=== PATIENT | male | born 1965 | race Caucasian/White ===

== ENCOUNTER 2019-07-08 13:16 | Inpatient (IN) | payer OTHER ==
[2019-07-08 18:11] VITALS: BMI 18.4
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
[2019-07-08] MEDS ORDERED: ACETAMINOPHEN 325 MG TABLET (FP) PO PRN ×2 (19:00)
[2019-07-08] MEDS ORDERED: MAGNESIUM HYDROX 2400MG/30ML ORAL SUSPENSION 30 ML CUP PO PRN (19:00)
[2019-07-08] MEDS ORDERED: NICOTINE POLACRILEX 2 MG GUM BUC PRN (19:00)
[2019-07-08] MEDS ORDERED: MAGNESIUM CITRATE 300 ML BOTTLE PO PRN (19:00)
[2019-07-08] MEDS ORDERED: hydrOXYzine PAMOATE 25 MG CAPSULE (FP) PO PRN (19:00)
[2019-07-08] MEDS ORDERED: MENTHOL/PHENOL 1 EACH UD MM PRN (19:00)
[2019-07-08] MEDS ORDERED: MAG HYDROX/AL HYDROX/SIMETH 30 ML UNIT-DOSE CUP PO PRN (19:00)
[2019-07-08] MEDS ORDERED: chlordiazePOXIDE HCL 25 MG CAPSULE PO PRN (19:02)
[2019-07-08] MEDS ORDERED: METHADONE HCL 10 MG TABLET (FOR DETOX USE ONLY) PO ONE (19:03)
[2019-07-08] MEDS ORDERED: WARFARIN NA 7.5 MG TABLET (FP) PO SCH (22:00)
[2019-07-08] MEDS: MELATONIN 5 MG TABLETS PO PRN (22:01)
[2019-07-08] MEDS: THIAMINE HCL 100 MG TABLET (FP) PO SCH (22:01)
[2019-07-08] MEDS: chlordiazePOXIDE HCL 25 MG CAPSULE PO SCH (22:01)
[2019-07-09] MEDS: chlordiazePOXIDE HCL 25 MG CAPSULE PO SCH ×4 (06:07→22:35)
[2019-07-09] MEDS ORDERED: METHADONE HCL 10 MG TABLET (FOR DETOX USE ONLY) ONE (09:46)
[2019-07-09] MEDS ORDERED: METHADONE HCL 5 MG TABLET (FOR DETOX USE ONLY) ONE (09:47)
[2019-07-09] MEDS ORDERED: METHADONE (DETOX) 20 MG, METHADONE (DETOX) 5 MG PO ONE (10:00)
[2019-07-09 10:25] LABS: ALBUMIN 3.5 g/dl (3.4-5.0); BILIRUBIN,TOTAL 0.6 mg/dL (0.2-1); CALCIUM 8.9 mg/dL (8.5-10.1); CREATININE 0.7 mg/dL (0.55-1.3); HEMATOCRIT 39.3 % (35.4-49); HEMOGLOBIN 13.5 GM/dL (11.7-16.9); MCH 32.6 pg (25.7-33.7); MCHC 34.4 g/dl (32.0-35.9); MEAN CELL VOLUME 94.7 fl (80-96); MEAN PLT VOLUME 9.2 fl (7.5-11.1); PLATELET COUNT 238 K/MM3 (134-434); POTASSIUM 4.3 mmol/L (3.5-5.1); RBC 4.15 M/mm3 (4.00-5.60); RDW 14.5 % (11.9-15.9); TOT PROT 6.5 g/dl (6.4-8.2); WHITE BLOOD COUNT 5.7 K/mm3 (4.0-10.0)
[2019-07-09] MEDS: PRENATAL VITAMINS W/ FOLIC ACID TABLET (FP) PO SCH (10:44)
[2019-07-09 10:49] LABS: INR 1.89 (0.83-1.09); PROTHROMBIN TIME (PATIENT) 22.4 SEC (9.7-13.0)
[2019-07-09 12:28] LABS: RPR REACTIVE 1:1 (NONREACTIVE)
--- NOTE | 2019-07-09 12:40 | CONSULT ---
[facility] Psychiatric Consult - Data Date of interview: 07/09/19 Admission source: [facility] Identifying data: Patient is approached at bedside for psychiatric evaluation. Declines. Nursing staff is made aware.
--- NOTE | 2019-07-09 13:54 | PN ---
[facility] CIWA - CIWA Score Nausea/Vomitin-No Nausea/No Vomiting Muscle Tremors: 3 Anxiety: 3 Agitation: 2 Paroxysmal Sweats: 3 Orientation: 0-Oriented Tacttile Disturbances: 2-Mild Itch/Numbness/Burn Auditory Disturbances: 0-None Visual Disturbances: 0-None Headache: 0-None Present CIWA-Ar Total Score: 13 [facility] COWS - Scale Resting Pulse: 1= [place] 81-100 Sweatin= Chills/Flushing Restless Observation: 1= Difficult to Sit Still Pupil Size: 0= Normal to Room Light Bone or Joint Aches: 1= Mild Discomfort Runny Nose/ Eye Tearin= None GI Upset > 30mins: 0= None Tremor Observation of Outstretched Hands: 2= Slight Tremor Visible Yawning Observation: 1= 1-2x During Session Anxiety or Irritability: 2=Irritable/Anxious Goose Flesh Skin: 3=Piloerection (and Chills.) COWS Score: 12 S Progress Note (SOAP) Subjective: Chills, Sweating, Anxious, Body Aches, Poor Appetite. Objective: PATIENT A & O X 3, OBSERVED AMBULATING ON UNIT UNASSISTED. IN NO ACUTE DISTRESS. 07/09/19 13:51 Vital Signs Temperature 98.2 F 07/09/19 13:34 Pulse Rate 87 07/09/19 13:34 Respiratory Rate 18 07/09/19 13:34 Blood Pressure 107/70 07/09/19 13:34 O2 Sat by Pulse Oximetry (%) Laboratory Tests 07/09/19 07/09/19 07/09/19 08:00 08:00 08:00 WBC 5.7 RBC 4.15 Hgb 13.5 Hct 39.3 MCV 94.7 MCH 32.6 MCHC 34.4 RDW 14.5 Plt Count 238 MPV 9.2 PT with INR INR Sodium 141 Potassium 4.3 Chloride 105 Carbon Dioxide 27 Anion Gap 9 BUN 22.0 H Creatinine 0.7 Est GFR (CKD-EPI)AfAm 124.87 Est GFR (CKD-EPI)NonAf 107.74 Random Glucose 91 Calcium 8.9 Total Bilirubin 0.6 AST 29 ALT 40 Alkaline Phosphatase 56 Total Protein 6.5 Albumin 3.5 RPR Titer Reactive 1:1 H 07/09/19 08:00 WBC RBC Hgb Hct MCV MCH MCHC RDW Plt Count MPV PT with INR 22.40 H INR 1.89 H Sodium Potassium Chloride Carbon Dioxide Anion Gap BUN Creatinine Est GFR (CKD-EPI)AfAm Est GFR (CKD-EPI)NonAf Random Glucose Calcium Total Bilirubin AST ALT Alkaline Phosphatase Total Protein Albumin RPR Titer LABS NOTED. RESULTS OF DETOX ADMISSION PT/INR NOTED. PATIENT TAKES COUMADIN, 8 MG PO DAILY FOR TREATMENT OF PREVIOUS DVT / PE. PATIENT REPORTS THAT HE HAS TAKEN 8 MG PO DAILY FOR LAST SEVERAL MONTHS NOW AND THAT HE CONSULTS AN OUTSIDE MEDICAL PROVIDER FOR EVALUATION OF THIS CONDITION/ MEDICATION ON A REGULAR MONTHLY BASIS. PATIENT ALSO REPORTS COMPLETE DAILY COMPLIANCE WITH THE MEDICATION. ADMISSION RPR RESULT NOTED: REACTIVE 1:1 (MHATP: PENDING). PATIENT REPORTS THAT HE COMPLETED A FULL COURSE OF TREATMENT FOR SYPHILIS IN THE PAST. 07/09/19 13:52 Assessment: 07/09/19 13:51 WITHDRAWAL SYMPTOMS. REACTIVE RPR. 07/09/19 13:56 Plan: CONTINUE DETOX. INCREASE DAILY PO WATER INTAKE. ENSURE PO FOR CALORIC SUPPLEMENTATION.
[2019-07-09 14:48] LABS: TREPONEMA ANTIBODY REACTIVE (NONREACTIVE)
[2019-07-09] MEDS ORDERED: WARFARIN NA 5 MG, WARFARIN NA 3 MG PO SCH (18:00)
[2019-07-09] MEDS: WARFARIN NA 5 MG, WARFARIN NA 3 MG PO SCH (18:00)
[2019-07-09] MEDS: THIAMINE HCL 100 MG TABLET (FP) PO SCH (22:35)
[2019-07-09] MEDS: MELATONIN 5 MG TABLETS PO PRN (22:35)
[2019-07-10] MEDS: chlordiazePOXIDE HCL 25 MG CAPSULE PO SCH ×4 (06:05→22:37)
[2019-07-10] MEDS ORDERED: METHADONE HCL 10 MG TABLET (FOR DETOX USE ONLY) PO ONE (10:00)
[2019-07-10] MEDS: PRENATAL VITAMINS W/ FOLIC ACID TABLET (FP) PO SCH (10:28)
[2019-07-10] MEDS: NICOTINE 14 MG/24 HOURS TOPICAL PATCH TD SCH (14:31)
--- NOTE | 2019-07-10 14:51 | PN ---
[facility] CIWA - CIWA Score Nausea/Vomitin-Mild Nausea/No Vomiting Muscle Tremors: 1-None Visible, but [place] Anxiety: 3 Agitation: 2 Paroxysmal Sweats: 2 Orientation: 0-Oriented Tacttile Disturbances: 1-Very Mild Itch/Numbness Auditory Disturbances: 0-None Visual Disturbances: 0-None Headache: 1-Very Mild CIWA-Ar Total Score: 11 S COWS - Scale Resting Pulse: 1= [place] 81-100 Sweatin= Chills/Flushing Restless Observation: 0= Sits Still Pupil Size: 0= Normal to Room Light Bone or Joint Aches: 1= Mild Discomfort Runny Nose/ Eye Tearin= Nasal Congestion GI Upset > 30mins: 2= Nausea/Diarrhea Tremor Observation of Outstretched Hands: 2= Slight Tremor Visible Yawning Observation: 1= 1-2x During Session Anxiety or Irritability: 2=Irritable/Anxious Goose Flesh Skin: 0=Smooth Skin COWS Score: 11 [facility] Progress Note (SOAP) Subjective: 54 years male 1st patient [facility] admission was admitted on 07/08/19 for alcohol and opiate withdrawal sx management doing well with librium and methadone detox regimen requests for nicotine replacement therapy low bmi continue ensure supplement Objective: 07/10/19 14:55 Vital Signs Temperature 99.3 F 07/10/19 09:58 Pulse Rate 82 07/10/19 09:58 Respiratory Rate 18 07/10/19 09:58 Blood Pressure 128/76 07/10/19 09:58 O2 Sat by Pulse Oximetry (%) Laboratory Last Values WBC 5.7 K/mm3 (4.0-10.0) 07/09/19 08:00 RBC 4.15 M/mm3 (4.00-5.60) 07/09/19 08:00 Hgb 13.5 GM/dL (11.7-16.9) 07/09/19 08:00 Hct 39.3 % (35.4-49) 07/09/19 08:00 MCV 94.7 fl (80-96) 07/09/19 08:00 MCH 32.6 pg (25.7-33.7) 07/09/19 08:00 MCHC 34.4 g/dl (32.0-35.9) 07/09/19 08:00 RDW 14.5 % (11.9-15.9) 07/09/19 08:00 Plt Count 238 K/MM3 (134-434) 07/09/19 08:00 MPV 9.2 fl (7.5-11.1) 07/09/19 08:00 PT with INR 22.40 SEC (9.7-13.0) H 07/09/19 08:00 INR 1.89 (0.83-1.09) H 07/09/19 08:00 Sodium 141 mmol/L (136-145) 07/09/19 08:00 Potassium 4.3 mmol/L (3.5-5.1) 07/09/19 08:00 Chloride 105 mmol/L (98-107) 07/09/19 08:00 Carbon Dioxide 27 mmol/L (21-32) 07/09/19 08:00 Anion Gap 9 MMOL/L (8-16) 07/09/19 08:00 BUN 22.0 mg/dL (7-18) H 07/09/19 08:00 Creatinine 0.7 mg/dL (0.55-1.3) 07/09/19 08:00 Est GFR (CKD-EPI)AfAm 124.87 07/09/19 08:00 Est GFR (CKD-EPI)NonAf 107.74 07/09/19 08:00 Random Glucose 91 mg/dL (74-106) 07/09/19 08:00 Calcium 8.9 mg/dL (8.5-10.1) 07/09/19 08:00 Total Bilirubin 0.6 mg/dL (0.2-1) 07/09/19 08:00 AST 29 U/L (15-37) 07/09/19 08:00 ALT 40 U/L (13-61) 07/09/19 08:00 Alkaline Phosphatase 56 U/L (45-117) 07/09/19 08:00 Total Protein 6.5 g/dl (6.4-8.2) 07/09/19 08:00 Albumin 3.5 g/dl (3.4-5.0) 07/09/19 08:00 RPR Titer Reactive 1:1 (NONREACTIVE) H 07/09/19 08:00 T.pallidum Ab (MHA) Reactive (NONREACTIVE) 07/09/19 08:00 lab noted 07/10/19 14:56 Assessment: 07/10/19 14:57 alcohol and opiate withdrawal sx Plan: continue librium and methadone detox regimen
[2019-07-10] MEDS: WARFARIN NA 5 MG, WARFARIN NA 3 MG PO SCH (18:22)
[2019-07-10] MEDS: THIAMINE HCL 100 MG TABLET (FP) PO SCH (22:38)
[2019-07-10] MEDS: MELATONIN 5 MG TABLETS PO PRN (22:39)
[2019-07-11] MEDS ORDERED: chlordiazePOXIDE HCL 10 MG CAPSULE PO PRN
[2019-07-11] MEDS: chlordiazePOXIDE HCL 10 MG CAPSULE PO SCH ×4 (07:39→22:06)
[2019-07-11] MEDS ORDERED: METHADONE (DETOX) 10 MG, METHADONE (DETOX) 5 MG PO ONE (10:00)
[2019-07-11] MEDS ORDERED: METHADONE HCL 10 MG TABLET (FOR DETOX USE ONLY) ONE (10:23)
[2019-07-11] MEDS ORDERED: METHADONE HCL 5 MG TABLET (FOR DETOX USE ONLY) ONE (10:24)
[2019-07-11] MEDS: NICOTINE 14 MG/24 HOURS TOPICAL PATCH TD SCH (10:43)
[2019-07-11] MEDS: PRENATAL VITAMINS W/ FOLIC ACID TABLET (FP) PO SCH (10:44)
--- NOTE | 2019-07-11 11:05 | PN ---
[facility] CIWA - CIWA Score Nausea/Vomitin-No Nausea/No Vomiting Muscle Tremors: 2 Anxiety: 3 Agitation: 2 Paroxysmal Sweats: 1-Minimal Palms Moist Orientation: 0-Oriented Tacttile Disturbances: 0-None Auditory Disturbances: 0-None Visual Disturbances: 0-None Headache: 0-None Present CIWA-Ar Total Score: 8 S COWS - Scale Resting Pulse: 0= [place] 80 or Below Sweatin= Chills/Flushing Restless Observation: 0= Sits Still Pupil Size: 0= Normal to Room Light Bone or Joint Aches: 1= Mild Discomfort Runny Nose/ Eye Tearin= Nasal Congestion GI Upset > 30mins: 1= Stomach Cramp Tremor Observation of Outstretched Hands: 2= Slight Tremor Visible Yawning Observation: 0= None Anxiety or Irritability: 2=Irritable/Anxious Goose Flesh Skin: 0=Smooth Skin COWS Score: 8 [facility] Progress Note (SOAP) Subjective: doing well with libirum and methadone detox regimen social with peers in day room ambulating on hallway hesitate to discuss aftercare with staff recommend medication assisted treatment program reluctant to discuss MAT further Objective: 07/11/19 11:04 Vital Signs Temperature 97.1 F L 07/11/19 09:36 Pulse Rate 78 07/11/19 09:36 Respiratory Rate 17 07/11/19 09:36 Blood Pressure 112/80 07/11/19 09:36 O2 Sat by Pulse Oximetry (%) Laboratory Last Values WBC 5.7 K/mm3 (4.0-10.0) 07/09/19 08:00 RBC 4.15 M/mm3 (4.00-5.60) 07/09/19 08:00 Hgb 13.5 GM/dL (11.7-16.9) 07/09/19 08:00 Hct 39.3 % (35.4-49) 07/09/19 08:00 MCV 94.7 fl (80-96) 07/09/19 08:00 MCH 32.6 pg (25.7-33.7) 07/09/19 08:00 MCHC 34.4 g/dl (32.0-35.9) 07/09/19 08:00 RDW 14.5 % (11.9-15.9) 07/09/19 08:00 Plt Count 238 K/MM3 (134-434) 07/09/19 08:00 MPV 9.2 fl (7.5-11.1) 07/09/19 08:00 PT with INR 22.40 SEC (9.7-13.0) H 07/09/19 08:00 INR 1.89 (0.83-1.09) H 07/09/19 08:00 Sodium 141 mmol/L (136-145) 07/09/19 08:00 Potassium 4.3 mmol/L (3.5-5.1) 07/09/19 08:00 Chloride 105 mmol/L (98-107) 07/09/19 08:00 Carbon Dioxide 27 mmol/L (21-32) 07/09/19 08:00 Anion Gap 9 MMOL/L (8-16) 07/09/19 08:00 BUN 22.0 mg/dL (7-18) H 07/09/19 08:00 Creatinine 0.7 mg/dL (0.55-1.3) 07/09/19 08:00 Est GFR (CKD-EPI)AfAm 124.87 07/09/19 08:00 Est GFR (CKD-EPI)NonAf 107.74 07/09/19 08:00 Random Glucose 91 mg/dL (74-106) 07/09/19 08:00 Calcium 8.9 mg/dL (8.5-10.1) 07/09/19 08:00 Total Bilirubin 0.6 mg/dL (0.2-1) 07/09/19 08:00 AST 29 U/L (15-37) 07/09/19 08:00 ALT 40 U/L (13-61) 07/09/19 08:00 Alkaline Phosphatase 56 U/L (45-117) 07/09/19 08:00 Total Protein 6.5 g/dl (6.4-8.2) 07/09/19 08:00 Albumin 3.5 g/dl (3.4-5.0) 07/09/19 08:00 RPR Titer Reactive 1:1 (NONREACTIVE) H 07/09/19 08:00 T.pallidum Ab (MHA) Reactive (NONREACTIVE) 07/09/19 08:00 lab noted long history of positive RPR had "whole treatment" asymptomatic Assessment: 07/11/19 11:05 alcohol and opiate withdrawal sx Plan: continue librium detox regimen
--- NOTE | 2019-07-11 15:01 | CONSULT ---
[facility] Psychiatric Consult - Data Date of interview: 07/11/19 Admission source: [facility] Identifying data: First admission to [facility] for this 54 y/o male self-referred for detoxification (heroin, cannabis, alcohol). Examined at [address] [place] [address]. Patient is a common-law , father of three, domiciled, unemployed and supported on welfare. Substance Abuse History: Discussed with the patient. Details are concordant with current [facility] report as follows : Smoking history: Current every day smoker. Have you smoked in the past 12 months: Yes. Hx Chewing Tobacco Use: No. Initiated information on smoking cessation: No. - Substances abused. Heroin. Substance route: Inhalation. Frequency: Daily. Amount used: 1 bundle and a half. Age of first use: 49. Date of last use: 07/08/19. Alcohol. Substance route: Oral. Frequency: Daily. Amount used: half a gallon of vodka/ whiskey/2 of 6 packs of beer. Age of first use: 22. Date of last use: 07/08/19 Medical History: Remarkable for DVT's of both lower extremities (on warfarin), gastric ulcer and history of pulmonary embolism. Psychiatric History: Patient denies history of psychiatric hospitalizations. Mr Foley reports current outpatient psychiatric follow-up by Dr Almanza at a clinic in the [place] ([facility]). Diagnosed with Anxiety Disorder + MDD. Managed with seroquel 200 mg/am + 400 mg/hs (self-report). No reported history of suicide attempts. Physical/Sexual Abuse/Trauma History: Patient denies. Additional Comment: Urine drug screen results: THC-Marijuana, FEN-Fentanyl, MOP- Opiates. Noted. Mental Status Exam - Mental Status Exam Alert and Oriented to: Time, Place, Person Cognitive Function: Good Patient Appearance: Well Groomed Mood: Withdrawn, Apprehensive, Hopeful Affect: Appropriate, Mood Congruent, Normal Range Patient Behavior: Fatigued, Cooperative Speech Pattern: Clear, Appropriate Voice Loudness: Normal Thought Process: Intact, Goal Oriented Thought Disorder: Not Present Hallucinations: Denies Suicidal Ideation: Denies Homicidal Ideation: Denies Insight/Judgement: Poor Sleep: Poorly, Difficulty falling asleep Appetite: Good Muscle strength/Tone: Normal Gait/Station: Normal Psychiatric Findings - Problem List ([place] 1, 2,3) (1) Alcohol dependence Current Visit: Yes Status: Chronic Qualifiers: Substance use status: in withdrawal (2) Opioid dependence Current Visit: Yes Status: Chronic Qualifiers: Substance use status: in withdrawal Qualified Code(s): F11.23 - Opioid dependence with withdrawal (3) Nicotine dependence Current Visit: Yes Status: Chronic Qualifiers: Nicotine product type: cigarettes (4) Substance induced mood disorder Current Visit: Yes Status: Chronic (5) History of mood disorder Current Visit: Yes Status: Chronic (6) Insomnia Current Visit: Yes Status: Chronic - Initial Treatment Plan Initial Treatment Plan: Psychoeducation. Sleep hygiene. Support. Detoxification. Resumed seroquel 200 mg po hs (reduced). Side effects/benefiits discussed with patient. Mr Foley expresses agreement with this plan of care. Gave verbal consent to MD. Mayorga.
[2019-07-11] MEDS: WARFARIN NA 5 MG, WARFARIN NA 3 MG PO SCH (17:31)
[2019-07-11] MEDS ORDERED: QUEtiapine FUMARATE 200 MG TABLET PO SCH (22:00)
[2019-07-11] MEDS: THIAMINE HCL 100 MG TABLET (FP) PO SCH (22:05)
[2019-07-11] MEDS: MELATONIN 5 MG TABLETS PO PRN (22:06)
[2019-07-12] MEDS ORDERED: chlordiazePOXIDE HCL 10 MG CAPSULE PO SCH (05:00)
[2019-07-12] MEDS: NICOTINE 14 MG/24 HOURS TOPICAL PATCH TD SCH (09:41)
[2019-07-12] MEDS: PRENATAL VITAMINS W/ FOLIC ACID TABLET (FP) PO SCH (09:41)
[2019-07-12 09:58] VITALS: BP 103/61; PULSE 77; TEMP 96.2
[2019-07-12] MEDS ORDERED: METHADONE HCL 10 MG TABLET (FOR DETOX USE ONLY) PO ONE (10:00)
--- NOTE | 2019-07-12 10:06 | DS ---
[facility] Detox Discharge Summary Admission Date: 07/08/19 Discharge Date: 07/12/19 - History Present History: Alcohol Dependence, Opioid Dependence Additional Comments: 54 years old male admitted on 07/08/19 for alcohol and opiate withdrawal sx management did well with librium and methadone detox regimen no complication through out the detox stay seen by psychiatrist treated with seroquel tolerate well patient is alert oriented x 3 no wheezing no coughing no nausea no vomiting denies dizziness abdomen soft no rebound tenderness patient is worry about his prefers leave detox one day early extremities full range of motion skin warm and dry - Physical Exam Results Vital Signs: Vital Signs Temperature 96.2 F L 07/12/19 09:57 Pulse Rate 77 07/12/19 09:57 Respiratory Rate 18 07/12/19 09:57 Blood Pressure 103/61 07/12/19 09:57 O2 Sat by Pulse Oximetry (%) Pertinent Admission Physical Exam Findings: alcohol and opiate withdrawal sx Laboratory Last Values WBC 5.7 K/mm3 (4.0-10.0) 07/09/19 08:00 RBC 4.15 M/mm3 (4.00-5.60) 07/09/19 08:00 Hgb 13.5 GM/dL (11.7-16.9) 07/09/19 08:00 Hct 39.3 % (35.4-49) 07/09/19 08:00 MCV 94.7 fl (80-96) 07/09/19 08:00 MCH 32.6 pg (25.7-33.7) 07/09/19 08:00 MCHC 34.4 g/dl (32.0-35.9) 07/09/19 08:00 RDW 14.5 % (11.9-15.9) 07/09/19 08:00 Plt Count 238 K/MM3 (134-434) 07/09/19 08:00 MPV 9.2 fl (7.5-11.1) 07/09/19 08:00 PT with INR 19.60 SEC (9.7-13.0) H 07/12/19 08:00 INR 1.65 (0.83-1.09) H 07/12/19 08:00 Sodium 141 mmol/L (136-145) 07/09/19 08:00 Potassium 4.3 mmol/L (3.5-5.1) 07/09/19 08:00 Chloride 105 mmol/L (98-107) 07/09/19 08:00 Carbon Dioxide 27 mmol/L (21-32) 07/09/19 08:00 Anion Gap 9 MMOL/L (8-16) 07/09/19 08:00 BUN 22.0 mg/dL (7-18) H 07/09/19 08:00 Creatinine 0.7 mg/dL (0.55-1.3) 07/09/19 08:00 Est GFR (CKD-EPI)AfAm 124.87 07/09/19 08:00 Est GFR (CKD-EPI)NonAf 107.74 07/09/19 08:00 Random Glucose 91 mg/dL (74-106) 07/09/19 08:00 Calcium 8.9 mg/dL (8.5-10.1) 07/09/19 08:00 Total Bilirubin 0.6 mg/dL (0.2-1) 07/09/19 08:00 AST 29 U/L (15-37) 07/09/19 08:00 ALT 40 U/L (13-61) 07/09/19 08:00 Alkaline Phosphatase 56 U/L (45-117) 07/09/19 08:00 Total Protein 6.5 g/dl (6.4-8.2) 07/09/19 08:00 Albumin 3.5 g/dl (3.4-5.0) 07/09/19 08:00 RPR Titer Reactive 1:1 (NONREACTIVE) H 07/09/19 08:00 T.pallidum Ab (MHA) Reactive (NONREACTIVE) 07/09/19 08:00 lab noted history of syphilis treated - Treatment Hospital Course: Detox Protocol Followed, Detoxed Safely, Responded well, Discharged Condition Good, Rehab Referral Accepted Patient has Accepted a Rehab Referral to: new direction - Medication Discharge Medications: Ambulatory Orders Quetiapine Fumarate [Seroquel] 200 tab PO DAILY 07/08/19 Quetiapine Fumarate [Seroquel] 400 mg PO HS 07/08/19 Warfarin Sodium 8 mg PO HS 07/08/19 - AMA Did Patient Leave Against Medical Advice: No CIWA Score - CIWA Score Nausea/Vomitin-No Nausea/No Vomiting Muscle Tremors: 1-None Visible, but [place] Anxiety: 2 Agitation: 2 Paroxysmal Sweats: No Perspiration Orientation: 0-Oriented Tacttile Disturbances: 0-None Auditory Disturbances: 0-None Visual Disturbances: 0-None Headache: 0-None Present CIWA-Ar Total Score: 5 COWS (PN) - Opiate Withdrawal Resting Pulse: 0= [place] 80 or Below Sweatin= Chills/Flushing Restless Observation: 0= Sits Still Pupil Size: 0= Normal to Room Light Bone or Joint Aches: 4=Acute Joint/Muscle Pain Runny Nose/ Eye Tearin= None GI Upset > 30mins: 0= None Tremor Observation of Outstretched Hands: 0= None Yawning Observation: 0= None Anxiety or Irritability: 0= None Goose Flesh Skin: 0=Smooth Skin COWS Score: 5
[2019-07-12 10:15] LABS: INR 1.65 (0.83-1.09); PROTHROMBIN TIME (PATIENT) 19.6 SEC (9.7-13.0)
[2019-07-13] MEDS ORDERED: chlordiazePOXIDE HCL 10 MG CAPSULE PO ONE (05:00)
[2019-07-13] MEDS ORDERED: METHADONE HCL 5 MG TABLET (FOR DETOX USE ONLY) PO ONE (06:00)
== END 2019-07-12 11:20 | disposition home or self-care (01) | DRG 773 ==
LOC: YASAS 13:16 → Y3N 19:23
PROVIDERS: ADMIT Surgery; ATTEND Surgery
PROC: HZ2ZZZZ Detoxification Services for Substance Abuse Treatment (ICD-10-PCS; principal; 2019-07-08)
DX: F11.23 Opioid dependence with withdrawal (principal); F10.230 Alcohol dependence with withdrawal, uncomplicated; F17.210 Nicotine dependence, cigarettes, uncomplicated; F19.24 Other psychoactive substance dependence with psychoactive substance-induced mood disorder; F39 Unspecified mood [affective] disorder; R76.11 Nonspecific reaction to tuberculin skin test without active tuberculosis; G47.00 Insomnia, unspecified; Z86.711 Personal history of pulmonary embolism; Z86.718 Personal history of other venous thrombosis and embolism; Z79.01 Long term (current) use of anticoagulants; Z86.19 Personal history of other infectious and parasitic diseases
CPT/HCPCS: 36415; 80053; 85027; 85610; 86593; 86780

== ENCOUNTER 2019-07-20 11:48 | Inpatient (IN) | payer OTHER ==
[2019-07-20 12:12] VITALS: BMI 19.0
--- NOTE | 2019-07-20 13:27 | HP ---
COWS - Scale Resting Pulse: 1= [place] 81-100 Sweatin= Chills/Flushing Restless Observation: 3= Extraneous Movement Pupil Size: 1= Pupils >than Normal Bone or Joint Aches: 1= Mild Discomfort Runny Nose/ Eye Tearin= Runny Nose/Eyes GI Upset > 30mins: 2= Nausea/Diarrhea Tremor Observation: 1= Tremor Twining, Not Seen Yawning Observation: 1= 1-2x During Session Anxiety or Irritability: 1=Feels Anxious/Irritable Goose Flesh Skin: 3=Piloerection COWS Score: 17 CIWA Score Nausea/Vomitin-Mild Nausea/No Vomiting Muscle Tremors: 3 Anxiety: 2 Agitation: 2 Paroxysmal Sweats: 2 Orientation: 0-Oriented Tacttile Disturbances: 0-None Auditory Disturbances: 0-None Visual Disturbances: 0-None Headache: 2-Mild CIWA-Ar Total Score: 12 - Admission Criteria [facility]ASAS Guidelines: Admission for Medically Managed Detox: Requires at least one of the followin. CIWA greater than 12 2. Seizures within the past 24 hours 3. Delirium tremens within the past 24 hours 4. Hallucinations within the past 24 hours 5. Acute intervention needed for co occurring medical disorder 6. Acute intervention needed for co occurring psychiatric disorder 7. Severe withdrawal that cannot be handled at a lower level of care (continued vomiting, continued diarrhea, abnormal vital signs) requiring intravenous medication and/or fluids 8. Admission [facility] Chief Complaint: heroin and alcohol detox Allergies/Adverse Reactions: Allergies Allergy/AdvReac Type Severity Reaction Status Date / Time No Known Allergies Allergy Verified 07/20/19 12:04 History of Present Illness: 54 yo with heroin use and alcohol use, last here about 10 days ago, left after completing detox. Relapsed within 24 hours. h/o DVT's - no etiology, uses coumadin 7.5mg. PCP- Roger Vanessa at [facility] heroin- 1 1/2 bundles/day IH, no OD, has narcan kit alcohol- 1/2 gallon every day of vodka, h/o seizures in the past, no DT's Says he does not want to go to methadone or suboxone MAT. Says he will attend NA /AA meetings. Explained at length about the risk of overdose DUR shows suboxone 04/2019- states he does not like Utox- THC, opioids, BZO, MTD - Ebola screening Have you traveled outside of the country in the last 21 days: No Have you had contact with anyone from an Ebola affected area: No Do you have a fever: No - Review of Systems Constitutional: Unintentional Wgt. Loss EENT: reports: No Symptoms Reported Respiratory: reports: No Symptoms reported Cardiac: reports: No Symptoms Reported GI: reports: Poor Appetite : reports: No Symptoms Reported Musculoskeletal: reports: No Symptoms Reported Integumentary: reports: No Symptoms Reported Neuro: reports: No Symptoms reported Endocrine: reports: No Symptoms Reported Hematology: reports: No Symptoms Reported Psychiatric: reports: No Sypmtoms Reported Other Systems: Reviewed and Negative Patient History - Patient Medical History Hx Asthma: No Hx Chronic Obstructive Pulmonary Disease (COPD): No Hx Cardiac Disorders: No Hx Hypertension: No Hx Seizures: No Hx Diabetes: No Hx Gastrointestinal Disorders: No Hx Genitourinary Disorders: No Hx Sexually Transmitted Disorders: No Hx Renal Disease (ESRD): No Hx Depression: No Hx Suicide Attempt: No Hx Schizophrenia: No Other Medical History: DVT of unclear etiology - Patient Surgical History Past Surgical History: No Hx Neurologic Surgery: No Hx Cataract Extraction: No Hx Cardiac Surgery: No Hx Lung Surgery: No Hx Breast Surgery: No Hx Breast Biopsy: No Hx Abdominal Surgery: No Hx Appendectomy: No Hx Cholecystectomy: No Hx Genitourinary Surgery: No Hx Section: No Hx Orthopedic Surgery: No Anesthesia Reaction: No - PPD History PPD to be Administered?: Yes - Smoking Cessation Smoking history: Current every day smoker Have you smoked in the past 12 months: Yes Aproximately how many cigarettes per day: 10 Hx Chewing Tobacco Use: No Initiated information on smoking cessation: Yes 'Breaking Loose' booklet given: 07/20/19 - Substances abused Heroin Substance route: Inhalation Frequency: Daily Amount used: 15 bags Age of first use: 49 Date of last use: 07/20/19 Alcohol Substance route: Oral Frequency: Daily Amount used: half a gallon of vodka & (3) 6 packs of beer Age of first use: 22 Date of last use: 07/20/19 Family Disease History - Family Disease History Family Disease History: Diabetes: Mother, Brother (1 brother w / asthma , 1 brother w/ DVT LE ), Heart Disease: Father (d. [place] 69 ) Admission Physical Exam [facility] - Vital Signs Vital Signs: Vital Signs - 24 hr 07/20/19 12:03 Temperature 98.2 F Pulse Rate 73 Respiratory 20 Rate Blood Pressure 120/76 - Physical General Appearance: Yes: Cachetic, Thin HEENTM: Yes: Within Normal Limits Respiratory: Yes: Within Normal Limits, Lungs Clear Neck: Yes: Within Normal Limits Cardiology: Yes: Within Normal Limits Abdominal: Yes: Within Normal Limits Genitourinary: Yes: Within Normal Limits Back: Yes: Within Normal Limits Musculoskeletal: Yes: Within Normal Limits Extremities: Yes: Other (thin) Neurological: Yes: Other Integumentary: Yes: Within Normal Limits Lymphatic: Yes: Within Normal Limits - Diagnostic (1) Positive RPR test Current Visit: No Status: Acute (2) Alcohol dependence Current Visit: No Status: Chronic Qualifiers: Substance use status: in withdrawal (3) History of mood disorder Current Visit: No Status: Chronic (4) Insomnia Current Visit: No Status: Chronic (5) Nicotine dependence Current Visit: No Status: Chronic Qualifiers: Nicotine product type: cigarettes (6) Opioid dependence Current Visit: No Status: Chronic Qualifiers: Substance use status: in withdrawal Qualified Code(s): F11.23 - Opioid dependence with withdrawal (7) Substance induced mood disorder Current Visit: No Status: Chronic Cleared for Admission [facility] - Detox or Rehab [facility] Level of Care: Medically Managed Breathalyzer - Breathalyzer Breathalyzer: 0 Urine Drug Screen - Test Device Lot number: [id number] Expiration date: 04/01/21 - Control Is test valid?: Yes - Results Drug screen NEGATIVE: Yes Urine drug screen results: THC-Marijuana, FEN-Fentanyl, MOP-Opiates, OXY- Oxycodone, MTD-Methadone, BZO-Benzodiazepines Inpatient Rehab Admission - Rehab Decision to Admit Inpatient rehab admission?: No
[2019-07-20] MEDS ORDERED: MAG HYDROX/AL HYDROX/SIMETH 30 ML UNIT-DOSE CUP PO PRN (13:31)
[2019-07-20] MEDS ORDERED: hydrOXYzine PAMOATE 25 MG CAPSULE (FP) PO PRN (13:31)
[2019-07-20] MEDS ORDERED: MENTHOL/PHENOL 1 EACH UD MM PRN (13:31)
[2019-07-20] MEDS ORDERED: QUEtiapine FUMARATE 100 MG TABLET (FP) PO PRN (13:31)
[2019-07-20] MEDS ORDERED: BISMUTH SUBSALICYLATE 524 MG/30 ML UD PO PRN (13:31)
[2019-07-20] MEDS ORDERED: NICOTINE POLACRILEX 2 MG GUM BUC PRN (13:31)
[2019-07-20] MEDS ORDERED: IBUPROFEN 400 MG TABLET (FP) PO PRN (13:31)
[2019-07-20] MEDS ORDERED: cloNIDine HCL 0.1 MG TABLET PO PRN (13:31)
[2019-07-20] MEDS ORDERED: MAGNESIUM HYDROX 2400MG/30ML ORAL SUSPENSION 30 ML CUP PO PRN (13:31)
[2019-07-20] MEDS ORDERED: ACETAMINOPHEN 325 MG TABLET (FP) PO PRN (13:31)
[2019-07-20] MEDS ORDERED: ONDANSETRON *ODT* 4 MG TABLET SL PRN (13:31)
[2019-07-20] MEDS ORDERED: MAGNESIUM CITRATE 300 ML BOTTLE PO PRN (13:31)
[2019-07-20] MEDS ORDERED: METHOCARBAMOL 500 MG TABLET PO PRN (13:31)
[2019-07-20] MEDS ORDERED: METHADONE HCL 10 MG TABLET (FOR DETOX USE ONLY) PO ONE (14:15)
[2019-07-20] MEDS: chlordiazePOXIDE HCL 10 MG CAPSULE PO PRN (14:45)
[2019-07-20 17:15] LABS: ALBUMIN 3.6 g/dl (3.4-5.0); BILIRUBIN,TOTAL 0.4 mg/dL (0.2-1); BLOOD UREA NITROGEN 14.5 mg/dL (7-18); CALCIUM 9.4 mg/dL (8.5-10.1); CREATININE 0.9 mg/dL (0.55-1.3); POTASSIUM 4.5 mmol/L (3.5-5.1); TOT PROT 6.8 g/dl (6.4-8.2)
[2019-07-20 17:22] LABS: HEMOGLOBIN 13.7 GM/dL (11.7-16.9); MCHC 33.4 g/dl (32.0-35.9); MEAN CELL VOLUME 95.9 fl (80-96); MEAN PLT VOLUME 9.6 fl (7.5-11.1); PLATELET COUNT 235 K/MM3 (134-434); RBC 4.28 M/mm3 (4.00-5.60); RDW 14.3 % (11.9-15.9); WHITE BLOOD COUNT 5.9 K/mm3 (4.0-10.0)
[2019-07-20] MEDS ORDERED: WARFARIN NA 7.5 MG TABLET (FP) PO SCH (18:00)
--- NOTE | 2019-07-20 18:52 | PN ---
S Progress Note Note: Patient state takes coumadin 8 mg PO every evening. States takes a 7.5 mg tab and half a 1 mg tab. States last INR was a "3" last week. Plan: Order INR for am Start 8 mg coumadin on 07/21. (4mg x 2)
[2019-07-20] MEDS ORDERED: QUEtiapine FUMARATE 400 MG TABLET PO SCH (22:00)
[2019-07-20] MEDS: chlordiazePOXIDE HCL 25 MG CAPSULE PO SCH (22:54)
[2019-07-20] MEDS: THIAMINE HCL 100 MG TABLET (FP) PO SCH (22:54)
[2019-07-20] MEDS: MELATONIN 5 MG TABLETS PO PRN (22:55)
[2019-07-21] MEDS: chlordiazePOXIDE HCL 25 MG CAPSULE PO SCH ×3 (06:33→22:35)
[2019-07-21] MEDS ORDERED: METHADONE HCL 10 MG TABLET (FOR DETOX USE ONLY) ONE (09:52)
[2019-07-21] MEDS ORDERED: METHADONE HCL 5 MG TABLET (FOR DETOX USE ONLY) ONE (09:52)
[2019-07-21] MEDS ORDERED: QUEtiapine FUMARATE 100 MG TABLET (FP) PO SCH (10:00)
[2019-07-21] MEDS ORDERED: QUEtiapine FUMARATE 200 MG TABLET PO SCH ×2 (10:00→22:00)
[2019-07-21] MEDS ORDERED: METHADONE (DETOX) 20 MG, METHADONE (DETOX) 5 MG PO ONE (10:00)
[2019-07-21] MEDS: NICOTINE 14 MG/24 HOURS TOPICAL PATCH TD SCH (10:20)
[2019-07-21] MEDS: PRENATAL VITAMINS W/ FOLIC ACID TABLET (FP) PO SCH (10:20)
[2019-07-21 12:35] LABS: INR 3.33 (0.83-1.09); PROTHROMBIN TIME (PATIENT) 39.8 SEC (9.7-13.0)
--- NOTE | 2019-07-21 14:07 | CONSULT ---
[facility] Psychiatric Consult - Data Date of interview: 07/21/19 Admission source: [facility] Identifying data: Patient is a 54 year old single male, father of three , unemployed, domiciled, and is financially supported by girlfriend. This is patient's first admission to rehab at [facility]. Patient admitted to for alcohol and opiate dependence. Substance Abuse History: Smoking Cessation. Smoking history: Current every day smoker. Have you smoked in the past 12 months: Yes. Aproximately how many cigarettes per day: 10. Hx Chewing Tobacco Use: No. Initiated information on smoking cessation: Yes. 'Breaking Loose' booklet given: 07/20/19. - Substances abused. Heroin. Substance route: Inhalation. Frequency: Daily. Amount used: 15 bags. Age of first use: 49. Date of last use: 07/20/19. Alcohol. Substance route: Oral. Frequency: Daily. Amount used: half a gallon of vodka & (3) 6 packs of beer. Age of first use: 22. Date of last use: Medical History: Remarkable for DVT's of both lower extremities (on warfarin), gastric ulcer and history of pulmonary embolism. Psychiatric History: Patient denies history of psychiatric hospitalizations and suicide attempts. Mr. Foley states that he is receiving outpatient psychiatric care at a clinic in the [place] (affiliated with [facility]) by Dr. Almanza and claims to be prescribed seroquel 200mg daily + 400mg HS. Diagosis of MDD and anxiety disorder. Reports taking his medications two days ago. Patient seen by Dr. Bowman on 07/11/19 and was ordered seroquel 200mg HS. Patient denies auditory/visual hallucinations, suicidal/homicidal ideation. Physical/Sexual Abuse/Trauma History: denies. Mental Status Exam - Mental Status Exam Alert and Oriented to: Time, Place, Person Cognitive Function: Good Patient Appearance: Well Groomed Mood: Withdrawn Affect: Mood Congruent Patient Behavior: Cooperative Speech Pattern: Appropriate Voice Loudness: Normal Thought Process: Goal Oriented Thought Disorder: Not Present Hallucinations: Denies Suicidal Ideation: Denies Homicidal Ideation: Denies Insight/Judgement: Poor Sleep: Poorly Appetite: Fair Muscle strength/Tone: Normal Gait/Station: Normal Psychiatric Findings - Problem List ([place] 1, 2,3) (1) Alcohol dependence Current Visit: Yes Status: Chronic Qualifiers: Substance use status: in withdrawal (2) History of mood disorder Current Visit: Yes Status: Chronic (3) Nicotine dependence Current Visit: Yes Status: Chronic Qualifiers: Nicotine product type: cigarettes (4) Opioid dependence Current Visit: Yes Status: Chronic Qualifiers: Substance use status: in withdrawal Qualified Code(s): F11.23 - Opioid dependence with withdrawal (5) Substance induced mood disorder Current Visit: Yes Status: Acute - Initial Treatment Plan Initial Treatment Plan: Psychoeducation provided. Detoxification in progress. Will order Seroquel 300mg HS. Patient was ordered seroquel 200mg daily + Seroquel 400mg HS by admitting physician on 07/20/19. Patient appeared lethargic upon approach and during assessment. Seroquel morning dose will not be ordered and evening dose will be reduced. Benefits and side effects discussed. Verbal consent given.
--- NOTE | 2019-07-21 14:42 | PN ---
[facility] CIWA - CIWA Score Nausea/Vomitin-No Nausea/No Vomiting Muscle Tremors: 3 Anxiety: 3 Agitation: 4-Moderately Restless Paroxysmal Sweats: 3 Orientation: 0-Oriented Tacttile Disturbances: 0-None Auditory Disturbances: 0-None Visual Disturbances: 0-None Headache: 0-None Present CIWA-Ar Total Score: 13 S COWS - Scale Resting Pulse: 0= [place] 80 or Below Sweatin= Chills/Flushing Restless Observation: 1= Difficult to Sit Still Pupil Size: 0= Normal to Room Light Bone or Joint Aches: 2= Severe Diffuse Aches Runny Nose/ Eye Tearin= Nasal Congestion GI Upset > 30mins: 0= None Tremor Observation of Outstretched Hands: 1= Tremor [place], Not Seen Yawning Observation: 1= 1-2x During Session Anxiety or Irritability: 1=Feels Anxious/Irritable Goose Flesh Skin: 3=Piloerection COWS Score: 11 [facility] Progress Note (SOAP) Subjective: irritable agitation sweats shakes interrupted sleep body aches Objective: 07/21/19 14:41 Vital Signs Temperature 98.1 F 07/21/19 13:57 Pulse Rate 71 07/21/19 13:57 Respiratory Rate 18 07/21/19 13:57 Blood Pressure 90/59 L 07/21/19 13:57 O2 Sat by Pulse Oximetry (%) Laboratory Tests 07/20/19 07/20/19 07/21/19 14:10 14:10 07:50 WBC 5.9 RBC 4.28 Hgb 13.7 Hct 41.0 MCV 95.9 MCH 32.0 MCHC 33.4 RDW 14.3 Plt Count 235 MPV 9.6 PT with INR 39.80 H INR 3.33 H Sodium 138 Potassium 4.5 Chloride 102 Carbon Dioxide 33 H Anion Gap 3 L BUN 14.5 Creatinine 0.9 Est GFR (CKD-EPI)AfAm 112.62 Est GFR (CKD-EPI)NonAf 97.17 Random Glucose 83 Calcium 9.4 Total Bilirubin 0.4 AST 28 ALT 41 Alkaline Phosphatase 62 Total Protein 6.8 Albumin 3.6 labs noted elevated PT and INR hold coumadin for tonight repeat labs resume coumadin for tomorrow night aaox3 lying in bed no acute distress Assessment: 07/21/19 14:41 withdrawals Plan: continue detox increase fluids hold coumadin for tonight repeat labs
[2019-07-21] MEDS: chlordiazePOXIDE HCL 10 MG CAPSULE PO PRN (19:47)
[2019-07-21] MEDS: THIAMINE HCL 100 MG TABLET (FP) PO SCH (22:34)
[2019-07-21] MEDS: QUEtiapine FUMARATE 300 MG TABLET PO SCH (22:35)
[2019-07-21] MEDS: MELATONIN 5 MG TABLETS PO PRN (22:36)
[2019-07-22] MEDS: chlordiazePOXIDE 5 MG CAPSULE PO SCH ×3 (07:04→22:25)
[2019-07-22] MEDS: NICOTINE 14 MG/24 HOURS TOPICAL PATCH TD SCH (09:27)
[2019-07-22] MEDS: PRENATAL VITAMINS W/ FOLIC ACID TABLET (FP) PO SCH (09:27)
[2019-07-22] MEDS: chlordiazePOXIDE HCL 10 MG CAPSULE PO PRN ×2 (09:32→18:00)
--- NOTE | 2019-07-22 09:52 | PN ---
[facility] CIWA - CIWA Score Nausea/Vomitin-No Nausea/No Vomiting Muscle Tremors: 3 Anxiety: 3 Agitation: 2 Paroxysmal Sweats: 2 Orientation: 0-Oriented Tacttile Disturbances: 0-None Auditory Disturbances: 0-None Visual Disturbances: 0-None Headache: 0-None Present CIWA-Ar Total Score: 10 S COWS - Scale Resting Pulse: 0= [place] 80 or Below Sweatin= Chills/Flushing Restless Observation: 1= Difficult to Sit Still Pupil Size: 0= Normal to Room Light Bone or Joint Aches: 1= Mild Discomfort Runny Nose/ Eye Tearin= None GI Upset > 30mins: 0= None Tremor Observation of Outstretched Hands: 1= Tremor [place], Not Seen Yawning Observation: 0= None Anxiety or Irritability: 2=Irritable/Anxious Goose Flesh Skin: 0=Smooth Skin COWS Score: 6 S Progress Note (SOAP) Subjective: anxiety sweats interrupted sleep feeling much better Objective: 07/22/19 09:48 Vital Signs Temperature 97.7 F 07/22/19 07:52 Pulse Rate 67 07/22/19 07:52 Respiratory Rate 18 07/22/19 07:52 Blood Pressure 90/60 07/22/19 07:52 O2 Sat by Pulse Oximetry (%) Laboratory Tests 07/20/19 07/20/19 07/21/19 14:10 14:10 07:50 WBC 5.9 RBC 4.28 Hgb 13.7 Hct 41.0 MCV 95.9 MCH 32.0 MCHC 33.4 RDW 14.3 Plt Count 235 MPV 9.6 PT with INR 39.80 H INR 3.33 H Sodium 138 Potassium 4.5 Chloride 102 Carbon Dioxide 33 H Anion Gap 3 L BUN 14.5 Creatinine 0.9 Est GFR (CKD-EPI)AfAm 112.62 Est GFR (CKD-EPI)NonAf 97.17 Random Glucose 83 Calcium 9.4 Total Bilirubin 0.4 AST 28 ALT 41 Alkaline Phosphatase 62 Total Protein 6.8 Albumin 3.6 labs noted pending repeated PT/INR will resume coumadin if repeated labs are WNL. aaox3 ambulating no acute distress Assessment: 07/22/19 09:51 withdrawals Plan: continue detox increase fluids f/u pending PT/INR result
[2019-07-22] MEDS ORDERED: METHADONE HCL 10 MG TABLET (FOR DETOX USE ONLY) PO ONE (10:00)
[2019-07-22 10:42] LABS: INR 2.37 (0.83-1.09); PROTHROMBIN TIME (PATIENT) 28.2 SEC (9.7-13.0)
[2019-07-22] MEDS: WARFARIN NA 2 MG TABLET (UD) PO SCH (18:34)
[2019-07-22] MEDS: ACETAMINOPHEN 325 MG TABLET (FP) PO PRN (20:19)
[2019-07-22] MEDS ORDERED: PANTOPRAZOLE 20 MG TABLET (FP) PO ONE (21:08)
--- NOTE | 2019-07-22 21:08 | PN ---
[facility] Progress Note Note: c/o mid-chest, non-radiating pain earlier. Pain alternates between burning sensation and sharp. States started while laying down. States hx esophageal ulcer disease an DVT. Denies: SOB/cough Denies N/V/Abd pain/bloody or tarry stools. Denies calf pain/tenderness. No pedal edema, calf erythema or tenderness. Pedal pulses +. Negative Sowmya's STAT EKG - shows NSR/Normal EKG Vital Signs - 24 hr 07/22/19 07/22/19 07/22/19 07:52 09:49 13:59 Temperature 97.7 F 97.7 F 98.0 F Pulse Rate 67 78 71 Respiratory 18 17 18 Rate Blood Pressure 90/60 111/73 106/70 07/22/19 07/22/19 18:03 21:08 Temperature 97.6 F 99.5 F Pulse Rate 89 81 Respiratory 18 18 Rate Blood Pressure 124/75 100/69 INR, PTT INR 2.37 (0.83-1.09) H 07/22/19 07:00 Plan: Start Protonix 20 mg now and then 40 mg Po Daily. Continue Coumadin at current dose. .
[2019-07-22] MEDS: MELATONIN 5 MG TABLETS PO PRN (22:24)
[2019-07-22] MEDS: QUEtiapine FUMARATE 300 MG TABLET PO SCH (22:24)
[2019-07-22] MEDS: THIAMINE HCL 100 MG TABLET (FP) PO SCH (22:24)
[2019-07-23] MEDS ORDERED: chlordiazePOXIDE HCL 10 MG CAPSULE PO PRN
[2019-07-23] MEDS: chlordiazePOXIDE HCL 10 MG CAPSULE PO SCH ×3 (07:24→22:26)
[2019-07-23] MEDS ORDERED: METHADONE HCL 5 MG TABLET (FOR DETOX USE ONLY) ONE (09:09)
[2019-07-23] MEDS ORDERED: METHADONE HCL 10 MG TABLET (FOR DETOX USE ONLY) ONE (09:09)
[2019-07-23] MEDS ORDERED: METHADONE (DETOX) 10 MG, METHADONE (DETOX) 5 MG PO ONE (10:00)
[2019-07-23] MEDS: PRENATAL VITAMINS W/ FOLIC ACID TABLET (FP) PO SCH (10:47)
[2019-07-23] MEDS: PANTOPRAZOLE 40 MG TABLET (FP) PO SCH (10:47)
[2019-07-23] MEDS: NICOTINE 14 MG/24 HOURS TOPICAL PATCH TD SCH (10:49)
--- NOTE | 2019-07-23 11:27 | PN ---
[facility] CIWA - CIWA Score Nausea/Vomitin-No Nausea/No Vomiting Muscle Tremors: None Anxiety: 2 Agitation: 1-Slight > Activity Paroxysmal Sweats: 3 Orientation: 0-Oriented Tacttile Disturbances: 1-Very Mild Itch/Numbness Auditory Disturbances: 0-None Visual Disturbances: 0-None Headache: 2-Mild CIWA-Ar Total Score: 9 [facility] COWS - Scale Resting Pulse: 0= [place] 80 or Below Sweatin= Chills/Flushing Restless Observation: 1= Difficult to Sit Still Pupil Size: 0= Normal to Room Light Bone or Joint Aches: 1= Mild Discomfort Runny Nose/ Eye Tearin= None GI Upset > 30mins: 0= None Tremor Observation of Outstretched Hands: 2= Slight Tremor Visible Yawning Observation: 1= 1-2x During Session Anxiety or Irritability: 1=Feels Anxious/Irritable Goose Flesh Skin: 0=Smooth Skin COWS Score: 7 S Progress Note (SOAP) Subjective: c/o headache, anxiety/irritability, and sweats. Objective: 07/23/19 11:26 Vital Signs 07/23/19 07/23/19 07/23/19 03:30 06:00 09:44 Temperature 97.7 F 97.9 F Pulse Rate 79 73 Respiratory 18 16 18 Rate Blood Pressure 97/61 125/83 Lab Results WBC 5.9 K/mm3 (4.0-10.0) 07/20/19 14:10 RBC 4.28 M/mm3 (4.00-5.60) 07/20/19 14:10 Hgb 13.7 GM/dL (11.7-16.9) 07/20/19 14:10 Hct 41.0 % (35.4-49) 07/20/19 14:10 MCV 95.9 fl (80-96) 07/20/19 14:10 MCHC 33.4 g/dl (32.0-35.9) 07/20/19 14:10 RDW 14.3 % (11.9-15.9) 07/20/19 14:10 Plt Count 235 K/MM3 (134-434) 07/20/19 14:10 Sodium 138 mmol/L (136-145) 07/20/19 14:10 Potassium 4.5 mmol/L (3.5-5.1) 07/20/19 14:10 Chloride 102 mmol/L (98-107) 07/20/19 14:10 Carbon Dioxide 33 mmol/L (21-32) H 07/20/19 14:10 Anion Gap 3 MMOL/L (8-16) L 07/20/19 14:10 BUN 14.5 mg/dL (7-18) 07/20/19 14:10 Creatinine 0.9 mg/dL (0.55-1.3) 07/20/19 14:10 Random Glucose 83 mg/dL (74-106) 07/20/19 14:10 Calcium 9.4 mg/dL (8.5-10.1) 07/20/19 14:10 INR 2.37 (0.83-1.09) H 07/22/19 07:00 Labs noted. Assessment: 07/23/19 11:26 AOX3, in no acute distress. Full ROM, ambulating in the unit. Withdrawal symptoms. Plan: continue detox.
[2019-07-23] MEDS: ACETAMINOPHEN 325 MG TABLET (FP) PO PRN (15:52)
[2019-07-23] MEDS: WARFARIN NA 2 MG TABLET (UD) PO SCH (17:28)
[2019-07-23] MEDS: QUEtiapine FUMARATE 300 MG TABLET PO SCH (22:25)
[2019-07-23] MEDS: THIAMINE HCL 100 MG TABLET (FP) PO SCH (22:25)
[2019-07-23] MEDS: MELATONIN 5 MG TABLETS PO PRN (22:26)
--- NOTE | 2019-07-23 23:50 | EKG ---
Test Reason : Blood Pressure : / mmHG Vent. Rate : 077 BPM Atrial Rate : 077 BPM P-R Int : 164 ms QRS Dur : 074 ms QT Int : 374 ms P-R-T Axes : -20 074 064 degrees QTc Int : 423 ms NORMAL SINUS RHYTHM NORMAL ECG NO PREVIOUS ECGS AVAILABLE Confirmed by VICKEY CHOU MD ([id number]) on 07/23/2019 11:50:29 PM Referred By: Confirmed By:VICKEY CHOU MD
[2019-07-24] MEDS ORDERED: chlordiazePOXIDE HCL 10 MG CAPSULE PO ONE (05:00)
[2019-07-24] MEDS ORDERED: METHADONE HCL 10 MG TABLET (FOR DETOX USE ONLY) PO ONE (10:00)
[2019-07-24] MEDS: PRENATAL VITAMINS W/ FOLIC ACID TABLET (FP) PO SCH (10:10)
[2019-07-24] MEDS: NICOTINE 14 MG/24 HOURS TOPICAL PATCH TD SCH (10:10)
[2019-07-24] MEDS: PANTOPRAZOLE 40 MG TABLET (FP) PO SCH (10:10)
--- NOTE | 2019-07-24 16:50 | PN ---
S CIWA - CIWA Score Nausea/Vomitin-No Nausea/No Vomiting Muscle Tremors: None Anxiety: 2 Agitation: 2 Paroxysmal Sweats: 2 Orientation: 0-Oriented Tacttile Disturbances: 0-None Auditory Disturbances: 0-None Visual Disturbances: 0-None Headache: 0-None Present CIWA-Ar Total Score: 6 [facility] COWS - Scale Resting Pulse: 0= [place] 80 or Below Sweatin= Chills/Flushing Restless Observation: 0= Sits Still Pupil Size: 0= Normal to Room Light Bone or Joint Aches: 1= Mild Discomfort Runny Nose/ Eye Tearin= Runny Nose/Eyes GI Upset > 30mins: 1= Stomach Cramp Tremor Observation of Outstretched Hands: 0= None Yawning Observation: 0= None Anxiety or Irritability: 1=Feels Anxious/Irritable Goose Flesh Skin: 0=Smooth Skin COWS Score: 6 [facility] Progress Note (SOAP) Subjective: Feels ok. Patient requested to be discharged by 8am tomorrow as he has appt with his PCP at 09:30 in the [place]. Objective: 07/24/19 16:48 Last Vital Signs Temp Pulse Resp BP Pulse Ox 97.9 F 80 18 105/74 07/24/19 13:58 07/24/19 13:58 07/24/19 13:58 07/24/19 13:58 Laboratory Tests 07/20/19 07/20/19 07/21/19 14:10 14:10 07:50 WBC 5.9 RBC 4.28 Hgb 13.7 Hct 41.0 MCV 95.9 MCH 32.0 MCHC 33.4 RDW 14.3 Plt Count 235 MPV 9.6 PT with INR 39.80 H INR 3.33 H Sodium 138 Potassium 4.5 Chloride 102 Carbon Dioxide 33 H Anion Gap 3 L BUN 14.5 Creatinine 0.9 Est GFR (CKD-EPI)AfAm 112.62 Est GFR (CKD-EPI)NonAf 97.17 Random Glucose 83 Calcium 9.4 Total Bilirubin 0.4 AST 28 ALT 41 Alkaline Phosphatase 62 Total Protein 6.8 Albumin 3.6 07/22/19 07:00 WBC RBC Hgb Hct MCV MCH MCHC RDW Plt Count MPV PT with INR 28.20 H INR 2.37 H Sodium Potassium Chloride Carbon Dioxide Anion Gap BUN Creatinine Est GFR (CKD-EPI)AfAm Est GFR (CKD-EPI)NonAf Random Glucose Calcium Total Bilirubin AST ALT Alkaline Phosphatase Total Protein Albumin Labs reviewed Assessment: 07/24/19 16:49 Withdrawal sxs Plan: Continue detox Encouraged PO water intake Scheduled for discharge tomorrow
[2019-07-24] MEDS: WARFARIN NA 2 MG TABLET (UD) PO SCH (20:22)
[2019-07-24] MEDS: ACETAMINOPHEN 325 MG TABLET (FP) PO PRN (20:23)
[2019-07-24] MEDS: THIAMINE HCL 100 MG TABLET (FP) PO SCH (22:06)
[2019-07-24] MEDS: QUEtiapine FUMARATE 300 MG TABLET PO SCH (22:06)
[2019-07-24] MEDS: MELATONIN 5 MG TABLETS PO PRN (22:06)
[2019-07-25] MEDS ORDERED: METHADONE HCL 5 MG TABLET (FOR DETOX USE ONLY) PO ONE (06:00)
[2019-07-25 07:03] VITALS: TEMP 97.7
[2019-07-25 11:04] VITALS: BP 123/68; PULSE 92
--- NOTE | 2019-07-25 12:13 | DS ---
[facility] Detox Discharge Summary Admission Date: 07/20/19 Discharge Date: 07/25/19 - History Present History: Opioid Dependence - Physical Exam Results Vital Signs: Vital Signs Temperature 97.7 F 07/25/19 11:03 Pulse Rate 92 H 07/25/19 11:03 Respiratory Rate 18 07/25/19 11:03 Blood Pressure 123/68 07/25/19 11:03 O2 Sat by Pulse Oximetry (%) Pertinent Admission Physical Exam Findings: pt arrived in withdrawals Vital Signs Temperature 97.7 F 07/25/19 11:03 Pulse Rate 92 H 07/25/19 11:03 Respiratory Rate 18 07/25/19 11:03 Blood Pressure 123/68 07/25/19 11:03 O2 Sat by Pulse Oximetry (%) Laboratory Tests 07/20/19 07/20/19 07/21/19 14:10 14:10 07:50 WBC 5.9 RBC 4.28 Hgb 13.7 Hct 41.0 MCV 95.9 MCH 32.0 MCHC 33.4 RDW 14.3 Plt Count 235 MPV 9.6 PT with INR 39.80 H INR 3.33 H Sodium 138 Potassium 4.5 Chloride 102 Carbon Dioxide 33 H Anion Gap 3 L BUN 14.5 Creatinine 0.9 Est GFR (CKD-EPI)AfAm 112.62 Est GFR (CKD-EPI)NonAf 97.17 Random Glucose 83 Calcium 9.4 Total Bilirubin 0.4 AST 28 ALT 41 Alkaline Phosphatase 62 Total Protein 6.8 Albumin 3.6 07/22/19 07:00 WBC RBC Hgb Hct MCV MCH MCHC RDW Plt Count MPV PT with INR 28.20 H INR 2.37 H Sodium Potassium Chloride Carbon Dioxide Anion Gap BUN Creatinine Est GFR (CKD-EPI)AfAm Est GFR (CKD-EPI)NonAf Random Glucose Calcium Total Bilirubin AST ALT Alkaline Phosphatase Total Protein Albumin today pt is aaox3 ambulating no acute distress - Treatment Hospital Course: Detox Protocol Followed, Detoxed Safely, Responded well, Discharged Condition Good, Rehab Referral Accepted Patient has Accepted a Rehab Referral to: pt declined rehab; referral provided - Medication Discharge Medications: Ambulatory Orders Quetiapine Fumarate [Seroquel -] 200 tab PO DAILY 07/08/19 Quetiapine Fumarate [Seroquel] 400 mg PO HS 07/08/19 Warfarin Sodium 7.5 mg PO HS 07/08/19 - Diagnosis (1) Positive RPR test Status: Acute (2) Substance induced mood disorder Status: Acute (3) Alcohol dependence Status: Chronic Qualifiers: Substance use status: uncomplicated Qualified Code(s): F10.20 - Alcohol dependence, uncomplicated (4) History of mood disorder Status: Chronic (5) Insomnia Status: Chronic (6) Nicotine dependence Status: Chronic Qualifiers: Nicotine product type: cigarettes Substance use status: uncomplicated Qualified Code(s): F17.210 - Nicotine dependence, cigarettes, uncomplicated (7) Opioid dependence Status: Chronic Qualifiers: Substance use status: in withdrawal Qualified Code(s): F11.23 - Opioid dependence with withdrawal - AMA Did Patient Leave Against Medical Advice: No
== END 2019-07-25 08:51 | disposition home or self-care (01) | DRG 773 ==
LOC: YASAS 11:48 → Y6N 13:54
PROVIDERS: ADMIT Surgery; ATTEND Surgery
PROC: HZ2ZZZZ Detoxification Services for Substance Abuse Treatment (ICD-10-PCS; principal; 2019-07-20)
DX: F11.23 Opioid dependence with withdrawal (principal); F10.230 Alcohol dependence with withdrawal, uncomplicated; F17.210 Nicotine dependence, cigarettes, uncomplicated; F19.24 Other psychoactive substance dependence with psychoactive substance-induced mood disorder; F39 Unspecified mood [affective] disorder; A53.0 Latent syphilis, unspecified as early or late; G47.00 Insomnia, unspecified; Z86.718 Personal history of other venous thrombosis and embolism; Z79.01 Long term (current) use of anticoagulants; Z87.19 Personal history of other diseases of the digestive system; Z86.69 Personal history of other diseases of the nervous system and sense organs
CPT/HCPCS: 36415; 80053; 85027; 85610; 93005; 93010; J0735

== ENCOUNTER 2019-08-17 13:37 | Inpatient (IN) | payer OTHER ==
[2019-08-17 13:59] VITALS: BMI 19.1
--- NOTE | 2019-08-17 14:52 | HP ---
COWS - Scale Resting Pulse: 0= NE 80 or Below (appropriate for admission) Sweatin=Flushed/Facial Moisture Restless Observation: 3= Extraneous Movement Pupil Size: 1= Pupils >than Normal Bone or Joint Aches: 2= Severe Diffuse Aches Runny Nose/ Eye Tearin= Nasal Congestion GI Upset > 30mins: 2= Nausea/Diarrhea Tremor Observation: 1= Tremor [place], Not Seen Yawning Observation: 2= >3x During Session Anxiety or Irritability: 1=Feels Anxious/Irritable Goose Flesh Skin: 3=Piloerection COWS Score: 18 CIWA Score Nausea/Vomitin Muscle Tremors: 3 Anxiety: 3 Agitation: 4-Moderately Restless Paroxysmal Sweats: 1-Minimal Palms Moist Orientation: 0-Oriented Tacttile Disturbances: 0-None Auditory Disturbances: 0-None Visual Disturbances: 0-None Headache: 0-None Present CIWA-Ar Total Score: 13 - Admission Criteria OASAS Guidelines: Admission for Medically Managed Detox: Requires at least one of the followin. CIWA greater than 12 2. Seizures within the past 24 hours 3. Delirium tremens within the past 24 hours 4. Hallucinations within the past 24 hours 5. Acute intervention needed for co occurring medical disorder 6. Acute intervention needed for co occurring psychiatric disorder 7. Severe withdrawal that cannot be handled at a lower level of care (continued vomiting, continued diarrhea, abnormal vital signs) requiring intravenous medication and/or fluids 8. Admitting History and Physical - Admission Chief Complaint: "I want to get away from the drugs." History of Present Illness: 54 year old male with opioid dependence and alcohol dependence with withdrawals. He was here in detox in july 2019 and right thereafter relapsing again and using in high quantities. He is using up to 2 bundles of heroin intranasally, last used yesterday. He is using up to 2 pints vodka per day since age 22 and 3-6 pack of coronas per day, last drank this AM. He smokes 1/2 ppd since age 22. He smokes marijuana $5 ever 2 days. PMH: H/o P.E on coumadin, 7.5 mg of coumadin ever night, has implanted IVC filter. GERD on pantroprazole Psych: Anxiety and Depression on Seroquel 200mg am and 400mg pm. Celexa daily. Patient is domiciled and family is very supportive of him seeking treatment. History Source: Patient Limitations to Obtaining History: No Limitations - Past Medical History Pulmonary: Yes: Pulmonary Embolus Psych: Yes: Anxiety, Depression - Past Surgical History Additional Past Surgical History: IVC filter implanted 10/2017 - Advance Directives Advance Directives: No: Living Will, Health Care Proxy, DNR - Smoking History Smoking history: Current every day smoker Have you smoked in the past 12 months: Yes Aproximately how many cigarettes per day: 10 - Alcohol/Substance Use Hx Alcohol Use: Yes Number of Drinks Daily: 10 History of Substance Use: reports: Heroin Date of Last Use: 08/17/19 - Social History Usual Living Arrangement: Yes: With Spouse Do you think of yourself as: Straight/Heterosexual ADL: Independent Occupation: retired, was a [employer] History of Recent Travel: No Admission [facility] Chief Complaint: "I want to get away from the drugs." Allergies/Adverse Reactions: Allergies Allergy/AdvReac Type Severity Reaction Status Date / Time No Known Allergies Allergy Verified 08/17/19 13:50 History of Present Illness: 54 year old male with opioid dependence and alcohol dependence with withdrawals. He was here in detox in july 2019 and right thereafter relapsing again and using in high quantities. He is using up to 2 bundles of heroin intranasally, last used yesterday. He is using up to 2 pints vodka per day since age 22 and 3-6 pack of coronas per day, last drank this AM. He smokes 1/2 ppd since age 22. He smokes marijuana $5 ever 2 days. PMH: H/o P.E on coumadin, 7.5 mg of coumadin ever night, has implanted IVC filter; GERD on pantroprazole Psych: Anxiety and Depression on Seroquel 200mg am and 400mg pm. Celexa daily. Patient is domiciled and family is very supportive of him seeking treatment. - Ebola screening Have you traveled outside of the country in the last 21 days: No Have you had contact with anyone from an Ebola affected area: No Have you been sick,other than usual withdrawal symptoms: No Do you have a fever: No - Review of Systems Constitutional: Chills, Diaphoresis EENT: reports: No Symptoms Reported Respiratory: reports: No Symptoms reported Cardiac: reports: No Symptoms Reported GI: reports: No Symptoms Reported, Diarrhea, Nausea, Vomiting : reports: No Symptoms Reported Musculoskeletal: reports: Back Pain, Muscle Pain Integumentary: reports: No Symptoms Reported Neuro: reports: Headache Endocrine: reports: No Symptoms Reported Hematology: reports: No Symptoms Reported Psychiatric: reports: Judgement Intact, Mood/Affect Appropiate, Orientated x3, Agitated, Anxious Other Systems: Reviewed and Negative Patient History - Patient Medical History Hx Asthma: No Hx Chronic Obstructive Pulmonary Disease (COPD): No Hx Cardiac Disorders: No Hx Hypertension: No Hx Seizures: No Hx Diabetes: No Hx Gastrointestinal Disorders: No Hx Genitourinary Disorders: No Hx Sexually Transmitted Disorders: No Hx Renal Disease (ESRD): No Hx Depression: No Hx Suicide Attempt: No Hx Schizophrenia: No - Patient Surgical History Past Surgical History: Yes Hx Neurologic Surgery: No Hx Cataract Extraction: No Hx Cardiac Surgery: No Hx Lung Surgery: No Hx Breast Surgery: No Hx Breast Biopsy: No Hx Abdominal Surgery: No Hx Appendectomy: No Hx Cholecystectomy: No Hx Genitourinary Surgery: No Hx Section: No Hx Orthopedic Surgery: No Other Surgical History: IVC implanted 10/2017 for PE Anesthesia Reaction: No - PPD History Previous Implant?: Yes Documented Results: Negative w/proof Implanted On Prior [facility] Admission?: Yes Date: 07/18/19 Results: 00 PPD to be Administered?: No - Smoking Cessation Smoking history: Current every day smoker Have you smoked in the past 12 months: Yes Aproximately how many cigarettes per day: 10 Hx Chewing Tobacco Use: No Initiated information on smoking cessation: Yes 'Breaking Loose' booklet given: 08/17/19 - Substances abused Heroin Substance route: Inhalation Frequency: Daily Amount used: 15 bags Age of first use: 49 Date of last use: 08/16/19 Alcohol Substance route: Oral Frequency: Daily Amount used: half a gallon of vodka & (3) 6 packs of beer Age of first use: 22 Date of last use: 08/17/19 Admission Physical Exam BHS - Vital Signs Vital Signs: Vital Signs - 24 hr 08/17/19 13:52 Temperature 98.3 F Pulse Rate 79 Respiratory 18 Rate Blood Pressure 116/79 - Physical General Appearance: Yes: Mild Distress HEENTM: Yes: EOMI, Hearing grossly Normal, Normal ENT Inspection, Normal Voice, GHADA, Pharynx Normal, Tm's normal Respiratory: Yes: Chest Non-Tender, Lungs Clear, Normal Breath Sounds, No Respiratory Distress, No Accessory Muscle Use Neck: Yes: No masses,lesions,Nodules, Supple, Trachea in good position Breast: Yes: Within Normal Limits Cardiology: Yes: Regular Rhythm, Regular Rate, S1, S2 Abdominal: Yes: Normal Bowel Sounds, Non Tender, Flat, Soft Genitourinary: Yes: Within Normal Limits Back: Yes: Normal Inspection Musculoskeletal: Yes: full range of Motion, Gait Steady Extremities: Yes: Normal Capillary Refill, Normal Inspection, Normal Range of Motion, Non-Tender Neurological: Yes: backbreaker II-XII NML intact, Fully Oriented, Alert, Motor Strength 5/5, Normal Mood/Affect, Normal Response Integumentary: Yes: Normal Color, Warm Lymphatic: Yes: Within Normal Limits - Diagnostic (1) Alcohol dependence Current Visit: Yes Status: Chronic Qualifiers: Substance use status: uncomplicated Qualified Code(s): F10.20 - Alcohol dependence, uncomplicated (2) Insomnia Current Visit: Yes Status: Chronic (3) Nicotine dependence Current Visit: Yes Status: Chronic Qualifiers: Nicotine product type: cigarettes Substance use status: uncomplicated Qualified Code(s): F17.210 - Nicotine dependence, cigarettes, uncomplicated (4) Opioid dependence Current Visit: Yes Status: Chronic Qualifiers: Substance use status: in withdrawal Qualified Code(s): F11.23 - Opioid dependence with withdrawal Cleared for Admission [facility] - Detox or Rehab [facility] Level of Care: Medically Managed Detox Regimen/Protocol: Methadone/Librium Screened but not Admitted - Documentation of Visit Screened but not Admitted: No Breathalyzer - Breathalyzer Breathalyzer: 0 Urine Drug Screen - Test Device Lot number: [id number] Expiration date: 04/01/21 - Control Is test valid?: Yes - Results Drug screen NEGATIVE: Yes Urine drug screen results: THC-Marijuana, FEN-Fentanyl, MOP-Opiates, OXY- Oxycodone, MTD-Methadone, BZO-Benzodiazepines Inpatient Rehab Admission - Rehab Decision to Admit Inpatient rehab admission?: No
[2019-08-17] MEDS ORDERED: MAGNESIUM HYDROX 2400MG/30ML ORAL SUSPENSION 30 ML CUP PO PRN (15:06)
[2019-08-17] MEDS ORDERED: ACETAMINOPHEN 325 MG TABLET (FP) PO PRN ×2 (15:06)
[2019-08-17] MEDS ORDERED: MENTHOL/PHENOL 1 EACH UD MM PRN (15:06)
[2019-08-17] MEDS ORDERED: cloNIDine HCL 0.1 MG TABLET PO PRN (15:06)
[2019-08-17] MEDS ORDERED: BISMUTH SUBSALICYLATE 524 MG/30 ML UD PO PRN (15:06)
[2019-08-17] MEDS ORDERED: hydrOXYzine PAMOATE 25 MG CAPSULE (FP) PO PRN (15:06)
[2019-08-17] MEDS ORDERED: MAGNESIUM CITRATE 300 ML BOTTLE PO PRN (15:06)
[2019-08-17] MEDS ORDERED: chlordiazePOXIDE HCL 25 MG CAPSULE PO PRN (15:06)
[2019-08-17] MEDS: chlordiazePOXIDE HCL 25 MG CAPSULE PO SCH ×2 (17:00→22:13)
[2019-08-17] MEDS ORDERED: METHADONE HCL 10 MG TABLET (FOR DETOX USE ONLY) PO ONE (17:00)
[2019-08-17 17:01] LABS: HEMATOCRIT 40.7 % (35.4-49); HEMOGLOBIN 13.5 GM/dL (11.7-16.9); MCH 31.8 pg (25.7-33.7); MCHC 33.2 g/dl (32.0-35.9); PLATELET COUNT 274 K/MM3 (134-434); RBC 4.24 M/mm3 (4.00-5.60); RDW 13.6 % (11.9-15.9); WHITE BLOOD COUNT 8.3 K/mm3 (4.0-10.0)
[2019-08-17 17:10] LABS: ALBUMIN 3.6 g/dl (3.4-5.0); BILIRUBIN,TOTAL 0.3 mg/dL (0.2-1); BLOOD UREA NITROGEN 11.9 mg/dL (7-18); CALCIUM 8.9 mg/dL (8.5-10.1); POTASSIUM 4.6 mmol/L (3.5-5.1); TOT PROT 6.7 g/dl (6.4-8.2)
[2019-08-17] MEDS: MELATONIN 5 MG TABLETS PO PRN (21:39)
[2019-08-17] MEDS: QUEtiapine FUMARATE 400 MG TABLET PO SCH (21:39)
[2019-08-17] MEDS: WARFARIN NA 7.5 MG TABLET (FP) PO SCH (21:39)
[2019-08-17] MEDS: THIAMINE HCL 100 MG TABLET (FP) PO SCH (21:39)
[2019-08-18] MEDS: chlordiazePOXIDE HCL 25 MG CAPSULE PO SCH ×4 (06:22→22:43)
[2019-08-18] MEDS: IBUPROFEN 400 MG TABLET (FP) PO PRN (06:25)
[2019-08-18] MEDS ORDERED: METHADONE HCL 5 MG TABLET (FOR DETOX USE ONLY) ONE (09:57)
[2019-08-18] MEDS ORDERED: METHADONE HCL 10 MG TABLET (FOR DETOX USE ONLY) ONE (09:58)
[2019-08-18] MEDS ORDERED: METHADONE (DETOX) 20 MG, METHADONE (DETOX) 5 MG PO ONE (10:00)
--- NOTE | 2019-08-18 10:54 | PN ---
[facility] CIWA - CIWA Score Nausea/Vomitin-No Nausea/No Vomiting Muscle Tremors: 2 Anxiety: 2 Agitation: 3 Paroxysmal Sweats: 2 Orientation: 0-Oriented Tacttile Disturbances: 0-None Auditory Disturbances: 0-None Visual Disturbances: 0-None Headache: 0-None Present CIWA-Ar Total Score: 9 [facility] COWS - Scale Resting Pulse: 0= [place] 80 or Below Sweatin= Chills/Flushing Restless Observation: 1= Difficult to Sit Still Pupil Size: 0= Normal to Room Light Bone or Joint Aches: 2= Severe Diffuse Aches Runny Nose/ Eye Tearin= None GI Upset > 30mins: 0= None Tremor Observation of Outstretched Hands: 1= Tremor [place], Not Seen Yawning Observation: 1= 1-2x During Session Anxiety or Irritability: 1=Feels Anxious/Irritable Goose Flesh Skin: 0=Smooth Skin COWS Score: 7 S Progress Note (SOAP) Subjective: sweats mild shakes interrupted sleep body aches anxiety Objective: 08/18/19 10:55 Vital Signs Temperature 98.6 F 08/18/19 09:56 Pulse Rate 63 08/18/19 09:56 Respiratory Rate 16 08/18/19 09:56 Blood Pressure 99/59 L 08/18/19 09:56 O2 Sat by Pulse Oximetry (%) Laboratory Tests 08/17/19 08/17/19 15:30 15:30 WBC 8.3 RBC 4.24 Hgb 13.5 Hct 40.7 MCV 96.0 MCH 31.8 MCHC 33.2 RDW 13.6 Plt Count 274 MPV 9.0 Sodium 140 Potassium 4.6 Chloride 104 Carbon Dioxide 30 Anion Gap 5 L BUN 11.9 Creatinine 1.0 Est GFR (CKD-EPI)AfAm 99.15 Est GFR (CKD-EPI)NonAf 85.55 Random Glucose 89 Calcium 8.9 Total Bilirubin 0.3 AST 18 ALT 23 Alkaline Phosphatase 61 Total Protein 6.7 Albumin 3.6 labs noted aaox3 ambulating no acute distress Assessment: 08/18/19 10:55 withdrawal sx Plan: continue detox increase fluids
[2019-08-18] MEDS: QUEtiapine FUMARATE 200 MG TABLET PO SCH (11:08)
[2019-08-18] MEDS: PANTOPRAZOLE 40 MG TABLET (FP) PO SCH (11:09)
[2019-08-18] MEDS: PRENATAL VITAMINS W/ FOLIC ACID TABLET (FP) PO SCH (11:09)
[2019-08-18] MEDS: NICOTINE 14 MG/24 HOURS TOPICAL PATCH TD SCH (11:10)
[2019-08-18 12:21] LABS: RPR REACTIVE 1:1 (NONREACTIVE)
[2019-08-18 12:22] LABS: TREPONEMA ANTIBODY PREVIOUSLY REACTIVE (NONREACTIVE)
[2019-08-18] MEDS: THIAMINE HCL 100 MG TABLET (FP) PO SCH (22:43)
[2019-08-18] MEDS: QUEtiapine FUMARATE 400 MG TABLET PO SCH (22:43)
[2019-08-18] MEDS: MELATONIN 5 MG TABLETS PO PRN (22:43)
[2019-08-19] MEDS: chlordiazePOXIDE HCL 25 MG CAPSULE PO SCH ×4 (07:06→22:14)
[2019-08-19] MEDS ORDERED: METHADONE HCL 10 MG TABLET (FOR DETOX USE ONLY) PO ONE (10:00)
[2019-08-19] MEDS: PRENATAL VITAMINS W/ FOLIC ACID TABLET (FP) PO SCH (10:11)
[2019-08-19] MEDS: PANTOPRAZOLE 40 MG TABLET (FP) PO SCH (10:11)
[2019-08-19] MEDS: NICOTINE 14 MG/24 HOURS TOPICAL PATCH TD SCH (10:11)
[2019-08-19] MEDS: QUEtiapine FUMARATE 200 MG TABLET PO SCH (10:11)
[2019-08-19] MEDS: METHOCARBAMOL 500 MG TABLET PO PRN (10:18)
--- NOTE | 2019-08-19 13:34 | PN ---
S CIWA - CIWA Score Nausea/Vomitin Muscle Tremors: 1-None Visible, but [place] Anxiety: 1-Mildly Anxious Agitation: 1-Slight > Activity Paroxysmal Sweats: 2 Orientation: 0-Oriented Tacttile Disturbances: 2-Mild Itch/Numbness/Burn Auditory Disturbances: 0-None Visual Disturbances: 0-None Headache: 0-None Present CIWA-Ar Total Score: 9 [facility] COWS - Scale Resting Pulse: 0= [place] 80 or Below Sweatin= Chills/Flushing Restless Observation: 1= Difficult to Sit Still Pupil Size: 1= Pupils >than Normal Bone or Joint Aches: 1= Mild Discomfort Runny Nose/ Eye Tearin= Nasal Congestion GI Upset > 30mins: 2= Nausea/Diarrhea Tremor Observation of Outstretched Hands: 1= Tremor [place], Not Seen Yawning Observation: 0= None Anxiety or Irritability: 1=Feels Anxious/Irritable Goose Flesh Skin: 0=Smooth Skin COWS Score: 9 [facility] Progress Note (SOAP) Subjective: inteerrupted sleep, sweats, shakes nausea Objective: 08/19/19 13:32 Vital Signs Temperature 98.1 F 08/19/19 09:30 Pulse Rate 71 08/19/19 09:30 Respiratory Rate 20 08/19/19 09:30 Blood Pressure 104/62 08/19/19 09:30 O2 Sat by Pulse Oximetry (%) Laboratory Tests 08/17/19 08/17/19 08/17/19 15:30 15:30 15:30 WBC 8.3 RBC 4.24 Hgb 13.5 Hct 40.7 MCV 96.0 MCH 31.8 MCHC 33.2 RDW 13.6 Plt Count 274 MPV 9.0 Sodium 140 Potassium 4.6 Chloride 104 Carbon Dioxide 30 Anion Gap 5 L BUN 11.9 Creatinine 1.0 Est GFR (CKD-EPI)AfAm 99.15 Est GFR (CKD-EPI)NonAf 85.55 Random Glucose 89 Calcium 8.9 Total Bilirubin 0.3 AST 18 ALT 23 Alkaline Phosphatase 61 Total Protein 6.7 Albumin 3.6 RPR Titer Reactive 1:1 H T.pallidum Ab (MHA) Previously reactive pt aox3 in nad ambulating well . Assessment: 08/19/19 13:33 withdrawal sx;s Plan: cont. detox increase fluids [place] prn.
[2019-08-19] MEDS: THIAMINE HCL 100 MG TABLET (FP) PO SCH (21:29)
[2019-08-19] MEDS: WARFARIN NA 7.5 MG TABLET (FP) PO SCH (21:29)
[2019-08-19] MEDS: QUEtiapine FUMARATE 400 MG TABLET PO SCH (21:29)
[2019-08-19] MEDS: MELATONIN 5 MG TABLETS PO PRN (22:16)
[2019-08-20] MEDS ORDERED: chlordiazePOXIDE HCL 10 MG CAPSULE PO PRN
[2019-08-20] MEDS: chlordiazePOXIDE HCL 10 MG CAPSULE PO SCH ×4 (05:31→22:28)
[2019-08-20] MEDS: IBUPROFEN 400 MG TABLET (FP) PO PRN ×3 (07:52→21:39)
[2019-08-20] MEDS ORDERED: METHADONE HCL 10 MG TABLET (FOR DETOX USE ONLY) ONE (09:38)
[2019-08-20] MEDS ORDERED: METHADONE HCL 5 MG TABLET (FOR DETOX USE ONLY) ONE (09:38)
[2019-08-20] MEDS ORDERED: METHADONE (DETOX) 10 MG, METHADONE (DETOX) 5 MG PO ONE (10:00)
[2019-08-20] MEDS: PRENATAL VITAMINS W/ FOLIC ACID TABLET (FP) PO SCH (10:13)
[2019-08-20] MEDS: PANTOPRAZOLE 40 MG TABLET (FP) PO SCH (10:13)
[2019-08-20] MEDS: QUEtiapine FUMARATE 200 MG TABLET PO SCH (10:14)
[2019-08-20] MEDS: NICOTINE 14 MG/24 HOURS TOPICAL PATCH TD SCH (10:15)
--- NOTE | 2019-08-20 12:12 | PN ---
[facility] CIWA - CIWA Score Nausea/Vomitin-No Nausea/No Vomiting Muscle Tremors: None Anxiety: 2 Agitation: 0-Normal Activity Paroxysmal Sweats: 3 Orientation: 0-Oriented Tacttile Disturbances: 0-None Auditory Disturbances: 0-None Visual Disturbances: 0-None Headache: 2-Mild CIWA-Ar Total Score: 7 S COWS - Scale Resting Pulse: 0= [place] 80 or Below Sweatin= Chills/Flushing Restless Observation: 0= Sits Still Pupil Size: 0= Normal to Room Light Bone or Joint Aches: 0= None Runny Nose/ Eye Tearin= None GI Upset > 30mins: 0= None Tremor Observation of Outstretched Hands: 0= None Yawning Observation: 2= >3x During Session Anxiety or Irritability: 2=Irritable/Anxious Goose Flesh Skin: 0=Smooth Skin COWS Score: 5 [facility] Progress Note (SOAP) Subjective: c/o sweats, anxiety, and headache. Objective: 08/20/19 12:11 Vital Signs 08/20/19 08/20/19 06:00 09:37 Temperature 97.3 F L 97.8 F Pulse Rate 77 87 Respiratory 16 18 Rate Blood Pressure 111/61 102/67 Lab Results WBC 8.3 K/mm3 (4.0-10.0) 08/17/19 15:30 RBC 4.24 M/mm3 (4.00-5.60) 08/17/19 15:30 Hgb 13.5 GM/dL (11.7-16.9) 08/17/19 15:30 Hct 40.7 % (35.4-49) 08/17/19 15:30 MCV 96.0 fl (80-96) 08/17/19 15:30 MCHC 33.2 g/dl (32.0-35.9) 08/17/19 15:30 RDW 13.6 % (11.9-15.9) 08/17/19 15:30 Plt Count 274 K/MM3 (134-434) 08/17/19 15:30 Sodium 140 mmol/L (136-145) 08/17/19 15:30 Potassium 4.6 mmol/L (3.5-5.1) 08/17/19 15:30 Chloride 104 mmol/L (98-107) 08/17/19 15:30 Carbon Dioxide 30 mmol/L (21-32) 08/17/19 15:30 Anion Gap 5 MMOL/L (8-16) L 08/17/19 15:30 BUN 11.9 mg/dL (7-18) 08/17/19 15:30 Creatinine 1.0 mg/dL (0.55-1.3) 08/17/19 15:30 Random Glucose 89 mg/dL (74-106) 08/17/19 15:30 Calcium 8.9 mg/dL (8.5-10.1) 08/17/19 15:30 Labs noted. Assessment: 08/20/19 12:12 AOX3, in no acute respiratory distress. Full ROM, ambulating in the unit. Withdrawal symptoms. Plan: continue detox.
[2019-08-20] MEDS: MAG HYDROX/AL HYDROX/SIMETH 30 ML UNIT-DOSE CUP PO PRN (16:27)
[2019-08-20] MEDS: WARFARIN NA 7.5 MG TABLET (FP) PO SCH (21:38)
[2019-08-20] MEDS: QUEtiapine FUMARATE 400 MG TABLET PO SCH (21:38)
[2019-08-20] MEDS: THIAMINE HCL 100 MG TABLET (FP) PO SCH (21:39)
[2019-08-20] MEDS: MELATONIN 5 MG TABLETS PO PRN (21:41)
[2019-08-21] MEDS: chlordiazePOXIDE HCL 10 MG CAPSULE PO SCH ×2 (06:02→17:45)
[2019-08-21] MEDS: PRENATAL VITAMINS W/ FOLIC ACID TABLET (FP) PO SCH (09:21)
[2019-08-21] MEDS: NICOTINE 14 MG/24 HOURS TOPICAL PATCH TD SCH (09:21)
[2019-08-21] MEDS: QUEtiapine FUMARATE 200 MG TABLET PO SCH (09:22)
[2019-08-21] MEDS: PANTOPRAZOLE 40 MG TABLET (FP) PO SCH (09:22)
[2019-08-21] MEDS ORDERED: METHADONE HCL 10 MG TABLET (FOR DETOX USE ONLY) PO ONE (10:00)
[2019-08-21] MEDS: MAG HYDROX/AL HYDROX/SIMETH 30 ML UNIT-DOSE CUP PO PRN (10:03)
--- NOTE | 2019-08-21 14:59 | PN ---
[facility] CIWA - CIWA Score Nausea/Vomitin-No Nausea/No Vomiting Muscle Tremors: None Anxiety: 2 Agitation: 1-Slight > Activity Paroxysmal Sweats: 2 Orientation: 0-Oriented Tacttile Disturbances: 0-None Auditory Disturbances: 0-None Visual Disturbances: 0-None Headache: 0-None Present CIWA-Ar Total Score: 5 S COWS - Scale Resting Pulse: 1= [place] 81-100 Sweatin= No chills or [place] Restless Observation: 0= Sits Still Pupil Size: 0= Normal to Room Light Bone or Joint Aches: 1= Mild Discomfort Runny Nose/ Eye Tearin= None GI Upset > 30mins: 1= Stomach Cramp Tremor Observation of Outstretched Hands: 0= None Yawning Observation: 0= None Anxiety or Irritability: 1=Feels Anxious/Irritable Goose Flesh Skin: 0=Smooth Skin COWS Score: 4 S Progress Note (SOAP) Subjective: Sweating, chills, tremor Objective: 08/21/19 14:58 Last Vital Signs Temp Pulse Resp BP Pulse Ox 98.4 F 81 18 117/69 08/21/19 14:25 08/21/19 14:25 08/21/19 14:25 08/21/19 14:25 Laboratory Tests 08/17/19 08/17/19 08/17/19 15:30 15:30 15:30 WBC 8.3 RBC 4.24 Hgb 13.5 Hct 40.7 MCV 96.0 MCH 31.8 MCHC 33.2 RDW 13.6 Plt Count 274 MPV 9.0 Sodium 140 Potassium 4.6 Chloride 104 Carbon Dioxide 30 Anion Gap 5 L BUN 11.9 Creatinine 1.0 Est GFR (CKD-EPI)AfAm 99.15 Est GFR (CKD-EPI)NonAf 85.55 Random Glucose 89 Calcium 8.9 Total Bilirubin 0.3 AST 18 ALT 23 Alkaline Phosphatase 61 Total Protein 6.7 Albumin 3.6 RPR Titer Reactive 1:1 H T.pallidum Ab (MHA) Previously reactive Labs reviewed Assessment: 08/21/19 14:58 Withdrawal sxs Plan: Continue detox Encouraged PO water intake Scheduled for discharge tomorrow
[2019-08-21] MEDS: IBUPROFEN 400 MG TABLET (FP) PO PRN (15:11)
[2019-08-21] MEDS: QUEtiapine FUMARATE 400 MG TABLET PO SCH (21:07)
[2019-08-21] MEDS: WARFARIN NA 7.5 MG TABLET (FP) PO SCH (21:07)
[2019-08-21] MEDS: THIAMINE HCL 100 MG TABLET (FP) PO SCH (21:07)
[2019-08-21] MEDS: MELATONIN 5 MG TABLETS PO PRN (21:09)
[2019-08-22] MEDS ORDERED: chlordiazePOXIDE HCL 10 MG CAPSULE PO ONE (05:00)
[2019-08-22] MEDS ORDERED: METHADONE HCL 5 MG TABLET (FOR DETOX USE ONLY) PO ONE (06:00)
[2019-08-22] MEDS: METHOCARBAMOL 500 MG TABLET PO PRN (06:21)
[2019-08-22 07:05] VITALS: BP 101/59; PULSE 77; TEMP 96.2
--- NOTE | 2019-08-22 09:46 | DS ---
[facility] Detox Discharge Summary Admission Date: 08/17/19 Discharge Date: 08/22/19 - History Present History: Alcohol Dependence, Opioid Dependence - Physical Exam Results Vital Signs: Vital Signs Temperature 96.2 F L 08/22/19 07:04 Pulse Rate 77 08/22/19 07:04 Respiratory Rate 18 08/22/19 07:04 Blood Pressure 101/59 L 08/22/19 07:04 O2 Sat by Pulse Oximetry (%) Pertinent Admission Physical Exam Findings: pt arrived in withdrawals Vital Signs Temperature 96.2 F L 08/22/19 07:04 Pulse Rate 77 08/22/19 07:04 Respiratory Rate 18 08/22/19 07:04 Blood Pressure 101/59 L 08/22/19 07:04 O2 Sat by Pulse Oximetry (%) Laboratory Tests 08/17/19 08/17/19 08/17/19 15:30 15:30 15:30 WBC 8.3 RBC 4.24 Hgb 13.5 Hct 40.7 MCV 96.0 MCH 31.8 MCHC 33.2 RDW 13.6 Plt Count 274 MPV 9.0 Sodium 140 Potassium 4.6 Chloride 104 Carbon Dioxide 30 Anion Gap 5 L BUN 11.9 Creatinine 1.0 Est GFR (CKD-EPI)AfAm 99.15 Est GFR (CKD-EPI)NonAf 85.55 Random Glucose 89 Calcium 8.9 Total Bilirubin 0.3 AST 18 ALT 23 Alkaline Phosphatase 61 Total Protein 6.7 Albumin 3.6 RPR Titer Reactive 1:1 H T.pallidum Ab (MHA) Previously reactive today pt is aaox3 ambulating no acute distress no s/s of withdrawals - Treatment Hospital Course: Detox Protocol Followed, Detoxed Safely, Responded well, Discharged Condition Good, Rehab Referral Accepted Patient has Accepted a Rehab Referral to: pt declined rehab; referral provided - Medication Discharge Medications: Ambulatory Orders Quetiapine Fumarate [Seroquel -] 200 mg PO DAILY 07/08/19 Quetiapine Fumarate [Seroquel] 400 mg PO HS 07/08/19 Warfarin Sodium 7.5 mg PO HS 07/08/19 Pantoprazole Sodium [Protonix] 40 mg PO DAILY 08/17/19 - Diagnosis (1) Alcohol dependence Current Visit: Yes Status: Chronic Qualifiers: Substance use status: uncomplicated Qualified Code(s): F10.20 - Alcohol dependence, uncomplicated (2) Insomnia Current Visit: Yes Status: Chronic (3) Nicotine dependence Current Visit: Yes Status: Chronic Qualifiers: Nicotine product type: cigarettes Substance use status: uncomplicated Qualified Code(s): F17.210 - Nicotine dependence, cigarettes, uncomplicated (4) Opioid dependence Current Visit: Yes Status: Chronic Qualifiers: Substance use status: uncomplicated Qualified Code(s): F11.20 - Opioid dependence, uncomplicated (5) Positive RPR test Current Visit: No Status: Acute (6) Substance induced mood disorder Current Visit: No Status: Acute (7) History of mood disorder Current Visit: No Status: Chronic - AMA Did Patient Leave Against Medical Advice: No
== END 2019-08-22 08:17 | disposition home or self-care (01) | DRG 773 ==
LOC: YASAS 13:37 → Y6N 16:01
PROVIDERS: ADMIT Allergy & Immunology; ATTEND Allergy & Immunology
PROC: HZ2ZZZZ Detoxification Services for Substance Abuse Treatment (ICD-10-PCS; principal; 2019-08-17)
DX: F11.23 Opioid dependence with withdrawal (principal); F10.230 Alcohol dependence with withdrawal, uncomplicated; F17.210 Nicotine dependence, cigarettes, uncomplicated; F19.24 Other psychoactive substance dependence with psychoactive substance-induced mood disorder; K21.9 Gastro-esophageal reflux disease without esophagitis; F41.8 Other specified anxiety disorders; F32.9 Major depressive disorder, single episode, unspecified; G47.00 Insomnia, unspecified; A53.0 Latent syphilis, unspecified as early or late; Z86.711 Personal history of pulmonary embolism; Z79.01 Long term (current) use of anticoagulants; Z95.828 Presence of other vascular implants and grafts
CPT/HCPCS: 36415; 80053; 85027; 86593; 86780

== ENCOUNTER 2019-08-30 10:19 | Inpatient (IN) | payer OTHER ==
[2019-08-30 11:14] VITALS: BMI 19.3
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
[2019-08-30] MEDS ORDERED: METHOCARBAMOL 500 MG TABLET PO PRN (13:32)
[2019-08-30] MEDS ORDERED: MAGNESIUM CITRATE 300 ML BOTTLE PO PRN (13:32)
[2019-08-30] MEDS ORDERED: ACETAMINOPHEN 325 MG TABLET (FP) PO PRN (13:32)
[2019-08-30] MEDS ORDERED: MAGNESIUM HYDROX 2400MG/30ML ORAL SUSPENSION 30 ML CUP PO PRN (13:32)
[2019-08-30] MEDS ORDERED: MENTHOL/PHENOL 1 EACH UD MM PRN (13:32)
[2019-08-30] MEDS ORDERED: hydrOXYzine PAMOATE 25 MG CAPSULE (FP) PO PRN (13:32)
[2019-08-30] MEDS ORDERED: MAG HYDROX/AL HYDROX/SIMETH 30 ML UNIT-DOSE CUP PO PRN (13:32)
[2019-08-30] MEDS ORDERED: chlordiazePOXIDE HCL 10 MG CAPSULE PO PRN (13:34)
[2019-08-30] MEDS ORDERED: METHADONE HCL 10 MG TABLET (FOR DETOX USE ONLY) PO ONE (14:30)
[2019-08-30] MEDS: PANTOPRAZOLE 40 MG TABLET (FP) PO SCH (14:59)
[2019-08-30] MEDS: chlordiazePOXIDE HCL 25 MG CAPSULE PO SCH ×2 (14:59→22:39)
[2019-08-30] MEDS ORDERED: WARFARIN NA 7.5 MG TABLET (FP) PO SCH (22:00)
[2019-08-30] MEDS: THIAMINE HCL 100 MG TABLET (FP) PO SCH (22:40)
[2019-08-30] MEDS: MELATONIN 5 MG TABLETS PO PRN (22:40)
[2019-08-30] MEDS: WARFARIN NA 5 MG, WARFARIN NA 3 MG PO SCH (22:40)
[2019-08-31] MEDS: chlordiazePOXIDE HCL 25 MG CAPSULE PO SCH ×3 (06:15→21:51)
--- NOTE | 2019-08-31 09:53 | PN ---
[facility] CIWA - CIWA Score Nausea/Vomitin-No Nausea/No Vomiting Muscle Tremors: 3 Anxiety: 2 Agitation: 3 Paroxysmal Sweats: 2 Orientation: 0-Oriented Tacttile Disturbances: 0-None Auditory Disturbances: 0-None Visual Disturbances: 0-None Headache: 0-None Present CIWA-Ar Total Score: 10 S COWS - Scale Resting Pulse: 0= AR 80 or Below Sweatin= Chills/Flushing Restless Observation: 1= Difficult to Sit Still Pupil Size: 0= Normal to Room Light Bone or Joint Aches: 2= Severe Diffuse Aches Runny Nose/ Eye Tearin= Nasal Congestion GI Upset > 30mins: 1= Stomach Cramp Tremor Observation of Outstretched Hands: 1= Tremor [place], Not Seen Yawning Observation: 2= >3x During Session Anxiety or Irritability: 2=Irritable/Anxious Goose Flesh Skin: 0=Smooth Skin COWS Score: 11 [facility] Progress Note (SOAP) Subjective: sweats shakes interrupted sleep body aches stomach cramping Objective: 08/31/19 09:52 Vital Signs Temperature 97.7 F 08/31/19 09:25 Pulse Rate 71 08/31/19 09:25 Respiratory Rate 18 08/31/19 09:25 Blood Pressure 121/69 08/31/19 09:25 O2 Sat by Pulse Oximetry (%) labs pending aaox3 ambulating no acute distress Assessment: 08/31/19 09:52 withdrawals Plan: continue detox increase fluids MOM/mylanta prn
[2019-08-31] MEDS ORDERED: METHADONE HCL 5 MG TABLET (FOR DETOX USE ONLY) PO ONE (10:00)
[2019-08-31] MEDS: PRENATAL VITAMINS W/ FOLIC ACID TABLET (FP) PO SCH (10:33)
[2019-08-31] MEDS: PANTOPRAZOLE 40 MG TABLET (FP) PO SCH (10:33)
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
[2019-08-31] MEDS: QUEtiapine FUMARATE 200 MG TABLET PO SCH (11:05)
[2019-08-31] MEDS: CITALOPRAM HYDROBROMIDE 20 MG TABLET (FP) PO SCH (11:05)
[2019-08-31] MEDS ORDERED: PNEUMOCOCCAL 23 VACCINE 0.5 ML VIAL IM ONE (12:00)
[2019-08-31] MEDS ORDERED: PNEUMOC 13-VAL CONJ-DIP CRM/PF 0.5 ML DISP.SYRIN IM ONE (12:00)
[2019-08-31] MEDS ORDERED: FLU VACCINE QUAD 60 MCG/0.5 ML (MDV 19-20) IM ONE (12:00)
[2019-08-31] MEDS: WARFARIN NA 5 MG, WARFARIN NA 3 MG PO SCH (22:11)
[2019-08-31] MEDS: MELATONIN 5 MG TABLETS PO PRN (22:12)
[2019-08-31] MEDS: QUEtiapine FUMARATE 400 MG TABLET PO SCH (22:12)
[2019-08-31] MEDS: THIAMINE HCL 100 MG TABLET (FP) PO SCH (22:12)
[2019-09-01] MEDS: chlordiazePOXIDE HCL 10 MG CAPSULE PO SCH ×3 (06:15→22:05)
[2019-09-01] MEDS: ACETAMINOPHEN 325 MG TABLET (FP) PO PRN ×2 (06:16→20:11)
[2019-09-01] MEDS ORDERED: METHADONE HCL 10 MG TABLET (FOR DETOX USE ONLY) PO ONE (10:00)
[2019-09-01] MEDS ORDERED: ONDANSETRON *ODT* 4 MG TABLET SL PRN (10:06)
--- NOTE | 2019-09-01 10:06 | PN ---
[facility] [place] CIWA - CIWA Score Nausea/Vomitin-No Nausea/No Vomiting Muscle Tremors: None Anxiety: 1-Mildly Anxious Agitation: 1-Slight > Activity Paroxysmal Sweats: No Perspiration Orientation: 0-Oriented Tacttile Disturbances: 0-None Auditory Disturbances: 0-None Visual Disturbances: 0-None Headache: 0-None Present CIWA-Ar Total Score: 2 S COWS - Scale Resting Pulse: 1= [place] 81-100 Sweatin= Chills/Flushing Restless Observation: 0= Sits Still Pupil Size: 0= Normal to Room Light Bone or Joint Aches: 1= Mild Discomfort Runny Nose/ Eye Tearin= None GI Upset > 30mins: 0= None Tremor Observation of Outstretched Hands: 0= None Yawning Observation: 1= 1-2x During Session Anxiety or Irritability: 1=Feels Anxious/Irritable Goose Flesh Skin: 0=Smooth Skin COWS Score: 5 [facility] [place] Progress Note (SOAP) Subjective: irritable nausea interrupted sleep Objective: 09/01/19 10:05 Vital Signs Temperature 99.3 F 09/01/19 09:30 Pulse Rate 84 09/01/19 09:30 Respiratory Rate 17 09/01/19 09:30 Blood Pressure 104/63 09/01/19 09:30 O2 Sat by Pulse Oximetry (%) Laboratory Tests 09/01/19 06:00 PT with INR Cancelled INR Cancelled aaox3 ambulating no acute distress Assessment: 09/01/19 10:05 mild withdrawals Plan: continue detox increase fluids d/c in am
[2019-09-01] MEDS: QUEtiapine FUMARATE 200 MG TABLET PO SCH (10:32)
[2019-09-01] MEDS: PANTOPRAZOLE 40 MG TABLET (FP) PO SCH (10:32)
[2019-09-01] MEDS: PRENATAL VITAMINS W/ FOLIC ACID TABLET (FP) PO SCH (10:32)
[2019-09-01] MEDS: CITALOPRAM HYDROBROMIDE 20 MG TABLET (FP) PO SCH (10:32)
--- NOTE | 2019-09-01 20:08 | PN ---
Progress Note (short form) - Note Progress Note: Patient c/o chest pain to nursing staff. EKG ordered. EKG shows tachy to 93. No ST/ t segment changes On my exam patient does not complain of chest pain. He does endorse mild L upper arm soreness s/p receiving flu shot and pneumovax shot earlier today. Chest pain was non-reproducible. No palpitations. No shortness of breath. Patient feels well.
[2019-09-01] MEDS: WARFARIN NA 5 MG, WARFARIN NA 3 MG PO SCH (22:05)
[2019-09-01] MEDS: THIAMINE HCL 100 MG TABLET (FP) PO SCH (22:05)
[2019-09-01] MEDS: QUEtiapine FUMARATE 400 MG TABLET PO SCH (22:05)
[2019-09-01] MEDS: MELATONIN 5 MG TABLETS PO PRN (22:06)
[2019-09-02] MEDS ORDERED: chlordiazePOXIDE HCL 10 MG CAPSULE PO PRN
[2019-09-02] MEDS ORDERED: chlordiazePOXIDE HCL 10 MG CAPSULE PO ONE (05:00)
[2019-09-02] MEDS ORDERED: METHADONE HCL 5 MG TABLET (FOR DETOX USE ONLY) PO ONE (06:00)
[2019-09-02 06:29] VITALS: BP 132/68; PULSE 97
[2019-09-02 07:19] VITALS: TEMP 100.2
--- NOTE | 2019-09-02 08:22 | DS ---
[facility] Detox Discharge Summary Admission Date: 08/30/19 Discharge Date: 09/02/19 - History Present History: Alcohol Dependence, Opioid Dependence - Physical Exam Results Vital Signs: Vital Signs Temperature 100.2 F H 09/02/19 07:15 Pulse Rate 97 H 09/02/19 06:00 Respiratory Rate 18 09/02/19 06:00 Blood Pressure 132/68 09/02/19 06:00 O2 Sat by Pulse Oximetry (%) Pertinent Admission Physical Exam Findings: pt arrived in withdrawals Vital Signs Temperature 100.2 F H 09/02/19 07:15 Pulse Rate 97 H 09/02/19 06:00 Respiratory Rate 18 09/02/19 06:00 Blood Pressure 132/68 09/02/19 06:00 O2 Sat by Pulse Oximetry (%) Laboratory Tests 09/01/19 06:00 PT with INR Cancelled INR Cancelled today pt is aaox3 ambulating no acute distress no s/s of withdrawals - Treatment Hospital Course: Detox Protocol Followed, Detoxed Safely, Responded well, Discharged Condition Good, Rehab Referral Accepted - Medication Discharge Medications: Ambulatory Orders Quetiapine Fumarate [Seroquel] 400 mg PO HS 07/08/19 Warfarin Sodium 8 mg PO HS 07/08/19 Pantoprazole Sodium [Protonix] 40 mg PO DAILY 08/17/19 - Diagnosis (1) Opioid dependence Status: Acute (2) Substance-induced sleep disorder Status: Acute (3) Uncomplicated alcohol dependence Status: Acute (4) Alcohol dependence Status: Chronic Qualifiers: Substance use status: uncomplicated Qualified Code(s): F10.20 - Alcohol dependence, uncomplicated (5) MDD (major depressive disorder), recurrent, severe, with psychosis Status: Chronic (6) Nicotine dependence Status: Chronic Qualifiers: Nicotine product type: cigarettes Substance use status: uncomplicated Qualified Code(s): F17.210 - Nicotine dependence, cigarettes, uncomplicated (7) Opioid dependence Status: Chronic Qualifiers: Substance use status: uncomplicated Qualified Code(s): F11.20 - Opioid dependence, uncomplicated (8) DVT (deep venous thrombosis) Status: Resolved (9) Esophageal ulcer Status: Resolved (10) Pulmonary embolism Status: Resolved (11) Substance induced mood disorder Status: Acute (12) History of mood disorder Status: Chronic (13) Insomnia Status: Chronic (14) Positive RPR test Status: Resolved - AMA Did Patient Leave Against Medical Advice: No
[2019-09-02] MEDS: PRENATAL VITAMINS W/ FOLIC ACID TABLET (FP) PO SCH (09:01)
[2019-09-02] MEDS: CITALOPRAM HYDROBROMIDE 20 MG TABLET (FP) PO SCH (09:01)
[2019-09-02] MEDS: QUEtiapine FUMARATE 200 MG TABLET PO SCH (09:01)
[2019-09-02] MEDS: PANTOPRAZOLE 40 MG TABLET (FP) PO SCH (09:01)
[2019-09-02 09:46] LABS: HEMATOCRIT 37.4 % (35.4-49); HEMOGLOBIN 13.5 GM/dL (11.7-16.9); MEAN CELL VOLUME 94.4 fl (80-96); MEAN PLT VOLUME 9.8 fl (7.5-11.1); PLATELET COUNT 218 K/MM3 (134-434); RBC 3.96 M/mm3 (4.00-5.60); RDW 13.7 % (11.9-15.9); WHITE BLOOD COUNT 11.3 K/mm3 (4.0-10.0)
--- NOTE | 2019-09-05 11:05 | EKG ---
Test Reason : Blood Pressure : / mmHG Vent. Rate : 093 BPM Atrial Rate : 093 BPM P-R Int : 140 ms QRS Dur : 080 ms QT Int : 340 ms P-R-T Axes : 005 072 056 degrees QTc Int : 422 ms NORMAL SINUS RHYTHM NORMAL ECG WHEN COMPARED WITH ECG OF 22-JUL-2019 18:44, NO SIGNIFICANT CHANGE WAS FOUND Confirmed by CLEVELAND STEWART MD ([id number]) on 09/05/2019 11:04:50 AM Referred By: Confirmed By:CLEVELAND STEWART MD
== END 2019-09-02 09:08 | disposition home or self-care (01) | DRG 773 ==
LOC: YASAS 10:19 → Y6N 14:19
PROVIDERS: ADMIT Allergy & Immunology; ATTEND Allergy & Immunology
PROC: HZ2ZZZZ Detoxification Services for Substance Abuse Treatment (ICD-10-PCS; principal; 2019-08-30)
DX: F11.23 Opioid dependence with withdrawal (principal); F10.230 Alcohol dependence with withdrawal, uncomplicated; F17.210 Nicotine dependence, cigarettes, uncomplicated; F19.282 Other psychoactive substance dependence with psychoactive substance-induced sleep disorder; F19.24 Other psychoactive substance dependence with psychoactive substance-induced mood disorder; F33.3 Major depressive disorder, recurrent, severe with psychotic symptoms; R07.9 Chest pain, unspecified; R76.11 Nonspecific reaction to tuberculin skin test without active tuberculosis; Z87.19 Personal history of other diseases of the digestive system; Z86.59 Personal history of other mental and behavioral disorders; Z86.711 Personal history of pulmonary embolism; Z86.718 Personal history of other venous thrombosis and embolism; Z79.01 Long term (current) use of anticoagulants
CPT/HCPCS: 36415; 85027; 90732; 93005; 93010; G0009; Q2036

== ENCOUNTER 2019-09-21 11:26 | Inpatient (IN) | payer OTHER ==
[2019-09-21 11:58] VITALS: BMI 18.9
--- NOTE | 2019-09-21 12:28 | HP ---
COWS - Scale Resting Pulse: 1= [place] 81-100 Sweatin= Chills/Flushing Restless Observation: 1= Difficult to Sit Still Pupil Size: 1= Pupils >than Normal Bone or Joint Aches: 4=Acute Joint/Muscle Pain Runny Nose/ Eye Tearin= Nasal Congestion GI Upset > 30mins: 2= Nausea/Diarrhea Tremor Observation: 2= Slight Tremor Visible Yawning Observation: 1= 1-2x During Session Anxiety or Irritability: 2=Irritable/Anxious Goose Flesh Skin: 3=Piloerection COWS Score: 19 CIWA Score Nausea/Vomitin Muscle Tremors: 4-Moderate,w/Arms Extend Anxiety: 4-Mod. Anxious/Guarded Agitation: 3 Paroxysmal Sweats: 4-Forehead w/Sweat Beads Orientation: 0-Oriented Tacttile Disturbances: 0-None Auditory Disturbances: 0-None Visual Disturbances: 0-None Headache: 4-Moderately Severe CIWA-Ar Total Score: 22 - Admission Criteria [facility]ASAS Guidelines: Admission for Medically Managed Detox: Requires at least one of the followin. CIWA greater than 12 2. Seizures within the past 24 hours 3. Delirium tremens within the past 24 hours 4. Hallucinations within the past 24 hours 5. Acute intervention needed for co occurring medical disorder 6. Acute intervention needed for co occurring psychiatric disorder 7. Severe withdrawal that cannot be handled at a lower level of care (continued vomiting, continued diarrhea, abnormal vital signs) requiring intravenous medication and/or fluids 8. Admitting History and Physical - Admission Chief Complaint: "I want to get my life together, start now detox go to rehab and be clean for the holidays and be with my family." History of Present Illness: 54 year old male with history of heroin dependence with withdrawals, alcohol dependence with withdrawals. He does not want to attend a maintenance program. He believes that he can be abstinent after he completes detox and rehab this time. Patient is using 15-20 bags daily, last used last night. 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 Patient is drinking 4 pints of vodka daily and 2-3 6 packs of beer per day. He had two blackouts in 2017, 2018 and seizure upon withdrawals in 09/27/18. He smokes 10 ciggarettes per day for many years. He has poor coping skills and poor support systems. PMH: DVT and Pulmonary emboli on coumadin Psych: Anxiety and Depression Psurg: None except IVC implanted in 2017 - Past Medical History Pulmonary: Yes: Pulmonary Embolus Psych: Yes: Anxiety, Depression - Smoking History Smoking history: Current every day smoker Have you smoked in the past 12 months: Yes Aproximately how many cigarettes per day: 10 - Alcohol/Substance Use Hx Alcohol Use: Yes Number of Drinks Daily: 10 History of Substance Use: reports: Heroin Date of Last Use: 08/17/19 - Social History ADL: Independent Occupation: retired, was a [employer] History of Recent Travel: No Admission ROS [facility] Allergies/Adverse Reactions: Allergies Allergy/AdvReac Type Severity Reaction Status Date / Time No Known Allergies Allergy Verified 09/21/19 11:48 Exam Limitations: No Limitations - Ebola screening Have you traveled outside of the country in the last 21 days: No Have you had contact with anyone from an Ebola affected area: No Have you been sick,other than usual withdrawal symptoms: No Do you have a fever: No - Review of Systems Constitutional: Chills, Diaphoresis, Unintentional Wgt. Loss EENT: reports: No Symptoms Reported Respiratory: reports: No Symptoms reported Cardiac: reports: No Symptoms Reported GI: reports: Nausea, Vomiting, Abdominal cramping : reports: No Symptoms Reported Musculoskeletal: reports: Back Pain, Joint Pain, Muscle Pain Integumentary: reports: No Symptoms Reported Neuro: reports: Headache Endocrine: reports: No Symptoms Reported Hematology: reports: No Symptoms Reported Psychiatric: reports: Anxious, Depressed Other Systems: Reviewed and Negative Patient History - Patient Medical History Hx Asthma: No Hx Chronic Obstructive Pulmonary Disease (COPD): No Hx Cardiac Disorders: No Hx Hypertension: No Hx Seizures: Yes (drug related in 2016) Hx Diabetes: No Hx Gastrointestinal Disorders: No Hx Genitourinary Disorders: No Hx Sexually Transmitted Disorders: No Hx Renal Disease (ESRD): No Hx Depression: Yes Hx Suicide Attempt: Yes ([place] to jump [place] train tracks 1 yr ago.) Hx Schizophrenia: No - Patient Surgical History Past Surgical History: Yes Hx Neurologic Surgery: No Hx Cataract Extraction: No Hx Cardiac Surgery: No Hx Lung Surgery: No Hx Breast Surgery: No Hx Breast Biopsy: No Hx Abdominal Surgery: No Hx Appendectomy: No Hx Cholecystectomy: No Hx Genitourinary Surgery: No Hx Section: No Hx Orthopedic Surgery: No Other Surgical History: IVC implanted 10/2017 for PE Anesthesia Reaction: No - PPD History Previous Implant?: Yes Documented Results: Negative w/proof Implanted On Prior [facility] Admission?: Yes Date: 07/18/19 Results: 00 PPD to be Administered?: No - Smoking Cessation Smoking history: Current every day smoker Have you smoked in the past 12 months: Yes Aproximately how many cigarettes per day: 10 Hx Chewing Tobacco Use: No Initiated information on smoking cessation: Yes 'Breaking Loose' booklet given: 09/21/19 - Substances abused Heroin Substance route: Inhalation Frequency: Daily Amount used: 20 bags Age of first use: 49 Date of last use: 08/29/19 Alcohol Substance route: Oral Frequency: Daily Amount used: half a gallon of vodka & (3) 6 packs of beer Age of first use: 22 Date of last use: 09/21/19 Admission Physical Exam BHS - Vital Signs Vital Signs: Vital Signs - 24 hr 09/21/19 11:45 Temperature 98.5 F Pulse Rate 92 H Respiratory 17 Rate Blood Pressure 123/90 - Physical General Appearance: Yes: Mild Distress, Tremorous, Irritable, Sweating HEENTM: Yes: EOMI, Hearing grossly Normal, Normal ENT Inspection, Normocephalic , Normal Voice, GHADA, Pharynx Normal, Tm's normal Respiratory: Yes: Chest Non-Tender, Lungs Clear, Normal Breath Sounds, No Respiratory Distress, No Accessory Muscle Use Neck: Yes: No masses,lesions,Nodules, Supple, Trachea in good position Breast: Yes: Within Normal Limits Cardiology: Yes: Regular Rhythm, Regular Rate, S1, S2 Abdominal: Yes: Flat, Soft, Increased Bowel Sounds Genitourinary: Yes: Within Normal Limits Back: Yes: Within Normal Limits Musculoskeletal: Yes: full range of Motion, Gait Steady, Pelvis Stable Extremities: Yes: Within Normal Limits, Other (scar from IVC implantation) Neurological: Yes: first aid nurse II-XII NML intact, Fully Oriented, Motor Strength 5/5, Normal Mood/Affect, Normal Response Integumentary: Yes: Normal Color, Warm, Other (nodular hyperpigmented comedal lesion on upper chest wall.) Lymphatic: Yes: Within Normal Limits - Diagnostic (1) Opioid dependence with withdrawal Current Visit: Yes Status: Acute (2) Alcohol dependence with withdrawal Current Visit: Yes Status: Acute (3) Insomnia Current Visit: Yes Status: Chronic (4) MDD (major depressive disorder), recurrent, severe, with psychosis Current Visit: Yes Status: Chronic (5) Nicotine dependence Current Visit: Yes Status: Chronic Qualifiers: Nicotine product type: cigarettes Substance use status: uncomplicated Qualified Code(s): F17.210 - Nicotine dependence, cigarettes, uncomplicated (6) DVT (deep venous thrombosis) Current Visit: Yes Status: Resolved (7) Pulmonary embolism Current Visit: Yes Status: Resolved Cleared for Admission [facility] - Detox or Rehab [facility] Level of Care: Medically Managed Detox Regimen/Protocol: Methadone Claeared for Rehab Admission: No Screened but not Admitted - Documentation of Visit Screened but not Admitted: No Breathalyzer - Breathalyzer Breathalyzer: 0 Urine Drug Screen - Test Device Lot number: [id number] Expiration date: 04/01/21 - Control Is test valid?: Yes - Results Drug screen NEGATIVE: No Urine drug screen results: THC-Marijuana, FEN-Fentanyl, MOP-Opiates, OXY- Oxycodone, MTD-Methadone, BZO-Benzodiazepines Inpatient Rehab Admission - Rehab Decision to Admit Inpatient rehab admission?: No
[2019-09-21] MEDS ORDERED: hydrOXYzine PAMOATE 25 MG CAPSULE (FP) PO PRN (12:34)
[2019-09-21] MEDS ORDERED: MAG HYDROX/AL HYDROX/SIMETH 30 ML UNIT-DOSE CUP PO PRN (12:34)
[2019-09-21] MEDS ORDERED: MAGNESIUM HYDROX 2400MG/30ML ORAL SUSPENSION 30 ML CUP PO PRN (12:34)
[2019-09-21] MEDS ORDERED: METHOCARBAMOL 500 MG TABLET PO PRN (12:34)
[2019-09-21] MEDS ORDERED: IBUPROFEN 400 MG TABLET (FP) PO PRN (12:34)
[2019-09-21] MEDS ORDERED: cloNIDine HCL 0.1 MG TABLET PO PRN (12:34)
[2019-09-21] MEDS ORDERED: MENTHOL/PHENOL 1 EACH UD MM PRN (12:34)
[2019-09-21] MEDS ORDERED: BISMUTH SUBSALICYLATE 262 MG/15 ML BTL PO PRN (12:34)
[2019-09-21] MEDS ORDERED: ACETAMINOPHEN 325 MG TABLET (FP) PO PRN ×2 (12:34)
[2019-09-21] MEDS ORDERED: MAGNESIUM CITRATE 300 ML BOTTLE PO PRN (12:34)
[2019-09-21] MEDS ORDERED: SUVOREXANT 10 MG TABLET PO PRN (12:39)
[2019-09-21] MEDS ORDERED: METHADONE HCL 10 MG TABLET (FOR DETOX USE ONLY) PO ONE (13:35)
[2019-09-21] MEDS: LORazepam 1 MG TABLET PO PRN (14:08)
[2019-09-21 15:24] LABS: INR 2.02 (0.83-1.09)
[2019-09-21] MEDS: LORazepam 2 MG TABLET PO SCH ×2 (17:11→22:19)
[2019-09-21] MEDS: WARFARIN NA PO SCH (17:12)
[2019-09-21 21:02] LABS: HEMATOCRIT 40.9 % (35.4-49); HEMOGLOBIN 13.6 GM/dL (11.7-16.9); MCH 31.5 pg (25.7-33.7); MCHC 33.2 g/dl (32.0-35.9); MEAN PLT VOLUME 9.3 fl (7.5-11.1); PLATELET COUNT 348 K/MM3 (134-434); RBC 4.31 M/mm3 (4.00-5.60); WHITE BLOOD COUNT 6.3 K/mm3 (4.0-10.0)
[2019-09-21 21:45] LABS: ALBUMIN 3.7 g/dl (3.4-5.0); CALCIUM 9.1 mg/dL (8.5-10.1); POTASSIUM 4.7 mmol/L (3.5-5.1); TOT PROT 6.9 g/dl (6.4-8.2)
[2019-09-21] MEDS ORDERED: WARFARIN SODIUM 8 MG PO SCH (22:00)
[2019-09-21 22:02] LABS: BILIRUBIN,TOTAL 0.4 mg/dL (0.2-1); BLOOD UREA NITROGEN 15.7 mg/dL (7-18)
[2019-09-21] MEDS: QUETIAPINE FUMARATE 400 MG PO SCH (22:19)
[2019-09-21] MEDS: THIAMINE HCL 100 MG TABLET (FP) PO SCH (22:19)
[2019-09-21] MEDS: MELATONIN 5 MG TABLETS PO PRN (22:20)
[2019-09-22] MEDS: LORazepam 2 MG TABLET PO SCH ×4 (05:15→22:27)
--- NOTE | 2019-09-22 08:45 | CONSULT ---
[facility] Psychiatric Consult - Data Date of interview: 09/22/19 Admission source: [facility] Identifying data: Patient approached twice for psychiatric consultation. Patient stated to sba underwriter , " I'm here to thursday we can speak another time." Psychiatric consultation refused.
[2019-09-22] MEDS ORDERED: METHADONE HCL 5 MG TABLET (FOR DETOX USE ONLY) ONE (08:53)
[2019-09-22] MEDS ORDERED: METHADONE HCL 10 MG TABLET (FOR DETOX USE ONLY) ONE (08:53)
[2019-09-22] MEDS ORDERED: METHADONE (DETOX) 20 MG, METHADONE (DETOX) 5 MG PO ONE (10:00)
[2019-09-22] MEDS: PANTOPRAZOLE SODIUM 40 MG PO SCH (10:24)
[2019-09-22] MEDS: CITALOPRAM HYDROBROMIDE 20 MG PO SCH (10:24)
[2019-09-22] MEDS: PRENATAL VITAMINS W/ FOLIC ACID TABLET (FP) PO SCH (10:26)
[2019-09-22] MEDS: QUEtiapine FUMARATE 200 MG TABLET PO SCH (10:27)
[2019-09-22] MEDS ORDERED: NICOTINE POLACRILEX 2 MG GUM BUC PRN (10:30)
--- NOTE | 2019-09-22 10:31 | PN ---
S CIWA - CIWA Score Nausea/Vomitin-Mild Nausea/No Vomiting Muscle Tremors: 3 Anxiety: 4-Mod. Anxious/Guarded Agitation: 2 Paroxysmal Sweats: 2 Orientation: 0-Oriented Tacttile Disturbances: 1-Very Mild Itch/Numbness Auditory Disturbances: 0-None Visual Disturbances: 0-None Headache: 2-Mild CIWA-Ar Total Score: 15 BHS COWS - Scale Resting Pulse: 0= [place] 80 or Below Sweatin= Chills/Flushing Restless Observation: 1= Difficult to Sit Still Pupil Size: 0= Normal to Room Light Bone or Joint Aches: 1= Mild Discomfort Runny Nose/ Eye Tearin= Nasal Congestion GI Upset > 30mins: 2= Nausea/Diarrhea (no diarrhea) Tremor Observation of Outstretched Hands: 2= Slight Tremor Visible Yawning Observation: 1= 1-2x During Session Anxiety or Irritability: 2=Irritable/Anxious Goose Flesh Skin: 3=Piloerection COWS Score: 14 S Progress Note (SOAP) Subjective: patient smoke 10 cigarette daily nicotine placement therapy 54 years old male admitted on 09/21/19 for alcohol and opiate withdrawal sx management treated with ativan and methadone detox regimen received nicotine patch feeling better less anxious feeling tired limited conversation with staff Objective: 09/22/19 10:36 Vital Signs Temperature 97.9 F 09/22/19 09:09 Pulse Rate 76 09/22/19 09:09 Respiratory Rate 16 09/22/19 09:09 Blood Pressure 92/58 L 09/22/19 09:09 O2 Sat by Pulse Oximetry (%) Laboratory Last Values WBC 6.3 K/mm3 (4.0-10.0) 09/21/19 12:50 RBC 4.31 M/mm3 (4.00-5.60) 09/21/19 12:50 Hgb 13.6 GM/dL (11.7-16.9) 09/21/19 12:50 Hct 40.9 % (35.4-49) 09/21/19 12:50 MCV 95.0 fl (80-96) 09/21/19 12:50 MCH 31.5 pg (25.7-33.7) 09/21/19 12:50 MCHC 33.2 g/dl (32.0-35.9) 09/21/19 12:50 RDW 14.0 % (11.9-15.9) 09/21/19 12:50 Plt Count 348 K/MM3 (134-434) D 09/21/19 12:50 MPV 9.3 fl (7.5-11.1) 09/21/19 12:50 PT with INR 24.00 SEC (9.7-13.0) H 09/21/19 12:50 INR 2.02 (0.83-1.09) H 09/21/19 12:50 Sodium 136 mmol/L (136-145) 09/21/19 12:50 Potassium 4.7 mmol/L (3.5-5.1) 09/21/19 12:50 Chloride 105 mmol/L (98-107) 09/21/19 12:50 Carbon Dioxide 25 mmol/L (21-32) 09/21/19 12:50 Anion Gap 6 MMOL/L (8-16) L 09/21/19 12:50 BUN 15.7 mg/dL (7-18) 09/21/19 12:50 Creatinine 1.0 mg/dL (0.55-1.3) 09/21/19 12:50 Est GFR (CKD-EPI)AfAm 99.15 09/21/19 12:50 Est GFR (CKD-EPI)NonAf 85.55 09/21/19 12:50 Random Glucose 130 mg/dL (74-106) H 09/21/19 12:50 Calcium 9.1 mg/dL (8.5-10.1) 09/21/19 12:50 Total Bilirubin 0.4 mg/dL (0.2-1) 09/21/19 12:50 AST 14 U/L (15-37) L 09/21/19 12:50 ALT 19 U/L (13-61) 09/21/19 12:50 Alkaline Phosphatase 64 U/L (45-117) 09/21/19 12:50 Total Protein 6.9 g/dl (6.4-8.2) 09/21/19 12:50 Albumin 3.7 g/dl (3.4-5.0) 09/21/19 12:50 lab noted 09/22/19 10:41 patient will received coumadin 8 mg today around 6 pm repeat inr pt and fasting glucose 09/22/19 10:43 change ensure to glucerna Assessment: 09/22/19 10:42 alcohol and opiate withdrawal sx discuss alcohol related glucose elevation Plan: ativan and methadone detox regimen
[2019-09-22] MEDS ORDERED: COLLOIDAL OATMEAL 1 BAR EACH TP PRN (13:22)
[2019-09-22] MEDS: NICOTINE 14 MG/24 HOURS TOPICAL PATCH TD SCH (13:39)
[2019-09-22 14:21] LABS: RPR REACTIVE 1:1 (NONREACTIVE)
[2019-09-22 14:22] LABS: TREPONEMA ANTIBODY PREVIOUSLY REACTIVE (NONREACTIVE)
[2019-09-22] MEDS: WARFARIN NA PO SCH (17:49)
[2019-09-22] MEDS: MELATONIN 5 MG TABLETS PO PRN (22:27)
[2019-09-22] MEDS: QUETIAPINE FUMARATE 400 MG PO SCH (22:27)
[2019-09-22] MEDS: THIAMINE HCL 100 MG TABLET (FP) PO SCH (22:27)
[2019-09-23] MEDS: LORazepam 1 MG TABLET PO SCH ×4 (05:25→22:17)
[2019-09-23] MEDS ORDERED: METHADONE HCL 10 MG TABLET (FOR DETOX USE ONLY) PO ONE (10:00)
[2019-09-23] MEDS: PANTOPRAZOLE SODIUM 40 MG PO SCH (10:10)
[2019-09-23] MEDS: CITALOPRAM HYDROBROMIDE 20 MG PO SCH (10:10)
[2019-09-23] MEDS: QUEtiapine FUMARATE 200 MG TABLET PO SCH (10:11)
[2019-09-23] MEDS: PRENATAL VITAMINS W/ FOLIC ACID TABLET (FP) PO SCH (10:11)
[2019-09-23] MEDS: NICOTINE 14 MG/24 HOURS TOPICAL PATCH TD SCH (10:12)
--- NOTE | 2019-09-23 13:07 | PN ---
[facility] CIWA - CIWA Score Nausea/Vomitin-Mild Nausea/No Vomiting Muscle Tremors: 2 Anxiety: 3 Agitation: 3 Paroxysmal Sweats: 1-Minimal Palms Moist Orientation: 0-Oriented Tacttile Disturbances: 1-Very Mild Itch/Numbness Auditory Disturbances: 0-None Visual Disturbances: 0-None Headache: 2-Mild CIWA-Ar Total Score: 13 BHS COWS - Scale Resting Pulse: 1= [place] 81-100 Sweatin= Chills/Flushing Restless Observation: 1= Difficult to Sit Still Pupil Size: 1= Pupils >than Normal Bone or Joint Aches: 1= Mild Discomfort Runny Nose/ Eye Tearin= Runny Nose/Eyes GI Upset > 30mins: 1= Stomach Cramp Tremor Observation of Outstretched Hands: 1= Tremor [place], Not Seen Yawning Observation: 1= 1-2x During Session Anxiety or Irritability: 2=Irritable/Anxious Goose Flesh Skin: 0=Smooth Skin COWS Score: 12 [facility] Progress Note (SOAP) Subjective: alert,irritable,anxious,interrupted sleep pain in the body and back Objective: 09/23/19 13:06 Vital Signs Temperature 97.0 F L 09/23/19 09:22 Pulse Rate 88 09/23/19 09:22 Respiratory Rate 19 09/23/19 09:22 Blood Pressure 117/89 09/23/19 09:22 O2 Sat by Pulse Oximetry (%) 09/23/19 13:06 Laboratory Last Values WBC 6.3 K/mm3 (4.0-10.0) 09/21/19 12:50 RBC 4.31 M/mm3 (4.00-5.60) 09/21/19 12:50 Hgb 13.6 GM/dL (11.7-16.9) 09/21/19 12:50 Hct 40.9 % (35.4-49) 09/21/19 12:50 MCV 95.0 fl (80-96) 09/21/19 12:50 MCH 31.5 pg (25.7-33.7) 09/21/19 12:50 MCHC 33.2 g/dl (32.0-35.9) 09/21/19 12:50 RDW 14.0 % (11.9-15.9) 09/21/19 12:50 Plt Count 348 K/MM3 (134-434) D 09/21/19 12:50 MPV 9.3 fl (7.5-11.1) 09/21/19 12:50 PT with INR 24.00 SEC (9.7-13.0) H 09/21/19 12:50 INR 2.02 (0.83-1.09) H 09/21/19 12:50 Sodium 136 mmol/L (136-145) 09/21/19 12:50 Potassium 4.7 mmol/L (3.5-5.1) 09/21/19 12:50 Chloride 105 mmol/L (98-107) 09/21/19 12:50 Carbon Dioxide 25 mmol/L (21-32) 09/21/19 12:50 Anion Gap 6 MMOL/L (8-16) L 09/21/19 12:50 BUN 15.7 mg/dL (7-18) 09/21/19 12:50 Creatinine 1.0 mg/dL (0.55-1.3) 09/21/19 12:50 Est GFR (CKD-EPI)AfAm 99.15 09/21/19 12:50 Est GFR (CKD-EPI)NonAf 85.55 09/21/19 12:50 Random Glucose 130 mg/dL (74-106) H 09/21/19 12:50 Fasting Glucose 88 mg/dL (74-106) 09/23/19 08:00 Calcium 9.1 mg/dL (8.5-10.1) 09/21/19 12:50 Total Bilirubin 0.4 mg/dL (0.2-1) 09/21/19 12:50 AST 14 U/L (15-37) L 09/21/19 12:50 ALT 19 U/L (13-61) 09/21/19 12:50 Alkaline Phosphatase 64 U/L (45-117) 09/21/19 12:50 Total Protein 6.9 g/dl (6.4-8.2) 09/21/19 12:50 Albumin 3.7 g/dl (3.4-5.0) 09/21/19 12:50 RPR Titer Reactive 1:1 (NONREACTIVE) H 09/21/19 12:50 T.pallidum Ab (MHA) Previously reactive (NONREACTIVE) 09/21/19 12:50 HIV 1&2 Antibody Screen Negative 09/21/19 13:30 HIV P24 Antigen Negative 09/21/19 13:30 09/23/19 13:11 patient has history of syphilis treated 3 years ago with 3 dose of penicillin injection Assessment: 09/23/19 13:12 withdrawal symptom Plan: continue detox,methadone and ativan regimen
[2019-09-23] MEDS: LORazepam 1 MG TABLET PO PRN (13:14)
[2019-09-23] MEDS: WARFARIN NA PO SCH (17:14)
[2019-09-23] MEDS: THIAMINE HCL 100 MG TABLET (FP) PO SCH (22:17)
[2019-09-23] MEDS: QUETIAPINE FUMARATE 400 MG PO SCH (22:18)
[2019-09-24] MEDS ORDERED: LORazepam 0.5 MG TABLET PO PRN
[2019-09-24] MEDS: LORazepam 0.5 MG TABLET PO SCH ×4 (06:30→22:09)
[2019-09-24] MEDS ORDERED: METHADONE HCL 10 MG TABLET (FOR DETOX USE ONLY) ONE (09:36)
[2019-09-24] MEDS ORDERED: METHADONE HCL 5 MG TABLET (FOR DETOX USE ONLY) ONE (09:37)
[2019-09-24] MEDS ORDERED: METHADONE (DETOX) 10 MG, METHADONE (DETOX) 5 MG PO ONE (10:00)
[2019-09-24] MEDS: CITALOPRAM HYDROBROMIDE 20 MG PO SCH (10:26)
[2019-09-24] MEDS: QUEtiapine FUMARATE 200 MG TABLET PO SCH (10:26)
[2019-09-24] MEDS: PANTOPRAZOLE SODIUM 40 MG PO SCH (10:26)
[2019-09-24] MEDS: NICOTINE 14 MG/24 HOURS TOPICAL PATCH TD SCH (10:27)
[2019-09-24] MEDS: PRENATAL VITAMINS W/ FOLIC ACID TABLET (FP) PO SCH (10:27)
--- NOTE | 2019-09-24 10:56 | PN ---
S CIWA - CIWA Score Nausea/Vomitin-No Nausea/No Vomiting Muscle Tremors: None Anxiety: 3 Agitation: 0-Normal Activity Paroxysmal Sweats: 3 Orientation: 0-Oriented Tacttile Disturbances: 0-None Auditory Disturbances: 0-None Visual Disturbances: 0-None Headache: 2-Mild CIWA-Ar Total Score: 8 BHS COWS - Scale Resting Pulse: 0= [place] 80 or Below Sweatin= Chills/Flushing Restless Observation: 1= Difficult to Sit Still Pupil Size: 0= Normal to Room Light Bone or Joint Aches: 2= Severe Diffuse Aches Runny Nose/ Eye Tearin= None GI Upset > 30mins: 0= None Tremor Observation of Outstretched Hands: 0= None Yawning Observation: 1= 1-2x During Session Anxiety or Irritability: 2=Irritable/Anxious Goose Flesh Skin: 0=Smooth Skin COWS Score: 7 S Progress Note (SOAP) Subjective: c/o sweats, headache, anxiety, and muscle aches. Objective: 09/24/19 10:55 Vital Signs 09/24/19 09/24/19 09/24/19 03:30 06:31 09:27 Temperature 97.7 F 97.5 F L Pulse Rate 82 88 Respiratory 18 16 18 Rate Blood Pressure 104/62 90/56 L Laboratory Last Values WBC 6.3 K/mm3 (4.0-10.0) 09/21/19 12:50 RBC 4.31 M/mm3 (4.00-5.60) 09/21/19 12:50 Hgb 13.6 GM/dL (11.7-16.9) 09/21/19 12:50 Hct 40.9 % (35.4-49) 09/21/19 12:50 MCV 95.0 fl (80-96) 09/21/19 12:50 MCH 31.5 pg (25.7-33.7) 09/21/19 12:50 MCHC 33.2 g/dl (32.0-35.9) 09/21/19 12:50 RDW 14.0 % (11.9-15.9) 09/21/19 12:50 Plt Count 348 K/MM3 (134-434) D 09/21/19 12:50 MPV 9.3 fl (7.5-11.1) 09/21/19 12:50 PT with INR 24.00 SEC (9.7-13.0) H 09/21/19 12:50 INR 2.02 (0.83-1.09) H 09/21/19 12:50 Sodium 136 mmol/L (136-145) 09/21/19 12:50 Potassium 4.7 mmol/L (3.5-5.1) 09/21/19 12:50 Chloride 105 mmol/L (98-107) 09/21/19 12:50 Carbon Dioxide 25 mmol/L (21-32) 09/21/19 12:50 Anion Gap 6 MMOL/L (8-16) L 09/21/19 12:50 BUN 15.7 mg/dL (7-18) 09/21/19 12:50 Creatinine 1.0 mg/dL (0.55-1.3) 09/21/19 12:50 Est GFR (CKD-EPI)AfAm 99.15 09/21/19 12:50 Est GFR (CKD-EPI)NonAf 85.55 09/21/19 12:50 Random Glucose 130 mg/dL (74-106) H 09/21/19 12:50 Fasting Glucose 88 mg/dL (74-106) 09/23/19 08:00 Calcium 9.1 mg/dL (8.5-10.1) 09/21/19 12:50 Total Bilirubin 0.4 mg/dL (0.2-1) 09/21/19 12:50 AST 14 U/L (15-37) L 09/21/19 12:50 ALT 19 U/L (13-61) 09/21/19 12:50 Alkaline Phosphatase 64 U/L (45-117) 09/21/19 12:50 Total Protein 6.9 g/dl (6.4-8.2) 09/21/19 12:50 Albumin 3.7 g/dl (3.4-5.0) 09/21/19 12:50 RPR Titer Reactive 1:1 (NONREACTIVE) H 09/21/19 12:50 T.pallidum Ab (MHA) Previously reactive (NONREACTIVE) 09/21/19 12:50 HIV 1&2 Antibody Screen Negative 09/21/19 13:30 HIV P24 Antigen Negative 09/21/19 13:30 Labs noted. Assessment: 09/24/19 10:56 AOX3, in no acute respiratory distress. Full ROM, ambulating in the unit. Withdrawal symptoms. Plan: continue detox.
[2019-09-24] MEDS: WARFARIN NA PO SCH (18:26)
[2019-09-24] MEDS: QUETIAPINE FUMARATE 400 MG PO SCH (21:26)
[2019-09-24] MEDS: THIAMINE HCL 100 MG TABLET (FP) PO SCH (21:26)
[2019-09-24] MEDS: MELATONIN 5 MG TABLETS PO PRN (21:28)
[2019-09-25] MEDS ORDERED: LORazepam 0.5 MG TABLET PO ONE (05:00)
--- NOTE | 2019-09-25 09:53 | PN ---
S CIWA - CIWA Score Nausea/Vomitin-No Nausea/No Vomiting Muscle Tremors: 2 Anxiety: 2 Agitation: 2 Paroxysmal Sweats: No Perspiration Orientation: 0-Oriented Tacttile Disturbances: 0-None Auditory Disturbances: 0-None Visual Disturbances: 0-None Headache: 0-None Present CIWA-Ar Total Score: 6 BHS COWS - Scale Resting Pulse: 1= [place] 81-100 Sweatin= Chills/Flushing Restless Observation: 0= Sits Still Pupil Size: 0= Normal to Room Light Bone or Joint Aches: 1= Mild Discomfort Runny Nose/ Eye Tearin= Nasal Congestion GI Upset > 30mins: 0= None Tremor Observation of Outstretched Hands: 1= Tremor [place], Not Seen Yawning Observation: 0= None Anxiety or Irritability: 1=Feels Anxious/Irritable Goose Flesh Skin: 0=Smooth Skin COWS Score: 6 BHS Progress Note (SOAP) Subjective: 54 YEARS OLD MALE ADMITTED ON 09/21/19 FOR ALCOHOL AND OPIATE WITHDRAWAL SX MANAGEMETN TREATED WITH ATIVAN AND METHADONE DETOX REGIMEN FEELING BETTER DISCUSS AFTERCARE WITH STAFF [place] MEDICATION ASSISTED TREATMENT PROGRAM CASING FINISHER AND STUFFER NARCAN FROM PHARMACY Objective: 09/25/19 09:50 Vital Signs Temperature 97.4 F L 09/25/19 09:25 Pulse Rate 82 09/25/19 09:25 Respiratory Rate 18 09/25/19 09:25 Blood Pressure 126/78 09/25/19 09:25 O2 Sat by Pulse Oximetry (%) Laboratory Last Values WBC 6.3 K/mm3 (4.0-10.0) 09/21/19 12:50 RBC 4.31 M/mm3 (4.00-5.60) 09/21/19 12:50 Hgb 13.6 GM/dL (11.7-16.9) 09/21/19 12:50 Hct 40.9 % (35.4-49) 09/21/19 12:50 MCV 95.0 fl (80-96) 09/21/19 12:50 MCH 31.5 pg (25.7-33.7) 09/21/19 12:50 MCHC 33.2 g/dl (32.0-35.9) 09/21/19 12:50 RDW 14.0 % (11.9-15.9) 09/21/19 12:50 Plt Count 348 K/MM3 (134-434) D 09/21/19 12:50 MPV 9.3 fl (7.5-11.1) 09/21/19 12:50 PT with INR 24.00 SEC (9.7-13.0) H 09/21/19 12:50 INR 2.02 (0.83-1.09) H 09/21/19 12:50 Sodium 136 mmol/L (136-145) 09/21/19 12:50 Potassium 4.7 mmol/L (3.5-5.1) 09/21/19 12:50 Chloride 105 mmol/L (98-107) 09/21/19 12:50 Carbon Dioxide 25 mmol/L (21-32) 09/21/19 12:50 Anion Gap 6 MMOL/L (8-16) L 09/21/19 12:50 BUN 15.7 mg/dL (7-18) 09/21/19 12:50 Creatinine 1.0 mg/dL (0.55-1.3) 09/21/19 12:50 Est GFR (CKD-EPI)AfAm 99.15 09/21/19 12:50 Est GFR (CKD-EPI)NonAf 85.55 09/21/19 12:50 Random Glucose 130 mg/dL (74-106) H 09/21/19 12:50 Fasting Glucose 88 mg/dL (74-106) 09/23/19 08:00 Calcium 9.1 mg/dL (8.5-10.1) 09/21/19 12:50 Total Bilirubin 0.4 mg/dL (0.2-1) 09/21/19 12:50 AST 14 U/L (15-37) L 09/21/19 12:50 ALT 19 U/L (13-61) 09/21/19 12:50 Alkaline Phosphatase 64 U/L (45-117) 09/21/19 12:50 Total Protein 6.9 g/dl (6.4-8.2) 09/21/19 12:50 Albumin 3.7 g/dl (3.4-5.0) 09/21/19 12:50 RPR Titer Reactive 1:1 (NONREACTIVE) H 09/21/19 12:50 T.pallidum Ab (MHA) Previously reactive (NONREACTIVE) 09/21/19 12:50 HIV 1&2 Antibody Screen Negative 09/21/19 13:30 HIV P24 Antigen Negative 09/21/19 13:30 LAB NOTED PATIENT AGREES TO BRINGING IN LAB REPORT FOLLOW UP WITH COUMADIN PROVIDER STRONG RECOMMEND CIGARETTE SMOKING CESSATION 09/25/19 09:52 09/25/19 09:52 Assessment: 09/25/19 09:53 ALCOHOL AND OPIATE WITHDRAWAL SX Plan: CONTINUE ATIVAN AND METHADONE DETOX REGIMEN
[2019-09-25] MEDS ORDERED: METHADONE HCL 10 MG TABLET (FOR DETOX USE ONLY) PO ONE (10:00)
[2019-09-25] MEDS: QUEtiapine FUMARATE 200 MG TABLET PO SCH (10:05)
[2019-09-25] MEDS: PANTOPRAZOLE SODIUM 40 MG PO SCH (10:05)
[2019-09-25] MEDS: PRENATAL VITAMINS W/ FOLIC ACID TABLET (FP) PO SCH (10:05)
[2019-09-25] MEDS: CITALOPRAM HYDROBROMIDE 20 MG PO SCH (10:06)
[2019-09-25] MEDS: NICOTINE 14 MG/24 HOURS TOPICAL PATCH TD SCH (10:07)
[2019-09-25] MEDS: WARFARIN NA PO SCH (17:28)
[2019-09-25] MEDS: QUETIAPINE FUMARATE 400 MG PO SCH (21:01)
[2019-09-25] MEDS: MELATONIN 5 MG TABLETS PO PRN (21:01)
[2019-09-25] MEDS: THIAMINE HCL 100 MG TABLET (FP) PO SCH (21:01)
[2019-09-26] MEDS ORDERED: METHADONE HCL 5 MG TABLET (FOR DETOX USE ONLY) PO ONE (06:00)
[2019-09-26 08:30] VITALS: BP 109/64; PULSE 73; TEMP 97
== END 2019-09-26 06:40 | disposition home or self-care (01) | DRG 773 ==
LOC: YASAS 11:26 → Y3N 13:19
PROVIDERS: ADMIT Allergy & Immunology; ATTEND Allergy & Immunology
PROC: HZ2ZZZZ Detoxification Services for Substance Abuse Treatment (ICD-10-PCS; principal; 2019-09-21)
DX: F10.230 Alcohol dependence with withdrawal, uncomplicated (principal); F11.23 Opioid dependence with withdrawal; F17.210 Nicotine dependence, cigarettes, uncomplicated; F33.3 Major depressive disorder, recurrent, severe with psychotic symptoms; F41.8 Other specified anxiety disorders; Z86.711 Personal history of pulmonary embolism; Z86.718 Personal history of other venous thrombosis and embolism; Z79.01 Long term (current) use of anticoagulants; Z86.19 Personal history of other infectious and parasitic diseases; Z86.69 Personal history of other diseases of the nervous system and sense organs; Z91.5 Personal history of self-harm
CPT/HCPCS: 36415; 80053; 82947; 85027; 85610; 86593; 86780; 87389

== ENCOUNTER 2019-10-20 13:35 | Inpatient (IN) | payer OTHER ==
[2019-10-20 14:35] VITALS: BMI 19.2
--- NOTE | 2019-10-20 16:36 | HP ---
COWS - Scale Resting Pulse: 0= [place] 80 or Below Sweatin= Chills/Flushing Restless Observation: 3= Extraneous Movement Pupil Size: 0= Normal to Room Light Bone or Joint Aches: 2= Severe Diffuse Aches Runny Nose/ Eye Tearin= Runny Nose/Eyes GI Upset > 30mins: 3= Vomiting/Diarrhea Tremor Observation: 4= Gross Tremor/Twitching Yawning Observation: 1= 1-2x During Session Anxiety or Irritability: 2=Irritable/Anxious Goose Flesh Skin: 0=Smooth Skin COWS Score: 18 CIWA Score Nausea/Vomitin-Int. Nausea w/Dry Heave Muscle Tremors: 5 Anxiety: 4-Mod. Anxious/Guarded Agitation: 4-Moderately Restless Paroxysmal Sweats: 2 Orientation: 0-Oriented Tacttile Disturbances: 2-Mild Itch/Numbness/Burn Auditory Disturbances: 0-None Visual Disturbances: 0-None Headache: 3-Moderate CIWA-Ar Total Score: 24 - Admission Criteria OASAS Guidelines: Admission for Medically Managed Detox: Requires at least one of the followin. CIWA greater than 12 2. Seizures within the past 24 hours 3. Delirium tremens within the past 24 hours 4. Hallucinations within the past 24 hours 5. Acute intervention needed for co occurring medical disorder 6. Acute intervention needed for co occurring psychiatric disorder 7. Severe withdrawal that cannot be handled at a lower level of care (continued vomiting, continued diarrhea, abnormal vital signs) requiring intravenous medication and/or fluids 8. Admitting History and Physical - Admission History of Present Illness: Mr. Foley is a 54yo man with pmhx of blood clots (has IVC filter, placed oct 2017 at [facility]), anxiety, depression, and esophageal ulcer who presents for detox from Alcohol and heroin. Pt previously presented 2 days ago but was unable to enroll at that time as he was recently prescribed suboxone. The patient returned to his previous provider to obtain a note stating he will no longer be prescribed suboxone so that he can enter detox and then participate in a rehabilitation program. Per the last note: " Was last in detox at end of Sep and was discharged on 09/26/2019. The patient returned to his apartment with his and immediately began drinking the next day and also snorting heroine. Patient reports he drinks 1/2 gallon of vodka per day and 2 six packs of beer/ day. He states he uses 2 bundles of heroine per day. States he is selling it and its available so he uses it. Reports he had a seizure while withdrawing about 1yr ago and was hospitalized at [facility]. The patient reports 2 episodes of blacking out most recently in December of this year. Pt gets chills, sweats diarrhea uncomfortable when withdrawing. Pt is not currently in a methadone program. The patient denies ever injecting drugs. " - Past Medical History Cardiovascular: Yes: Deep Vein Thrombosis, Other (pulmonary embolism (on warfarin 8mg)) Pulmonary: Yes: Pulmonary Embolus Gastrointestinal: Yes: Gastritis, GERD, Other (esophageal ulcer) Psych: Yes: Anxiety, Depression - Smoking History Smoking history: Current every day smoker Have you smoked in the past 12 months: Yes Aproximately how many cigarettes per day: 10 - Alcohol/Substance Use Hx Alcohol Use: Yes Number of Drinks Daily: 10 History of Substance Use: reports: Heroin Date of Last Use: 08/17/19 - Social History ADL: Independent Occupation: retired, was a [employer] History of Recent Travel: No Admission ROS [facility] Allergies/Adverse Reactions: Allergies Allergy/AdvReac Type Severity Reaction Status Date / Time No Known Allergies Allergy Verified 10/20/19 14:29 - Ebola screening Have you traveled outside of the country in the last 21 days: No (N) Have you had contact with anyone from an Ebola affected area: No Do you have a fever: No - Review of Systems Constitutional: Chills, Diaphoresis, Fever EENT: denies: Recent change in vision, Ear Pain, Hearing Loss, Throat Pain Respiratory: denies: Cough, Shortness of Breath Cardiac: denies: Chest Pain GI: reports: Diarrhea, Nausea, Vomiting. denies: Constipated : denies: Burning, Discharge Musculoskeletal: reports: Back Pain, Muscle Pain. denies: Joint Pain Integumentary: denies: Bruising, Pruritus, Rash Endocrine: reports: Unexplained Weight Loss (pt states he lost 20lbs in 3-4mo, states his baseline is 155 and currently weighs 130, he is attributing this to lack of appetitie and sleep.). denies: Excessive Sweating Psychiatric: reports: Agitated, Anxious, Depressed Other Systems: Reviewed and Negative Patient History - Patient Medical History Hx Asthma: No Hx Chronic Obstructive Pulmonary Disease (COPD): No Hx Cardiac Disorders: No Hx Hypertension: No Hx Seizures: Yes Hx Diabetes: No Hx Gastrointestinal Disorders: No Hx Genitourinary Disorders: No Hx Sexually Transmitted Disorders: No Hx Renal Disease (ESRD): No Hx Depression: Yes Hx Suicide Attempt: No Hx Schizophrenia: No - Patient Surgical History Past Surgical History: Yes Hx Neurologic Surgery: No Hx Cataract Extraction: No Hx Cardiac Surgery: No Hx Lung Surgery: No Hx Breast Surgery: No Hx Breast Biopsy: No Hx Abdominal Surgery: No Hx Appendectomy: No Hx Cholecystectomy: No Hx Genitourinary Surgery: No Hx Section: No Hx Orthopedic Surgery: No Other Surgical History: IVC implanted 10/2017 for PE Anesthesia Reaction: No - PPD History Date: 07/18/19 Results: 00 - Smoking Cessation Smoking history: Current every day smoker Have you smoked in the past 12 months: Yes Aproximately how many cigarettes per day: 10 Hx Chewing Tobacco Use: No Initiated information on smoking cessation: Yes 'Breaking Loose' booklet given: 11/09/19 - Substances abused Heroin Substance route: Inhalation Frequency: Daily Amount used: 20 bags Age of first use: 49 Date of last use: 10/19/19 Alcohol Substance route: Oral Frequency: Daily Amount used: 4 pints liquor, 2 six pack beer Age of first use: 22 Date of last use: 10/20/19 Admission Physical Exam [facility] - Vital Signs Vital Signs: Vital Signs - 24 hr 10/20/19 14:30 Temperature 98.8 F Pulse Rate 75 Respiratory 18 Rate Blood Pressure 116/78 Breathalyzer - Breathalyzer Breathalyzer: 0 Urine Drug Screen - Test Device Lot number: [id number] Expiration date: 06/01/21 - Control Is test valid?: Yes - Results Drug screen NEGATIVE: No Urine drug screen results: THC-Marijuana, MOP-Opiates, BZO-Benzodiazepines Inpatient Rehab Admission - Rehab Decision to Admit Inpatient rehab admission?: No
[2019-10-20] MEDS ORDERED: BISMUTH SUBSALICYLATE 524 MG/30 ML UD PO PRN (16:57)
[2019-10-20] MEDS ORDERED: METHADONE HCL 10 MG TABLET (FOR DETOX USE ONLY) PO ONE (16:57)
[2019-10-20] MEDS ORDERED: MENTHOL/PHENOL 1 EACH UD MM PRN (16:57)
[2019-10-20] MEDS ORDERED: chlordiazePOXIDE HCL 25 MG CAPSULE PO PRN (16:57)
[2019-10-20] MEDS ORDERED: ACETAMINOPHEN 325 MG TABLET (FP) PO PRN ×2 (16:57)
[2019-10-20] MEDS ORDERED: MAG HYDROX/AL HYDROX/SIMETH 30 ML UNIT-DOSE CUP PO PRN (16:57)
[2019-10-20] MEDS ORDERED: IBUPROFEN 400 MG TABLET (FP) PO PRN (16:57)
[2019-10-20] MEDS ORDERED: MAGNESIUM HYDROX 2400MG/30ML ORAL SUSPENSION 30 ML CUP PO PRN (16:57)
[2019-10-20] MEDS ORDERED: hydrOXYzine PAMOATE 25 MG CAPSULE (FP) PO PRN (16:57)
[2019-10-20] MEDS ORDERED: cloNIDine HCL 0.1 MG TABLET PO PRN (16:57)
[2019-10-20] MEDS ORDERED: MAGNESIUM CITRATE 300 ML BOTTLE PO PRN (16:57)
--- NOTE | 2019-10-20 17:11 | PN ---
Teaching Attending Note Name of Resident: Tiffanie Dietz ATTENDING PHYSICIAN STATEMENT I saw and evaluated the patient. I reviewed the resident's note and discussed the case with the resident. I agree with the resident's findings and plan as documented. SUBJECTIVE: pt here for etoh use , reports 1/2 gallon of vodka/ day and 2 six packs of beer , reports seizure > 1 yr ago . heroin : 2 bundles / day via inhalation , denies IV use . pmhx: DVT (has IVC filter, placed oct 2017 at [facility] ) on Coumadin , depression, anxiety OBJECTIVE: wnwd , tremulous , anxious Vital Signs - 24 hr 10/20/19 14:30 Temperature 98.8 F Pulse Rate 75 Respiratory 18 Rate Blood Pressure 116/78 ASSESSMENT AND PLAN: OUD - Methadone detox AUD - Librium detox .
[2019-10-20] MEDS: chlordiazePOXIDE HCL 25 MG CAPSULE PO SCH ×2 (18:12→22:17)
[2019-10-20] MEDS: NICOTINE 7 MG/24 HOURS TOPICAL PATCH TD SCH (18:13)
[2019-10-20] MEDS ORDERED: WARFARIN NA 7.5 MG TABLET (FP) PO SCH (22:00)
[2019-10-20] MEDS ORDERED: QUEtiapine FUMARATE 300 MG TABLET PO SCH (22:00)
[2019-10-20] MEDS: THIAMINE HCL 100 MG TABLET (FP) PO SCH (22:16)
[2019-10-20] MEDS: WARFARIN NA 3 MG, WARFARIN NA 5 MG PO SCH (22:16)
[2019-10-20] MEDS: MELATONIN 5 MG TABLETS PO PRN (22:17)
[2019-10-21] MEDS: chlordiazePOXIDE HCL 25 MG CAPSULE PO SCH ×4 (05:25→21:59)
[2019-10-21] MEDS ORDERED: METHADONE HCL 5 MG TABLET (FOR DETOX USE ONLY) ONE (09:08)
[2019-10-21] MEDS ORDERED: METHADONE HCL 10 MG TABLET (FOR DETOX USE ONLY) ONE (09:08)
[2019-10-21] MEDS ORDERED: METHADONE (DETOX) 20 MG, METHADONE (DETOX) 5 MG PO ONE (10:00)
[2019-10-21] MEDS ORDERED: QUEtiapine FUMARATE 200 MG TABLET PO SCH (10:00)
[2019-10-21] MEDS ORDERED: CITALOPRAM HYDROBROMIDE 20 MG TABLET (FP) PO SCH (10:00)
[2019-10-21] MEDS: NICOTINE 7 MG/24 HOURS TOPICAL PATCH TD SCH (10:30)
[2019-10-21] MEDS: PANTOPRAZOLE 40 MG TABLET (FP) PO SCH (10:31)
[2019-10-21] MEDS: PRENATAL VITAMINS W/ FOLIC ACID TABLET (FP) PO SCH (10:31)
[2019-10-21 11:20] LABS: INR 3.17 (0.83-1.09); PROTHROMBIN TIME (PATIENT) 37.9 SEC (9.7-13.0)
[2019-10-21 11:23] LABS: ACTIVATED PTT 61.5 SECONDS (25.2-36.5)
--- NOTE | 2019-10-21 11:34 | PN ---
[facility] CIWA - CIWA Score Nausea/Vomitin-Mild Nausea/No Vomiting Muscle Tremors: 3 Anxiety: 2 Agitation: 3 Paroxysmal Sweats: 3 Orientation: 0-Oriented Tacttile Disturbances: 0-None Auditory Disturbances: 0-None Visual Disturbances: 0-None Headache: 0-None Present CIWA-Ar Total Score: 12 [facility] COWS - Scale Resting Pulse: 0= [place] 80 or Below Sweatin= Chills/Flushing Restless Observation: 1= Difficult to Sit Still Pupil Size: 0= Normal to Room Light Bone or Joint Aches: 2= Severe Diffuse Aches Runny Nose/ Eye Tearin= Nasal Congestion GI Upset > 30mins: 0= None Tremor Observation of Outstretched Hands: 1= Tremor [place], Not Seen Yawning Observation: 2= >3x During Session Anxiety or Irritability: 1=Feels Anxious/Irritable Goose Flesh Skin: 0=Smooth Skin COWS Score: 9 S Progress Note (SOAP) Subjective: sweats mild shakes interrupted sleep body aches nausea Objective: 10/21/19 11:33 Vital Signs Temperature 98.3 F 10/21/19 09:39 Pulse Rate 72 10/21/19 09:39 Respiratory Rate 18 10/21/19 09:39 Blood Pressure 95/55 L 10/21/19 09:39 O2 Sat by Pulse Oximetry (%) Laboratory Tests 10/21/19 08:00 PT with INR 37.90 H INR 3.17 H PTT (Actin FS) 61.5 H inr noted 3.17. pt is currently on Coumadin aaox3 ambulating no acute distress Assessment: 10/21/19 11:35 withdrawals Plan: continue detox increase fluids motrin d/c
[2019-10-21] MEDS ORDERED: ONDANSETRON *ODT* 4 MG TABLET SL PRN (11:37)
--- NOTE | 2019-10-21 15:55 | CONSULT ---
[facility] Psychiatric Consult - Data Date of interview: 10/21/19 Admission source: [facility] Identifying data: Revisit to [facility] and admission to [address] [place] [address] for this 54 y/o male self-referred for detoxification. RORY issues : heroin, cannabis, alcohol, nicotine. Patient is a common-law , father of three, domiciled, unemployed and supported on welfare. Substance Abuse History: Discussed in this session. Details in current [facility] report as follows : Smoking history: Current every day smoker. Have you smoked in the past 12 months: Yes. Aproximately how many cigarettes per day: 10. Hx Chewing Tobacco Use: No. - Substances abused. Heroin. Substance route: Inhalation. Frequency: Daily. Amount used: 20 bags. Age of first use: 49. Date of last use: 10/19/19. Alcohol. Substance route: Oral. Frequency: Daily. Amount used: 4 pints liquor, 2 six pack beer. Age of first use: 22. Date of last use: 10/20/19 Medical History: Medical history is remarkable for DVT's of both lower extremities (on warfarin), gastric ulcer and history of pulmonary embolism. Psychiatric History: Patient denies history of psychiatric hospitalizations. Mr Foley continues to report current outpatient psychiatric follow-up (Dr Almanza ) at [facility], a mental health clinic in the [place] ([facility]). Diagnosed with Bipolar Disorder. Reportedly prescribed : seroquel 200 mg/am + 400 mg/hs + celexa 40 mg/day. Patient denies history of suicide attempts. Physical/Sexual Abuse/Trauma History: Patient denies. Additional Comment: Urine drug screen results: THC-Marijuana, MOP-Opiates, BZO- Benzodiazepines. Noted. Mental Status Exam - Mental Status Exam Alert and Oriented to: Time, Place, Person Cognitive Function: Good Patient Appearance: Well Groomed Mood: Hopeful, Euthymic Affect: Appropriate, Normal Range Patient Behavior: Fatigued, Cooperative Voice Loudness: Normal Thought Process: Goal Oriented Thought Disorder: Not Present Hallucinations: Denies Suicidal Ideation: Denies Homicidal Ideation: Denies Insight/Judgement: Poor Sleep: Poorly, Difficulty falling asleep Muscle strength/Tone: Normal Gait/Station: Normal Psychiatric Findings - Problem List ([place] 1, 2,3) (1) Alcohol dependence with withdrawal Current Visit: Yes Status: Acute (2) Opioid dependence with withdrawal Current Visit: Yes Status: Acute (3) Cannabis dependence Current Visit: Yes Status: Chronic (4) Nicotine dependence Current Visit: Yes Status: Chronic Qualifiers: Nicotine product type: cigarettes Substance use status: uncomplicated Qualified Code(s): F17.210 - Nicotine dependence, cigarettes, uncomplicated (5) Substance induced mood disorder Current Visit: Yes Status: Chronic (6) Insomnia Current Visit: Yes Status: Chronic (7) History of bipolar disorder Current Visit: Yes Status: Chronic Comment: On medications. Followed at [facility]. - Initial Treatment Plan Initial Treatment Plan: Psychoeducation. Sleep hygiene. Detoxification. Medications verified with pharmacist at [facility] ([phone]) : on file is a refill dated 10/11/19 (10 day supply) for celexa 40 mg/day + seroquel 200 mg/400 mg for am and hs respectively. Patient declines to take celexa. Agrees with seroquel. Resumed : seroquel 300 mg po hs (dose reduced for prevention of oversedation/falls. Daytime dose withdrawn for now. Side effects/ benefits discussed with patient. Mr Foley is in agreement with this plan of care. Verbal consent given to MD. Mayorga.
[2019-10-21] MEDS: THIAMINE HCL 100 MG TABLET (FP) PO SCH (21:59)
[2019-10-21] MEDS: MELATONIN 5 MG TABLETS PO PRN (21:59)
[2019-10-21] MEDS: QUEtiapine FUMARATE 300 MG TABLET PO SCH (21:59)
[2019-10-22] MEDS: chlordiazePOXIDE HCL 25 MG CAPSULE PO SCH ×4 (06:05→22:17)
[2019-10-22 09:42] LABS: INR 2.42 (0.83-1.09); PROTHROMBIN TIME (PATIENT) 28.8 SEC (9.7-13.0)
[2019-10-22] MEDS ORDERED: METHADONE HCL 10 MG TABLET (FOR DETOX USE ONLY) PO ONE (10:00)
[2019-10-22] MEDS: NICOTINE 7 MG/24 HOURS TOPICAL PATCH TD SCH (10:18)
[2019-10-22] MEDS: PANTOPRAZOLE 40 MG TABLET (FP) PO SCH (10:18)
[2019-10-22] MEDS: PRENATAL VITAMINS W/ FOLIC ACID TABLET (FP) PO SCH (10:18)
--- NOTE | 2019-10-22 14:10 | PN ---
[facility] CIWA - CIWA Score Nausea/Vomitin-Mild Nausea/No Vomiting Muscle Tremors: 4-Moderate,w/Arms Extend Anxiety: 3 Agitation: 3 Paroxysmal Sweats: 1-Minimal Palms Moist Orientation: 0-Oriented Tacttile Disturbances: 0-None Auditory Disturbances: 0-None Visual Disturbances: 0-None Headache: 0-None Present CIWA-Ar Total Score: 12 S COWS - Scale Resting Pulse: 0= [place] 80 or Below Sweatin= Chills/Flushing Restless Observation: 0= Sits Still Pupil Size: 0= Normal to Room Light Bone or Joint Aches: 2= Severe Diffuse Aches Runny Nose/ Eye Tearin= Runny Nose/Eyes GI Upset > 30mins: 2= Nausea/Diarrhea Tremor Observation of Outstretched Hands: 1= Tremor [place], Not Seen Yawning Observation: 0= None Anxiety or Irritability: 2=Irritable/Anxious Goose Flesh Skin: 0=Smooth Skin COWS Score: 10 [facility] Progress Note (SOAP) Subjective: pt states doing well with detox protocols O: Vital Signs - 24 hr 10/21/19 10/21/19 10/22/19 18:18 20:58 00:30 Temperature 99 F 97.7 F Pulse Rate 77 69 Respiratory 17 18 18 Rate Blood Pressure 113/64 113/71 10/22/19 10/22/19 10/22/19 03:30 07:31 07:52 Temperature 98.2 F 98.1 F Pulse Rate 77 83 Respiratory 18 18 18 Rate Blood Pressure 90/57 L 108/69 10/22/19 09:50 Temperature 99.0 F Pulse Rate 82 Respiratory 16 Rate Blood Pressure 111/65 Laboratory Tests 10/21/19 10/22/19 08:00 07:40 PT with INR 37.90 H 28.80 H INR 3.17 H 2.42 H PTT (Actin FS) 61.5 H a/p: AUD/OUD- continue detox protocols h/o DVT: continue anticoagulation- INR 2.4 today was 3.17 yesterday, on coumadin 8mg Qhs
[2019-10-22] MEDS: WARFARIN NA 3 MG, WARFARIN NA 5 MG PO SCH (22:17)
[2019-10-22] MEDS: THIAMINE HCL 100 MG TABLET (FP) PO SCH (22:17)
[2019-10-22] MEDS: QUEtiapine FUMARATE 300 MG TABLET PO SCH (22:18)
[2019-10-22] MEDS: MELATONIN 5 MG TABLETS PO PRN (22:19)
[2019-10-22] MEDS: METHOCARBAMOL 500 MG TABLET PO PRN (22:20)
[2019-10-23] MEDS ORDERED: chlordiazePOXIDE HCL 10 MG CAPSULE PO PRN
[2019-10-23] MEDS: chlordiazePOXIDE HCL 10 MG CAPSULE PO SCH ×4 (06:21→22:19)
[2019-10-23] MEDS ORDERED: METHADONE HCL 5 MG TABLET (FOR DETOX USE ONLY) ONE (09:35)
[2019-10-23] MEDS ORDERED: METHADONE HCL 10 MG TABLET (FOR DETOX USE ONLY) ONE (09:35)
[2019-10-23] MEDS ORDERED: METHADONE (DETOX) 10 MG, METHADONE (DETOX) 5 MG PO ONE (10:00)
[2019-10-23] MEDS: PRENATAL VITAMINS W/ FOLIC ACID TABLET (FP) PO SCH (10:11)
[2019-10-23] MEDS: NICOTINE 7 MG/24 HOURS TOPICAL PATCH TD SCH (10:11)
[2019-10-23] MEDS: PANTOPRAZOLE 40 MG TABLET (FP) PO SCH (10:11)
[2019-10-23] MEDS: METHOCARBAMOL 500 MG TABLET PO PRN ×2 (10:15→17:16)
--- NOTE | 2019-10-23 12:29 | PN ---
S CIWA - CIWA Score Nausea/Vomitin-No Nausea/No Vomiting Muscle Tremors: None Anxiety: 3 Agitation: 0-Normal Activity Paroxysmal Sweats: 3 Orientation: 0-Oriented Tacttile Disturbances: 0-None Auditory Disturbances: 0-None Visual Disturbances: 0-None Headache: 2-Mild CIWA-Ar Total Score: 8 S COWS - Scale Resting Pulse: 0= [place] 80 or Below Sweatin= Beads of Sweat on Face Restless Observation: 1= Difficult to Sit Still Pupil Size: 0= Normal to Room Light Bone or Joint Aches: 0= None Runny Nose/ Eye Tearin= None GI Upset > 30mins: 0= None Tremor Observation of Outstretched Hands: 0= None Yawning Observation: 1= 1-2x During Session Anxiety or Irritability: 2=Irritable/Anxious Goose Flesh Skin: 0=Smooth Skin COWS Score: 7 [facility] Progress Note (SOAP) Subjective: c/o sweats, anxiety, headache, and irritability. Objective: 10/23/19 12:26 Vital Signs 10/23/19 10/23/19 06:17 10:08 Temperature 98.1 F 98.1 F Pulse Rate 78 72 Respiratory 18 16 Rate Blood Pressure 100/57 L 106/73 Assessment: 10/23/19 12:28 AOX3, in no acute respiratory distress. Full ROM, ambulating in the unit. Withdrawal symptoms Plan: continue detox.
[2019-10-23] MEDS: QUEtiapine FUMARATE 300 MG TABLET PO SCH (22:19)
[2019-10-23] MEDS: THIAMINE HCL 100 MG TABLET (FP) PO SCH (22:19)
[2019-10-23] MEDS: WARFARIN NA 3 MG, WARFARIN NA 5 MG PO SCH (22:19)
[2019-10-23] MEDS: MELATONIN 5 MG TABLETS PO PRN (22:20)
[2019-10-24] MEDS: chlordiazePOXIDE HCL 10 MG CAPSULE PO SCH ×2 (05:51→17:16)
[2019-10-24] MEDS: PANTOPRAZOLE 40 MG TABLET (FP) PO SCH (09:24)
[2019-10-24] MEDS: NICOTINE 7 MG/24 HOURS TOPICAL PATCH TD SCH (09:24)
[2019-10-24] MEDS: PRENATAL VITAMINS W/ FOLIC ACID TABLET (FP) PO SCH (09:24)
[2019-10-24] MEDS ORDERED: METHADONE HCL 10 MG TABLET (FOR DETOX USE ONLY) PO ONE (10:00)
--- NOTE | 2019-10-24 10:26 | PN ---
[facility] CIWA - CIWA Score Nausea/Vomitin-No Nausea/No Vomiting Muscle Tremors: 2 Anxiety: 1-Mildly Anxious Agitation: 1-Slight > Activity Paroxysmal Sweats: No Perspiration Orientation: 0-Oriented Tacttile Disturbances: 0-None Auditory Disturbances: 0-None Visual Disturbances: 0-None Headache: 0-None Present CIWA-Ar Total Score: 4 S COWS - Scale Resting Pulse: 0= [place] 80 or Below Sweatin= No chills or Flushing Restless Observation: 0= Sits Still Pupil Size: 0= Normal to Room Light Bone or Joint Aches: 1= Mild Discomfort Runny Nose/ Eye Tearin= None GI Upset > 30mins: 0= None Tremor Observation of Outstretched Hands: 1= Tremor [place], Not Seen Yawning Observation: 0= None Anxiety or Irritability: 1=Feels Anxious/Irritable Goose Flesh Skin: 0=Smooth Skin COWS Score: 3 S Progress Note (SOAP) Subjective: anxiety Objective: 10/24/19 10:26 Vital Signs Temperature 97.2 F L 10/24/19 09:21 Pulse Rate 76 10/24/19 09:21 Respiratory Rate 18 10/24/19 09:21 Blood Pressure 130/73 10/24/19 09:21 O2 Sat by Pulse Oximetry (%) aaox3 ambulating no acute distress Assessment: 10/24/19 10:26 mild withdrawals Plan: continue detox d/c in am
[2019-10-24] MEDS: METHOCARBAMOL 500 MG TABLET PO PRN (17:16)
[2019-10-24] MEDS: MELATONIN 5 MG TABLETS PO PRN (21:07)
[2019-10-24] MEDS: WARFARIN NA 3 MG, WARFARIN NA 5 MG PO SCH (21:07)
[2019-10-24] MEDS: THIAMINE HCL 100 MG TABLET (FP) PO SCH (21:07)
[2019-10-24] MEDS: QUEtiapine FUMARATE 300 MG TABLET PO SCH (21:11)
[2019-10-25] MEDS ORDERED: chlordiazePOXIDE HCL 10 MG CAPSULE PO ONE (05:00)
[2019-10-25] MEDS ORDERED: METHADONE HCL 5 MG TABLET (FOR DETOX USE ONLY) PO ONE (06:00)
--- NOTE | 2019-10-25 08:14 | DS ---
[facility] Detox Discharge Summary Admission Date: 10/20/19 Discharge Date: 10/25/19 - History Present History: Alcohol Dependence, Cannabis Dependence, Cocaine Dependence, Opioid Dependence - Physical Exam Results Vital Signs: Vital Signs Temperature 98.1 F 10/25/19 06:09 Pulse Rate 80 10/25/19 06:09 Respiratory Rate 16 10/25/19 06:09 Blood Pressure 93/68 10/25/19 06:09 O2 Sat by Pulse Oximetry (%) Pertinent Admission Physical Exam Findings: Vital Signs Temperature 98.1 F 10/25/19 06:09 Pulse Rate 80 10/25/19 06:09 Respiratory Rate 16 10/25/19 06:09 Blood Pressure 93/68 10/25/19 06:09 O2 Sat by Pulse Oximetry (%) Laboratory Tests 10/21/19 10/22/19 08:00 07:40 PT with INR 37.90 H 28.80 H INR 3.17 H 2.42 H PTT (Actin FS) 61.5 H aaox3 ambulating no acute distress - Treatment Hospital Course: Detox Protocol Followed, Detoxed Safely, Responded well, Discharged Condition Good, Rehab Referral Accepted Patient has Accepted a Rehab Referral to: [facility] - Medication Discharge Medications: Ambulatory Orders Quetiapine Fumarate [Seroquel] 400 mg PO HS 07/08/19 Warfarin Sodium 8 mg PO HS 07/08/19 Pantoprazole Sodium [Protonix] 40 mg PO DAILY 08/17/19 Citalopram Hydrobromide [Citalopram HBr] 20 mg PO DAILY 09/21/19 Quetiapine Fumarate [Seroquel -] 200 mg PO DAILY 09/21/19 Zolpidem Tartrate [Ambien] 10 mg PO HS 09/21/19 - Diagnosis (1) Alcohol dependence with withdrawal Current Visit: Yes Status: Chronic Qualifiers: Complication of substance-induced condition: uncomplicated Qualified Code(s ): F10.230 - Alcohol dependence with withdrawal, uncomplicated (2) Opioid dependence with withdrawal Current Visit: Yes Status: Chronic (3) Cannabis dependence Current Visit: Yes Status: Chronic (4) History of bipolar disorder Current Visit: Yes Status: Chronic (5) Insomnia Current Visit: Yes Status: Chronic (6) Nicotine dependence Current Visit: Yes Status: Chronic Qualifiers: Nicotine product type: cigarettes Substance use status: uncomplicated Qualified Code(s): F17.210 - Nicotine dependence, cigarettes, uncomplicated (7) Substance induced mood disorder Current Visit: Yes Status: Chronic (8) Opioid dependence Current Visit: Yes Status: Chronic Qualifiers: Substance use status: uncomplicated Qualified Code(s): F11.20 - Opioid dependence, uncomplicated (9) Substance-induced sleep disorder Current Visit: No Status: Acute (10) Uncomplicated alcohol dependence Current Visit: No Status: Acute (11) History of mood disorder Current Visit: No Status: Chronic (12) MDD (major depressive disorder), recurrent, severe, with psychosis Current Visit: No Status: Chronic (13) Opioid dependence Current Visit: No Status: Chronic Qualifiers: Substance use status: uncomplicated Qualified Code(s): F11.20 - Opioid dependence, uncomplicated (14) DVT (deep venous thrombosis) Current Visit: No Status: Resolved (15) Esophageal ulcer Current Visit: No Status: Resolved (16) Positive RPR test Current Visit: No Status: Resolved (17) Pulmonary embolism Current Visit: No Status: Resolved - AMA Did Patient Leave Against Medical Advice: No
[2019-10-25 09:27] VITALS: BP 120/72; PULSE 82; TEMP 97.9
[2019-10-25] MEDS: NICOTINE 7 MG/24 HOURS TOPICAL PATCH TD SCH (09:32)
[2019-10-25] MEDS: PANTOPRAZOLE 40 MG TABLET (FP) PO SCH (09:32)
[2019-10-25] MEDS: PRENATAL VITAMINS W/ FOLIC ACID TABLET (FP) PO SCH (09:32)
[2019-10-25] MEDS: METHOCARBAMOL 500 MG TABLET PO PRN (09:34)
== END 2019-10-25 11:50 | disposition home or self-care (01) | DRG 773 ==
LOC: YASAS 13:35 → Y6N 17:20
PROVIDERS: ADMIT Allergy & Immunology; ATTEND Allergy & Immunology
PROC: HZ2ZZZZ Detoxification Services for Substance Abuse Treatment (ICD-10-PCS; principal; 2019-10-20)
DX: F11.23 Opioid dependence with withdrawal (principal); F10.230 Alcohol dependence with withdrawal, uncomplicated; F12.20 Cannabis dependence, uncomplicated; F17.210 Nicotine dependence, cigarettes, uncomplicated; F19.24 Other psychoactive substance dependence with psychoactive substance-induced mood disorder; F19.282 Other psychoactive substance dependence with psychoactive substance-induced sleep disorder; F33.3 Major depressive disorder, recurrent, severe with psychotic symptoms; G47.00 Insomnia, unspecified; K21.9 Gastro-esophageal reflux disease without esophagitis; Z86.718 Personal history of other venous thrombosis and embolism; Z86.711 Personal history of pulmonary embolism; Z79.01 Long term (current) use of anticoagulants; Z95.828 Presence of other vascular implants and grafts; Z86.69 Personal history of other diseases of the nervous system and sense organs
CPT/HCPCS: 36415; 85610; 85730

== ENCOUNTER 2019-11-23 11:41 | Inpatient (IN) | payer OTHER ==
[2019-11-23 12:05] VITALS: BMI 18.6
--- NOTE | 2019-11-23 13:06 | HP ---
COWS - Scale Resting Pulse: 0= DC 80 or Below Sweatin= Chills/Flushing Restless Observation: 1= Difficult to Sit Still Pupil Size: 1= Pupils >than Normal Bone or Joint Aches: 1= Mild Discomfort Runny Nose/ Eye Tearin= Nasal Congestion GI Upset > 30mins: 1= Stomach Cramp Tremor Observation: 1= Tremor [place], Not Seen Yawning Observation: 1= 1-2x During Session Anxiety or Irritability: 1=Feels Anxious/Irritable Goose Flesh Skin: 3=Piloerection COWS Score: 12 CIWA Score Nausea/Vomitin Muscle Tremors: 2 Anxiety: 1-Mildly Anxious Agitation: 3 Paroxysmal Sweats: 1-Minimal Palms Moist Orientation: 0-Oriented Tacttile Disturbances: 1-Very Mild Itch/Numbness Auditory Disturbances: 0-None Visual Disturbances: 1-Very Mild Sensitivity Headache: 0-None Present CIWA-Ar Total Score: 12 - Admission Criteria OASAS Guidelines: Admission for Medically Managed Detox: Requires at least one of the followin. CIWA greater than 12 2. Seizures within the past 24 hours 3. Delirium tremens within the past 24 hours 4. Hallucinations within the past 24 hours 5. Acute intervention needed for co occurring medical disorder 6. Acute intervention needed for co occurring psychiatric disorder 7. Severe withdrawal that cannot be handled at a lower level of care (continued vomiting, continued diarrhea, abnormal vital signs) requiring intravenous medication and/or fluids 8. Admitting History and Physical - Admission History of Present Illness: Mr. Foley is a 54yo man with pmhx of blood clots (has IVC filter, placed oct [address] [facility], [place]), anxiety, depression, and esophageal ulcer who presents for detox from Alcohol and heroin. Pt previously admitted in october for detox and completed but then relapsed immediately thereafter. He is seeking detox and rehab this time to prevent relapse. PMH: Seizure Psych: Depression Reports he had a seizure while withdrawing about 1yr ago and was hospitalized at [facility]. The patient reports 2 episodes of blacking out most recently in December 2018. He is using 2 bundles of heroin daily, last used 2 AM today. He is drinking 3 pints of vodka daily, last drank this morning History Source: Patient Limitations to Obtaining History: No Limitations - Past Medical History Cardiovascular: Yes: Deep Vein Thrombosis, Other (pulmonary embolism (on warfarin 8mg)) Pulmonary: Yes: Pulmonary Embolus Gastrointestinal: Yes: Gastritis, GERD, Other (esophageal ulcer) Psych: Yes: Anxiety, Depression - Advance Directives Advance Directives: No: Living Will, Health Care Proxy, DNR - Smoking History Smoking history: Current every day smoker Have you smoked in the past 12 months: Yes Aproximately how many cigarettes per day: 10 - Alcohol/Substance Use Hx Alcohol Use: Yes Number of Drinks Daily: 10 History of Substance Use: reports: Heroin Date of Last Use: 08/17/19 - Social History Usual Living Arrangement: Yes: Alone Do you think of yourself as: Straight/Heterosexual ADL: Independent Occupation: retired, was a [employer] History of Recent Travel: No Admission ROS [facility] Allergies/Adverse Reactions: Allergies Allergy/AdvReac Type Severity Reaction Status Date / Time No Known Allergies Allergy Verified 11/23/19 11:59 Exam Limitations: No Limitations - Ebola screening Have you traveled outside of the country in the last 21 days: No Have you had contact with anyone from an Ebola affected area: No Do you have a fever: No Patient History - Patient Medical History Hx Asthma: No Hx Chronic Obstructive Pulmonary Disease (COPD): No Hx Cardiac Disorders: No Hx Hypertension: No Hx Seizures: Yes Hx Diabetes: No Hx Gastrointestinal Disorders: No Hx Genitourinary Disorders: No Hx Sexually Transmitted Disorders: No Hx Renal Disease (ESRD): No Hx Depression: Yes Hx Suicide Attempt: No Hx Schizophrenia: No - Patient Surgical History Past Surgical History: Yes Hx Neurologic Surgery: No Hx Cataract Extraction: No Hx Cardiac Surgery: No Hx Lung Surgery: No Hx Breast Surgery: No Hx Breast Biopsy: No Hx Abdominal Surgery: No Hx Appendectomy: No Hx Cholecystectomy: No Hx Genitourinary Surgery: No Hx Section: No Hx Orthopedic Surgery: No Other Surgical History: IVC implanted 10/2017 for PE Anesthesia Reaction: No - PPD History Previous Implant?: Yes Documented Results: Negative w/proof Implanted On Prior R Admission?: Yes Date: 07/18/19 Results: 00 PPD to be Administered?: No - Smoking Cessation Smoking history: Current every day smoker Have you smoked in the past 12 months: Yes Aproximately how many cigarettes per day: 10 Hx Chewing Tobacco Use: No Initiated information on smoking cessation: Yes 'Breaking Loose' booklet given: 11/23/19 - Substances abused Alcohol Substance route: Oral Frequency: Daily Amount used: 4 pints of liquor & 2 6pk beers Age of first use: 22 Date of last use: 11/23/19 Heroin Substance route: Inhalation Frequency: Daily Amount used: 2 bundles Age of first use: 49 Date of last use: 11/22/19 Admission Physical Exam S - Vital Signs Vital Signs: Vital Signs - 24 hr 11/23/19 12:01 Temperature 97.5 F L Pulse Rate 69 Respiratory 20 Rate Blood Pressure 140/76 - Physical General Appearance: Yes: Mild Distress, Alcohol on Breath, Tremorous, Irritable , Sweating, Anxious HEENTM: Yes: EOMI, Hearing grossly Normal, Normal ENT Inspection, Normocephalic , Normal Voice, GHADA, Pharynx Normal, Tm's normal Respiratory: Yes: Chest Non-Tender, Lungs Clear, Normal Breath Sounds, No Respiratory Distress, No Accessory Muscle Use Neck: Yes: No masses,lesions,Nodules, Supple, Trachea in good position Breast: Yes: Within Normal Limits Cardiology: Yes: Regular Rhythm, Regular Rate, S1, S2 Abdominal: Yes: Normal Bowel Sounds, Non Tender, Flat, Soft Genitourinary: Yes: Within Normal Limits Back: Yes: Normal Inspection Musculoskeletal: Yes: full range of Motion, Gait Steady, Pelvis Stable Extremities: Yes: Normal Capillary Refill, Normal Inspection, Normal Range of Motion, Non-Tender 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 Followed at [facility]. (4) History of mood disorder Current Visit: Yes Status: Chronic (5) Insomnia Current Visit: Yes Status: Chronic (6) MDD (major depressive disorder), recurrent, severe, with psychosis Current Visit: Yes Status: Chronic (7) Opioid dependence with withdrawal Current Visit: Yes Status: Chronic (8) DVT (deep venous thrombosis) Current Visit: Yes Status: Resolved (9) Pulmonary embolism Current Visit: Yes Status: Resolved Cleared for Admission S - Detox or Rehab [facility] Level of Care: Medically Managed Detox Regimen/Protocol: Methadone/Librium Claeared for Rehab Admission: No Screened but not Admitted - Documentation of Visit Screened but not Admitted: No Breathalyzer - Breathalyzer Breathalyzer: 0.033 Urine Drug Screen - Test Device Lot number: [id number] Expiration date: 06/01/21 - Control Is test valid?: Yes - Results Drug screen NEGATIVE: No Urine drug screen results: THC-Marijuana, FEN-Fentanyl, MOP-Opiates, BZO- Benzodiazepines Inpatient Rehab Admission - Rehab Decision to Admit Inpatient rehab admission?: No
[2019-11-23] MEDS ORDERED: MAGNESIUM CITRATE 300 ML BOTTLE PO PRN (13:09)
[2019-11-23] MEDS ORDERED: BISMUTH SUBSALICYLATE 262 MG/15 ML BTL PO PRN (13:09)
[2019-11-23] MEDS ORDERED: MAG HYDROX/AL HYDROX/SIMETH 30 ML UNIT-DOSE CUP PO PRN (13:09)
[2019-11-23] MEDS ORDERED: IBUPROFEN 400 MG TABLET (FP) PO PRN (13:09)
[2019-11-23] MEDS ORDERED: cloNIDine HCL 0.1 MG TABLET PO PRN (13:09)
[2019-11-23] MEDS ORDERED: MENTHOL/PHENOL 1 EACH UD MM PRN (13:09)
[2019-11-23] MEDS ORDERED: MAGNESIUM HYDROX 2400MG/30ML ORAL SUSPENSION 30 ML CUP PO PRN (13:09)
[2019-11-23] MEDS ORDERED: hydrOXYzine PAMOATE 25 MG CAPSULE (FP) PO PRN (13:09)
[2019-11-23] MEDS ORDERED: ACETAMINOPHEN 325 MG TABLET (FP) PO PRN ×2 (13:09)
[2019-11-23] MEDS ORDERED: METHADONE HCL 10 MG TABLET (FOR DETOX USE ONLY) PO ONE (14:00)
[2019-11-23] MEDS: PANTOPRAZOLE 40 MG TABLET PO SCH (15:16)
[2019-11-23] MEDS: chlordiazePOXIDE HCL 25 MG CAPSULE PO PRN (15:16)
[2019-11-23] MEDS: CITALOPRAM HYDROBROMIDE 20 MG TABLET PO SCH (17:24)
[2019-11-23] MEDS: chlordiazePOXIDE HCL 25 MG CAPSULE PO SCH ×2 (17:24→22:22)
[2019-11-23] MEDS: WARFARIN NA 5 MG, WARFARIN NA 3 MG PO SCH (17:24)
[2019-11-23 17:42] LABS: HEMOGLOBIN 13.7 GM/dL (11.7-16.9); MCH 31.8 pg (25.7-33.7); MCHC 33.5 g/dl (32.0-35.9); MEAN CELL VOLUME 94.8 fl (80-96); MEAN PLT VOLUME 9.9 fl (7.5-11.1); PLATELET COUNT 254 K/MM3 (134-434); RBC 4.32 M/mm3 (4.00-5.60); RDW 14.6 % (11.9-15.9); WHITE BLOOD COUNT 6.1 K/mm3 (4.0-10.0)
[2019-11-23 18:06] LABS: ALBUMIN 3.9 g/dl (3.4-5.0); BILIRUBIN,TOTAL 0.9 mg/dL (0.2-1); BLOOD UREA NITROGEN 16.3 mg/dL (7-18); CREATININE 0.8 mg/dL (0.55-1.3); POTASSIUM 4.4 mmol/L (3.5-5.1); TOT PROT 7.1 g/dl (6.4-8.2)
[2019-11-23] MEDS ORDERED: WARFARIN NA 7.5 MG TABLET (FP) PO SCH (22:00)
[2019-11-23] MEDS: THIAMINE HCL 100 MG TABLET (FP) PO SCH (22:23)
[2019-11-23] MEDS: MELATONIN 5 MG TABLETS PO PRN (22:23)
[2019-11-23] MEDS: QUEtiapine FUMARATE 400 MG TABLET PO SCH (22:26)
[2019-11-24] MEDS: chlordiazePOXIDE HCL 25 MG CAPSULE PO SCH ×4 (06:42→22:14)
[2019-11-24] MEDS ORDERED: METHADONE HCL 5 MG TABLET (FOR DETOX USE ONLY) ONE (09:21)
[2019-11-24] MEDS ORDERED: METHADONE HCL 10 MG TABLET (FOR DETOX USE ONLY) ONE (09:21)
[2019-11-24] MEDS ORDERED: METHADONE (DETOX) 20 MG, METHADONE (DETOX) 5 MG PO ONE (10:00)
[2019-11-24] MEDS: CITALOPRAM HYDROBROMIDE 20 MG TABLET PO SCH (10:14)
[2019-11-24] MEDS: QUEtiapine FUMARATE 200 MG TABLET PO SCH (10:14)
[2019-11-24] MEDS: PRENATAL VITAMINS W/ FOLIC ACID TABLET (FP) PO SCH (10:14)
[2019-11-24] MEDS: PANTOPRAZOLE 40 MG TABLET PO SCH (10:15)
[2019-11-24] MEDS: NICOTINE 14 MG/24 HOURS TOPICAL PATCH TD SCH (10:17)
[2019-11-24 10:34] LABS: INR 3.09 (0.83-1.09); PROTHROMBIN TIME (PATIENT) 36.9 SEC (9.7-13.0)
--- NOTE | 2019-11-24 10:57 | PN ---
S CIWA - CIWA Score Nausea/Vomitin-No Nausea/No Vomiting Muscle Tremors: 3 Anxiety: 2 Agitation: 0-Normal Activity Paroxysmal Sweats: 1-Minimal Palms Moist Orientation: 0-Oriented Tacttile Disturbances: 0-None Auditory Disturbances: 0-None Visual Disturbances: 0-None Headache: 2-Mild CIWA-Ar Total Score: 8 S COWS - Scale Resting Pulse: 0= PA 80 or Below Sweatin= Chills/Flushing Restless Observation: 0= Sits Still Pupil Size: 1= Pupils >than Normal Bone or Joint Aches: 0= None Runny Nose/ Eye Tearin= Runny Nose/Eyes GI Upset > 30mins: 0= None Tremor Observation of Outstretched Hands: 2= Slight Tremor Visible Yawning Observation: 0= None Anxiety or Irritability: 2=Irritable/Anxious Goose Flesh Skin: 0=Smooth Skin COWS Score: 8 S Progress Note (SOAP) Subjective: 54 yers old male admitted on 11/23/19 for alcohol and opiate withdrawal sx management treating with librium and methadone detox regiments feeling ok today ate breakfast resting in bed feeling tired discussed medication assisted treatment program and pick up 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 from pharmacy Objective: 11/24/19 11:13 Vital Signs Temperature 97.1 F L 11/24/19 09:15 Pulse Rate 62 11/24/19 09:15 Respiratory Rate 16 11/24/19 09:15 Blood Pressure 93/62 11/24/19 09:15 O2 Sat by Pulse Oximetry (%) Laboratory Last Values WBC 6.1 K/mm3 (4.0-10.0) 11/23/19 13:00 RBC 4.32 M/mm3 (4.00-5.60) 11/23/19 13:00 Hgb 13.7 GM/dL (11.7-16.9) 11/23/19 13:00 Hct 41.0 % (35.4-49) 11/23/19 13:00 MCV 94.8 fl (80-96) 11/23/19 13:00 MCH 31.8 pg (25.7-33.7) 11/23/19 13:00 MCHC 33.5 g/dl (32.0-35.9) 11/23/19 13:00 RDW 14.6 % (11.9-15.9) 11/23/19 13:00 Plt Count 254 K/MM3 (134-434) D 11/23/19 13:00 MPV 9.9 fl (7.5-11.1) 11/23/19 13:00 PT with INR 36.90 SEC (9.7-13.0) H 11/24/19 08:00 INR 3.09 (0.83-1.09) H 11/24/19 08:00 Sodium 136 mmol/L (136-145) 11/23/19 13:00 Potassium 4.4 mmol/L (3.5-5.1) 11/23/19 13:00 Chloride 103 mmol/L (98-107) 11/23/19 13:00 Carbon Dioxide 27 mmol/L (21-32) 11/23/19 13:00 Anion Gap 6 MMOL/L (8-16) L 11/23/19 13:00 BUN 16.3 mg/dL (7-18) 11/23/19 13:00 Creatinine 0.8 mg/dL (0.55-1.3) 11/23/19 13:00 Est GFR (CKD-EPI)AfAm 118.20 11/23/19 13:00 Est GFR (CKD-EPI)NonAf 101.99 11/23/19 13:00 Random Glucose 70 mg/dL (74-106) L 11/23/19 13:00 Calcium 9.0 mg/dL (8.5-10.1) 11/23/19 13:00 Total Bilirubin 0.9 mg/dL (0.2-1) 11/23/19 13:00 AST 18 U/L (15-37) 11/23/19 13:00 ALT 23 U/L (13-61) 11/23/19 13:00 Alkaline Phosphatase 61 U/L (45-117) 11/23/19 13:00 Total Protein 7.1 g/dl (6.4-8.2) 11/23/19 13:00 Albumin 3.9 g/dl (3.4-5.0) 11/23/19 13:00 lab noted inr and pt with inr within therapeutic range continue coumadin 11/24/19 11:15 Assessment: 11/24/19 11:15 alcohol and opiate withdrawal Plan: librium and methadone regiments
[2019-11-24 12:22] LABS: RPR REACTIVE 1:1 (NONREACTIVE)
[2019-11-24 12:24] LABS: TREPONEMA ANTIBODY PREVIOUSLY REACTIVE (NONREACTIVE)
[2019-11-24] MEDS: WARFARIN NA 5 MG, WARFARIN NA 3 MG PO SCH (17:28)
[2019-11-24] MEDS: QUEtiapine FUMARATE 400 MG TABLET PO SCH (22:14)
[2019-11-24] MEDS: THIAMINE HCL 100 MG TABLET (FP) PO SCH (22:14)
[2019-11-24] MEDS: MELATONIN 5 MG TABLETS PO PRN (22:15)
[2019-11-25] MEDS: chlordiazePOXIDE HCL 25 MG CAPSULE PO SCH ×4 (06:35→22:05)
[2019-11-25] MEDS ORDERED: METHADONE HCL 10 MG TABLET (FOR DETOX USE ONLY) PO ONE (10:00)
[2019-11-25] MEDS: QUEtiapine FUMARATE 200 MG TABLET PO SCH (10:43)
[2019-11-25] MEDS: PRENATAL VITAMINS W/ FOLIC ACID TABLET (FP) PO SCH (10:43)
[2019-11-25] MEDS: PANTOPRAZOLE 40 MG TABLET PO SCH (10:43)
[2019-11-25] MEDS: NICOTINE 14 MG/24 HOURS TOPICAL PATCH TD SCH (10:43)
[2019-11-25] MEDS: CITALOPRAM HYDROBROMIDE 20 MG TABLET PO SCH (10:43)
--- NOTE | 2019-11-25 12:40 | PN ---
[facility] CIWA - CIWA Score Nausea/Vomitin-No Nausea/No Vomiting Muscle Tremors: 1-None Visible, but [place] Anxiety: 2 Agitation: 2 Paroxysmal Sweats: 2 Orientation: 0-Oriented Tacttile Disturbances: 1-Very Mild Itch/Numbness Auditory Disturbances: 0-None Visual Disturbances: 1-Very Mild Sensitivity Headache: 1-Very Mild CIWA-Ar Total Score: 10 BHS COWS - Scale Resting Pulse: 0= AR 80 or Below Sweatin= Chills/Flushing Restless Observation: 1= Difficult to Sit Still Pupil Size: 0= Normal to Room Light Bone or Joint Aches: 1= Mild Discomfort Runny Nose/ Eye Tearin= Nasal Congestion GI Upset > 30mins: 2= Nausea/Diarrhea Tremor Observation of Outstretched Hands: 1= Tremor [place], Not Seen Yawning Observation: 1= 1-2x During Session Anxiety or Irritability: 2=Irritable/Anxious Goose Flesh Skin: 0=Smooth Skin COWS Score: 10 BHS Progress Note (SOAP) Subjective: Patient is 54 year with hx of alcohol and opiate dependence on librium and methadone detox protocol c/o of decrease appetite, chills, sweats, nausea. Objective: 11/25/19 12:39 Vital Signs Temperature 96.4 F L 11/25/19 09:17 Pulse Rate 55 L 11/25/19 09:17 Respiratory Rate 18 11/25/19 09:17 Blood Pressure 102/70 11/25/19 09:17 O2 Sat by Pulse Oximetry (%) Laboratory Last Values WBC 6.1 K/mm3 (4.0-10.0) 11/23/19 13:00 RBC 4.32 M/mm3 (4.00-5.60) 11/23/19 13:00 Hgb 13.7 GM/dL (11.7-16.9) 11/23/19 13:00 Hct 41.0 % (35.4-49) 11/23/19 13:00 MCV 94.8 fl (80-96) 11/23/19 13:00 MCH 31.8 pg (25.7-33.7) 11/23/19 13:00 MCHC 33.5 g/dl (32.0-35.9) 11/23/19 13:00 RDW 14.6 % (11.9-15.9) 11/23/19 13:00 Plt Count 254 K/MM3 (134-434) D 11/23/19 13:00 MPV 9.9 fl (7.5-11.1) 11/23/19 13:00 PT with INR 36.90 SEC (9.7-13.0) H 11/24/19 08:00 INR 3.09 (0.83-1.09) H 11/24/19 08:00 Sodium 136 mmol/L (136-145) 11/23/19 13:00 Potassium 4.4 mmol/L (3.5-5.1) 11/23/19 13:00 Chloride 103 mmol/L (98-107) 11/23/19 13:00 Carbon Dioxide 27 mmol/L (21-32) 11/23/19 13:00 Anion Gap 6 MMOL/L (8-16) L 11/23/19 13:00 BUN 16.3 mg/dL (7-18) 11/23/19 13:00 Creatinine 0.8 mg/dL (0.55-1.3) 11/23/19 13:00 Est GFR (CKD-EPI)AfAm 118.20 11/23/19 13:00 Est GFR (CKD-EPI)NonAf 101.99 11/23/19 13:00 Random Glucose 70 mg/dL (74-106) L 11/23/19 13:00 Calcium 9.0 mg/dL (8.5-10.1) 11/23/19 13:00 Total Bilirubin 0.9 mg/dL (0.2-1) 11/23/19 13:00 AST 18 U/L (15-37) 11/23/19 13:00 ALT 23 U/L (13-61) 11/23/19 13:00 Alkaline Phosphatase 61 U/L (45-117) 11/23/19 13:00 Total Protein 7.1 g/dl (6.4-8.2) 11/23/19 13:00 Albumin 3.9 g/dl (3.4-5.0) 11/23/19 13:00 RPR Titer Reactive 1:1 (NONREACTIVE) H 11/23/19 13:00 T.pallidum Ab (MHA) Previously reactive (NONREACTIVE) 11/23/19 13:00 Assessment: 11/25/19 14:42 Patient is Aox3 no acute distress EENT WNL thin, malnourished appearance full ROM ambulating in the unit skin intact, no edema or purpura withdrawal sx Plan: increase fluids abnormal PT/INR , hold next Coumadin dose, repeat INR and reassess next Coumadin dose continue detox continue to monitor
[2019-11-25] MEDS: chlordiazePOXIDE HCL 25 MG CAPSULE PO PRN (13:32)
[2019-11-25] MEDS: QUEtiapine FUMARATE 400 MG TABLET PO SCH (22:05)
[2019-11-25] MEDS: THIAMINE HCL 100 MG TABLET (FP) PO SCH (22:05)
[2019-11-25] MEDS: MELATONIN 5 MG TABLETS PO PRN (22:07)
[2019-11-26] MEDS ORDERED: chlordiazePOXIDE HCL 10 MG CAPSULE PO PRN
[2019-11-26] MEDS: chlordiazePOXIDE HCL 10 MG CAPSULE PO SCH ×4 (05:32→22:06)
[2019-11-26] MEDS ORDERED: METHADONE HCL 10 MG TABLET (FOR DETOX USE ONLY) ONE (09:01)
[2019-11-26] MEDS ORDERED: METHADONE HCL 5 MG TABLET (FOR DETOX USE ONLY) ONE (09:01)
[2019-11-26] MEDS ORDERED: METHADONE (DETOX) 10 MG, METHADONE (DETOX) 5 MG PO ONE (10:00)
[2019-11-26] MEDS: CITALOPRAM HYDROBROMIDE 20 MG TABLET PO SCH (10:43)
[2019-11-26] MEDS: PANTOPRAZOLE 40 MG TABLET PO SCH (10:43)
[2019-11-26] MEDS: PRENATAL VITAMINS W/ FOLIC ACID TABLET (FP) PO SCH (10:43)
[2019-11-26] MEDS: QUEtiapine FUMARATE 200 MG TABLET PO SCH (10:43)
[2019-11-26] MEDS: NICOTINE 14 MG/24 HOURS TOPICAL PATCH TD SCH (10:45)
--- NOTE | 2019-11-26 11:01 | PN ---
[facility] CIWA - CIWA Score Nausea/Vomitin-No Nausea/No Vomiting Muscle Tremors: 2 Anxiety: 3 Agitation: 0-Normal Activity Paroxysmal Sweats: 3 Orientation: 0-Oriented Tacttile Disturbances: 0-None Auditory Disturbances: 0-None Visual Disturbances: 0-None Headache: 1-Very Mild CIWA-Ar Total Score: 9 S COWS - Scale Resting Pulse: 0= PA 80 or Below Sweatin= Beads of Sweat on Face Restless Observation: 1= Difficult to Sit Still Pupil Size: 0= Normal to Room Light Bone or Joint Aches: 1= Mild Discomfort Runny Nose/ Eye Tearin= None GI Upset > 30mins: 0= None Tremor Observation of Outstretched Hands: 2= Slight Tremor Visible Yawning Observation: 1= 1-2x During Session Anxiety or Irritability: 2=Irritable/Anxious Goose Flesh Skin: 0=Smooth Skin COWS Score: 10 S Progress Note (SOAP) Subjective: c/o anxiety, irritability, headache, sweats, and muscle aches. Objective: 11/26/19 11:01 Vital Signs 11/26/19 11/26/19 11/26/19 03:30 06:21 09:09 Temperature 97.0 F L 97.6 F Pulse Rate 59 L 68 Respiratory 18 18 16 Rate Blood Pressure 101/51 L 91/59 L Laboratory Last Values WBC 6.1 K/mm3 (4.0-10.0) 11/23/19 13:00 RBC 4.32 M/mm3 (4.00-5.60) 11/23/19 13:00 Hgb 13.7 GM/dL (11.7-16.9) 11/23/19 13:00 Hct 41.0 % (35.4-49) 11/23/19 13:00 MCV 94.8 fl (80-96) 11/23/19 13:00 MCH 31.8 pg (25.7-33.7) 11/23/19 13:00 MCHC 33.5 g/dl (32.0-35.9) 11/23/19 13:00 RDW 14.6 % (11.9-15.9) 11/23/19 13:00 Plt Count 254 K/MM3 (134-434) D 11/23/19 13:00 MPV 9.9 fl (7.5-11.1) 11/23/19 13:00 PT with INR 36.90 SEC (9.7-13.0) H 11/24/19 08:00 INR 3.09 (0.83-1.09) H 11/24/19 08:00 Sodium 136 mmol/L (136-145) 11/23/19 13:00 Potassium 4.4 mmol/L (3.5-5.1) 11/23/19 13:00 Chloride 103 mmol/L (98-107) 11/23/19 13:00 Carbon Dioxide 27 mmol/L (21-32) 11/23/19 13:00 Anion Gap 6 MMOL/L (8-16) L 11/23/19 13:00 BUN 16.3 mg/dL (7-18) 11/23/19 13:00 Creatinine 0.8 mg/dL (0.55-1.3) 11/23/19 13:00 Est GFR (CKD-EPI)AfAm 118.20 11/23/19 13:00 Est GFR (CKD-EPI)NonAf 101.99 11/23/19 13:00 Random Glucose 70 mg/dL (74-106) L 11/23/19 13:00 Calcium 9.0 mg/dL (8.5-10.1) 11/23/19 13:00 Total Bilirubin 0.9 mg/dL (0.2-1) 11/23/19 13:00 AST 18 U/L (15-37) 11/23/19 13:00 ALT 23 U/L (13-61) 11/23/19 13:00 Alkaline Phosphatase 61 U/L (45-117) 11/23/19 13:00 Total Protein 7.1 g/dl (6.4-8.2) 11/23/19 13:00 Albumin 3.9 g/dl (3.4-5.0) 11/23/19 13:00 RPR Titer Reactive 1:1 (NONREACTIVE) H 11/23/19 13:00 T.pallidum Ab (MHA) Previously reactive (NONREACTIVE) 11/23/19 13:00 Labs noted. Assessment: 11/26/19 11:01 AOX3, in no acute respiratory distress. Full ROM, ambulating in the unit. Withdrawal symptoms. Plan: continue detox.
[2019-11-26 11:25] LABS: INR 2.65 (0.83-1.09); PROTHROMBIN TIME (PATIENT) 31.6 SEC (9.7-13.0)
[2019-11-26] MEDS: WARFARIN NA 5 MG, WARFARIN NA 3 MG PO SCH (17:22)
[2019-11-26] MEDS: METHOCARBAMOL 500 MG TABLET PO PRN (17:24)
[2019-11-26] MEDS: QUEtiapine FUMARATE 400 MG TABLET PO SCH (22:06)
[2019-11-26] MEDS: MELATONIN 5 MG TABLETS PO PRN (22:06)
[2019-11-26] MEDS: THIAMINE HCL 100 MG TABLET (FP) PO SCH (22:06)
[2019-11-27] MEDS: chlordiazePOXIDE HCL 10 MG CAPSULE PO SCH ×2 (05:28→17:59)
[2019-11-27] MEDS ORDERED: METHADONE HCL 10 MG TABLET (FOR DETOX USE ONLY) PO ONE (10:00)
[2019-11-27] MEDS: QUEtiapine FUMARATE 200 MG TABLET PO SCH (10:37)
[2019-11-27] MEDS: PANTOPRAZOLE 40 MG TABLET PO SCH (10:37)
[2019-11-27] MEDS: CITALOPRAM HYDROBROMIDE 20 MG TABLET PO SCH (10:37)
[2019-11-27] MEDS: PRENATAL VITAMINS W/ FOLIC ACID TABLET (FP) PO SCH (10:37)
[2019-11-27] MEDS: NICOTINE 14 MG/24 HOURS TOPICAL PATCH TD SCH (10:37)
--- NOTE | 2019-11-27 10:37 | PN ---
[facility] CIWA - CIWA Score Nausea/Vomitin-No Nausea/No Vomiting Muscle Tremors: 2 Anxiety: 2 Agitation: 2 Paroxysmal Sweats: 1-Minimal Palms Moist Orientation: 0-Oriented Tacttile Disturbances: 0-None Auditory Disturbances: 0-None Visual Disturbances: 1-Very Mild Sensitivity Headache: 0-None Present CIWA-Ar Total Score: 8 S COWS - Scale Resting Pulse: 0= [place] 80 or Below Sweatin= Chills/Flushing Restless Observation: 0= Sits Still Pupil Size: 0= Normal to Room Light Bone or Joint Aches: 1= Mild Discomfort Runny Nose/ Eye Tearin= Nasal Congestion GI Upset > 30mins: 1= Stomach Cramp Tremor Observation of Outstretched Hands: 2= Slight Tremor Visible Yawning Observation: 0= None Anxiety or Irritability: 2=Irritable/Anxious Goose Flesh Skin: 0=Smooth Skin COWS Score: 8 S Progress Note (SOAP) Subjective: 54 years old male admitted on 11/23/19 for alcohol and opiate withdrawal sx managmeent treating with librium and methadone detox regimen feeling better today less tremor mild general body ache slept through the night discussed aftercare with staff that in patient chemical dependent rehab is better before Objective: 11/27/19 10:39 Vital Signs Temperature 98.1 F 11/27/19 09:40 Pulse Rate 73 11/27/19 09:40 Respiratory Rate 18 11/27/19 09:40 Blood Pressure 107/68 11/27/19 09:40 O2 Sat by Pulse Oximetry (%) Laboratory Last Values WBC 6.1 K/mm3 (4.0-10.0) 11/23/19 13:00 RBC 4.32 M/mm3 (4.00-5.60) 11/23/19 13:00 Hgb 13.7 GM/dL (11.7-16.9) 11/23/19 13:00 Hct 41.0 % (35.4-49) 11/23/19 13:00 MCV 94.8 fl (80-96) 11/23/19 13:00 MCH 31.8 pg (25.7-33.7) 11/23/19 13:00 MCHC 33.5 g/dl (32.0-35.9) 11/23/19 13:00 RDW 14.6 % (11.9-15.9) 11/23/19 13:00 Plt Count 254 K/MM3 (134-434) D 11/23/19 13:00 MPV 9.9 fl (7.5-11.1) 11/23/19 13:00 PT with INR 31.60 SEC (9.7-13.0) H 11/26/19 08:00 INR 2.65 (0.83-1.09) H 11/26/19 08:00 Sodium 136 mmol/L (136-145) 11/23/19 13:00 Potassium 4.4 mmol/L (3.5-5.1) 11/23/19 13:00 Chloride 103 mmol/L (98-107) 11/23/19 13:00 Carbon Dioxide 27 mmol/L (21-32) 11/23/19 13:00 Anion Gap 6 MMOL/L (8-16) L 11/23/19 13:00 BUN 16.3 mg/dL (7-18) 11/23/19 13:00 Creatinine 0.8 mg/dL (0.55-1.3) 11/23/19 13:00 Est GFR (CKD-EPI)AfAm 118.20 11/23/19 13:00 Est GFR (CKD-EPI)NonAf 101.99 11/23/19 13:00 Random Glucose 70 mg/dL (74-106) L 11/23/19 13:00 Calcium 9.0 mg/dL (8.5-10.1) 11/23/19 13:00 Total Bilirubin 0.9 mg/dL (0.2-1) 11/23/19 13:00 AST 18 U/L (15-37) 11/23/19 13:00 ALT 23 U/L (13-61) 11/23/19 13:00 Alkaline Phosphatase 61 U/L (45-117) 11/23/19 13:00 Total Protein 7.1 g/dl (6.4-8.2) 11/23/19 13:00 Albumin 3.9 g/dl (3.4-5.0) 11/23/19 13:00 RPR Titer Reactive 1:1 (NONREACTIVE) H 11/23/19 13:00 T.pallidum Ab (MHA) Previously reactive (NONREACTIVE) 11/23/19 13:00 lab noted patient agrees to follow up with coumindan provider for inr monitoring Assessment: 11/27/19 10:40 alcohol and opiate withdrawal Plan: librium and methadone regiments
[2019-11-27] MEDS: METHOCARBAMOL 500 MG TABLET PO PRN (17:59)
[2019-11-27] MEDS: WARFARIN NA 5 MG, WARFARIN NA 3 MG PO SCH (17:59)
[2019-11-27] MEDS ORDERED: BENZOCAINE 20 % GEL TUBE MM PRN (21:08)
[2019-11-27] MEDS: MELATONIN 5 MG TABLETS PO PRN (22:21)
[2019-11-27] MEDS: THIAMINE HCL 100 MG TABLET (FP) PO SCH (22:21)
[2019-11-27] MEDS: QUEtiapine FUMARATE 400 MG TABLET PO SCH (22:21)
[2019-11-28] MEDS ORDERED: chlordiazePOXIDE HCL 10 MG CAPSULE PO ONE (05:00)
[2019-11-28] MEDS ORDERED: METHADONE HCL 5 MG TABLET (FOR DETOX USE ONLY) PO ONE (06:00)
[2019-11-28 06:13] VITALS: BP 122/79; PULSE 76; TEMP 97.6
--- NOTE | 2019-11-28 09:56 | DS ---
[facility] Detox Discharge Summary Admission Date: 11/23/19 Discharge Date: 11/28/19 - History Present History: Alcohol Dependence, Opioid Dependence Additional Comments: 54 years old male admitted on 11/23/19 for alcohol and opiate withdrawal sx management treated with librium and methadone detox regiment patient has completed librium and methadone regiments and tolerated well alert oriented x 3 cardiac s1 s2 regular rate rhythm respiratory clear lungs bilaterally on auscultation skin warm and dry - Physical Exam Results Vital Signs: Vital Signs Temperature 97.6 F 11/28/19 06:12 Pulse Rate 76 11/28/19 06:12 Respiratory Rate 18 11/28/19 06:12 Blood Pressure 122/79 11/28/19 06:12 O2 Sat by Pulse Oximetry (%) Pertinent Admission Physical Exam Findings: alcohol and opiate withdrawal Vital Signs Temperature 97.6 F 11/28/19 06:12 Pulse Rate 76 11/28/19 06:12 Respiratory Rate 18 11/28/19 06:12 Blood Pressure 122/79 11/28/19 06:12 O2 Sat by Pulse Oximetry (%) Laboratory Last Values WBC 6.1 K/mm3 (4.0-10.0) 11/23/19 13:00 RBC 4.32 M/mm3 (4.00-5.60) 11/23/19 13:00 Hgb 13.7 GM/dL (11.7-16.9) 11/23/19 13:00 Hct 41.0 % (35.4-49) 11/23/19 13:00 MCV 94.8 fl (80-96) 11/23/19 13:00 MCH 31.8 pg (25.7-33.7) 11/23/19 13:00 MCHC 33.5 g/dl (32.0-35.9) 11/23/19 13:00 RDW 14.6 % (11.9-15.9) 11/23/19 13:00 Plt Count 254 K/MM3 (134-434) D 11/23/19 13:00 MPV 9.9 fl (7.5-11.1) 11/23/19 13:00 PT with INR 31.60 SEC (9.7-13.0) H 11/26/19 08:00 INR 2.65 (0.83-1.09) H 11/26/19 08:00 Sodium 136 mmol/L (136-145) 11/23/19 13:00 Potassium 4.4 mmol/L (3.5-5.1) 11/23/19 13:00 Chloride 103 mmol/L (98-107) 11/23/19 13:00 Carbon Dioxide 27 mmol/L (21-32) 11/23/19 13:00 Anion Gap 6 MMOL/L (8-16) L 11/23/19 13:00 BUN 16.3 mg/dL (7-18) 11/23/19 13:00 Creatinine 0.8 mg/dL (0.55-1.3) 11/23/19 13:00 Est GFR (CKD-EPI)AfAm 118.20 11/23/19 13:00 Est GFR (CKD-EPI)NonAf 101.99 11/23/19 13:00 Random Glucose 70 mg/dL (74-106) L 11/23/19 13:00 Calcium 9.0 mg/dL (8.5-10.1) 11/23/19 13:00 Total Bilirubin 0.9 mg/dL (0.2-1) 11/23/19 13:00 AST 18 U/L (15-37) 11/23/19 13:00 ALT 23 U/L (13-61) 11/23/19 13:00 Alkaline Phosphatase 61 U/L (45-117) 11/23/19 13:00 Total Protein 7.1 g/dl (6.4-8.2) 11/23/19 13:00 Albumin 3.9 g/dl (3.4-5.0) 11/23/19 13:00 RPR Titer Reactive 1:1 (NONREACTIVE) H 11/23/19 13:00 T.pallidum Ab (MHA) Previously reactive (NONREACTIVE) 11/23/19 13:00 lab noted patient agrees returning to coumidan provider for inr monitoring and dosage adjustment - Treatment Hospital Course: Detox Protocol Followed, Detoxed Safely, Responded well, Discharged Condition Good, Rehab Referral Accepted Patient has Accepted [facility] Referral [facility] - Medication Discharge Medications: Ambulatory Orders Quetiapine Fumarate [Seroquel] 400 mg PO HS 07/08/19 Warfarin Sodium 8 mg PO HS 07/08/19 Pantoprazole Sodium [Protonix] 40 mg PO DAILY 08/17/19 Citalopram Hydrobromide [Citalopram HBr] 20 mg PO DAILY 09/21/19 Quetiapine Fumarate [Seroquel -] 200 mg PO DAILY 09/21/19 Zolpidem Tartrate [Ambien] 10 mg PO HS 09/21/19 Naloxone HCl [Narcan] 4 mg NS ASDIR PRN #1 spray 11/24/19 - Diagnosis (1) Syphilis contact, treated Status: Chronic (2) Alcohol dependence with withdrawal Status: Chronic Qualifiers: Complication of substance-induced condition: uncomplicated Qualified Code(s ): F10.230 - Alcohol dependence with withdrawal, uncomplicated (3) Nicotine dependence Status: Acute Qualifiers: Nicotine product type: cigarettes Substance use status: in withdrawal Qualified Code(s): F17.213 - Nicotine dependence, cigarettes, with withdrawal (4) Opioid dependence with withdrawal Status: Acute (5) Substance induced mood disorder Status: Suspected (6) Positive RPR test Status: Chronic (7) Pulmonary embolism Status: Chronic Qualifiers: Pulmonary embolism type: unspecified Chronicity: unspecified Acute cor pulmonale presence: unspecified Qualified Code(s): I26.99 - Other pulmonary embolism without acute cor pulmonale - AMA Did Patient Leave Against Medical Advice: No CIWA Score - CIWA Score Nausea/Vomitin-No Nausea/No Vomiting Muscle Tremors: 2 Anxiety: 1-Mildly Anxious Agitation: 1-Slight > Activity Paroxysmal Sweats: 1-Minimal Palms Moist Orientation: 0-Oriented Tacttile Disturbances: 0-None Auditory Disturbances: 0-None Visual Disturbances: 0-None Headache: 0-None Present CIWA-Ar Total Score: 5 COWS (PN) - Opiate Withdrawal Resting Pulse: 0= AL 80 or Below Sweatin= Chills/Flushing Restless Observation: 0= Sits Still Pupil Size: 0= Normal to Room Light Bone or Joint Aches: 0= None Runny Nose/ Eye Tearin= None GI Upset > 30mins: 0= None Tremor Observation of Outstretched Hands: 1= Tremor [place], Not Seen Yawning Observation: 0= None Anxiety or Irritability: 1=Feels Anxious/Irritable Goose Flesh Skin: 0=Smooth Skin COWS Score: 3
== END 2019-11-28 09:00 | disposition home or self-care (01) | DRG 773 ==
LOC: YASAS 11:41 → Y3N 13:46
PROVIDERS: ADMIT Allergy & Immunology; ATTEND Allergy & Immunology
PROC: HZ2ZZZZ Detoxification Services for Substance Abuse Treatment (ICD-10-PCS; principal; 2019-11-23)
DX: F11.23 Opioid dependence with withdrawal (principal); F10.230 Alcohol dependence with withdrawal, uncomplicated; F17.213 Nicotine dependence, cigarettes, with withdrawal; F19.24 Other psychoactive substance dependence with psychoactive substance-induced mood disorder; F33.3 Major depressive disorder, recurrent, severe with psychotic symptoms; G47.00 Insomnia, unspecified; R76.11 Nonspecific reaction to tuberculin skin test without active tuberculosis; K21.9 Gastro-esophageal reflux disease without esophagitis; Z86.69 Personal history of other diseases of the nervous system and sense organs; Z95.828 Presence of other vascular implants and grafts; Z86.711 Personal history of pulmonary embolism; Z86.718 Personal history of other venous thrombosis and embolism; Z87.438 Personal history of other diseases of male genital organs; Z79.01 Long term (current) use of anticoagulants
CPT/HCPCS: 36415; 80053; 85027; 85610; 86593; 86780

== ENCOUNTER 2019-12-28 13:00 | Inpatient (IN) | payer OTHER ==
--- NOTE | 2019-12-28 13:22 | BHS.RME ---
Substance Use & Tx History - Substance Use History Alcohol Substance amount: 2 pints voda Frequency of use: Daily Substance route: Oral Date of Last Use: 12/28/19 Opiates (Heroin) Substance amount: 1 bundle Frequency of use: Daily Substance route: Inhalation (ex: sniffing or snorting) Date of Last Use: 12/28/19 Physical/Psych/Mental Status - Behavior General Behavior: Increased activity (restlessness, agitation) Eye Contact: Normal - Cooperativeness Cooperativeness: Cooperative - Thinking Thought Processes: Tight, Logical, Goal Directed Thought content: Future oriented - Physical Health Problems Is patient presently having any pain?: No Does patient presently have any injuries (include location): No Does patient currently have a fever: No Is patient : No COWS - Scale Resting Pulse: 1= [place] 81-100 Sweatin= Chills/Flushing Restless Observation: 1= Difficult to Sit Still Pupil Size: 1= Pupils >than Normal Bone or Joint Aches: 1= Mild Discomfort Runny Nose/ Eye Tearin= Nasal Congestion GI Upset > 30mins: 1= Stomach Cramp Tremor Observation: 1= Tremor [place], Not Seen Yawning Observation: 1= 1-2x During Session Anxiety or Irritability: 1=Feels Anxious/Irritable Goose Flesh Skin: 3=Piloerection COWS Score: 13 CIWA Nausea/Vomitin Muscle Tremors: 3 Anxiety: 3 Agitation: 3 Paroxysmal Sweats: 1-Minimal Palms Moist Orientation: 0-Oriented Tacttile Disturbances: 0-None Auditory Disturbances: 0-None Visual Disturbances: 0-None Headache: 1-Very Mild CIWA-Ar Total Score: 14
[2019-12-28 16:59] VITALS: BMI 19.3
--- NOTE | 2019-12-28 17:16 | HP ---
COWS - Scale Resting Pulse: 0= [place] 80 or Below Sweatin= Chills/Flushing Restless Observation: 1= Difficult to Sit Still Pupil Size: 0= Normal to Room Light Bone or Joint Aches: 4=Acute Joint/Muscle Pain Runny Nose/ Eye Tearin= Runny Nose/Eyes GI Upset > 30mins: 2= Nausea/Diarrhea Tremor Observation: 1= Tremor [place], Not Seen Yawning Observation: 1= 1-2x During Session Anxiety or Irritability: 2=Irritable/Anxious Goose Flesh Skin: 3=Piloerection COWS Score: 17 CIWA Score Nausea/Vomitin-Mild Nausea/No Vomiting Muscle Tremors: 1-None Visible, but [place] Anxiety: 3 Agitation: 1-Slight > Activity Paroxysmal Sweats: 3 Orientation: 0-Oriented Tacttile Disturbances: 0-None Auditory Disturbances: 0-None Visual Disturbances: 2-Mild Sensitivity (to light) Headache: 1-Very Mild CIWA-Ar Total Score: 12 - Admission Criteria OASAS Guidelines: Admission for Medically Managed Detox: Requires at least one of the followin. CIWA greater than 12 2. Seizures within the past 24 hours 3. Delirium tremens within the past 24 hours 4. Hallucinations within the past 24 hours 5. Acute intervention needed for co occurring medical disorder 6. Acute intervention needed for co occurring psychiatric disorder 7. Severe withdrawal that cannot be handled at a lower level of care (continued vomiting, continued diarrhea, abnormal vital signs) requiring intravenous medication and/or fluids 8. Patient presents the following: CIWA greater than 12 Admission Criteria Met: Admission criteria met Admitting History and Physical - Past Medical History Cardiovascular: Yes: Deep Vein Thrombosis, Other (pulmonary embolism (on warfarin 8mg)) Pulmonary: Yes: Pulmonary Embolus Gastrointestinal: Yes: Gastritis, GERD, Other (esophageal ulcer) Psych: Yes: Anxiety, Depression - Smoking History Smoking history: Current every day smoker Have you smoked in the past 12 months: Yes Aproximately how many cigarettes per day: 10 - Alcohol/Substance Use Hx Alcohol Use: Yes Number of Drinks Daily: 10 History of Substance Use: reports: Heroin Date of Last Use: 08/17/19 - Social History ADL: Independent Occupation: retired, was a [employer] History of Recent Travel: No Admission ROS S - HPI Chief Complaint: C/O WITHDRAWAL SX'S Allergies/Adverse Reactions: Allergies Allergy/AdvReac Type Severity Reaction Status Date / Time No Known Allergies Allergy Verified 12/28/19 16:49 History of Present Illness: HERE FOR ALCOHOL AND HEROIN DETOX. CLIENT [id number] SELF REFERRED. KNOWN TO PROGRAM LAST HERE 4 WEEKS AGO. REPORTS RELAPSING 3 WEEKS AGO. USING HEROIN AND ALCOHOL DAILY. LAST USED HEROIN 1 NIGHT AGO AND A HALF PINT OF ALCOHOL THIS MORNING. 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 DENIES IVDU, SI/ HI/AVH. LIVES WITH , UNEMPLOYMENT, DENIES LEGALS Exam Limitations: No Limitations - Ebola screening Have you traveled outside of the country in the last 21 days: No Have you had contact with anyone from an Ebola affected area: No Have you been sick,other than usual withdrawal symptoms: No Do you have a fever: No - Review of Systems Constitutional: Chills, Loss of Appetite, Malaise, Night Sweats EENT: reports: No Symptoms Reported Respiratory: reports: No Symptoms reported Cardiac: reports: No Symptoms Reported GI: reports: Nausea, Poor Appetite, Poor Fluid Intake, Other (ESOPHAGUS ULCER AND GASTRITITS) : reports: No Symptoms Reported Musculoskeletal: reports: Back Pain Integumentary: reports: Sweating Neuro: reports: Seizure, Other (BLACKOUTS) Endocrine: reports: No Symptoms Reported Hematology: reports: Blood Clots (BLE AND LUNGS ON AC), Easy Bleeding (ON AC) Psychiatric: reports: Orientated x3, Agitated (IRRITABLE), Anxious, Depressed ( DENIES SI) Other Systems: Reviewed and Negative Patient History - Patient Medical History Hx Anemia: No Hx Asthma: No Hx Chronic Obstructive Pulmonary Disease (COPD): No Hx Cancer: No Hx Cardiac Disorders: No Hx Congestive Heart Failure: No Hx Hypertension: No Hx Hypercholesterolemia: No Hx Pacemaker: No HX Cerebrovascular Accident: No Hx Seizures: Yes (WITHDRAWAL SZ X1 2 YEARS AGO) Hx Dementia: No Hx Diabetes: No Hx Gastrointestinal Disorders: Yes (Hx of esophageal ulcer, GASTRITIS) Hx Liver Disease: No Hx Genitourinary Disorders: No Hx Sexually Transmitted Disorders: No Hx Renal Disease (ESRD): No Hx Thyroid Disease: No Hx Human Immunodeficiency Virus (HIV): No Hx Hepatitis C: No Hx Depression: Yes (CELEXA 40/ SEROQUEL 200/400) Hx Suicide Attempt: No Hx Bipolar Disorder: No Hx Schizophrenia: No Other Medical History: DENIES - Patient Surgical History Past Surgical History: Yes Hx Neurologic Surgery: No Hx Cataract Extraction: No Hx Cardiac Surgery: No Hx Lung Surgery: No Hx Breast Surgery: No Hx Breast Biopsy: No Hx Abdominal Surgery: No Hx Appendectomy: No Hx Cholecystectomy: No Hx Genitourinary Surgery: No Hx Section: No Hx Orthopedic Surgery: No Other Surgical History: IVC implanted 10/2017 for PE Anesthesia Reaction: No - PPD History Previous Implant?: Yes Documented Results: Negative w/proof Implanted On Prior [facility] Admission?: Yes Results: NOT READ PPD to be Administered?: Yes - Smoking Cessation Smoking history: Current every day smoker Have you smoked in the past 12 months: Yes Aproximately how many cigarettes per day: 10 Cigars Per Day: 0 Hx Chewing Tobacco Use: No Initiated information on smoking cessation: Yes 'Breaking Loose' booklet given: 12/28/19 - Substance & Tx. History Hx Alcohol Use: Yes Hx Substance Use: Yes Substance Use Type: Alcohol, Heroin, Marijuana Hx Substance Use Treatment: Yes ([facility]) - Substances abused Alcohol Substance route: Oral Frequency: Daily Amount used: LIQUOR- 2 PINTS, BEER- 2 SIX PACK Age of first use: 22 Date of last use: 12/28/19 Heroin Substance route: Inhalation Frequency: Daily Amount used: 20 BAGS Age of first use: 50 Date of last use: 12/27/19 Admission Physical Exam BHS - Vital Signs Vital Signs: Vital Signs - 24 hr 12/28/19 16:39 Temperature 98.5 F Pulse Rate 73 Respiratory 18 Rate Blood Pressure 117/77 - Physical General Appearance: Yes: Moderate Distress, Thin, Tremorous, Sweating, Anxious HEENTM: Yes: EOMI, Normocephalic, Normal Voice, GHADA, Pharynx Normal, Nasal Congestion, Rhinorrhea Respiratory: Yes: Chest Non-Tender, Lungs Clear, Normal Breath Sounds, No Respiratory Distress, No Accessory Muscle Use Neck: Yes: No masses,lesions,Nodules, Supple, Trachea in good position Breast: Yes: Breasts Symetrical Cardiology: Yes: Regular Rhythm, Regular Rate, S1, S2 Abdominal: Yes: Normal Bowel Sounds, Non Tender, Soft Genitourinary: Yes: Within Normal Limits Back: Yes: Normal Inspection Musculoskeletal: Yes: Gait Steady Extremities: Yes: Normal Capillary Refill, Normal Range of Motion, Non-Tender, Tremors Neurological: Yes: Fully Oriented, Alert, Motor Strength 5/5, Depressed Affect Integumentary: Yes: Cold, Clammy Lymphatic: Yes: Within Normal Limits - Diagnostic (1) Nicotine dependence Current Visit: Yes Status: Chronic Qualifiers: Nicotine product type: cigarettes Substance use status: in withdrawal Qualified Code(s): F17.213 - Nicotine dependence, cigarettes, with withdrawal (2) Opioid dependence with withdrawal Current Visit: Yes Status: Acute (3) Alcohol dependence with withdrawal Current Visit: Yes Status: Acute Qualifiers: Complication of substance-induced condition: uncomplicated Qualified Code(s ): F10.230 - Alcohol dependence with withdrawal, uncomplicated (4) Cannabis dependence Current Visit: Yes Status: Acute (5) Pulmonary embolism Current Visit: Yes Status: Chronic Qualifiers: Pulmonary embolism type: unspecified Chronicity: unspecified Acute cor pulmonale presence: unspecified Qualified Code(s): I26.99 - Other pulmonary embolism without acute cor pulmonale (6) Substance induced mood disorder Current Visit: Yes Status: Suspected (7) DVT (deep venous thrombosis) Current Visit: Yes Status: Chronic (8) Esophageal ulcer Current Visit: Yes Status: Chronic Qualifiers: Esophageal ulcer bleeding: without bleeding Qualified Code(s): K22.10 - Ulcer of esophagus without bleeding Cleared for Admission S - Detox or Rehab [facility] Level of Care: Medically Managed Detox Regimen/Protocol: Methadone/Librium Claeared for Rehab Admission: No Breathalyzer - Breathalyzer Breathalyzer: 0.033 Urine Drug Screen - Test Device Lot number: [id number] Expiration date: 10/01/21 - Control Is test valid?: Yes - Results Drug screen NEGATIVE: No Urine drug screen results: THC-Marijuana, MOP-Opiates, BZO-Benzodiazepines Inpatient Rehab Admission - Rehab Decision to Admit Inpatient rehab admission?: No
[2019-12-28] MEDS ORDERED: MENTHOL/PHENOL 1 EACH UD MM PRN (17:26)
[2019-12-28] MEDS ORDERED: MAGNESIUM CITRATE 300 ML BOTTLE PO PRN (17:26)
[2019-12-28] MEDS ORDERED: guaiFENesin 200 MG/10 ML 10 ML UNIT-DOSE CUPS PO PRN (17:26)
[2019-12-28] MEDS ORDERED: NICOTINE POLACRILEX 2 MG GUM BUC PRN (17:26)
[2019-12-28] MEDS ORDERED: cloNIDine HCL 0.1 MG TABLET PO PRN (17:26)
[2019-12-28] MEDS ORDERED: DICYCLOMINE HCL 10 MG CAPSULE PO PRN (17:26)
[2019-12-28] MEDS ORDERED: MAGNESIUM HYDROX 2400MG/30ML ORAL SUSPENSION 30 ML CUP PO PRN (17:26)
[2019-12-28] MEDS ORDERED: ACETAMINOPHEN 325 MG TABLET (FP) PO PRN ×2 (17:26)
[2019-12-28] MEDS ORDERED: chlordiazePOXIDE HCL 25 MG CAPSULE PO PRN (17:26)
[2019-12-28] MEDS ORDERED: NALOXONE HCL 0.4 MG/ML VIAL IM PRN (17:26)
[2019-12-28] MEDS ORDERED: ONDANSETRON *ODT* 4 MG TABLET SL PRN (17:26)
[2019-12-28] MEDS ORDERED: P-EPHED 60MG/TRIPROLIDI 2.5MG TABLET PO PRN (17:26)
[2019-12-28] MEDS ORDERED: METHADONE HCL 10 MG TABLET (FOR DETOX USE ONLY) PO ONE (18:30)
[2019-12-28] MEDS: WARFARIN NA 2 MG TABLET (UD) PO SCH (18:43)
[2019-12-28] MEDS: chlordiazePOXIDE HCL 25 MG CAPSULE PO SCH (22:06)
[2019-12-28] MEDS: THIAMINE HCL 100 MG TABLET (FP) PO SCH (22:08)
[2019-12-28] MEDS: MELATONIN 5 MG TABLETS PO PRN (22:08)
[2019-12-28] MEDS: METHOCARBAMOL 500 MG TABLET PO PRN (22:10)
[2019-12-28] MEDS: MAG HYDROX/AL HYDROX/SIMETH 30 ML UNIT-DOSE CUP PO PRN (22:50)
[2019-12-29] MEDS: chlordiazePOXIDE HCL 25 MG CAPSULE PO SCH ×4 (05:52→22:02)
[2019-12-29] MEDS: METHOCARBAMOL 500 MG TABLET PO PRN (05:56)
[2019-12-29] MEDS ORDERED: METHADONE HCL 5 MG TABLET (FOR DETOX USE ONLY) ONE (09:23)
[2019-12-29] MEDS ORDERED: METHADONE HCL 10 MG TABLET (FOR DETOX USE ONLY) ONE (09:23)
[2019-12-29] MEDS ORDERED: METHADONE (DETOX) 20 MG, METHADONE (DETOX) 5 MG PO ONE (10:00)
[2019-12-29 10:07] LABS: HEMATOCRIT 35.4 % (35.4-49); HEMOGLOBIN 12.2 GM/dL (11.7-16.9); MCHC 34.3 g/dl (32.0-35.9); MEAN CELL VOLUME 93.3 fl (80-96); MEAN PLT VOLUME 9.5 fl (7.5-11.1); PLATELET COUNT 273 K/MM3 (134-434); RDW 13.6 % (11.9-15.9); WHITE BLOOD COUNT 4.8 K/mm3 (4.0-10.0)
--- NOTE | 2019-12-29 10:11 | PN ---
[facility] CIWA - CIWA Score Nausea/Vomitin Muscle Tremors: 2 Anxiety: 2 Agitation: 2 Paroxysmal Sweats: No Perspiration Orientation: 0-Oriented Tacttile Disturbances: 1-Very Mild Itch/Numbness Auditory Disturbances: 0-None Visual Disturbances: 0-None Headache: 2-Mild CIWA-Ar Total Score: 11 [facility] COWS - Scale Resting Pulse: 0= [place] 80 or Below Sweatin= No chills or Flushing Restless Observation: 1= Difficult to Sit Still Pupil Size: 1= Pupils >than Normal Bone or Joint Aches: 1= Mild Discomfort Runny Nose/ Eye Tearin= Nasal Congestion GI Upset > 30mins: 2= Nausea/Diarrhea Tremor Observation of Outstretched Hands: 2= Slight Tremor Visible Yawning Observation: 1= 1-2x During Session Anxiety or Irritability: 2=Irritable/Anxious Goose Flesh Skin: 0=Smooth Skin COWS Score: 11 [facility] Progress Note (SOAP) Subjective: alert,irritable,anxious,interrupted sleep,pain in the body and back Objective: 12/29/19 10:10 Vital Signs Temperature 97.9 F 12/29/19 05:46 Pulse Rate 57 L 12/29/19 05:46 Respiratory Rate 18 12/29/19 05:46 Blood Pressure 136/86 12/29/19 05:46 O2 Sat by Pulse Oximetry (%) 12/29/19 10:11 labs pending Assessment: 12/29/19 10:11 withdrawal symptom Plan: continue detox methadone and librium regimen
[2019-12-29 10:28] LABS: INR 2.54 (0.83-1.09); PROTHROMBIN TIME (PATIENT) 30.2 SEC (9.7-13.0)
[2019-12-29 10:33] LABS: ALBUMIN 3.3 g/dl (3.4-5.0); BILIRUBIN,TOTAL 0.4 mg/dL (0.2-1); BLOOD UREA NITROGEN 16.1 mg/dL (7-18); CALCIUM 9.2 mg/dL (8.5-10.1); CREATININE 0.9 mg/dL (0.55-1.3); POTASSIUM 4.6 mmol/L (3.5-5.1); TOT PROT 6.7 g/dl (6.4-8.2)
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
[2019-12-29] MEDS: NICOTINE 14 MG/24 HOURS TOPICAL PATCH TD SCH (11:02)
[2019-12-29] MEDS: PANTOPRAZOLE 40 MG TABLET PO SCH (11:02)
[2019-12-29] MEDS: PRENATAL VITAMINS W/ FOLIC ACID TABLET (FP) PO SCH (11:02)
[2019-12-29] MEDS: CITALOPRAM HYDROBROMIDE 20 MG TABLET PO SCH (11:03)
[2019-12-29] MEDS: QUEtiapine FUMARATE 200 MG TABLET PO SCH (11:03)
[2019-12-29 14:01] LABS: RPR REACTIVE 1:1 (NONREACTIVE)
[2019-12-29 14:04] LABS: TREPONEMA ANTIBODY PREVIOUSLY REACTIVE (NONREACTIVE)
--- NOTE | 2019-12-29 15:49 | PN ---
[facility] Progress Note Note: RPR 1:1/+ 12/29/19. Same results 07/09/2019
[2019-12-29] MEDS: WARFARIN NA 2 MG TABLET (UD) PO SCH (17:51)
[2019-12-29] MEDS: MAG HYDROX/AL HYDROX/SIMETH 30 ML UNIT-DOSE CUP PO PRN (21:24)
[2019-12-29] MEDS: QUEtiapine FUMARATE 400 MG TABLET PO SCH (22:02)
[2019-12-29] MEDS: THIAMINE HCL 100 MG TABLET (FP) PO SCH (22:02)
[2019-12-29] MEDS: MELATONIN 5 MG TABLETS PO PRN (22:03)
[2019-12-30] MEDS: chlordiazePOXIDE HCL 25 MG CAPSULE PO SCH ×4 (06:15→22:38)
[2019-12-30] MEDS ORDERED: METHADONE HCL 10 MG TABLET (FOR DETOX USE ONLY) PO ONE (10:00)
--- NOTE | 2019-12-30 10:07 | PN ---
[facility] CIWA - CIWA Score Nausea/Vomitin-Mild Nausea/No Vomiting Muscle Tremors: 2 Anxiety: 2 Agitation: 2 Paroxysmal Sweats: 1-Minimal Palms Moist Orientation: 0-Oriented Tacttile Disturbances: 1-Very Mild Itch/Numbness Auditory Disturbances: 0-None Visual Disturbances: 0-None Headache: 2-Mild CIWA-Ar Total Score: 11 S COWS - Scale Resting Pulse: 0= [place] 80 or Below Sweatin= No chills or Flushing Restless Observation: 1= Difficult to Sit Still Pupil Size: 1= Pupils >than Normal Bone or Joint Aches: 1= Mild Discomfort Runny Nose/ Eye Tearin= Runny Nose/Eyes GI Upset > 30mins: 1= Stomach Cramp Tremor Observation of Outstretched Hands: 1= Tremor [place], Not Seen Yawning Observation: 1= 1-2x During Session Anxiety or Irritability: 2=Irritable/Anxious Goose Flesh Skin: 0=Smooth Skin COWS Score: 10 [facility] Progress Note (SOAP) Subjective: alert,irritable,anxious,interrupted sleep,pain in the body Objective: 12/30/19 10:04 Vital Signs Temperature 97.1 F L 12/30/19 09:23 Pulse Rate 72 12/30/19 09:23 Respiratory Rate 15 12/30/19 09:23 Blood Pressure 104/63 12/30/19 09:23 O2 Sat by Pulse Oximetry (%) Laboratory Last Values WBC 4.8 K/mm3 (4.0-10.0) 12/29/19 07:40 RBC 3.80 M/mm3 (4.00-5.60) L 12/29/19 07:40 Hgb 12.2 GM/dL (11.7-16.9) 12/29/19 07:40 Hct 35.4 % (35.4-49) 12/29/19 07:40 MCV 93.3 fl (80-96) 12/29/19 07:40 MCH 32.0 pg (25.7-33.7) 12/29/19 07:40 MCHC 34.3 g/dl (32.0-35.9) 12/29/19 07:40 RDW 13.6 % (11.9-15.9) 12/29/19 07:40 Plt Count 273 K/MM3 (134-434) 12/29/19 07:40 MPV 9.5 fl (7.5-11.1) 12/29/19 07:40 PT with INR 30.20 SEC (9.7-13.0) H 12/29/19 07:40 INR 2.54 (0.83-1.09) H 12/29/19 07:40 Sodium 138 mmol/L (136-145) 12/29/19 07:40 Potassium 4.6 mmol/L (3.5-5.1) 12/29/19 07:40 Chloride 104 mmol/L (98-107) 12/29/19 07:40 Carbon Dioxide 29 mmol/L (21-32) 12/29/19 07:40 Anion Gap 4 MMOL/L (8-16) L 12/29/19 07:40 BUN 16.1 mg/dL (7-18) 12/29/19 07:40 Creatinine 0.9 mg/dL (0.55-1.3) 12/29/19 07:40 Est GFR (CKD-EPI)AfAm 112.62 12/29/19 07:40 Est GFR (CKD-EPI)NonAf 97.17 12/29/19 07:40 Random Glucose 105 mg/dL (74-106) 12/29/19 07:40 Calcium 9.2 mg/dL (8.5-10.1) 12/29/19 07:40 Total Bilirubin 0.4 mg/dL (0.2-1) 12/29/19 07:40 AST 19 U/L (15-37) 12/29/19 07:40 ALT 23 U/L (13-61) 12/29/19 07:40 Alkaline Phosphatase 85 U/L (45-117) 12/29/19 07:40 Total Protein 6.7 g/dl (6.4-8.2) 12/29/19 07:40 Albumin 3.3 g/dl (3.4-5.0) L 12/29/19 07:40 RPR Titer Reactive 1:1 (NONREACTIVE) H 12/29/19 07:40 T.pallidum Ab (MHA) Previously reactive (NONREACTIVE) 12/29/19 07:40 history of syphilis treated with 3 injections 4 years ago Assessment: 12/30/19 10:06 withdrawal symptom Plan: continue detox methadone and librium regimen,history of pulmonary embolism on coumadin 8 mgs po daily with inr monitoring
[2019-12-30] MEDS: QUEtiapine FUMARATE 200 MG TABLET PO SCH (10:30)
[2019-12-30] MEDS: PANTOPRAZOLE 40 MG TABLET PO SCH (10:30)
[2019-12-30] MEDS: PRENATAL VITAMINS W/ FOLIC ACID TABLET (FP) PO SCH (10:30)
[2019-12-30] MEDS: CITALOPRAM HYDROBROMIDE 20 MG TABLET PO SCH (10:30)
[2019-12-30] MEDS: NICOTINE 14 MG/24 HOURS TOPICAL PATCH TD SCH (10:32)
[2019-12-30] MEDS: WARFARIN NA 2 MG TABLET (UD) PO SCH (17:11)
[2019-12-30] MEDS: QUEtiapine FUMARATE 400 MG TABLET PO SCH (22:38)
[2019-12-30] MEDS: THIAMINE HCL 100 MG TABLET (FP) PO SCH (22:38)
[2019-12-31] MEDS ORDERED: chlordiazePOXIDE HCL 10 MG CAPSULE PO PRN
[2019-12-31] MEDS: chlordiazePOXIDE HCL 10 MG CAPSULE PO SCH ×4 (06:21→22:05)
[2019-12-31] MEDS ORDERED: METHADONE HCL 5 MG TABLET (FOR DETOX USE ONLY) ONE (09:08)
[2019-12-31] MEDS ORDERED: METHADONE HCL 10 MG TABLET (FOR DETOX USE ONLY) ONE (09:08)
[2019-12-31] MEDS ORDERED: METHADONE (DETOX) 10 MG, METHADONE (DETOX) 5 MG PO ONE (10:00)
[2019-12-31] MEDS: PANTOPRAZOLE 40 MG TABLET PO SCH (10:39)
[2019-12-31] MEDS: QUEtiapine FUMARATE 200 MG TABLET PO SCH (10:39)
[2019-12-31] MEDS: NICOTINE 14 MG/24 HOURS TOPICAL PATCH TD SCH (10:39)
[2019-12-31] MEDS: CITALOPRAM HYDROBROMIDE 20 MG TABLET PO SCH (10:39)
[2019-12-31] MEDS: PRENATAL VITAMINS W/ FOLIC ACID TABLET (FP) PO SCH (10:39)
--- NOTE | 2019-12-31 16:33 | PN ---
S CIWA - CIWA Score Nausea/Vomitin-No Nausea/No Vomiting Muscle Tremors: 2 Anxiety: 3 Agitation: 1-Slight > Activity Paroxysmal Sweats: 2 Orientation: 0-Oriented Tacttile Disturbances: 0-None Auditory Disturbances: 0-None Visual Disturbances: 2-Mild Sensitivity Headache: 0-None Present CIWA-Ar Total Score: 10 S COWS - Scale Resting Pulse: 0= [place] 80 or Below Sweatin= Chills/Flushing Restless Observation: 1= Difficult to Sit Still Pupil Size: 0= Normal to Room Light Bone or Joint Aches: 2= Severe Diffuse Aches Runny Nose/ Eye Tearin= Nasal Congestion GI Upset > 30mins: 0= None Tremor Observation of Outstretched Hands: 0= None Yawning Observation: 1= 1-2x During Session Anxiety or Irritability: 2=Irritable/Anxious Goose Flesh Skin: 0=Smooth Skin COWS Score: 8 [facility] Progress Note (SOAP) Subjective: Anxious, Body Aches, Sweating. Objective: PATIENT A & O X 3, OBSERVED AMBULATING ON DETOX UNIT UNASSISTED. IN NO ACUTE DISTRESS. 12/31/19 16:31 Vital Signs Temperature 98.2 F 12/31/19 10:32 Pulse Rate 73 12/31/19 10:32 Respiratory Rate 16 12/31/19 10:32 Blood Pressure 106/63 12/31/19 10:32 O2 Sat by Pulse Oximetry (%) Laboratory Tests 12/29/19 12/29/19 12/29/19 07:40 07:40 07:40 WBC 4.8 RBC 3.80 L Hgb 12.2 Hct 35.4 MCV 93.3 MCH 32.0 MCHC 34.3 RDW 13.6 Plt Count 273 MPV 9.5 PT with INR INR Sodium 138 Potassium 4.6 Chloride 104 Carbon Dioxide 29 Anion Gap 4 L BUN 16.1 Creatinine 0.9 Est GFR (CKD-EPI)AfAm 112.62 Est GFR (CKD-EPI)NonAf 97.17 Random Glucose 105 Calcium 9.2 Total Bilirubin 0.4 AST 19 ALT 23 Alkaline Phosphatase 85 Total Protein 6.7 Albumin 3.3 L RPR Titer Reactive 1:1 H T.pallidum Ab (MHA) Previously reactive 12/29/19 07:40 WBC RBC Hgb Hct MCV MCH MCHC RDW Plt Count MPV PT with INR 30.20 H INR 2.54 H Sodium Potassium Chloride Carbon Dioxide Anion Gap BUN Creatinine Est GFR (CKD-EPI)AfAm Est GFR (CKD-EPI)NonAf Random Glucose Calcium Total Bilirubin AST ALT Alkaline Phosphatase Total Protein Albumin RPR Titer T.pallidum Ab (A) LABS NOTED. DETOX ADMISSION RPR RESULT NOTED: REACTIVE 1:1 ([facility]ATP: PREVIOUSLY REACTIVE). PATIENT REPORTS THAT HE COMPLETED A FULL COURSE OF TREATMENT FOR SYPHILIS IN THE PAST. 12/31/19 16:33 Assessment: 12/31/19 16:32 WITHDRAWAL SYMPTOMS. Plan: CONTINUE DETOX.
[2019-12-31] MEDS: WARFARIN NA 2 MG TABLET (UD) PO SCH (18:00)
[2019-12-31] MEDS: MAG HYDROX/AL HYDROX/SIMETH 30 ML UNIT-DOSE CUP PO PRN (19:34)
[2019-12-31] MEDS: THIAMINE HCL 100 MG TABLET (FP) PO SCH (22:06)
[2019-12-31] MEDS: QUEtiapine FUMARATE 400 MG TABLET PO SCH (22:06)
[2019-12-31] MEDS: MELATONIN 5 MG TABLETS PO PRN (22:07)
[2020-01-01] MEDS: chlordiazePOXIDE HCL 10 MG CAPSULE PO SCH ×2 (05:35→17:39)
[2020-01-01] MEDS: METHOCARBAMOL 500 MG TABLET PO PRN (05:36)
[2020-01-01] MEDS ORDERED: METHADONE HCL 10 MG TABLET (FOR DETOX USE ONLY) PO ONE (10:00)
[2020-01-01] MEDS: NICOTINE 14 MG/24 HOURS TOPICAL PATCH TD SCH (10:31)
[2020-01-01] MEDS: QUEtiapine FUMARATE 200 MG TABLET PO SCH (10:31)
[2020-01-01] MEDS: PRENATAL VITAMINS W/ FOLIC ACID TABLET (FP) PO SCH (10:32)
[2020-01-01] MEDS: PANTOPRAZOLE 40 MG TABLET PO SCH (10:32)
[2020-01-01] MEDS: CITALOPRAM HYDROBROMIDE 20 MG TABLET PO SCH (10:32)
--- NOTE | 2020-01-01 13:44 | PN ---
[facility] CIWA - CIWA Score Nausea/Vomitin-No Nausea/No Vomiting Muscle Tremors: 2 Anxiety: 2 Agitation: 0-Normal Activity Paroxysmal Sweats: 2 Orientation: 0-Oriented Tacttile Disturbances: 0-None Auditory Disturbances: 0-None Visual Disturbances: 0-None Headache: 0-None Present CIWA-Ar Total Score: 6 S COWS - Scale Resting Pulse: 1= [place] 81-100 Sweatin= Chills/Flushing Restless Observation: 0= Sits Still Pupil Size: 0= Normal to Room Light Bone or Joint Aches: 1= Mild Discomfort Runny Nose/ Eye Tearin= None GI Upset > 30mins: 1= Stomach Cramp Tremor Observation of Outstretched Hands: 0= None Yawning Observation: 0= None Anxiety or Irritability: 2=Irritable/Anxious Goose Flesh Skin: 0=Smooth Skin COWS Score: 6 [facility] Progress Note (SOAP) Subjective: Feels ok, patient requests to be discharged at 7am tomorrow Objective: 01/01/20 13:40 Last Vital Signs Temp Pulse Resp BP Pulse Ox 97.7 F 81 16 112/63 01/01/20 12:46 01/01/20 12:46 01/01/20 12:46 01/01/20 12:46 Laboratory Tests 12/29/19 12/29/19 12/29/19 07:40 07:40 07:40 WBC 4.8 RBC 3.80 L Hgb 12.2 Hct 35.4 MCV 93.3 MCH 32.0 MCHC 34.3 RDW 13.6 Plt Count 273 MPV 9.5 PT with INR INR Sodium 138 Potassium 4.6 Chloride 104 Carbon Dioxide 29 Anion Gap 4 L BUN 16.1 Creatinine 0.9 Est GFR (CKD-EPI)AfAm 112.62 Est GFR (CKD-EPI)NonAf 97.17 Random Glucose 105 Calcium 9.2 Total Bilirubin 0.4 AST 19 ALT 23 Alkaline Phosphatase 85 Total Protein 6.7 Albumin 3.3 L RPR Titer Reactive 1:1 H T.pallidum Ab ([facility]HA) Previously reactive 12/29/19 07:40 WBC RBC Hgb Hct MCV MCH MCHC RDW Plt Count MPV PT with INR 30.20 H INR 2.54 H Sodium Potassium Chloride Carbon Dioxide Anion Gap BUN Creatinine Est GFR (CKD-EPI)AfAm Est GFR (CKD-EPI)NonAf Random Glucose Calcium Total Bilirubin AST ALT Alkaline Phosphatase Total Protein Albumin RPR Titer T.pallidum Ab ([facility]) Labs reviewed Assessment: 01/01/20 13:41 Withdrawal sxs Plan: Continue detox Encouraged PO water intake Patient scheduled for discharge tomorrow at 7 am
[2020-01-01] MEDS: WARFARIN NA 2 MG TABLET (UD) PO SCH (17:38)
[2020-01-01] MEDS: QUEtiapine FUMARATE 400 MG TABLET PO SCH (21:14)
[2020-01-01] MEDS: THIAMINE HCL 100 MG TABLET (FP) PO SCH (21:14)
[2020-01-01] MEDS: MELATONIN 5 MG TABLETS PO PRN (21:14)
[2020-01-02] MEDS: MAG HYDROX/AL HYDROX/SIMETH 30 ML UNIT-DOSE CUP PO PRN (01:26)
[2020-01-02] MEDS ORDERED: chlordiazePOXIDE HCL 10 MG CAPSULE PO ONE (05:00)
[2020-01-02] MEDS ORDERED: METHADONE HCL 5 MG TABLET (FOR DETOX USE ONLY) PO ONE (06:00)
[2020-01-02 08:06] VITALS: BP 105/68; PULSE 73; TEMP 97.9
--- NOTE | 2020-01-02 09:30 | DS ---
[facility] Detox Discharge Summary Admission Date: 12/28/19 Discharge Date: 01/02/20 - History Present History: Alcohol Dependence, Cannabis Dependence, Opioid Dependence - Physical Exam Results Vital Signs: Vital Signs Temperature 97.9 F 01/02/20 05:25 Pulse Rate 73 01/02/20 05:25 Respiratory Rate 18 01/02/20 05:25 Blood Pressure 105/68 01/02/20 05:25 O2 Sat by Pulse Oximetry (%) Pertinent Admission Physical Exam Findings: Vital Signs Temperature 97.9 F 01/02/20 05:25 Pulse Rate 73 01/02/20 05:25 Respiratory Rate 18 01/02/20 05:25 Blood Pressure 105/68 01/02/20 05:25 O2 Sat by Pulse Oximetry (%) Laboratory Tests 12/29/19 12/29/19 12/29/19 07:40 07:40 07:40 WBC 4.8 RBC 3.80 L Hgb 12.2 Hct 35.4 MCV 93.3 MCH 32.0 MCHC 34.3 RDW 13.6 Plt Count 273 MPV 9.5 PT with INR INR Sodium 138 Potassium 4.6 Chloride 104 Carbon Dioxide 29 Anion Gap 4 L BUN 16.1 Creatinine 0.9 Est GFR (CKD-EPI)AfAm 112.62 Est GFR (CKD-EPI)NonAf 97.17 Random Glucose 105 Calcium 9.2 Total Bilirubin 0.4 AST 19 ALT 23 Alkaline Phosphatase 85 Total Protein 6.7 Albumin 3.3 L RPR Titer Reactive 1:1 H T.pallidum Ab (MHA) Previously reactive 12/29/19 07:40 WBC RBC Hgb Hct MCV MCH MCHC RDW Plt Count MPV PT with INR 30.20 H INR 2.54 H Sodium Potassium Chloride Carbon Dioxide Anion Gap BUN Creatinine Est GFR (CKD-EPI)AfAm Est GFR (CKD-EPI)NonAf Random Glucose Calcium Total Bilirubin AST ALT Alkaline Phosphatase Total Protein Albumin RPR Titer T.pallidum Ab (MHA) aaox3 ambulating pt was off the unit before my shift - Treatment Hospital Course: Detox Protocol Followed, Detoxed Safely, Responded well, Discharged Condition Good, Rehab Referral Accepted - Medication Discharge Medications: Ambulatory Orders Quetiapine Fumarate [Seroquel] 400 mg PO HS 07/08/19 Warfarin Sodium 8 mg PO HS 07/08/19 Pantoprazole Sodium [Protonix] 40 mg PO DAILY 08/17/19 Citalopram Hydrobromide [Citalopram HBr] 20 mg PO DAILY 09/21/19 Quetiapine Fumarate [Seroquel -] 200 mg PO DAILY 09/21/19 Zolpidem Tartrate [Ambien] 10 mg PO HS 09/21/19 - Diagnosis (1) Alcohol dependence with withdrawal Status: Chronic Qualifiers: Complication of substance-induced condition: uncomplicated Qualified Code(s ): F10.230 - Alcohol dependence with withdrawal, uncomplicated (2) Cannabis dependence Status: Chronic (3) Opioid dependence with withdrawal Status: Chronic (4) Substance induced mood disorder Status: Acute (5) Substance-induced sleep disorder Status: Acute (6) Esophageal ulcer Status: Chronic Qualifiers: Esophageal ulcer bleeding: without bleeding Qualified Code(s): K22.10 - Ulcer of esophagus without bleeding (7) GERD (gastroesophageal reflux disease) Status: Chronic Qualifiers: Esophagitis presence: without esophagitis Qualified Code(s): K21.9 - Gastro -esophageal reflux disease without esophagitis (8) Gastritis Status: Chronic Qualifiers: Chronicity: unspecified Gastritis bleeding: without bleeding (9) History of bipolar disorder Status: Chronic (10) History of mood disorder Status: Chronic (11) Insomnia Status: Chronic (12) MDD (major depressive disorder), recurrent, severe, with psychosis Status: Chronic (13) Nicotine dependence Status: Chronic Qualifiers: Nicotine product type: cigarettes Substance use status: uncomplicated Qualified Code(s): F17.210 - Nicotine dependence, cigarettes, uncomplicated (14) Opioid dependence Status: Chronic Qualifiers: Substance use status: uncomplicated Qualified Code(s): F11.20 - Opioid dependence, uncomplicated (15) Positive RPR test Status: Chronic (16) DVT (deep venous thrombosis) Status: Resolved (17) Pulmonary embolism Status: Resolved Qualifiers: Pulmonary embolism type: unspecified Chronicity: unspecified Acute cor pulmonale presence: unspecified Qualified Code(s): I26.99 - Other pulmonary embolism without acute cor pulmonale (18) Syphilis contact, treated Status: Resolved - AMA Did Patient Leave Against Medical Advice: No
== END 2020-01-02 06:55 | disposition home or self-care (01) | DRG 773 ==
LOC: YASAS 13:00 → Y6N 17:39
PROVIDERS: ADMIT Allergy & Immunology; ATTEND Allergy & Immunology
PROC: HZ2ZZZZ Detoxification Services for Substance Abuse Treatment (ICD-10-PCS; principal; 2019-12-28)
DX: F10.230 Alcohol dependence with withdrawal, uncomplicated (principal); F11.23 Opioid dependence with withdrawal; F12.20 Cannabis dependence, uncomplicated; F17.210 Nicotine dependence, cigarettes, uncomplicated; F19.282 Other psychoactive substance dependence with psychoactive substance-induced sleep disorder; F19.24 Other psychoactive substance dependence with psychoactive substance-induced mood disorder; F33.3 Major depressive disorder, recurrent, severe with psychotic symptoms; F31.9 Bipolar disorder, unspecified; G47.00 Insomnia, unspecified; K22.10 Ulcer of esophagus without bleeding; K21.9 Gastro-esophageal reflux disease without esophagitis; K29.70 Gastritis, unspecified, without bleeding; Z86.718 Personal history of other venous thrombosis and embolism; Z86.711 Personal history of pulmonary embolism; Z79.01 Long term (current) use of anticoagulants; Z86.19 Personal history of other infectious and parasitic diseases; Z95.828 Presence of other vascular implants and grafts
CPT/HCPCS: 36415; 80053; 85027; 85610; 86593; 86780

== ENCOUNTER 2020-06-13 11:14 | Inpatient (IN) | payer OTHER ==
--- NOTE | 2020-06-13 11:55 | BHS.RME ---
Substance Use & Tx History - Substance Use History Alcohol Substance amount: 3 pints whiskey, 6 pack of 16 ounce beer Substance route: Oral Date of Last Use: 06/13/20 (First use age 22 y. Seizure 6 mos ago. blackout in 2019. Admits to eyeopener) Heroin Substance amount: 2 bundles Frequency of use: Daily Substance route: Inhalation (ex: sniffing or snorting) Date of Last Use: 06/13/20 (First use age 52. OD x 1 in 2019. Has Narcan at home) Marijuana/Hashish Substance amount: $10 Frequency of use: Daily Substance route: Smoking Date of Last Use: 06/11/20 (Began at age 53) Nicotine Substance amount: 1/2 pack Frequency of use: Daily Substance route: Smoking Date of Last Use: 06/13/20 (Began age 22 y) - Last Treatment Date of last treatment: Dec detox Physical/Psych/Mental Status - Behavior General Behavior: Increased activity (restlessness, agitation) Eye Contact: Normal - Cooperativeness Cooperativeness: Cooperative - Thinking Thought Processes: Tight Thought content: Future oriented - Physical Health Problems Is patient presently having any pain?: Yes (chronic low back pain) Does patient presently have any injuries (include location): No Does patient currently have a fever: No CIWA Nausea/Vomitin-Mild Nausea/No Vomiting Muscle Tremors: 4-Moderate,w/Arms Extend Anxiety: 2 Agitation: 2 Paroxysmal Sweats: 2 Orientation: 3-Disoriented Date>2 days Tacttile Disturbances: 0-None Auditory Disturbances: 0-None Visual Disturbances: 0-None Headache: 0-None Present CIWA-Ar Total Score: 14
--- NOTE | 2020-06-13 14:07 | HP ---
CIWA Score Nausea/Vomitin-Mild Nausea/No Vomiting Muscle Tremors: 4-Moderate,w/Arms Extend Anxiety: 2 Agitation: 2 Paroxysmal Sweats: 2 Orientation: 3-Disoriented Date>2 days Tacttile Disturbances: 0-None Auditory Disturbances: 0-None Visual Disturbances: 0-None Headache: 0-None Present CIWA-Ar Total Score: 14 - Admission Criteria OASAS Guidelines: Admission for Medically Managed Detox: Requires at least one of the followin. CIWA greater than 12 2. Seizures within the past 24 hours 3. Delirium tremens within the past 24 hours 4. Hallucinations within the past 24 hours 5. Acute intervention needed for co occurring medical disorder 6. Acute intervention needed for co occurring psychiatric disorder 7. Severe withdrawal that cannot be handled at a lower level of care (continued vomiting, continued diarrhea, abnormal vital signs) requiring intravenous medication and/or fluids 8. Patient presents the following: CIWA greater than 12 Admission Criteria Met: Admission criteria met Admitting History and Physical - Admission Chief Complaint: Patient is a 55 year old male with history of DVT (bilateral lower extremities -on Coumadin), alcohol use disorder, opiate use disorder, marijuan dependence, nicotine dependence presents for detox. History of Present Illness: Patient is a 55 year old male with history of DVT (bilateral lower extremities - on Coumadin), alcohol use disorder, opiate use disorder, marijuan dependence, nicotine dependence presents for detox. PMH: DVT (bilateral lower extremities), GERD, PSH: denies Psych: anxiety, depression, ( and mother passed this past January) -Ambien, Seroquel, Social: lives in mother's house, alone Legal: denies Patient meets criteria based on CIWA, and comorbidities. - Substance Use History Alcohol Substance amount: 3 pints whiskey, 6 pack of 16 ounce beer Substance route: Oral Date of Last Use: 06/13/20 (First use age 22 y. Seizure 6 mos ago. blackout in 2019. Admits to eyeopener) Heroin Substance amount: 2 bundles Frequency of use: Daily Substance route: Inhalation (ex: sniffing or snorting) Date of Last Use: 06/13/20 (First use age 52. OD x 1 in 2019. Has Narcan at home) Marijuana/Hashish Substance amount: $10 Frequency of use: Daily Substance route: Smoking Date of Last Use: 06/11/20 (Began at age 53) Nicotine Substance amount: 1/2 pack Frequency of use: Daily Substance route: Smoking Date of Last Use: 06/13/20 (Began age 22 y) - Last Treatment Date of last treatment: Dec detox - Past Medical History Cardiovascular: Yes: Deep Vein Thrombosis, Other (pulmonary embolism (on warfarin 8mg)) Pulmonary: Yes: Pulmonary Embolus Gastrointestinal: Yes: Gastritis, GERD, Other (esophageal ulcer) Psych: Yes: Anxiety, Depression - Smoking History Smoking history: Current every day smoker Have you smoked in the past 12 months: Yes Aproximately how many cigarettes per day: 10 - Alcohol/Substance Use Hx Alcohol Use: Yes Number of Drinks Daily: 10 History of Substance Use: reports: Heroin Date of Last Use: 08/17/19 - Social History ADL: Independent Occupation: retired, was a [employer] History of Recent Travel: No Admission [facility] Chief Complaint: Patient is a 55 year old male with history of DVT (bilateral lower extremities - on Coumadin), alcohol use disorder, opiate use disorder, marijuan dependence, nicotine dependence presents for detox. Allergies/Adverse Reactions: Allergies Allergy/AdvReac Type Severity Reaction Status Date / Time No Known Allergies Allergy Verified 12/28/19 16:49 Exam Limitations: No Limitations - Ebola screening Have you traveled outside of the country in the last 21 days: No Have you been sick,other than usual withdrawal symptoms: No Do you have a fever: No - Review of Systems Constitutional: No Symptoms Reported EENT: reports: No Symptoms Reported. denies: Blurred Vision, Hearing Loss Respiratory: denies: Cough, Shortness of Breath Cardiac: denies: Chest Pain, Palpitations GI: denies: Nausea, Vomiting, Abdominal cramping : denies: Burning, Dysuria Musculoskeletal: reports: Other (diffuse myalgias) Integumentary: denies: Lesions, Rash Neuro: denies: Headache, Numbness, Weakness Hematology: reports: Blood Clots (history of DVT). denies: Easy Bleeding Psychiatric: reports: Anxious, Depressed, other (denies suicidal, homicidal ideation) Patient History - Patient Medical History Hx Anemia: No Hx Asthma: No Hx Chronic Obstructive Pulmonary Disease (COPD): No Hx Cancer: No Hx Cardiac Disorders: No Hx Congestive Heart Failure: No Hx Hypertension: No Hx Hypercholesterolemia: No Hx Pacemaker: No HX Cerebrovascular Accident: No Hx Seizures: Yes (WITHDRAWAL SZ X1 2 YEARS AGO) Hx Dementia: No Hx Diabetes: No Hx Gastrointestinal Disorders: Yes (Hx of esophageal ulcer, GASTRITIS) Hx Liver Disease: No Hx Genitourinary Disorders: No Hx Sexually Transmitted Disorders: No Hx Renal Disease (ESRD): No Hx Thyroid Disease: No Hx Human Immunodeficiency Virus (HIV): No Hx Hepatitis C: No Hx Depression: Yes (CELEXA 40/ SEROQUEL 200/400) Hx Suicide Attempt: No Hx Bipolar Disorder: No Hx Schizophrenia: No - Patient Surgical History Past Surgical History: Yes Hx Neurologic Surgery: No Hx Cataract Extraction: No Hx Cardiac Surgery: No Hx Lung Surgery: No Hx Breast Surgery: No Hx Breast Biopsy: No Hx Abdominal Surgery: No Hx Appendectomy: No Hx Cholecystectomy: No Hx Genitourinary Surgery: No Hx Section: No Hx Orthopedic Surgery: No Other Surgical History: IVC implanted 10/2017 for PE Anesthesia Reaction: No - PPD History Date: 12/31/19 Results: NOT READ - Reproductive History Patient is a Female of Child Bearing Age (11 -55 yrs old): No - Smoking Cessation Smoking history: Current every day smoker Have you smoked in the past 12 months: Yes Aproximately how many cigarettes per day: 10 Cigars Per Day: 0 Hx Chewing Tobacco Use: No Initiated information on smoking cessation: Yes 'Breaking Loose' booklet given: 06/13/20 - Substance & Tx. History Hx Alcohol Use: Yes Substance Use Type: Heroin Admission Physical Exam BHS - Physical General Appearance: Yes: Within Normal Limits HEENTM: Yes: Within Normal Limits, EOMI, Hearing grossly Normal, Normocephalic, Normal Voice, GHADA Respiratory: Yes: Lungs Clear, Normal Breath Sounds, No Respiratory Distress, No Accessory Muscle Use Neck: Yes: Supple Breast: Yes: Breast Exam Deferred Cardiology: Yes: Regular Rhythm, Regular Rate, S1, S2 Abdominal: Yes: Normal Bowel Sounds, Non Tender, Flat, Soft Musculoskeletal: Yes: Within Normal Limits, full range of Motion Extremities: Yes: Within Normal Limits, Normal Range of Motion 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, Alert, Motor Strength 5/5, Normal Response Integumentary: Yes: Dry, Warm - Diagnostic (1) Alcohol dependence with withdrawal Current Visit: Yes Status: Acute Qualifiers: Complication of substance-induced condition: uncomplicated Qualified Code(s): F10.230 - Alcohol dependence with withdrawal, uncomplicated (2) Cannabis dependence Current Visit: No Status: Chronic (3) GERD (gastroesophageal reflux disease) Current Visit: No Status: Chronic Qualifiers: Esophagitis presence: without esophagitis Qualified Code(s): K21.9 - Gastro-esophageal reflux disease without esophagitis (4) MDD (major depressive disorder), recurrent, severe, with psychosis Current Visit: No Status: Chronic (5) Nicotine dependence Current Visit: No Status: Chronic Qualifiers: Nicotine product type: cigarettes Substance use status: uncomplicated Qualified Code(s): F17.210 - Nicotine dependence, cigarettes, uncomplicated (6) Opioid dependence with withdrawal Current Visit: Yes Status: Acute Cleared for Admission S - Detox or Rehab [facility] Level of Care: Medically Managed Detox Regimen/Protocol: Methadone/Librium Claeared for Rehab Admission: No Screened but not Admitted - Documentation of Visit Screened but not Admitted: No Breathalyzer - Breathalyzer Breathalyzer: 0 Urine Drug Screen - Test Device Lot number: [id number] Expiration date: 06/05/22 - Control Is test valid?: Yes - Results Drug screen NEGATIVE: No Urine drug screen results: ELVA-Cocaine, FEN-Fentanyl, MOP-Opiates, MTD- Methadone, BZO-Benzodiazepines Inpatient Rehab Admission - Rehab Decision to Admit Inpatient rehab admission?: No
[2020-06-13] MEDS ORDERED: ACETAMINOPHEN 325 MG TABLET (FP) PO PRN ×2 (14:17)
[2020-06-13] MEDS ORDERED: MENTHOL/PHENOL 1 EACH UD MM PRN (14:17)
[2020-06-13] MEDS ORDERED: MAGNESIUM HYDROX 2400MG/30ML ORAL SUSPENSION 30 ML CUP PO PRN (14:17)
[2020-06-13] MEDS ORDERED: ONDANSETRON *ODT* 4 MG TABLET SL PRN (14:17)
[2020-06-13] MEDS ORDERED: MAGNESIUM CITRATE 300 ML BOTTLE PO PRN (14:17)
[2020-06-13] MEDS ORDERED: METHADONE HCL 10 MG TABLET (FOR DETOX USE ONLY) PO ONE (14:17)
[2020-06-13] MEDS ORDERED: MAG HYDROX/AL HYDROX/SIMETH 30 ML UNIT-DOSE CUP PO PRN (14:17)
[2020-06-13] MEDS ORDERED: NICOTINE POLACRILEX 2 MG GUM BUC PRN (14:17)
[2020-06-13] MEDS ORDERED: IBUPROFEN 400 MG TABLET (FP) PO PRN (14:17)
[2020-06-13] MEDS ORDERED: chlordiazePOXIDE HCL 25 MG CAPSULE PO PRN (14:17)
[2020-06-13] MEDS ORDERED: BISMUTH SUBSALICYLATE 262 MG/15 ML BTL PO PRN (14:17)
[2020-06-13] MEDS ORDERED: METHOCARBAMOL 500 MG TABLET PO PRN (14:17)
[2020-06-13] MEDS ORDERED: cloNIDine HCL 0.1 MG TABLET PO PRN (14:17)
[2020-06-13 15:17] VITALS: BMI 17.4
[2020-06-13] MEDS: NICOTINE 14 MG/24 HOURS TOPICAL PATCH TD SCH (16:33)
[2020-06-13] MEDS: chlordiazePOXIDE HCL 25 MG CAPSULE PO SCH ×2 (17:09→22:11)
[2020-06-13] MEDS: hydrOXYzine PAMOATE 25 MG CAPSULE (FP) PO SCH ×2 (17:10→22:11)
[2020-06-13 17:11] LABS: HEMOGLOBIN 15.1 GM/dL (11.7-16.9); MCH 30.8 pg (25.7-33.7); MCHC 33.5 g/dl (32.0-35.9); MEAN CELL VOLUME 91.8 fl (80-96); MEAN PLT VOLUME 10.2 fl (7.5-11.1); PLATELET COUNT 316 K/MM3 (134-434); RDW 13.4 % (11.9-15.9); WHITE BLOOD COUNT 17.1 K/mm3 (4.0-10.0)
[2020-06-13 17:17] LABS: INR 1.83 (0.83-1.09); PROTHROMBIN TIME (PATIENT) 21.7 SEC (9.7-13.0)
[2020-06-13 17:22] LABS: ALBUMIN 3.7 g/dl (3.4-5.0); BILIRUBIN,TOTAL 0.8 mg/dL (0.2-1); BLOOD UREA NITROGEN 65.9 mg/dL (7-18); CALCIUM 8.4 mg/dL (8.5-10.1); CREATININE 3.3 mg/dL (0.55-1.3); TOT PROT 8.1 g/dl (6.4-8.2)
[2020-06-13 17:42] LABS: POTASSIUM 2.6 mmol/L (3.5-5.1)
[2020-06-13] MEDS ORDERED: POTASSIUM CHLORIDE TABS 20 MEQ TABLET.ER (FP) PO ONE (17:48)
--- NOTE | 2020-06-13 17:48 | PN ---
[facility] Progress Note Note: nursing called for lab value Abnormal Lab Results 06/13/20 06/13/20 06/13/20 15:00 15:00 15:00 WBC 17.1 H PT with INR INR Sodium 122 L Potassium 2.6 L* Chloride 66 L Carbon Dioxide 38 H Anion Gap 18 H BUN 65.9 H Creatinine 3.3 H Random Glucose 131 H Calcium 8.4 L Syphilis Serology Reactive A* 06/13/20 15:00 WBC PT with INR 21.70 H INR 1.83 H Sodium Potassium Chloride Carbon Dioxide Anion Gap BUN Creatinine Random Glucose Calcium Syphilis Serology rpr TITER PENDING k SUPPLEMENTATION ordered
[2020-06-13] MEDS: WARFARIN NA 5 MG, WARFARIN NA 3 MG PO SCH (18:11)
[2020-06-13] MEDS ORDERED: WARFARIN NA 7.5 MG TABLET (FP) PO SCH (22:00)
[2020-06-13] MEDS ORDERED: MELATONIN 5 MG TABLETS PO SCH (22:00)
[2020-06-13] MEDS: THIAMINE HCL 100 MG TABLET (FP) PO SCH (22:11)
[2020-06-14] MEDS: chlordiazePOXIDE HCL 25 MG CAPSULE PO SCH ×4 (05:40→22:13)
[2020-06-14] MEDS: hydrOXYzine PAMOATE 25 MG CAPSULE (FP) PO SCH ×2 (05:41→11:18)
[2020-06-14] MEDS ORDERED: METHADONE HCL 5 MG TABLET (FOR DETOX USE ONLY) ONE (08:48)
[2020-06-14] MEDS ORDERED: METHADONE HCL 10 MG TABLET (FOR DETOX USE ONLY) ONE (08:48)
[2020-06-14] MEDS ORDERED: METHADONE (DETOX) 20 MG, METHADONE (DETOX) 5 MG PO ONE (10:00)
[2020-06-14] MEDS ORDERED: hydrOXYzine PAMOATE 25 MG CAPSULE (FP) PO PRN (10:35)
[2020-06-14] MEDS: NICOTINE 14 MG/24 HOURS TOPICAL PATCH TD SCH (10:39)
[2020-06-14] MEDS: PANTOPRAZOLE 40 MG TABLET PO SCH (10:39)
[2020-06-14] MEDS: PRENATAL VITAMINS W/ FOLIC ACID TABLET (FP) PO SCH (10:40)
--- NOTE | 2020-06-14 11:49 | PN ---
[facility] CIWA - CIWA Score Nausea/Vomitin-Mild Nausea/No Vomiting Muscle Tremors: 2 Anxiety: 2 Agitation: 2 Paroxysmal Sweats: No Perspiration Orientation: 0-Oriented Tacttile Disturbances: 1-Very Mild Itch/Numbness Auditory Disturbances: 0-None Visual Disturbances: 0-None Headache: 2-Mild CIWA-Ar Total Score: 10 BHS COWS - Scale Resting Pulse: 0= IN 80 or Below Sweatin= No chills or Flushing Restless Observation: 0= Sits Still Pupil Size: 1= Pupils >than Normal Bone or Joint Aches: 2= Severe Diffuse Aches Runny Nose/ Eye Tearin= Nasal Congestion GI Upset > 30mins: 1= Stomach Cramp Tremor Observation of Outstretched Hands: 2= Slight Tremor Visible Yawning Observation: 1= 1-2x During Session Anxiety or Irritability: 2=Irritable/Anxious Goose Flesh Skin: 0=Smooth Skin COWS Score: 10 BHS Progress Note (SOAP) Subjective: alert,irritable,anxious,interrupted sleep,tremor,pain in the body and back,nausea,aching pain Objective: 06/14/20 11:46 Vital Signs Temperature 98.4 F 06/14/20 09:27 Pulse Rate 59 L 06/14/20 09:27 Respiratory Rate 16 06/14/20 09:27 Blood Pressure 108/57 L 06/14/20 09:27 O2 Sat by Pulse Oximetry (%) 98 06/14/20 05:30 Laboratory Last Values WBC 17.1 K/mm3 (4.0-10.0) H 06/13/20 15:00 RBC 4.90 M/mm3 (4.00-5.60) 06/13/20 15:00 Hgb 15.1 GM/dL (11.7-16.9) 06/13/20 15:00 Hct 45.0 % (35.4-49) D 06/13/20 15:00 MCV 91.8 fl (80-96) 06/13/20 15:00 MCH 30.8 pg (25.7-33.7) 06/13/20 15:00 MCHC 33.5 g/dl (32.0-35.9) 06/13/20 15:00 RDW 13.4 % (11.9-15.9) 06/13/20 15:00 Plt Count 316 K/MM3 (134-434) 06/13/20 15:00 MPV 10.2 fl (7.5-11.1) 06/13/20 15:00 PT with INR 21.70 SEC (9.7-13.0) H 06/13/20 15:00 INR 1.83 (0.83-1.09) H 06/13/20 15:00 Sodium 122 mmol/L (136-145) L 06/13/20 15:00 Potassium 2.6 mmol/L (3.5-5.1) L* 06/13/20 15:00 Chloride 66 mmol/L (98-107) L 06/13/20 15:00 Carbon Dioxide 38 mmol/L (21-32) H 06/13/20 15:00 Anion Gap 18 MMOL/L (8-16) H 06/13/20 15:00 BUN 65.9 mg/dL (7-18) H 06/13/20 15:00 Creatinine 3.3 mg/dL (0.55-1.3) H 06/13/20 15:00 Est GFR (CKD-EPI)AfAm 23.25 06/13/20 15:00 Est GFR (CKD-EPI)NonAf 20.06 06/13/20 15:00 Random Glucose 131 mg/dL (74-106) H 06/13/20 15:00 Calcium 8.4 mg/dL (8.5-10.1) L 06/13/20 15:00 Total Bilirubin 0.8 mg/dL (0.2-1) 06/13/20 15:00 AST 31 U/L (15-37) 06/13/20 15:00 ALT 20 U/L (13-61) 06/13/20 15:00 Alkaline Phosphatase 84 U/L (45-117) 06/13/20 15:00 Total Protein 8.1 g/dl (6.4-8.2) 06/13/20 15:00 Albumin 3.7 g/dl (3.4-5.0) 06/13/20 15:00 Syphilis Serology Reactive (NONREACTIVE) A* 06/13/20 15:00 COVID-19 (AMY) Not detected (Not Detected) 06/13/20 15:00 06/14/20 11:47 rpr pending Assessment: 06/14/20 11:47 withdrawal symptom Plan: continue detox methadone and librium regimen,k dur 20 meq po tid for 3 days,repeat bmp in am,fasting glucose in am
--- NOTE | 2020-06-14 13:22 | CONSULT ---
[facility] Psychiatric Consult - Data Date of interview: 06/14/20 Admission source: Self-referred Identifying data: Mr Foley is a 55 years old single male, father of 3 children, retired as a [employer], domiciled living with his girlfriend seeking detox treatment for alcohol, opioid and cannabis Substance Abuse History: Reports history of alcohol heroin and marijuana use. Refer to addiction counselor's summary for further information Medical History: Significant for GERD, esophageal ulcer,, history of deep venous thrombosis and pulmonary emboli, ivc filter and treatment for syphilis. Smokes 10 cigarttes daily Psychiatric History: Patient is known for multiple previous admissions to this facility. Historical narrative remains consistent. Her Reports that his first psychiatric contact was at age 46 when he was diagnosed with MDD by a psychiatrist at [facility]. He said that he was started on Seroquel and Celexa. Reports that he is receives psychiatric treatment at same clinic and he is on the same medications: Seroquel 200 mg/day & 400 mg/hs, Celexa 40 mg/day and Ambien 10 mg/hs. Told entry writer that he last saw his psychiatrist 3c weeks ago. During his most recent admission to this facility in late December 2019, he was continued on Seroquel and Celexa as prescribed by entry writer. Denies previous psychiatric hospitalization or suicidal attempt. At present, denies depressive symptoms, S/H ideations. However, reports sleeping poorly Psychiatric Findings - Problem List ([place] 1, 2,3) (1) MDD (major depressive disorder), recurrent, severe, with psychosis Current Visit: No Status: Chronic (2) Substance-induced sleep disorder Current Visit: No Status: Acute (3) Alcohol dependence with withdrawal Current Visit: Yes Status: Acute Qualifiers: Complication of substance-induced condition: uncomplicated Qualified Code(s): F10.230 - Alcohol dependence with withdrawal, uncomplicated (4) Opioid dependence with withdrawal Current Visit: Yes Status: Acute (5) Cannabis dependence Current Visit: No Status: Acute (6) Nicotine dependence Current Visit: No Status: Chronic Qualifiers: Nicotine product type: cigarettes Substance use status: uncomplicated Qualified Code(s): F17.210 - Nicotine dependence, cigarettes, uncomplicated (7) Esophageal ulcer Current Visit: No Status: Resolved Qualifiers: Esophageal ulcer bleeding: without bleeding Qualified Code(s): K22.10 - Ulcer of esophagus without bleeding (8) GERD (gastroesophageal reflux disease) Current Visit: No Status: Chronic Qualifiers: Esophagitis presence: without esophagitis Qualified Code(s): K21.9 - Gastro-esophageal reflux disease without esophagitis (9) Gastritis Current Visit: No Status: Chronic Qualifiers: Chronicity: unspecified Gastritis bleeding: without bleeding (10) DVT (deep venous thrombosis) Current Visit: No Status: Resolved (11) Syphilis contact, treated Current Visit: No Status: Resolved (12) Pulmonary embolism Current Visit: Yes Status: Resolved - Initial Treatment Plan Initial Treatment Plan: 1) Continue Celexa 40 mg po daily, Seroquel 200 mg daily & 400 mg HS. 2) Start Belsomra 10 mg po HS prn for insomnia. 3) Continue inpatient detoxofication
[2020-06-14] MEDS: POTASSIUM CHLORIDE TABS 20 MEQ TABLET.ER (FP) PO ONE (13:55)
[2020-06-14] MEDS: WARFARIN NA 5 MG, WARFARIN NA 3 MG PO SCH (17:48)
[2020-06-14] MEDS ORDERED: SUVOREXANT 10 MG TABLET PO PRN (22:00)
[2020-06-14] MEDS: THIAMINE HCL 100 MG TABLET (FP) PO SCH (22:08)
[2020-06-14] MEDS: QUEtiapine FUMARATE 400 MG TABLET PO SCH (22:08)
[2020-06-14] MEDS: POTASSIUM CHLORIDE TABS 20 MEQ TABLET.ER (FP) PO SCH (22:09)
[2020-06-15] MEDS: chlordiazePOXIDE HCL 25 MG CAPSULE PO SCH ×4 (05:31→22:27)
[2020-06-15] MEDS ORDERED: METHADONE HCL 10 MG TABLET (FOR DETOX USE ONLY) PO ONE (10:00)
[2020-06-15] MEDS: CITALOPRAM HYDROBROMIDE 20 MG TABLET PO SCH (10:18)
[2020-06-15] MEDS: PANTOPRAZOLE 40 MG TABLET PO SCH (10:18)
[2020-06-15] MEDS: QUEtiapine FUMARATE 200 MG TABLET PO SCH (10:18)
[2020-06-15] MEDS: POTASSIUM CHLORIDE TABS 20 MEQ TABLET.ER (FP) PO SCH ×2 (10:18→22:27)
[2020-06-15] MEDS: PRENATAL VITAMINS W/ FOLIC ACID TABLET (FP) PO SCH (10:18)
[2020-06-15] MEDS: NICOTINE 14 MG/24 HOURS TOPICAL PATCH TD SCH (10:18)
[2020-06-15 11:37] LABS: HEMATOCRIT 42.8 % (35.4-49); HEMOGLOBIN 14.3 GM/dL (11.7-16.9); MCH 30.4 pg (25.7-33.7); MCHC 33.5 g/dl (32.0-35.9); MEAN CELL VOLUME 90.8 fl (80-96); PLATELET COUNT 280 K/MM3 (134-434); RBC 4.71 M/mm3 (4.00-5.60); RDW 13.5 % (11.9-15.9); WHITE BLOOD COUNT 8.1 K/mm3 (4.0-10.0)
[2020-06-15 11:40] LABS: CALCIUM 9.3 mg/dL (8.5-10.1); CREATININE 1.6 mg/dL (0.55-1.3); POTASSIUM 3.3 mmol/L (3.5-5.1)
[2020-06-15 11:54] LABS: BLOOD UREA NITROGEN 33.4 mg/dL (7-18)
--- NOTE | 2020-06-15 13:15 | PN ---
S CIWA - CIWA Score Nausea/Vomitin-No Nausea/No Vomiting Muscle Tremors: 2 Anxiety: 1-Mildly Anxious Agitation: 2 Paroxysmal Sweats: 1-Minimal Palms Moist Orientation: 0-Oriented Tacttile Disturbances: 0-None Auditory Disturbances: 0-None Visual Disturbances: 0-None Headache: 0-None Present CIWA-Ar Total Score: 6 BHS COWS - Scale Resting Pulse: 1= NE 81-100 Sweatin= Chills/Flushing Restless Observation: 1= Difficult to Sit Still Pupil Size: 0= Normal to Room Light Bone or Joint Aches: 1= Mild Discomfort Runny Nose/ Eye Tearin= Nasal Congestion GI Upset > 30mins: 0= None Tremor Observation of Outstretched Hands: 1= Tremor [place], Not Seen Yawning Observation: 1= 1-2x During Session Anxiety or Irritability: 1=Feels Anxious/Irritable Goose Flesh Skin: 0=Smooth Skin COWS Score: 8 [facility] Progress Note (SOAP) Subjective: sweats agitation body aches interrupted sleep tired Objective: 06/15/20 13:14 Vital Signs Temperature 97.7 F 06/15/20 05:22 Pulse Rate 83 06/15/20 05:22 Respiratory Rate 16 06/15/20 05:22 Blood Pressure 121/69 06/15/20 05:22 O2 Sat by Pulse Oximetry (%) 95 06/15/20 05:22 Laboratory Tests 06/13/20 06/13/20 06/13/20 15:00 15:00 15:00 WBC 17.1 H RBC 4.90 Hgb 15.1 Hct 45.0 D MCV 91.8 MCH 30.8 MCHC 33.5 RDW 13.4 Plt Count 316 MPV 10.2 PT with INR INR Sodium 122 L Potassium 2.6 L* Chloride 66 L Carbon Dioxide 38 H Anion Gap 18 H BUN 65.9 H Creatinine 3.3 H Est GFR (CKD-EPI)AfAm 23.25 Est GFR (CKD-EPI)NonAf 20.06 Random Glucose 131 H Fasting Glucose Calcium 8.4 L Total Bilirubin 0.8 AST 31 ALT 20 Alkaline Phosphatase 84 Total Protein 8.1 Albumin 3.7 Syphilis Serology Reactive A* RPR Titer COVID-19 (AMY) 06/13/20 06/13/20 06/13/20 15:00 15:00 15:00 WBC RBC Hgb Hct MCV MCH MCHC RDW Plt Count MPV PT with INR 21.70 H INR 1.83 H Sodium Potassium Chloride Carbon Dioxide Anion Gap BUN Creatinine Est GFR (CKD-EPI)AfAm Est GFR (CKD-EPI)NonAf Random Glucose Fasting Glucose Calcium Total Bilirubin AST ALT Alkaline Phosphatase Total Protein Albumin Syphilis Serology RPR Titer Reactive 1:2 H D COVID-19 (AMY) Not detected 06/15/20 06/15/20 08:00 08:00 WBC 8.1 RBC 4.71 Hgb 14.3 Hct 42.8 MCV 90.8 MCH 30.4 MCHC 33.5 RDW 13.5 Plt Count 280 MPV 10.0 PT with INR INR Sodium 129 L Potassium 3.3 L Chloride 80 L Carbon Dioxide 37 H Anion Gap 12 BUN 33.4 H Creatinine 1.6 H Est GFR (CKD-EPI)AfAm 55.78 Est GFR (CKD-EPI)NonAf 48.13 Random Glucose 116 H Fasting Glucose 116 H Calcium 9.3 Total Bilirubin AST ALT Alkaline Phosphatase Total Protein Albumin Syphilis Serology RPR Titer COVID-19 (AMY) potassium improving; continue with kdur as ordered BUM also improving; continue with hydration aaox3 lying in bed no acute distress Assessment: 06/15/20 13:15 withdrawals Plan: continue detox increase fluids
[2020-06-15] MEDS: WARFARIN NA 5 MG, WARFARIN NA 3 MG PO SCH (17:31)
[2020-06-15] MEDS: QUEtiapine FUMARATE 400 MG TABLET PO SCH (22:26)
[2020-06-15] MEDS: THIAMINE HCL 100 MG TABLET (FP) PO SCH (22:26)
[2020-06-16] MEDS: chlordiazePOXIDE HCL 10 MG CAPSULE PO SCH ×4 (07:04→22:19)
[2020-06-16] MEDS ORDERED: METHADONE HCL 10 MG TABLET (FOR DETOX USE ONLY) ONE (09:39)
[2020-06-16] MEDS ORDERED: METHADONE HCL 5 MG TABLET (FOR DETOX USE ONLY) ONE (09:39)
[2020-06-16] MEDS ORDERED: METHADONE (DETOX) 10 MG, METHADONE (DETOX) 5 MG PO ONE (10:00)
[2020-06-16] MEDS: NICOTINE 14 MG/24 HOURS TOPICAL PATCH TD SCH (10:57)
[2020-06-16] MEDS: PANTOPRAZOLE 40 MG TABLET PO SCH (10:57)
[2020-06-16] MEDS: CITALOPRAM HYDROBROMIDE 20 MG TABLET PO SCH (10:57)
[2020-06-16] MEDS: PRENATAL VITAMINS W/ FOLIC ACID TABLET (FP) PO SCH (10:57)
[2020-06-16] MEDS: QUEtiapine FUMARATE 200 MG TABLET PO SCH (10:57)
[2020-06-16] MEDS: POTASSIUM CHLORIDE TABS 20 MEQ TABLET.ER (FP) PO SCH ×2 (10:57→22:19)
[2020-06-16 12:03] LABS: INR 2.64 (0.83-1.09); PROTHROMBIN TIME (PATIENT) 31.4 SEC (9.7-13.0)
[2020-06-16] MEDS: chlordiazePOXIDE HCL 10 MG CAPSULE PO PRN ×2 (13:44→18:58)
--- NOTE | 2020-06-16 14:35 | PN ---
[facility] CIWA - CIWA Score Nausea/Vomitin-No Nausea/No Vomiting Muscle Tremors: 2 Anxiety: 4-Mod. Anxious/Guarded Agitation: 2 Paroxysmal Sweats: 2 Orientation: 0-Oriented Tacttile Disturbances: 0-None Auditory Disturbances: 0-None Visual Disturbances: 2-Mild Sensitivity Headache: 0-None Present CIWA-Ar Total Score: 12 S COWS - Scale Resting Pulse: 1= [place] 81-100 Sweatin= Chills/Flushing Restless Observation: 1= Difficult to Sit Still Pupil Size: 0= Normal to Room Light Bone or Joint Aches: 2= Severe Diffuse Aches Runny Nose/ Eye Tearin= None GI Upset > 30mins: 0= None Tremor Observation of Outstretched Hands: 0= None Yawning Observation: 1= 1-2x During Session Anxiety or Irritability: 2=Irritable/Anxious Goose Flesh Skin: 0=Smooth Skin COWS Score: 8 S Progress Note (SOAP) Subjective: Sweating, Anxious, Body Aches, Fatigue. Objective: Patient A & O X 2 (Uncertain About Current Day/Date). Patient Observed Ambulating on Detox Unit Unassisted. In No Acute Distress. 06/16/20 14:36 Vital Signs Temperature 98.1 F 06/16/20 13:30 Pulse Rate 88 06/16/20 13:30 Respiratory Rate 18 06/16/20 13:30 Blood Pressure 102/58 L 06/16/20 13:30 O2 Sat by Pulse Oximetry (%) 96 06/16/20 13:30 Laboratory Tests 06/13/20 06/13/20 06/13/20 15:00 15:00 15:00 WBC 17.1 H RBC 4.90 Hgb 15.1 Hct 45.0 D MCV 91.8 MCH 30.8 MCHC 33.5 RDW 13.4 Plt Count 316 MPV 10.2 PT with INR INR Sodium 122 L Potassium 2.6 L* Chloride 66 L Carbon Dioxide 38 H Anion Gap 18 H BUN 65.9 H Creatinine 3.3 H Est GFR (CKD-EPI)AfAm 23.25 Est GFR (CKD-EPI)NonAf 20.06 Random Glucose 131 H Fasting Glucose Calcium 8.4 L Total Bilirubin 0.8 AST 31 ALT 20 Alkaline Phosphatase 84 Total Protein 8.1 Albumin 3.7 Syphilis Serology Reactive A* RPR Titer COVID-19 (AMY) 06/13/20 06/13/20 06/13/20 15:00 15:00 15:00 WBC RBC Hgb Hct MCV MCH MCHC RDW Plt Count MPV PT with INR 21.70 H INR 1.83 H Sodium Potassium Chloride Carbon Dioxide Anion Gap BUN Creatinine Est GFR (CKD-EPI)AfAm Est GFR (CKD-EPI)NonAf Random Glucose Fasting Glucose Calcium Total Bilirubin AST ALT Alkaline Phosphatase Total Protein Albumin Syphilis Serology RPR Titer Reactive 1:2 H D COVID-19 (AMY) Not detected 06/15/20 06/15/20 06/16/20 08:00 08:00 07:50 WBC 8.1 RBC 4.71 Hgb 14.3 Hct 42.8 MCV 90.8 MCH 30.4 MCHC 33.5 RDW 13.5 Plt Count 280 MPV 10.0 PT with INR 31.40 H INR 2.64 H Sodium 129 L Potassium 3.3 L Chloride 80 L Carbon Dioxide 37 H Anion Gap 12 BUN 33.4 H Creatinine 1.6 H Est GFR (CKD-EPI)AfAm 55.78 Est GFR (CKD-EPI)NonAf 48.13 Random Glucose 116 H Fasting Glucose 116 H Calcium 9.3 Total Bilirubin AST ALT Alkaline Phosphatase Total Protein Albumin Syphilis Serology RPR Titer COVID-19 (AMY) Lab Results Noted. Results of Repeat PT/INR noted. INR now noted to be wihtin recommended therapeutic range for history of DVT. Patient reports that he has consistently been taking Coumadin, 8 mg orally daily for some time prior to admission to Detox. Detox Admission Syphilis Serology Result noted: Reactive. RPR Titer 1:2. Patient reports that he completed a full course of Treatment for Syphilis in the past. On Repeat CBC, WBC level noted to be within normal range. 06/16/20 14:37 Assessment: 06/16/20 14:37 WITHDRAWAL SYMPTOMS. REACTIVE RPR. 06/16/20 14:39 Plan: Continue Detox.
[2020-06-16] MEDS: WARFARIN NA 5 MG, WARFARIN NA 3 MG PO SCH (18:58)
[2020-06-16] MEDS: THIAMINE HCL 100 MG TABLET (FP) PO SCH (22:19)
[2020-06-16] MEDS: QUEtiapine FUMARATE 400 MG TABLET PO SCH (22:19)
[2020-06-17] MEDS: chlordiazePOXIDE HCL 10 MG CAPSULE PO SCH ×2 (05:40→18:22)
[2020-06-17] MEDS ORDERED: METHADONE HCL 10 MG TABLET (FOR DETOX USE ONLY) PO ONE (10:00)
[2020-06-17] MEDS: CITALOPRAM HYDROBROMIDE 20 MG TABLET PO SCH (10:39)
[2020-06-17] MEDS: QUEtiapine FUMARATE 200 MG TABLET PO SCH (10:39)
[2020-06-17] MEDS: PANTOPRAZOLE 40 MG TABLET PO SCH (10:39)
[2020-06-17] MEDS: POTASSIUM CHLORIDE TABS 20 MEQ TABLET.ER (FP) PO SCH (10:39)
[2020-06-17] MEDS: NICOTINE 14 MG/24 HOURS TOPICAL PATCH TD SCH (10:40)
[2020-06-17] MEDS: PRENATAL VITAMINS W/ FOLIC ACID TABLET (FP) PO SCH (10:40)
--- NOTE | 2020-06-17 15:54 | PN ---
[facility] CIWA - CIWA Score Nausea/Vomitin-No Nausea/No Vomiting Muscle Tremors: None Anxiety: 2 Agitation: 2 Paroxysmal Sweats: No Perspiration Orientation: 0-Oriented Tacttile Disturbances: 0-None Auditory Disturbances: 0-None Visual Disturbances: 0-None Headache: 0-None Present CIWA-Ar Total Score: 4 BHS COWS - Scale Resting Pulse: 0= [place] 80 or Below Sweatin= No chills or Flushing Restless Observation: 0= Sits Still Pupil Size: 0= Normal to Room Light Bone or Joint Aches: 1= Mild Discomfort Runny Nose/ Eye Tearin= Nasal Congestion GI Upset > 30mins: 1= Stomach Cramp Tremor Observation of Outstretched Hands: 0= None Yawning Observation: 0= None Anxiety or Irritability: 1=Feels Anxious/Irritable Goose Flesh Skin: 0=Smooth Skin COWS Score: 4 S Progress Note (SOAP) Subjective: Chills, sweat, interrupted sleep Objective: 06/17/20 15:52 Last Vital Signs Temp Pulse Resp BP Pulse Ox 98.1 F 78 16 109/55 L 98 06/17/20 10:18 06/17/20 10:18 06/17/20 10:18 06/17/20 10:18 06/17/20 07:34 Laboratory Tests 06/13/20 06/13/20 06/13/20 15:00 15:00 15:00 WBC 17.1 H RBC 4.90 Hgb 15.1 Hct 45.0 D MCV 91.8 MCH 30.8 MCHC 33.5 RDW 13.4 Plt Count 316 MPV 10.2 PT with INR INR Sodium 122 L Potassium 2.6 L* Chloride 66 L Carbon Dioxide 38 H Anion Gap 18 H BUN 65.9 H Creatinine 3.3 H Est GFR (CKD-EPI)AfAm 23.25 Est GFR (CKD-EPI)NonAf 20.06 Random Glucose 131 H Fasting Glucose Calcium 8.4 L Total Bilirubin 0.8 AST 31 ALT 20 Alkaline Phosphatase 84 Total Protein 8.1 Albumin 3.7 Syphilis Serology Reactive A* RPR Titer COVID-19 (AMY) 06/13/20 06/13/20 06/13/20 15:00 15:00 15:00 WBC RBC Hgb Hct MCV MCH MCHC RDW Plt Count MPV PT with INR 21.70 H INR 1.83 H Sodium Potassium Chloride Carbon Dioxide Anion Gap BUN Creatinine Est GFR (CKD-EPI)AfAm Est GFR (CKD-EPI)NonAf Random Glucose Fasting Glucose Calcium Total Bilirubin AST ALT Alkaline Phosphatase Total Protein Albumin Syphilis Serology RPR Titer Reactive 1:2 H D COVID-19 (AMY) Not detected 06/15/20 06/15/20 06/16/20 08:00 08:00 07:50 WBC 8.1 RBC 4.71 Hgb 14.3 Hct 42.8 MCV 90.8 MCH 30.4 MCHC 33.5 RDW 13.5 Plt Count 280 MPV 10.0 PT with INR 31.40 H INR 2.64 H Sodium 129 L Potassium 3.3 L Chloride 80 L Carbon Dioxide 37 H Anion Gap 12 BUN 33.4 H Creatinine 1.6 H Est GFR (CKD-EPI)AfAm 55.78 Est GFR (CKD-EPI)NonAf 48.13 Random Glucose 116 H Fasting Glucose 116 H Calcium 9.3 Total Bilirubin AST ALT Alkaline Phosphatase Total Protein Albumin Syphilis Serology RPR Titer COVID-19 (AMY) Labs reviewed: abnormal electrolytes and KARI noted Assessment: 06/17/20 15:55 Withdrawal sxs Noted with abnormal electrolytes and KARI Plan: Continue detox Encouraged PO water hydration Pt scheduled for discharge tomorrow Abnormal electrolytes: continue potassium supplement, follow up with PCP for monitoring KARI: encourage to drink more water, elevated serum creatinine trending downward, follow up with PCP for monitoring
[2020-06-17 18:02] VITALS: BP 121/67; PULSE 98; TEMP 97.1
[2020-06-17] MEDS: WARFARIN NA 5 MG, WARFARIN NA 3 MG PO SCH (18:21)
--- NOTE | 2020-06-17 19:48 | PN ---
S Progress Note Note: patient has unwitnessed fall ,in the bathroom denied head injury alert,oriented x3 no injury noted complained of pain in both elbow no calf tenderness mentioned frequent fall lately, t97.1,p98,r18,bp 121/67 impression unwitnessed fall opioid dependence alcohol dependence frequent falls history of dvt of legs history of pulmonary embolism treatment initiate fall protocol 1 to er at [facility] for evaluation and treatment ct of head close monitoring fall precaution
[2020-06-18] MEDS: POTASSIUM CHLORIDE TABS 20 MEQ TABLET.ER (FP) PO SCH (00:06)
[2020-06-18] MEDS: THIAMINE HCL 100 MG TABLET (FP) PO SCH (00:07)
[2020-06-18] MEDS: QUEtiapine FUMARATE 400 MG TABLET PO SCH (00:07)
--- NOTE | 2020-06-18 00:41 | HP ---
CHIEF COMPLAINT: PCP: HISTORY OF PRESENT ILLNESS: ER course was notable for: (1) (2) (3) Recent Travel: PAST MEDICAL HISTORY: PAST SURGICAL HISTORY: Social History: Smoking: Alcohol: Drugs: Allergies No Known Allergies Allergy (Verified 06/17/20 20:26) HOME MEDICATIONS: Home Medications Medication Instructions Recorded Quetiapine Fumarate [Seroquel] 400 mg PO HS 07/08/19 Warfarin Sodium 8 mg PO HS 07/08/19 Pantoprazole Sodium [Protonix] 40 mg PO DAILY 08/17/19 Quetiapine Fumarate [Seroquel -] 200 mg PO DAILY 09/21/19 Zolpidem Tartrate [Ambien] 10 mg PO HS 09/21/19 REVIEW OF SYSTEMS CONSTITUTIONAL: Absent: fever, chills, diaphoresis, generalized weakness, malaise, loss of appetite, weight change HEENT: Absent: rhinorrhea, nasal congestion, throat pain, throat swelling, difficulty swallowing, mouth swelling, ear pain, eye pain, visual changes CARDIOVASCULAR: Absent: chest pain, syncope, palpitations, irregular heart rate, lightheadedness, peripheral edema RESPIRATORY: Absent: cough, shortness of breath, dyspnea with exertion, orthopnea, wheezing, stridor, hemoptysis GASTROINTESTINAL: Absent: abdominal pain, abdominal distension, nausea, vomiting, diarrhea, constipation, melena, hematochezia GENITOURINARY: Absent: dysuria, frequency, urgency, hesitancy, hematuria, flank pain, genital pain MUSCULOSKELETAL: Absent: myalgia, arthralgia, joint swelling, back pain, neck pain SKIN: Absent: rash, itching, pallor HEMATOLOGIC/IMMUNOLOGIC: Absent: easy bleeding, easy bruising, lymphadenopathy, frequent infections ENDOCRINE: Absent: unexplained weight gain, unexplained weight loss, heat intolerance, cold intolerance NEUROLOGIC: Absent: headache, focal weakness or paresthesias, dizziness, unsteady gait, seizure, mental status changes, bladder or bowel incontinence PSYCHIATRIC: Absent: anxiety, depression, suicidal or homicidal ideation, hallucinations. PHYSICAL EXAMINATION Vital Signs - 24 hr 06/17/20 06/17/20 06/17/20 07:34 10:18 16:44 Temperature 97.7 F 98.1 F 97.1 F L Pulse Rate 80 78 98 H Respiratory 18 16 18 Rate Blood Pressure 119/69 109/55 L 121/67 O2 Sat by Pulse 98 Oximetry (%) 06/17/20 18:00 Temperature 97.1 F L Pulse Rate 98 H Respiratory 18 Rate Blood Pressure 121/67 O2 Sat by Pulse Oximetry (%) GENERAL: Awake, alert, and fully oriented, in no acute distress. HEAD: Normal with no signs of trauma. EYES: Pupils equal, round and reactive to light, extraocular movements intact, sclera anicteric, conjunctiva clear. No lid lag. EARS, NOSE, THROAT: Ears normal, nares patent, oropharynx clear without exudates. Moist mucous membranes. NECK: Normal range of motion, supple without lymphadenopathy, JVD, or masses. LUNGS: Breath sounds equal, clear to auscultation bilaterally. No wheezes, and no crackles. No accessory muscle use. HEART: Regular rate and rhythm, normal S1 and S2 without murmur, rub or gallop. ABDOMEN: Soft, nontender, not distended, normoactive bowel sounds, no guarding, no rebound, no masses. No hepatomegaly or splenomegaly. MUSCULOSKELETAL: Normal range of motion at all joints. No bony deformities or tenderness. No CVA tenderness. UPPER EXTREMITIES: 2+ pulses, warm, well-perfused. No cyanosis. No clubbing. No peripheral edema. LOWER EXTREMITIES: 2+ pulses, warm, well-perfused. No calf tenderness. No peripheral edema. NEUROLOGICAL: Cranial nerves II-XII intact. Normal speech. Normal gait. PSYCHIATRIC: Cooperative. Good eye contact. Appropriate mood and affect. SKIN: Warm, dry, normal turgor, no rashes or lesions noted, normal capillary refill. ASSESSMENT/PLAN: ATTENDING PHYSICIAN STATEMENT I saw and evaluated the patient. I reviewed the resident's note and discussed the case with the resident. I agree with the resident's findings and plan as documented. SUBJECTIVE: OBJECTIVE: ASSESSMENT AND PLAN:
[2020-06-18] MEDS ORDERED: chlordiazePOXIDE HCL 10 MG CAPSULE PO ONE (05:00)
[2020-06-18] MEDS ORDERED: METHADONE HCL 5 MG TABLET (FOR DETOX USE ONLY) PO ONE (06:00)
--- NOTE | 2020-06-18 14:18 | PN ---
S Progress Note Note: patient was transferred to [facility] on 06/17/2020,admitted to telemetry
== END 2020-06-18 22:36 | disposition short-term general hospital (02) | DRG 773 ==
LOC: YASAS 11:14 → Y6N 14:56
PROVIDERS: ADMIT Allergy & Immunology; ATTEND Allergy & Immunology
PROC: HZ2ZZZZ Detoxification Services for Substance Abuse Treatment (ICD-10-PCS; principal; 2020-06-13)
DX: F11.23 Opioid dependence with withdrawal (principal); F10.230 Alcohol dependence with withdrawal, uncomplicated; F12.20 Cannabis dependence, uncomplicated; F17.210 Nicotine dependence, cigarettes, uncomplicated; F33.3 Major depressive disorder, recurrent, severe with psychotic symptoms; F19.282 Other psychoactive substance dependence with psychoactive substance-induced sleep disorder; K21.9 Gastro-esophageal reflux disease without esophagitis; A53.0 Latent syphilis, unspecified as early or late; Z86.711 Personal history of pulmonary embolism; Z79.01 Long term (current) use of anticoagulants; Z86.718 Personal history of other venous thrombosis and embolism; Z87.19 Personal history of other diseases of the digestive system; Z91.81 History of falling; Z95.828 Presence of other vascular implants and grafts
CPT/HCPCS: 36415; 80048; 80053; 82947; 85027; 85610; 86593; 86780; Q0162; U0003

== ENCOUNTER 2020-06-17 20:18 | Inpatient (IN) | payer OTHER ==
[2020-06-17 22:02] LABS: BASO % 0.6 % (0-2.0); HEMATOCRIT 34.5 % (35.4-49); HEMOGLOBIN 11.6 GM/dL (11.7-16.9); LYMPH % 21.2 % (8-40); MCHC 33.7 g/dl (32.0-35.9); MEAN CELL VOLUME 92.1 fl (80-96); MEAN PLT VOLUME 9.3 fl (7.5-11.1); MONO % 8.3 % (3.8-10.2); NEUT % 66.9 % (42.8-82.8); PLATELET COUNT 250 K/MM3 (134-434); RBC 3.75 M/mm3 (4.00-5.60); RDW 13.4 % (11.9-15.9); WHITE BLOOD COUNT 10.6 K/mm3 (4.0-10.0)
[2020-06-17 22:12] LABS: INR 1.79 (0.83-1.09); PROTHROMBIN TIME (PATIENT) 21.2 SEC (9.7-13.0)
[2020-06-17 22:50] LABS: BLOOD UREA NITROGEN 26.2 mg/dL (7-18); GLUCOSE,RANDOM 94 mg/dL (74-106)
[2020-06-17 22:51] LABS: ALBUMIN 2.8 g/dl (3.4-5.0); ALK PHOS 66 U/L (45-117); ANION GAP 4 MMOL/L (8-16); BILIRUBIN,TOTAL 0.1 mg/dL (0.2-1); CALCIUM 8.6 mg/dL (8.5-10.1); CHLORIDE 95 mmol/L (98-107); CO2 37 mmol/L (21-32); CREATININE 1.3 mg/dL (0.55-1.3); POTASSIUM 4.4 mmol/L (3.5-5.1); SGOT/AST 20 U/L (15-37); SGPT/ALT 18 U/L (13-61); SODIUM 135 mmol/L (136-145); TOT PROT 6.4 g/dl (6.4-8.2)
[2020-06-18] MEDS ORDERED: MELATONIN 5 MG TABLETS PO ONE ×2 (00:08→22:38)
[2020-06-18] MEDS ORDERED: QUEtiapine FUMARATE 400 MG TABLET PO ONE (00:08)
[2020-06-18] MEDS ORDERED: SUVOREXANT 10 MG TABLET PO PRN (00:08)
[2020-06-18] MEDS ORDERED: MELATONIN 5 MG TABLETS ONE (00:48)
[2020-06-18] MEDS ORDERED: QUEtiapine FUMARATE 100 MG TABLET (FP) ONE (00:49)
[2020-06-18] MEDS ORDERED: SODIUM CHLORIDE 1,000 ML IV STA (04:14)
[2020-06-18] MEDS ORDERED: FOLIC ACID INJECTION - 1 MG, THIAMINE HCL 100 MG, MULTIVIT INJECTION ADULT 10 ML in SOD... IVPB ONE (04:15)
[2020-06-18] MEDS ORDERED: SODIUM CHLORIDE 1,000 ML IV SCH (04:30)
[2020-06-18 05:19] LABS: HEMATOCRIT 30.8 % (35.4-49); HEMOGLOBIN 10.3 GM/dL (11.7-16.9); MCH 30.4 pg (25.7-33.7); MCHC 33.3 g/dl (32.0-35.9); MEAN CELL VOLUME 91.4 fl (80-96); MEAN PLT VOLUME 8.9 fl (7.5-11.1); PLATELET COUNT 233 K/MM3 (134-434); RBC 3.38 M/mm3 (4.00-5.60); RDW 13.4 % (11.9-15.9); WHITE BLOOD COUNT 7.9 K/mm3 (4.0-10.0)
[2020-06-18 08:46] LABS: EOS % 3.9 % (0-4.5); HEMATOCRIT 38.2 % (35.4-49); HEMOGLOBIN 12.9 GM/dL (11.7-16.9); MCH 31.1 pg (25.7-33.7); MCHC 33.8 g/dl (32.0-35.9); MEAN CELL VOLUME 92.2 fl (80-96); MEAN PLT VOLUME 9.2 fl (7.5-11.1); MONO % 8.8 % (3.8-10.2); NEUT % 55.3 % (42.8-82.8); PLATELET COUNT 233 K/MM3 (134-434); RBC 4.14 M/mm3 (4.00-5.60); RDW 13.4 % (11.9-15.9); WHITE BLOOD COUNT 7.5 K/mm3 (4.0-10.0)
[2020-06-18 09:11] LABS: ALBUMIN 3.1 g/dl (3.4-5.0); BILIRUBIN,TOTAL 0.4 mg/dL (0.2-1); BLOOD UREA NITROGEN 26.8 mg/dL (7-18); CALCIUM 8.8 mg/dL (8.5-10.1); CREATININE 1.2 mg/dL (0.55-1.3); MAGNESIUM 1.8 mg/dL (1.8-2.4); PHOSPHOROUS 1.8 mg/dL (2.5-4.9); POTASSIUM 4.3 mmol/L (3.5-5.1); TOT PROT 6.6 g/dl (6.4-8.2)
[2020-06-18] MEDS ORDERED: SODIUM PHOSPHATE - 30 MM in DEXTROSE 5%-WATER - 500 ML IVPB ONE (09:22)
[2020-06-18] MEDS ORDERED: FOLIC ACID 1 MG TABLET (FP) ONE (10:14)
[2020-06-18] MEDS ORDERED: PANTOPRAZOLE SODIUM 40 MG VIAL ONE (10:15)
[2020-06-18] MEDS: PANTOPRAZOLE SODIUM 40 MG VIAL IVPUSH SCH (10:20)
[2020-06-18] MEDS: MULTIVITAMINS (DAILY MVI) TABLET (FP) PO SCH (10:20)
[2020-06-18] MEDS: FOLIC ACID 1 MG TABLET (FP) PO SCH (10:20)
[2020-06-18] MEDS ORDERED: chlordiazePOXIDE HCL 25 MG CAPSULE PO ONE (10:37)
[2020-06-18] MEDS ORDERED: chlordiazePOXIDE HCL 25 MG CAPSULE ONE ×2 (10:46→17:45)
[2020-06-18] MEDS ORDERED: METHADONE HCL 10 MG TABLET (FOR DETOX USE ONLY) PO SCH (11:30)
[2020-06-18] MEDS ORDERED: chlordiazePOXIDE HCL 25 MG CAPSULE PO PRN (11:31)
[2020-06-18] MEDS: chlordiazePOXIDE HCL 25 MG CAPSULE PO SCH ×3 (11:36→23:16)
[2020-06-18] MEDS ORDERED: METHADONE HCL 10 MG TABLET ONE (11:48)
[2020-06-18] MEDS: THIAMINE HCL 100 MG TABLET (FP) PO SCH (17:42)
[2020-06-18] MEDS ORDERED: THIAMINE HCL 100 MG TABLET (FP) ONE (17:45)
[2020-06-18] MEDS: SODIUM CHLORIDE 1,000 ML IV SCH (22:30)
[2020-06-18] MEDS ORDERED: QUEtiapine FUMARATE 400 MG TABLET PO SCH (23:00)
[2020-06-18 23:02] VITALS: BMI 18.3
[2020-06-18] MEDS: QUEtiapine FUMARATE 200 MG TABLET PO SCH (23:15)
[2020-06-19 04:02] LABS: PH,URINE 7.5 (5.0-8.0); URINE APPEARANCE Clear; URINE BILIRUBIN Negative (NEGATIVE); URINE COLOR Yellow; URINE GLUCOSE (UA) Negative (NEGATIVE); URINE KETONE Negative (NEGATIVE); URINE LEUK ESTERASE Negative (NEGATIVE); URINE NITRITE Negative (NEGATIVE); URINE PROTEIN Negative (NEGATIVE); URINE UROBILINOGEN 0.2 mg/dL (0.2-1.0)
[2020-06-19 04:10] LABS: COCAINE, UR NEGATIVE ng/ml (CUTOFF=300); OPIATES, URI NEGATIVE ng/ml (CUTOFF=300); PHENCYCLIDINE,URINE NEGATIVE ng/ml (CUTOFF=25); URINE BARBITURATES NEGATIVE ng/ml (CUTOFF=200)
[2020-06-19 04:24] LABS: URINE AMPHETAMINES NEGATIVE ng/ml (CUTOFF=500)
[2020-06-19 04:54] LABS: URINE BENZODIAZEPINES POSITIVE ng/ml (CUTOFF=200)
[2020-06-19 04:55] LABS: METHADONE, UR POSITIVE ng/ml (CUTOFF=300)
[2020-06-19] MEDS: chlordiazePOXIDE HCL 25 MG CAPSULE PO SCH ×4 (05:47→23:20)
[2020-06-19 07:11] LABS: HEMATOCRIT 33.4 % (35.4-49); HEMOGLOBIN 11.3 GM/dL (11.7-16.9); MCH 30.7 pg (25.7-33.7); MCHC 33.8 g/dl (32.0-35.9); MEAN CELL VOLUME 90.7 fl (80-96); PLATELET COUNT 252 K/MM3 (134-434); RBC 3.68 M/mm3 (4.00-5.60); RDW 13.5 % (11.9-15.9); WHITE BLOOD COUNT 6.7 K/mm3 (4.0-10.0)
[2020-06-19 07:14] LABS: BLOOD UREA NITROGEN 25.1 mg/dL (7-18); CALCIUM 8.5 mg/dL (8.5-10.1); PHOSPHOROUS 2.8 mg/dL (2.5-4.9); POTASSIUM 4.1 mmol/L (3.5-5.1)
[2020-06-19 07:26] LABS: INR 1.59 (0.83-1.09); PROTHROMBIN TIME (PATIENT) 18.9 SEC (9.7-13.0)
[2020-06-19] MEDS ORDERED: PT OWN MED DRAWER 7, Y5N ONE ×2 (08:44→23:11)
[2020-06-19] MEDS: QUEtiapine FUMARATE 200 MG TABLET PO SCH ×2 (09:02→23:19)
[2020-06-19] MEDS: MULTIVITAMINS (DAILY MVI) TABLET (FP) PO SCH (09:02)
[2020-06-19] MEDS: FOLIC ACID 1 MG TABLET (FP) PO SCH (09:02)
[2020-06-19] MEDS: METHADONE HCL 10 MG TABLET PO SCH (09:02)
[2020-06-19] MEDS: THIAMINE HCL 100 MG TABLET (FP) PO SCH (09:03)
[2020-06-19] MEDS: PANTOPRAZOLE SODIUM 40 MG VIAL IVPUSH SCH (09:03)
[2020-06-19] MEDS: SODIUM CHLORIDE 1,000 ML IV SCH (17:36)
[2020-06-19] MEDS ORDERED: WARFARIN NA 7.5 MG TABLET (FP) PO SCH (18:00)
[2020-06-19] MEDS ORDERED: ACETAMINOPHEN 325 MG TABLET (FP) PO PRN (19:54)
[2020-06-20] MEDS: chlordiazePOXIDE HCL 25 MG CAPSULE PO SCH ×2 (05:55→11:20)
[2020-06-20] MEDS: METHADONE HCL 10 MG TABLET PO SCH ×2 (06:49→06:53)
[2020-06-20 07:55] LABS: INR 1.31 (0.83-1.09); PROTHROMBIN TIME (PATIENT) 15.5 SEC (9.7-13.0)
[2020-06-20 08:04] VITALS: BP 135/82; PULSE 105; TEMP 98.5
[2020-06-20] MEDS ORDERED: PT OWN MED DRAWER 7, Y5N ONE ×2 (08:32→11:18)
[2020-06-20] MEDS: PANTOPRAZOLE SODIUM 40 MG VIAL IVPUSH SCH (09:02)
[2020-06-20] MEDS: FOLIC ACID 1 MG TABLET (FP) PO SCH (09:03)
[2020-06-20] MEDS: QUEtiapine FUMARATE 200 MG TABLET PO SCH (09:03)
[2020-06-20] MEDS: MULTIVITAMINS (DAILY MVI) TABLET (FP) PO SCH (09:03)
[2020-06-20] MEDS: THIAMINE HCL 100 MG TABLET (FP) PO SCH (09:03)
[2020-06-20 09:09] LABS: HEMOGLOBIN 12.1 GM/dL (11.7-16.9); MCH 30.6 pg (25.7-33.7); MCHC 33.7 g/dl (32.0-35.9); MEAN CELL VOLUME 90.9 fl (80-96); MEAN PLT VOLUME 9.2 fl (7.5-11.1); PLATELET COUNT 278 K/MM3 (134-434); RBC 3.96 M/mm3 (4.00-5.60); RDW 13.7 % (11.9-15.9); WHITE BLOOD COUNT 6.9 K/mm3 (4.0-10.0)
[2020-06-20 09:32] LABS: CALCIUM 8.5 mg/dL (8.5-10.1); CREATININE 1.1 mg/dL (0.55-1.3)
[2020-06-20] MEDS ORDERED: WARFARIN NA 1 MG TABLET PO SCH ×2 (18:00)
[2020-06-21] MEDS ORDERED: chlordiazePOXIDE HCL 10 MG CAPSULE PO PRN
[2020-06-21] MEDS ORDERED: chlordiazePOXIDE HCL 10 MG CAPSULE PO SCH (05:00)
[2020-06-22] MEDS ORDERED: chlordiazePOXIDE HCL 10 MG CAPSULE PO SCH (05:00)
[2020-06-23] MEDS ORDERED: chlordiazePOXIDE HCL 10 MG CAPSULE PO ONE (05:00)
== END 2020-06-20 12:25 | disposition home or self-care (01) | DRG 422 ==
LOC: JER 20:18 → JERBED 06-18 00:22 → J4W 06-18 22:18
PROVIDERS: ADMIT Internal Medicine; ATTEND Internal Medicine
PROC: HZ2ZZZZ Detoxification Services for Substance Abuse Treatment (ICD-10-PCS; principal; 2020-06-18)
DX: E86.0 Dehydration (principal); I95.1 Orthostatic hypotension; F10.230 Alcohol dependence with withdrawal, uncomplicated; K21.9 Gastro-esophageal reflux disease without esophagitis; F11.20 Opioid dependence, uncomplicated; F19.10 Other psychoactive substance abuse, uncomplicated; F32.9 Major depressive disorder, single episode, unspecified; E83.39 Other disorders of phosphorus metabolism; E88.09 Other disorders of plasma-protein metabolism, not elsewhere classified; E46 Unspecified protein-calorie malnutrition; Z68.1 Body mass index [BMI] 19.9 or less, adult; F41.8 Other specified anxiety disorders; E87.6 Hypokalemia; F17.210 Nicotine dependence, cigarettes, uncomplicated; R71.0 Precipitous drop in hematocrit; F12.20 Cannabis dependence, uncomplicated; W19.XXXA Unspecified fall, initial encounter; Z86.711 Personal history of pulmonary embolism; Z86.718 Personal history of other venous thrombosis and embolism
CPT/HCPCS: 36415; 70450-TC; 80048; 80053; 80307; 81003; 82272; 83735; 84100; 84443; 84484; 85025; 85027; 85610; 93005; 93010; 93306-TC; 93880-TC; 99285-25; U0003

== ENCOUNTER 2020-07-23 11:15 | Inpatient (IN) | payer OTHER ==
--- NOTE | 2020-07-23 11:28 | BHS.RME ---
Substance Use & Tx History - Substance Use History Alcohol Substance amount: 2 pints vokda + 2 six packs beer Frequency of use: Daily Substance route: Oral Date of Last Use: 07/23/20 (2am, started age 22) Heroin Substance amount: 2 bundles Frequency of use: Daily Substance route: Inhalation (ex: sniffing or snorting) Date of Last Use: 07/22/20 (started age 50) Nicotine Substance amount: 1/2 pack Frequency of use: Daily Substance route: Smoking Date of Last Use: 07/23/20 (started age 22) Marijuana/Hashish Substance amount: 1 blunt Frequency of use: Daily Substance route: Smoking Date of Last Use: 07/22/20 (started at age 22) - Last Treatment Date of last treatment: 06/13-06/17-06/20 completed detox after transfer to [facility] due to a fall Treatment type: Substance Use Disorder (RORY) Where was last treatment: Detox Physical/Psych/Mental Status - Behavior General Behavior: Increased activity (restlessness, agitation) Eye Contact: Normal - Cooperativeness Cooperativeness: Cooperative - Thinking Thought Processes: Tight, Logical, Goal Directed - Physical Health Problems Is patient presently having any pain?: No Does patient presently have any injuries (include location): No Does patient currently have a fever: No Is patient : No COWS - Scale Resting Pulse: 0= [place] 80 or Below Sweatin= Chills/Flushing Restless Observation: 1= Difficult to Sit Still Pupil Size: 1= Pupils >than Normal Bone or Joint Aches: 2= Severe Diffuse Aches Runny Nose/ Eye Tearin= Nasal Congestion GI Upset > 30mins: 1= Stomach Cramp Tremor Observation: 1= Tremor [place], Not Seen Yawning Observation: 1= 1-2x During Session Anxiety or Irritability: 1=Feels Anxious/Irritable Goose Flesh Skin: 3=Piloerection COWS Score: 13 CIWA Nausea/Vomitin Muscle Tremors: 3 Anxiety: 4-Mod. Anxious/Guarded Agitation: 4-Moderately Restless Paroxysmal Sweats: 3 Orientation: 0-Oriented Tacttile Disturbances: 0-None Auditory Disturbances: 0-None Visual Disturbances: 0-None Headache: 0-None Present CIWA-Ar Total Score: 17
--- NOTE | 2020-07-23 13:11 | HP ---
COWS - Scale Resting Pulse: 0= SD 80 or Below Sweatin= Chills/Flushing Restless Observation: 1= Difficult to Sit Still Pupil Size: 1= Pupils >than Normal Bone or Joint Aches: 2= Severe Diffuse Aches Runny Nose/ Eye Tearin= Nasal Congestion GI Upset > 30mins: 1= Stomach Cramp Tremor Observation: 1= Tremor [place], Not Seen Yawning Observation: 1= 1-2x During Session Anxiety or Irritability: 1=Feels Anxious/Irritable Goose Flesh Skin: 3=Piloerection COWS Score: 13 CIWA Score Nausea/Vomitin Muscle Tremors: 3 Anxiety: 4-Mod. Anxious/Guarded Agitation: 4-Moderately Restless Paroxysmal Sweats: 3 Orientation: 0-Oriented Tacttile Disturbances: 0-None Auditory Disturbances: 0-None Visual Disturbances: 0-None Headache: 0-None Present CIWA-Ar Total Score: 17 - Admission Criteria OASAS Guidelines: Admission for Medically Managed Detox: Requires at least one of the followin. CIWA greater than 12 2. Seizures within the past 24 hours 3. Delirium tremens within the past 24 hours 4. Hallucinations within the past 24 hours 5. Acute intervention needed for co occurring medical disorder 6. Acute intervention needed for co occurring psychiatric disorder 7. Severe withdrawal that cannot be handled at a lower level of care (continued vomiting, continued diarrhea, abnormal vital signs) requiring intravenous medication and/or fluids 8. Admitting History and Physical - Admission Chief Complaint: Mr. Foley is a 55 yo man who presents to [facility] requesting detox from alcohol and heroin use. History of Present Illness: Mr. Foley is a 55 yo man who presents to [facility] requesting detox from alcohol and heroin use. He was last here in 2019 when he completed detox (see below). 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 Heroin Substance amount: 2 bundles Frequency of use: Daily Substance route: Inhalation (ex: sniffing or snorting) Date of Last Use: 07/22/20 (started age 50) No OD No Narcan at home Nicotine Substance amount: 1/2 pack Frequency of use: Daily Substance route: Smoking Date of Last Use: 07/23/20 (started age 22) Marijuana/Hashish Substance amount: 1 blunt Frequency of use: Daily Substance route: Smoking Date of Last Use: 07/22/20 (started at age 22) - Last Treatment Date of last treatment: 06/13-06/17-06/20 completed detox after transfer to [facility] due to a fall Treatment type: Substance Use Disorder (RORY) Where was last treatment: Detox History Source: Patient Limitations to Obtaining History: No Limitations - Past Medical History Cardiovascular: Yes: Deep Vein Thrombosis, Other (pulmonary embolism (on warfarin 8mg)) Pulmonary: Yes: Pulmonary Embolus Gastrointestinal: Yes: Gastritis, GERD, Other (esophageal ulcer) Psych: Yes: Anxiety, Depression - Smoking History Smoking history: Current some day smoker Have you smoked in the past 12 months: Yes Aproximately how many cigarettes per day: 10 - Alcohol/Substance Use Hx Alcohol Use: Yes Number of Drinks Daily: 10 History of Substance Use: reports: Heroin Date of Last Use: 08/17/19 - Social History ADL: Independent Occupation: retired, was a [employer] History of Recent Travel: No Admission [facility] Allergies/Adverse Reactions: Allergies Allergy/AdvReac Type Severity Reaction Status Date / Time No Known Allergies Allergy Verified 06/17/20 20:26 Exam Limitations: No Limitations - Ebola screening Have you traveled outside of the country in the last 21 days: No Have you been sick,other than usual withdrawal symptoms: No Do you have a fever: No - Review of Systems Constitutional: Changes in sleep (trouble falling asleep), Unintentional Wgt. Loss (lost 25-30 lbs in the past 6 mos) EENT: reports: No Symptoms Reported Respiratory: reports: No Symptoms reported Cardiac: reports: No Symptoms Reported GI: reports: Diarrhea (withdrawal associated), Nausea : reports: No Symptoms Reported Musculoskeletal: reports: Back Pain Integumentary: reports: No Symptoms Reported Neuro: reports: No Symptoms reported Endocrine: reports: No Symptoms Reported Hematology: reports: Other (Hx of DVT, on Coumadin, last INR 1.9, goal INR 2-3, followed at [facility]) Psychiatric: reports: Anxious, Depressed (no SI) Patient History - Patient Medical History Hx Anemia: No Hx Asthma: No Hx Chronic Obstructive Pulmonary Disease (COPD): No Hx Cancer: No Hx Cardiac Disorders: No Hx Congestive Heart Failure: No Hx Hypertension: No Hx Hypercholesterolemia: No Hx Pacemaker: No HX Cerebrovascular Accident: No Hx Seizures: No Hx Dementia: No Hx Diabetes: No Hx Gastrointestinal Disorders: Yes (peptic ulcer) Hx Liver Disease: No Hx Genitourinary Disorders: No Hx Sexually Transmitted Disorders: No Hx Renal Disease (ESRD): No Hx Thyroid Disease: No Hx Human Immunodeficiency Virus (HIV): No Hx Hepatitis C: No Hx Depression: Yes Hx Suicide Attempt: No Hx Bipolar Disorder: No Hx Schizophrenia: No - Patient Surgical History Past Surgical History: Yes Hx Neurologic Surgery: No Hx Cataract Extraction: No Hx Cardiac Surgery: No Hx Lung Surgery: No Hx Breast Surgery: No Hx Breast Biopsy: No Hx Abdominal Surgery: No Hx Appendectomy: No Hx Cholecystectomy: No Hx Genitourinary Surgery: No Hx Section: No Hx Orthopedic Surgery: No Other Surgical History: IVC implanted 10/2017 for PE Anesthesia Reaction: No - PPD History Date: 06/15/20 Results: NOT READ - Smoking Cessation Smoking history: Current some day smoker Have you smoked in the past 12 months: Yes Aproximately how many cigarettes per day: 10 Cigars Per Day: 0 Hx Chewing Tobacco Use: No Initiated information on smoking cessation: Yes 'Breaking Loose' booklet given: 07/23/20 Admission Physical Exam S - Physical General Appearance: Yes: No Apparent Distress, Nourished, Thin, Tremorous, Anxious HEENTM: Yes: EOMI, Hearing grossly Normal, Normocephalic, Normal Voice Respiratory: Yes: Lungs Clear, No Respiratory Distress, No Accessory Muscle Use Neck: Yes: Within Normal Limits, Supple Breast: Yes: Breast Exam Deferred Cardiology: Yes: Regular Rhythm, Regular Rate Abdominal: Yes: Non Tender, Flat, Soft, Increased Bowel Sounds Genitourinary: Yes: Other (deferred) Back: Yes: Normal Inspection Musculoskeletal: Yes: Gait Steady Extremities: Yes: Normal Inspection, Non-Tender Neurological: Yes: Alert, Normal Response Integumentary: Yes: Normal Color, Dry, Warm - Diagnostic (1) Anemia Current Visit: Yes Status: Acute Comment: 1. CBC today (2) Cannabis dependence Current Visit: Yes Status: Acute Comment: 1. Substance use disorder education (3) GERD (gastroesophageal reflux disease) Current Visit: Yes Status: Chronic Qualifiers: Esophagitis presence: without esophagitis Qualified Code(s): K21.9 - Gastro-esophageal reflux disease without esophagitis Comment: 1. monitor clinically (4) Nicotine dependence Current Visit: Yes Status: Acute Qualifiers: Nicotine product type: cigarettes Substance use status: uncomplicated Qualified Code(s): F17.210 - Nicotine dependence, cigarettes, uncomplicated Comment: 1. Nicotine replacement therapy (5) Alcohol dependence with withdrawal Current Visit: Yes Status: Acute Qualifiers: Complication of substance-induced condition: uncomplicated Qualified Code(s): F10.230 - Alcohol dependence with withdrawal, uncomplicated Comment: 1. Librium detox protocol 2. 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 pt on Coumadin 2. INR today 3. goal INR 2-3 4. followed at [facility] (7) Opioid dependence with withdrawal Current Visit: Yes Status: Acute Comment: 1. Methadone detox protocol 2. EKG (8) Substance induced mood disorder Current Visit: Yes Status: Chronic Comment: 1. Psychiatry consult (9) Syphilis contact, treated Current Visit: Yes Status: Resolved Comment: 1. RPR Cleared for Admission [facility] - Detox or Rehab [facility] Level of Care: Medically Managed Detox Regimen/Protocol: Methadone/Librium Breathalyzer - Breathalyzer Breathalyzer: 0 Urine Drug Screen - Test Device Lot number: [id number] Expiration date: 06/05/22 - Control Is test valid?: Yes - Results Drug screen NEGATIVE: No Urine drug screen results: THC-Marijuana, ELVA-Cocaine, FEN-Fentanyl, MOP- Opiates, MTD-Methadone, BZO-Benzodiazepines Inpatient Rehab Admission - Rehab Decision to Admit Inpatient rehab admission?: No
[2020-07-23] MEDS ORDERED: BISMUTH SUBSALICYLATE 262 MG/15 ML BTL PO PRN (13:38)
[2020-07-23] MEDS ORDERED: cloNIDine HCL 0.1 MG TABLET PO PRN (13:38)
[2020-07-23] MEDS ORDERED: NICOTINE POLACRILEX 2 MG GUM BUC PRN (13:38)
[2020-07-23] MEDS ORDERED: MENTHOL/PHENOL 1 EACH UD MM PRN (13:38)
[2020-07-23] MEDS ORDERED: ACETAMINOPHEN 325 MG TABLET (FP) PO PRN ×2 (13:38)
[2020-07-23] MEDS ORDERED: MAGNESIUM CITRATE 300 ML BOTTLE PO PRN (13:38)
[2020-07-23] MEDS ORDERED: ONDANSETRON *ODT* 4 MG TABLET SL PRN (13:38)
[2020-07-23] MEDS ORDERED: IBUPROFEN 400 MG TABLET (FP) PO PRN (13:38)
[2020-07-23] MEDS ORDERED: MAGNESIUM HYDROX 2400MG/30ML ORAL SUSPENSION 30 ML CUP PO PRN (13:38)
[2020-07-23 13:50] VITALS: BMI 19.8
[2020-07-23] MEDS ORDERED: METHADONE HCL 10 MG TABLET (FOR DETOX USE ONLY) PO ONE (14:15)
[2020-07-23] MEDS: chlordiazePOXIDE HCL 25 MG CAPSULE PO PRN ×2 (14:58→20:09)
[2020-07-23] MEDS: hydrOXYzine PAMOATE 25 MG CAPSULE (FP) PO SCH ×3 (14:58→22:11)
[2020-07-23] MEDS: NICOTINE 14 MG/24 HOURS TOPICAL PATCH TD SCH (14:58)
[2020-07-23] MEDS: PANTOPRAZOLE 40 MG TABLET PO SCH (14:58)
[2020-07-23] MEDS: chlordiazePOXIDE HCL 25 MG CAPSULE PO SCH ×2 (18:00→22:08)
[2020-07-23] MEDS: WARFARIN NA 5 MG, WARFARIN NA 3 MG PO SCH (20:10)
[2020-07-23 20:12] LABS: HEMOGLOBIN 12.6 GM/dL (11.7-16.9); MCH 30.6 pg (25.7-33.7); MCHC 33.2 g/dl (32.0-35.9); MEAN CELL VOLUME 92.3 fl (80-96); MEAN PLT VOLUME 9.8 fl (7.5-11.1); PLATELET COUNT 266 K/MM3 (134-434); RBC 4.12 M/mm3 (4.00-5.60); RDW 14.5 % (11.9-15.9); WHITE BLOOD COUNT 5.2 K/mm3 (4.0-10.0)
[2020-07-23 20:16] LABS: INR 1.99 (0.83-1.09); PROTHROMBIN TIME (PATIENT) 23.7 SEC (9.7-13.0)
[2020-07-23 20:21] LABS: ALBUMIN 3.6 g/dl (3.4-5.0); BILIRUBIN,TOTAL 0.2 mg/dL (0.2-1); BLOOD UREA NITROGEN 25.6 mg/dL (7-18); CALCIUM 8.8 mg/dL (8.5-10.1); CREATININE 1.2 mg/dL (0.55-1.3); POTASSIUM 4.6 mmol/L (3.5-5.1); TOT PROT 7.2 g/dl (6.4-8.2)
[2020-07-23] MEDS ORDERED: WARFARIN SODIUM 8 MG PO SCH (22:00)
[2020-07-23] MEDS ORDERED: WARFARIN NA 7.5 MG TABLET (FP) PO SCH (22:00)
[2020-07-23] MEDS: THIAMINE HCL 100 MG TABLET (FP) PO SCH (22:07)
[2020-07-23] MEDS: MELATONIN 5 MG TABLETS PO SCH (22:08)
[2020-07-24] MEDS: hydrOXYzine PAMOATE 25 MG CAPSULE (FP) PO SCH ×5 (05:29→22:33)
[2020-07-24] MEDS: chlordiazePOXIDE HCL 25 MG CAPSULE PO SCH ×4 (05:29→22:33)
[2020-07-24] MEDS ORDERED: METHADONE HCL 5 MG TABLET (FOR DETOX USE ONLY) ONE (09:21)
[2020-07-24] MEDS ORDERED: METHADONE HCL 10 MG TABLET (FOR DETOX USE ONLY) ONE (09:21)
--- NOTE | 2020-07-24 09:23 | CONSULT ---
[facility] Psychiatric Consult - Data Date of interview: 07/24/20 Admission source: Self-referred Identifying data: Mr Foley is a 55 years old single male, father of 3 children, unemployed receiving unemployment, domiciled living alone in the [place] seeking detox treatment for alcohol, opioid and cannabis Substance Abuse History: Reports history of alcohol heroin and marijuana use. Refer to addiction counselor's summary for further information Medical History: Significant for GERD, esophageal ulcer,, history of anemia, syphilis, deep venous thrombosis both legs, pulmonary emboli, treatment for syphilis and placement of IVC filter. Smokes 10 cigarttes daily Psychiatric History: Patient is known for multiple previous admissions to this facility. Historical narrative remains consistent. Her Reports that his first psychiatric contact was at age 46 when he was diagnosed with MDD by a psychiatrist at [facility] affiliated clinic of [facility]. He said that he was started on Seroquel and Celexa. Reports that he still receives psychiatric treatment at same clinic and he is on the same medications: Seroquel 200 mg/day & 400 mg/hs, Celexa 40 mg/day and Ambien 10 mg/hs. During his most recent admission to this facility in mid June [id number], he was continued on Seroquel and Celexa as prescribed by his psychiarist. Denies previous psychiatric hospitalization or suicidal attempt. At present, reports feeling mildle depressive and mildly anxious and sleeping poorly. However, denies S/H ideations. Requests to continue psychotropic medications as prescribed Physical/Sexual Abuse/Trauma History: Denies history of abuse as a child or DV relationship as an adult Mental Status Exam - Mental Status Exam Alert and Oriented to: Time, Place, Person Cognitive Function: Fair Patient Appearance: Well Groomed Mood: Depressed Affect: Appropriate Speech Pattern: Clear Voice Loudness: Normal Thought Process: Intact, Goal Oriented Hallucinations: Denies Suicidal Ideation: Denies Homicidal Ideation: Denies Insight/Judgement: Poor Sleep: Poorly Appetite: Poor Muscle strength/Tone: Normal Gait/Station: Normal Psychiatric Findings - Problem List ([place] 1, 2,3) (1) MDD (major depressive disorder), recurrent, severe, with psychosis Current Visit: No Status: Chronic (2) Substance induced mood disorder Current Visit: Yes Status: Acute Comment: 1. Psychiatry consult (3) Substance-induced sleep disorder Current Visit: No Status: Acute (4) Alcohol dependence with withdrawal Current Visit: Yes Status: Acute Qualifiers: Complication of substance-induced condition: uncomplicated Qualified Code(s): F10.230 - Alcohol dependence with withdrawal, uncomplicated Comment: 1. Librium detox protocol 2. Routine labs (5) Opioid dependence with withdrawal Current Visit: Yes Status: Acute Comment: 1. Methadone detox protocol 2. EKG (6) Cannabis dependence Current Visit: Yes Status: Acute Comment: 1. Substance use disorder education (7) Nicotine dependence Current Visit: Yes Status: Chronic Qualifiers: Nicotine product type: cigarettes Substance use status: uncomplicated Qualified Code(s): F17.210 - Nicotine dependence, cigarettes, uncomplicated Comment: 1. Nicotine replacement therapy (8) Anemia Current Visit: Yes Status: Chronic Comment: 1. CBC today (9) GERD (gastroesophageal reflux disease) Current Visit: Yes Status: Chronic Qualifiers: Esophagitis presence: without esophagitis Qualified Code(s): K21.9 - Gastro-esophageal reflux disease without esophagitis Comment: 1. 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 pt on Coumadin 2. INR today 3. goal INR 2-3 4. followed at [facility] (11) Syphilis contact, treated Current Visit: Yes Status: Resolved Comment: 1. RPR (12) Gastritis Current Visit: No Status: Chronic Qualifiers: Chronicity: unspecified Gastritis bleeding: without bleeding (13) Esophageal ulcer Current Visit: No Status: Resolved Qualifiers: Esophageal ulcer bleeding: without bleeding Qualified Code(s): K22.10 - Ulcer of esophagus without bleeding (14) Pulmonary embolism Current Visit: No Status: Resolved Qualifiers: Pulmonary embolism type: unspecified Chronicity: unspecified Acute cor pulmonale presence: unspecified Qualified Code(s): I26.99 - Other pulmonary embolism without acute cor pulmonale - Initial Treatment Plan Initial Treatment Plan: 1) Continue Celexa 40 mg po daily and Seroquel 200 mg daily & 400 mg HS. 2) Start Belsomra 10 mg po HS prn for insomnia. 3) Continue inpatient detoxification
--- NOTE | 2020-07-24 09:39 | PN ---
S CIWA - CIWA Score Nausea/Vomitin Muscle Tremors: 2 Anxiety: 2 Agitation: 2 Paroxysmal Sweats: 1-Minimal Palms Moist Orientation: 0-Oriented Tacttile Disturbances: 1-Very Mild Itch/Numbness Auditory Disturbances: 0-None Visual Disturbances: 0-None Headache: 2-Mild CIWA-Ar Total Score: 12 BHS COWS - Scale Resting Pulse: 0= [place] 80 or Below Sweatin= No chills or Flushing Restless Observation: 0= Sits Still Pupil Size: 1= Pupils >than Normal Bone or Joint Aches: 2= Severe Diffuse Aches Runny Nose/ Eye Tearin= Runny Nose/Eyes GI Upset > 30mins: 1= Stomach Cramp Tremor Observation of Outstretched Hands: 2= Slight Tremor Visible Yawning Observation: 1= 1-2x During Session Anxiety or Irritability: 2=Irritable/Anxious Goose Flesh Skin: 0=Smooth Skin COWS Score: 11 S Progress Note (SOAP) Subjective: alert,irritable,anxious,interrupted sleep,aching pain,nausea,pain in the body and back Objective: 07/24/20 12:15 Vital Signs Temperature 98.0 F 07/24/20 08:27 Pulse Rate 71 07/24/20 08:27 Respiratory Rate 16 07/24/20 08:27 Blood Pressure 101/55 L 07/24/20 08:27 O2 Sat by Pulse Oximetry (%) 98 07/24/20 08:27 07/24/20 12:20 Laboratory Last Values WBC 5.2 K/mm3 (4.0-10.0) 07/23/20 13:00 RBC 4.12 M/mm3 (4.00-5.60) 07/23/20 13:00 Hgb 12.6 GM/dL (11.7-16.9) 07/23/20 13:00 Hct 38.0 % (35.4-49) 07/23/20 13:00 MCV 92.3 fl (80-96) 07/23/20 13:00 MCH 30.6 pg (25.7-33.7) 07/23/20 13:00 MCHC 33.2 g/dl (32.0-35.9) 07/23/20 13:00 RDW 14.5 % (11.9-15.9) 07/23/20 13:00 Plt Count 266 K/MM3 (134-434) 07/23/20 13:00 MPV 9.8 fl (7.5-11.1) 07/23/20 13:00 PT with INR 23.70 SEC (9.7-13.0) H 07/23/20 14:00 INR 1.99 (0.83-1.09) H 07/23/20 14:00 Sodium 137 mmol/L (136-145) 07/23/20 13:00 Potassium 4.6 mmol/L (3.5-5.1) 07/23/20 13:00 Chloride 105 mmol/L (98-107) 07/23/20 13:00 Carbon Dioxide 25 mmol/L (21-32) 07/23/20 13:00 Anion Gap 8 MMOL/L (8-16) 07/23/20 13:00 BUN 25.6 mg/dL (7-18) H 07/23/20 13:00 Creatinine 1.2 mg/dL (0.55-1.3) 07/23/20 13:00 Est GFR (CKD-EPI)AfAm 78.98 07/23/20 13:00 Est GFR (CKD-EPI)NonAf 68.14 07/23/20 13:00 Random Glucose 118 mg/dL (74-106) H 07/23/20 13:00 Calcium 8.8 mg/dL (8.5-10.1) 07/23/20 13:00 Total Bilirubin 0.2 mg/dL (0.2-1) 07/23/20 13:00 AST 19 U/L (15-37) 07/23/20 13:00 ALT 15 U/L (13-61) 07/23/20 13:00 Alkaline Phosphatase 67 U/L (45-117) 07/23/20 13:00 Total Protein 7.2 g/dl (6.4-8.2) 07/23/20 13:00 Albumin 3.6 g/dl (3.4-5.0) 07/23/20 13:00 Syphilis Serology Reactive (NONREACTIVE) A* 07/23/20 13:00 RPR Titer Reactive 1:2 (NONREACTIVE) H 07/23/20 13:00 COVID-19 (AMY) Not detected (Not Detected) 07/23/20 14:00 patient was treated for syphilis before in the past with 3 injection offered bicillin 2.4 million unit im patient refused stated he will see his medical Provider Lisa Albright after discharge Assessment: 07/24/20 12:24 withdrawal symptom Plan: continue detox methadone and librium regimen,bun 25.6,glucose 118,encourage oral fluid,water,repeat bmp ,fasting glucose in am
--- NOTE | 2020-07-24 09:44 | EKG ---
Test Reason : Blood Pressure : / mmHG Vent. Rate : 075 BPM Atrial Rate : 075 BPM P-R Int : 166 ms QRS Dur : 080 ms QT Int : 368 ms P-R-T Axes : -10 063 059 degrees QTc Int : 410 ms NORMAL SINUS RHYTHM NORMAL ECG WHEN COMPARED WITH ECG OF 18-JUN-2020 04:28, NONSPECIFIC T WAVE ABNORMALITY NO LONGER EVIDENT IN INFERIOR LEADS QT HAS SHORTENED Confirmed by Gennaro Romero ([id number]) on 07/24/2020 9:43:45 AM Referred By: Confirmed By:Gennaro Romero
[2020-07-24] MEDS ORDERED: WARFARIN NA 1 MG TABLET PO SCH (10:00)
[2020-07-24] MEDS ORDERED: METHADONE (DETOX) 20 MG, METHADONE (DETOX) 5 MG PO ONE (10:00)
[2020-07-24] MEDS: PANTOPRAZOLE 40 MG TABLET PO SCH (10:10)
[2020-07-24] MEDS: PRENATAL VITAMINS W/ FOLIC ACID TABLET (FP) PO SCH (10:10)
[2020-07-24] MEDS: NICOTINE 14 MG/24 HOURS TOPICAL PATCH TD SCH (10:10)
[2020-07-24] MEDS: QUEtiapine FUMARATE 200 MG TABLET PO SCH (10:11)
[2020-07-24] MEDS: CITALOPRAM HYDROBROMIDE 20 MG TABLET PO SCH (10:11)
[2020-07-24] MEDS: WARFARIN NA 5 MG, WARFARIN NA 3 MG PO SCH (17:40)
[2020-07-24] MEDS: QUEtiapine FUMARATE 400 MG TABLET PO SCH (22:32)
[2020-07-24] MEDS: THIAMINE HCL 100 MG TABLET (FP) PO SCH (22:32)
[2020-07-24] MEDS: SUVOREXANT 10 MG TABLET PO PRN (22:33)
[2020-07-24] MEDS: MELATONIN 5 MG TABLETS PO SCH (22:33)
[2020-07-25] MEDS: hydrOXYzine PAMOATE 25 MG CAPSULE (FP) PO SCH ×6 (05:12→22:55)
[2020-07-25] MEDS: chlordiazePOXIDE HCL 25 MG CAPSULE PO SCH ×4 (05:12→22:55)
--- NOTE | 2020-07-25 09:24 | PN ---
[facility] CIWA - CIWA Score Nausea/Vomitin-Mild Nausea/No Vomiting Muscle Tremors: 2 Anxiety: 2 Agitation: 2 Paroxysmal Sweats: No Perspiration Orientation: 0-Oriented Tacttile Disturbances: 1-Very Mild Itch/Numbness Auditory Disturbances: 0-None Visual Disturbances: 0-None Headache: 1-Very Mild CIWA-Ar Total Score: 9 BHS COWS - Scale Resting Pulse: 0= [place] 80 or Below Sweatin= No chills or Flushing Restless Observation: 0= Sits Still Pupil Size: 0= Normal to Room Light Bone or Joint Aches: 1= Mild Discomfort Runny Nose/ Eye Tearin= Nasal Congestion GI Upset > 30mins: 1= Stomach Cramp Tremor Observation of Outstretched Hands: 2= Slight Tremor Visible Yawning Observation: 1= 1-2x During Session Anxiety or Irritability: 2=Irritable/Anxious Goose Flesh Skin: 0=Smooth Skin COWS Score: 8 S Progress Note (SOAP) Subjective: alert,irritable,anxious,interrupted sleep,aching pain in the body and back Objective: 07/25/20 12:31 Vital Signs Temperature 97.5 F L 07/25/20 08:25 Pulse Rate 79 07/25/20 08:25 Respiratory Rate 18 07/25/20 08:25 Blood Pressure 112/70 07/25/20 08:25 O2 Sat by Pulse Oximetry (%) 96 07/25/20 08:25 07/25/20 12:32 Laboratory Last Values WBC 5.2 K/mm3 (4.0-10.0) 07/23/20 13:00 RBC 4.12 M/mm3 (4.00-5.60) 07/23/20 13:00 Hgb 12.6 GM/dL (11.7-16.9) 07/23/20 13:00 Hct 38.0 % (35.4-49) 07/23/20 13:00 MCV 92.3 fl (80-96) 07/23/20 13:00 MCH 30.6 pg (25.7-33.7) 07/23/20 13:00 MCHC 33.2 g/dl (32.0-35.9) 07/23/20 13:00 RDW 14.5 % (11.9-15.9) 07/23/20 13:00 Plt Count 266 K/MM3 (134-434) 07/23/20 13:00 MPV 9.8 fl (7.5-11.1) 07/23/20 13:00 PT with INR 23.70 SEC (9.7-13.0) H 07/23/20 14:00 INR 1.99 (0.83-1.09) H 07/23/20 14:00 Sodium 138 mmol/L (136-145) 07/25/20 07:50 Potassium 4.2 mmol/L (3.5-5.1) 07/25/20 07:50 Chloride 104 mmol/L (98-107) 07/25/20 07:50 Carbon Dioxide 29 mmol/L (21-32) 07/25/20 07:50 Anion Gap 6 MMOL/L (8-16) L 07/25/20 07:50 BUN 19.1 mg/dL (7-18) H 07/25/20 07:50 Creatinine 0.8 mg/dL (0.55-1.3) 07/25/20 07:50 Est GFR (CKD-EPI)AfAm 117.38 07/25/20 07:50 Est GFR (CKD-EPI)NonAf 101.27 07/25/20 07:50 Random Glucose 88 mg/dL (74-106) 07/25/20 07:50 Fasting Glucose 88 mg/dL (74-106) 07/25/20 07:50 Calcium 9.0 mg/dL (8.5-10.1) 07/25/20 07:50 Total Bilirubin 0.2 mg/dL (0.2-1) 07/23/20 13:00 AST 19 U/L (15-37) 07/23/20 13:00 ALT 15 U/L (13-61) 07/23/20 13:00 Alkaline Phosphatase 67 U/L (45-117) 07/23/20 13:00 Total Protein 7.2 g/dl (6.4-8.2) 07/23/20 13:00 Albumin 3.6 g/dl (3.4-5.0) 07/23/20 13:00 Syphilis Serology Reactive (NONREACTIVE) A* 07/23/20 13:00 RPR Titer Reactive 1:2 (NONREACTIVE) H 07/23/20 13:00 COVID-19 (AMY) Not detected (Not Detected) 07/23/20 14:00 treated for syphilis before,refused bicillin 2.4 million unit im,stated will follow up with his medical provider after discharge Assessment: 07/25/20 12:33 withdraral symptom Plan: continue detox methadone and librium regimen
[2020-07-25] MEDS ORDERED: METHADONE HCL 10 MG TABLET (FOR DETOX USE ONLY) PO ONE (10:00)
[2020-07-25] MEDS: PRENATAL VITAMINS W/ FOLIC ACID TABLET (FP) PO SCH (10:27)
[2020-07-25] MEDS: CITALOPRAM HYDROBROMIDE 20 MG TABLET PO SCH (10:27)
[2020-07-25] MEDS: PANTOPRAZOLE 40 MG TABLET PO SCH (10:27)
[2020-07-25] MEDS: NICOTINE 14 MG/24 HOURS TOPICAL PATCH TD SCH (10:27)
[2020-07-25] MEDS: QUEtiapine FUMARATE 200 MG TABLET PO SCH (10:27)
[2020-07-25 10:52] LABS: CREATININE 0.8 mg/dL (0.55-1.3); POTASSIUM 4.2 mmol/L (3.5-5.1)
[2020-07-25 11:06] LABS: BLOOD UREA NITROGEN 19.1 mg/dL (7-18)
[2020-07-25] MEDS ORDERED: MASKS NR ONE (11:10)
[2020-07-25] MEDS: METHOCARBAMOL 500 MG TABLET PO PRN (11:20)
[2020-07-25] MEDS: WARFARIN NA 5 MG, WARFARIN NA 3 MG PO SCH (17:29)
[2020-07-25] MEDS: QUEtiapine FUMARATE 400 MG TABLET PO SCH (22:55)
[2020-07-25] MEDS: THIAMINE HCL 100 MG TABLET (FP) PO SCH (22:55)
[2020-07-25] MEDS: SUVOREXANT 10 MG TABLET PO PRN (22:55)
[2020-07-25] MEDS: MELATONIN 5 MG TABLETS PO SCH (22:56)
[2020-07-26] MEDS ORDERED: chlordiazePOXIDE HCL 10 MG CAPSULE PO PRN
[2020-07-26] MEDS: chlordiazePOXIDE HCL 10 MG CAPSULE PO SCH ×4 (06:49→22:00)
[2020-07-26] MEDS: hydrOXYzine PAMOATE 25 MG CAPSULE (FP) PO SCH ×5 (06:49→21:59)
[2020-07-26] MEDS ORDERED: METHADONE HCL 10 MG TABLET (FOR DETOX USE ONLY) ONE (09:33)
[2020-07-26] MEDS ORDERED: METHADONE HCL 5 MG TABLET (FOR DETOX USE ONLY) ONE (09:33)
[2020-07-26] MEDS: CITALOPRAM HYDROBROMIDE 20 MG TABLET PO SCH (09:35)
[2020-07-26] MEDS: PRENATAL VITAMINS W/ FOLIC ACID TABLET (FP) PO SCH (09:36)
[2020-07-26] MEDS: PANTOPRAZOLE 40 MG TABLET PO SCH (09:36)
[2020-07-26] MEDS: NICOTINE 14 MG/24 HOURS TOPICAL PATCH TD SCH (09:36)
[2020-07-26] MEDS: QUEtiapine FUMARATE 200 MG TABLET PO SCH (09:36)
[2020-07-26] MEDS ORDERED: METHADONE (DETOX) 10 MG, METHADONE (DETOX) 5 MG PO ONE (10:00)
--- NOTE | 2020-07-26 11:42 | PN ---
S CIWA - CIWA Score Nausea/Vomitin-No Nausea/No Vomiting Muscle Tremors: 2 Anxiety: 1-Mildly Anxious Agitation: 1-Slight > Activity Paroxysmal Sweats: 1-Minimal Palms Moist Orientation: 0-Oriented Tacttile Disturbances: 0-None Auditory Disturbances: 0-None Visual Disturbances: 0-None Headache: 0-None Present CIWA-Ar Total Score: 5 BHS COWS - Scale Resting Pulse: 0= [place] 80 or Below Sweatin= Chills/Flushing Restless Observation: 1= Difficult to Sit Still Pupil Size: 0= Normal to Room Light Bone or Joint Aches: 1= Mild Discomfort Runny Nose/ Eye Tearin= None GI Upset > 30mins: 0= None Tremor Observation of Outstretched Hands: 1= Tremor [place], Not Seen Yawning Observation: 1= 1-2x During Session Anxiety or Irritability: 1=Feels Anxious/Irritable Goose Flesh Skin: 0=Smooth Skin COWS Score: 6 S Progress Note (SOAP) Subjective: sweats shakes body aches interrupted sleep Objective: 07/26/20 11:42 Vital Signs Temperature 97.7 F 07/26/20 08:55 Pulse Rate 77 07/26/20 08:55 Respiratory Rate 16 07/26/20 08:55 Blood Pressure 102/50 L 07/26/20 08:55 O2 Sat by Pulse Oximetry (%) 97 07/26/20 08:55 Laboratory Tests 07/23/20 07/23/20 07/23/20 13:00 13:00 13:00 WBC 5.2 RBC 4.12 Hgb 12.6 Hct 38.0 MCV 92.3 MCH 30.6 MCHC 33.2 RDW 14.5 Plt Count 266 MPV 9.8 PT with INR INR Sodium 137 Potassium 4.6 Chloride 105 Carbon Dioxide 25 Anion Gap 8 BUN 25.6 H Creatinine 1.2 Est GFR (CKD-EPI)AfAm 78.98 Est GFR (CKD-EPI)NonAf 68.14 Random Glucose 118 H Fasting Glucose Calcium 8.8 Total Bilirubin 0.2 AST 19 ALT 15 Alkaline Phosphatase 67 Total Protein 7.2 Albumin 3.6 Syphilis Serology Reactive A* RPR Titer COVID-19 (AMY) 07/23/20 07/23/20 07/23/20 13:00 14:00 14:00 WBC RBC Hgb Hct MCV MCH MCHC RDW Plt Count MPV PT with INR 23.70 H INR 1.99 H Sodium Potassium Chloride Carbon Dioxide Anion Gap BUN Creatinine Est GFR (CKD-EPI)AfAm Est GFR (CKD-EPI)NonAf Random Glucose Fasting Glucose Calcium Total Bilirubin AST ALT Alkaline Phosphatase Total Protein Albumin Syphilis Serology RPR Titer Reactive 1:2 H COVID-19 (AMY) Not detected 07/25/20 07:50 WBC RBC Hgb Hct MCV MCH MCHC RDW Plt Count MPV PT with INR INR Sodium 138 Potassium 4.2 Chloride 104 Carbon Dioxide 29 Anion Gap 6 L BUN 19.1 H Creatinine 0.8 Est GFR (CKD-EPI)AfAm 117.38 Est GFR (CKD-EPI)NonAf 101.27 Random Glucose 88 Fasting Glucose 88 Calcium 9.0 Total Bilirubin AST ALT Alkaline Phosphatase Total Protein Albumin Syphilis Serology RPR Titer COVID-19 (AMY) labs noted aaox3 ambulating no acute distress Assessment: 07/26/20 11:44 withdrawals Plan: continue detox
[2020-07-26] MEDS: METHOCARBAMOL 500 MG TABLET PO PRN (15:14)
[2020-07-26] MEDS: WARFARIN NA 5 MG, WARFARIN NA 3 MG PO SCH (17:46)
[2020-07-26] MEDS: QUEtiapine FUMARATE 400 MG TABLET PO SCH (21:59)
[2020-07-26] MEDS: THIAMINE HCL 100 MG TABLET (FP) PO SCH (21:59)
[2020-07-26] MEDS: MELATONIN 5 MG TABLETS PO SCH (22:00)
[2020-07-27] MEDS: hydrOXYzine PAMOATE 25 MG CAPSULE (FP) PO SCH ×5 (06:10→23:24)
[2020-07-27] MEDS: chlordiazePOXIDE HCL 10 MG CAPSULE PO SCH ×2 (06:10→18:30)
[2020-07-27] MEDS: MAG HYDROX/AL HYDROX/SIMETH 30 ML UNIT-DOSE CUP PO PRN ×2 (09:42→16:19)
[2020-07-27] MEDS ORDERED: METHADONE HCL 10 MG TABLET (FOR DETOX USE ONLY) PO ONE (10:00)
[2020-07-27] MEDS: CITALOPRAM HYDROBROMIDE 20 MG TABLET PO SCH (10:43)
[2020-07-27] MEDS: QUEtiapine FUMARATE 200 MG TABLET PO SCH (10:43)
[2020-07-27] MEDS: PRENATAL VITAMINS W/ FOLIC ACID TABLET (FP) PO SCH (10:43)
[2020-07-27] MEDS: PANTOPRAZOLE 40 MG TABLET PO SCH (10:43)
[2020-07-27] MEDS: NICOTINE 14 MG/24 HOURS TOPICAL PATCH TD SCH (10:43)
--- NOTE | 2020-07-27 11:02 | PN ---
S CIWA - CIWA Score Nausea/Vomitin-No Nausea/No Vomiting Muscle Tremors: 1-None Visible, but [place] Anxiety: 1-Mildly Anxious Agitation: 0-Normal Activity Paroxysmal Sweats: No Perspiration Orientation: 0-Oriented Tacttile Disturbances: 0-None Auditory Disturbances: 0-None Visual Disturbances: 0-None Headache: 0-None Present CIWA-Ar Total Score: 2 BHS Progress Note (SOAP) Subjective: sweats anxiety Objective: 07/27/20 11:02 Vital Signs Temperature 96.6 F L 07/27/20 08:40 Pulse Rate 66 07/27/20 08:40 Respiratory Rate 20 07/27/20 08:40 Blood Pressure 99/56 L 07/27/20 08:40 O2 Sat by Pulse Oximetry (%) 99 07/27/20 08:40 Laboratory Tests 07/23/20 07/23/20 07/23/20 13:00 13:00 13:00 WBC 5.2 RBC 4.12 Hgb 12.6 Hct 38.0 MCV 92.3 MCH 30.6 MCHC 33.2 RDW 14.5 Plt Count 266 MPV 9.8 PT with INR INR Sodium 137 Potassium 4.6 Chloride 105 Carbon Dioxide 25 Anion Gap 8 BUN 25.6 H Creatinine 1.2 Est GFR (CKD-EPI)AfAm 78.98 Est GFR (CKD-EPI)NonAf 68.14 Random Glucose 118 H Fasting Glucose Calcium 8.8 Total Bilirubin 0.2 AST 19 ALT 15 Alkaline Phosphatase 67 Total Protein 7.2 Albumin 3.6 Syphilis Serology Reactive A* RPR Titer COVID-19 (AMY) 07/23/20 07/23/20 07/23/20 13:00 14:00 14:00 WBC RBC Hgb Hct MCV MCH MCHC RDW Plt Count MPV PT with INR 23.70 H INR 1.99 H Sodium Potassium Chloride Carbon Dioxide Anion Gap BUN Creatinine Est GFR (CKD-EPI)AfAm Est GFR (CKD-EPI)NonAf Random Glucose Fasting Glucose Calcium Total Bilirubin AST ALT Alkaline Phosphatase Total Protein Albumin Syphilis Serology RPR Titer Reactive 1:2 H COVID-19 (AMY) Not detected 07/25/20 07:50 WBC RBC Hgb Hct MCV MCH MCHC RDW Plt Count MPV PT with INR INR Sodium 138 Potassium 4.2 Chloride 104 Carbon Dioxide 29 Anion Gap 6 L BUN 19.1 H Creatinine 0.8 Est GFR (CKD-EPI)AfAm 117.38 Est GFR (CKD-EPI)NonAf 101.27 Random Glucose 88 Fasting Glucose 88 Calcium 9.0 Total Bilirubin AST ALT Alkaline Phosphatase Total Protein Albumin Syphilis Serology RPR Titer COVID-19 (AMY) labs noted aaox3 ambulating no acute distress Assessment: 07/27/20 11:02 withdrawals Plan: continue detox d/c in am
--- NOTE | 2020-07-27 11:40 | PN ---
[facility] Progress Note Note: Patient reports sleeping poorly despite taking Seroquel 400 mg/hs and Belsomra 10 mg/hs. Requests increase in Belsomra dosage. Will increase Belsomra to 15 mg/hs prn for insomnia
[2020-07-27] MEDS ORDERED: TRIMETHOBENZAMIDE HCL 200MG/2ML INJ IM ONE (21:46)
--- NOTE | 2020-07-27 21:48 | PN ---
[facility] Progress Note Note: Patient vomited x 2 Vital Signs Temperature 98.6 F 07/27/20 17:21 Pulse Rate 72 07/27/20 17:21 Respiratory Rate 18 07/27/20 17:21 Blood Pressure 123/68 07/27/20 17:21 O2 Sat by Pulse Oximetry (%) 99 07/27/20 12:28 Action: Trimethobenzamide injection (Tigan injection) 200mg IM ordered
[2020-07-27] MEDS ORDERED: SUVOREXANT 15 MG TABLET PO PRN (22:00)
[2020-07-27] MEDS: MELATONIN 5 MG TABLETS PO SCH (23:23)
[2020-07-27] MEDS: THIAMINE HCL 100 MG TABLET (FP) PO SCH (23:24)
[2020-07-27] MEDS: WARFARIN NA 5 MG, WARFARIN NA 3 MG PO SCH (23:27)
[2020-07-28] MEDS: QUEtiapine FUMARATE 400 MG TABLET PO SCH (00:36)
[2020-07-28] MEDS ORDERED: TRIMETHOBENZAMIDE HCL 200MG/2ML INJ IM ONE ×2 (03:45→12:00)
[2020-07-28] MEDS ORDERED: chlordiazePOXIDE HCL 10 MG CAPSULE PO ONE (05:00)
[2020-07-28] MEDS ORDERED: METHADONE HCL 5 MG TABLET (FOR DETOX USE ONLY) PO ONE (06:00)
[2020-07-28] MEDS: hydrOXYzine PAMOATE 25 MG CAPSULE (FP) PO SCH ×3 (06:08→14:46)
[2020-07-28 06:46] VITALS: BP 157/90; PULSE 61; TEMP 97.3
[2020-07-28] MEDS: MAG HYDROX/AL HYDROX/SIMETH 30 ML UNIT-DOSE CUP PO PRN (11:51)
[2020-07-28] MEDS ORDERED: METHADONE HCL 10 MG TABLET (FOR DETOX USE ONLY) PO ONE (13:00)
[2020-07-28] MEDS: QUEtiapine FUMARATE 200 MG TABLET PO SCH (13:31)
[2020-07-28] MEDS: CITALOPRAM HYDROBROMIDE 20 MG TABLET PO SCH (13:31)
[2020-07-28] MEDS: PANTOPRAZOLE 40 MG TABLET PO SCH (13:31)
[2020-07-28] MEDS: PRENATAL VITAMINS W/ FOLIC ACID TABLET (FP) PO SCH (13:32)
[2020-07-28] MEDS: NICOTINE 14 MG/24 HOURS TOPICAL PATCH TD SCH (13:32)
--- NOTE | 2020-07-28 15:12 | DS ---
[facility] Detox Discharge Summary Admission Date: 07/23/20 Discharge Date: 07/28/20 - History Present History: Alcohol Dependence, Cannabis Dependence, Opioid Dependence Additional Comments: Patient going to [facility] ([place], [place]) for aftercare. In AM prior to Discharge from Detox Unit, Patient reported Nausea and Vomiting that started yesterday. He denies chest / abdominal pain and he denies change in Bowel Movements. PRN Tigan IM administered while Patient was still admitted on Detox Unit with mild effect. Patient reports history of GERD and Esophageal Ulcer. He also has history of DVT / PE, for which he is prescribed Warfarin. Patient advised to consider returning home and seeking medical evaluation for above-noted disorders and then return for Rehab. However, Patient requests to go to Rehab at this time due to concern over strong risk of relapse with discharge out of facility and he notes that nausea/ vomiting are manageable at this time. He does report history similar occurrence in past and that condition resolved on its own after multiple doses of antiemetic medication. Patient to go on to [facility] at this time. Will continue to monitor overall condition. PRN Anti-Emetic medication will be ordered for Patient while admitted for Rehab. Patient advised to go as soon as possible after Discharge from Rehab for medical evaluation with Primary Care Medical Provider for above-noted medical condition. Patient verbalized understanding of recommendation. Pertinent Past History: History of DVT / PE, History of Anemia, Anxiety, Depression, GERD, History of Esophageal Ulcer, Nicotine Dependence, History of Syphilis (Treated), Insomnia, Major Depressive Disorder. - Physical Exam Results Vital Signs: Vital Signs Temperature 97.3 F L 07/28/20 05:16 Pulse Rate 61 07/28/20 05:16 Respiratory Rate 16 07/28/20 05:16 Blood Pressure 157/90 07/28/20 05:16 O2 Sat by Pulse Oximetry (%) 96 07/28/20 05:16 Pertinent Admission Physical Exam Findings: WITHDRAWAL SYMPTOMS. Laboratory Tests 07/23/20 07/23/20 07/23/20 13:00 13:00 13:00 WBC 5.2 RBC 4.12 Hgb 12.6 Hct 38.0 MCV 92.3 MCH 30.6 MCHC 33.2 RDW 14.5 Plt Count 266 MPV 9.8 PT with INR INR Sodium 137 Potassium 4.6 Chloride 105 Carbon Dioxide 25 Anion Gap 8 BUN 25.6 H Creatinine 1.2 Est GFR (CKD-EPI)AfAm 78.98 Est GFR (CKD-EPI)NonAf 68.14 Random Glucose 118 H Fasting Glucose Calcium 8.8 Total Bilirubin 0.2 AST 19 ALT 15 Alkaline Phosphatase 67 Total Protein 7.2 Albumin 3.6 Syphilis Serology Reactive A* RPR Titer COVID-19 (AMY) 07/23/20 07/23/20 07/23/20 13:00 14:00 14:00 WBC RBC Hgb Hct MCV MCH MCHC RDW Plt Count MPV PT with INR 23.70 H INR 1.99 H Sodium Potassium Chloride Carbon Dioxide Anion Gap BUN Creatinine Est GFR (CKD-EPI)AfAm Est GFR (CKD-EPI)NonAf Random Glucose Fasting Glucose Calcium Total Bilirubin AST ALT Alkaline Phosphatase Total Protein Albumin Syphilis Serology RPR Titer Reactive 1:2 H COVID-19 (AMY) Not detected 07/25/20 07:50 WBC RBC Hgb Hct MCV MCH MCHC RDW Plt Count MPV PT with INR INR Sodium 138 Potassium 4.2 Chloride 104 Carbon Dioxide 29 Anion Gap 6 L BUN 19.1 H Creatinine 0.8 Est GFR (CKD-EPI)AfAm 117.38 Est GFR (CKD-EPI)NonAf 101.27 Random Glucose 88 Fasting Glucose 88 Calcium 9.0 Total Bilirubin AST ALT Alkaline Phosphatase Total Protein Albumin Syphilis Serology RPR Titer COVID-19 (AMY) Lab Results noted. - Treatment Hospital Course: Detox Protocol Followed, Detoxed Safely, Responded well, Discharged Condition Good, Rehab Referral Accepted Patient has Accepted a Rehab Referral to: [facility] ([place], [place]) - Medication Discharge Medications: Ambulatory Orders Pantoprazole Sodium [Protonix] 40 mg PO DAILY 08/17/19 Zolpidem Tartrate [Ambien] 10 mg PO HS 09/21/19 Quetiapine Fumarate [Seroquel -] 200 mg PO DAILY #30 tablet 06/20/20 Quetiapine Fumarate [Seroquel] 400 mg PO HS #30 tablet 06/20/20 Warfarin Sodium 8 mg PO HS 07/23/20 - Diagnosis (1) Alcohol dependence with withdrawal Current Visit: Yes Status: Acute Qualifiers: Complication of substance-induced condition: uncomplicated Qualified Code(s): F10.230 - Alcohol dependence with withdrawal, uncomplicated (2) Cannabis dependence Current Visit: Yes Status: Acute (3) Opioid dependence with withdrawal Current Visit: Yes Status: Acute (4) Substance induced mood disorder Current Visit: Yes Status: Acute (5) Anemia Current Visit: Yes Status: Chronic Qualifiers: Anemia type: unspecified type Qualified Code(s): D64.9 - Anemia, unspecified (6) GERD (gastroesophageal reflux disease) Current Visit: Yes Status: Chronic Qualifiers: Esophagitis presence: without esophagitis Qualified Code(s): K21.9 - Gastro-esophageal reflux disease without esophagitis (7) Nicotine dependence Current Visit: Yes Status: Chronic Qualifiers: Nicotine product type: cigarettes Substance use status: uncomplicated Qualified Code(s): F17.210 - Nicotine dependence, cigarettes, uncomplicated (8) DVT (deep venous thrombosis) Current Visit: Yes Status: Resolved Qualifiers: DVT location: lower extremity Affected thrombotic vein of extremity: calf muscle vein Chronicity: chronic Laterality: bilateral Qualified Code(s): 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, bilateral (9) Syphilis contact, treated Current Visit: Yes Status: Resolved (10) Substance-induced sleep disorder Current Visit: Yes Status: Acute (11) Gastritis Current Visit: Yes Status: Chronic Qualifiers: Gastritis type: unspecified gastritis Chronicity: unspecified Gastritis bleeding: without bleeding Qualified Code(s): K29.70 - Gastritis, unspecified, without bleeding (12) Positive RPR test Current Visit: Yes Status: Chronic (13) Insomnia Current Visit: Yes Status: Chronic Qualifiers: Insomnia type: unspecified Qualified Code(s): G47.00 - Insomnia, unspecified (14) Esophageal ulcer Current Visit: Yes Status: Resolved Qualifiers: Esophageal ulcer bleeding: without bleeding Qualified Code(s): K22.10 - Ulcer of esophagus without bleeding (15) History of mood disorder Current Visit: Yes Status: Chronic (16) MDD (major depressive disorder), recurrent, severe, with psychosis Current Visit: Yes Status: Chronic (17) Pulmonary embolism Current Visit: Yes Status: Resolved Qualifiers: Pulmonary embolism type: unspecified Chronicity: unspecified Acute cor pulmonale presence: unspecified Qualified Code(s): I26.99 - Other pulmonary embolism without acute cor pulmonale - AMA Did Patient Leave Against Medical Advice: No
== END 2020-07-28 15:22 | disposition other institution (70) | DRG 773 ==
LOC: YASAS 11:15 → Y6N 14:20
PROVIDERS: ADMIT Allergy & Immunology; ATTEND Allergy & Immunology
PROC: HZ2ZZZZ Detoxification Services for Substance Abuse Treatment (ICD-10-PCS; principal; 2020-07-23)
DX: F10.230 Alcohol dependence with withdrawal, uncomplicated (principal); F11.23 Opioid dependence with withdrawal; F12.20 Cannabis dependence, uncomplicated; F17.210 Nicotine dependence, cigarettes, uncomplicated; F19.282 Other psychoactive substance dependence with psychoactive substance-induced sleep disorder; F19.24 Other psychoactive substance dependence with psychoactive substance-induced mood disorder; F33.3 Major depressive disorder, recurrent, severe with psychotic symptoms; F39 Unspecified mood [affective] disorder; D64.9 Anemia, unspecified; K21.9 Gastro-esophageal reflux disease without esophagitis; K29.70 Gastritis, unspecified, without bleeding; K22.0 Achalasia of cardia; R76.11 Nonspecific reaction to tuberculin skin test without active tuberculosis; Z86.718 Personal history of other venous thrombosis and embolism; Z79.01 Long term (current) use of anticoagulants; Z86.711 Personal history of pulmonary embolism; Z95.828 Presence of other vascular implants and grafts; Z87.19 Personal history of other diseases of the digestive system
CPT/HCPCS: 36415; 80048; 80053; 82947; 85027; 85610; 86593; 86780; 93005; 93010; Q0162; U0003

== ENCOUNTER 2020-07-28 15:34 | Inpatient (IN) | payer OTHER ==
[2020-07-28] MEDS ORDERED: MENTHOL/PHENOL 1 EACH UD MM PRN (15:43)
[2020-07-28] MEDS ORDERED: LOPERAMIDE HCL 2 MG CAPSULE PO PRN (15:43)
[2020-07-28] MEDS ORDERED: P-EPHED 60MG/TRIPROLIDI 2.5MG TABLET PO PRN (15:43)
[2020-07-28] MEDS ORDERED: MAGNESIUM CITRATE 300 ML BOTTLE PO PRN (15:43)
[2020-07-28] MEDS ORDERED: NICOTINE POLACRILEX 2 MG GUM BUC PRN (15:43)
[2020-07-28] MEDS ORDERED: MAG HYDROX/AL HYDROX/SIMETH 30 ML UNIT-DOSE CUP PO PRN (15:43)
[2020-07-28] MEDS ORDERED: guaiFENesin 200 MG/10 ML 10 ML UNIT-DOSE CUPS PO PRN (15:43)
[2020-07-28] MEDS ORDERED: MAGNESIUM HYDROX 2400MG/30ML ORAL SUSPENSION 30 ML CUP PO PRN (15:43)
--- OUTSIDE RECORDS SUMMARY | 2020-07-28 15:45 | XMS ---
:1965 [facility] Support Name Relationship Address Phone UE, UNEMPLOYED Unavailable Unavailable Unavailable UE Unavailable Unavailable Unavailable CONSUELO WILL PARTNER [address] [place] [phone] CONSUELO WILL Other [address] [place] [phone] Re-disclosure Warning The records that you are about to access may contain information from federally- assisted alcohol or drug abuse programs. If such information is present, then the following federally mandated warning applies: This information has been disclosed to you from records protected by federal confidentiality rules (42 CFR part 2). The federal rules prohibit you from making any further disclosure of this information unless further disclosure is expressly permitted by the written consent of the person to whom it pertains or as otherwise permitted by 42 CFR part 2. A general authorization for the release of medical or other information is NOT sufficient for this purpose. The Federal rules restrict any use of the information to criminally investigate or prosecute any alcohol or drug abuse patient.The records that you are about to access may contain highly sensitive health information, the redisclosure of which is protected by Article 27-F of the [facility] Public Health law. If you continue you may haveaccess to information: Regarding HIV / AIDS; Provided by facilities licensed or operated by the [facility] Office of Mental Health; or Provided by the [facility] Office for People With Developmental Disabilities. If such information is present, then the following [facility] mandated warning applies: This information has been disclosed to you from confidential records which are protected by state law. State law prohibits you from making any further disclosure of this information without the specific written consent of the person to whom it pertains, or as otherwise permitted by law. Any unauthorized further disclosure in violation of state law may result in a fine or halfway sentence or both. A general authorization for the release of medical or other information is NOT sufficient authorization for further disclosure. Insurance Providers Payer name Policy type Policy ID Covered Covered libertarian's Policy P karen / Coverage libertarian ID relationship to [employer] ormation type griffin MEDICAID [id number] SP [id number] HEALTH FIRST [id number] SP [id number] D MEDICAID [id number] SP [id number] Results ID Date Data Source [id number] 07/23/2020 02:00:00 PM EDT [facility] Name Value Range Interpretation Description Data Sup porting Code Source(s) Document(s ) SARS [facility] coronavirus 2 RNA This lab was ordered by [facility] and reported by [facility]. ID Date Data Source [id number] 06/18/2020 08:20:00 PM EDT [facility] Name Value Range Interpretation Description Data Sup porting Code Source(s) Document(s ) SARS [facility] coronavirus 2 RNA This lab was ordered by [facility] and reported by [facility]. ID Date Data Source [id number] 06/13/2020 03:00:00 PM EDT [facility] Name Value Range Interpretation Description Data Sup porting Code Source(s) Document(s ) SARS [facility] coronavirus 2 RNA This lab was ordered by [facility] and reported by [facility]. ID Date Data Source [id number] 02/14/2020 12:00:00 AM EDT [facility] Name Value Range Interpretation Code Description Data Connie rce(s) Supporting Document(s ) 2019-nCoV [facility] RNA XXX AMY+probe- Imp This lab was ordered by [facility] and reported by [employer] Procedure
--- OUTSIDE RECORDS SUMMARY | 2020-07-28 15:47 | XMS ---
:1965 Author Organization [facility] Support Name Relationship Address Phone UE, UNEMPLOYED Unavailable Unavailable Unavailable UE Unavailable Unavailable Unavailable CONSUELO WILL PARTNER [address] [place] [phone] CONSUELO WILL Other [address] [place] [phone] Re-disclosure Warning The records that you are [...] is protected by Article 27-F of the [facility] Public Health law. If you continue you may haveaccess to information: Regarding HIV / AIDS; Provided by facilities licensed or operated by the [facility] Office of Mental Health; or Provided by the [facility] Office for People With Developmental Disabilities. If such information is present, then the following [facility] mandated warning applies: This information has been [...] law may result in a fine or assisted sentence or both. A general authorization for the release of medical or other information is NOT sufficient authorization for further disclosure. Insurance Providers Payer name Policy type Policy ID Covered Covered democrat's Policy P karen / Coverage democrat ID relationship to [employer] ormation type griffin MEDICAID [id number] SP [id number] HEALTH FIRST [id number] SP [id number] D MEDICAID [id number] SP [id number] Results ID Date Data Source [id number] 07/23/2020 02:00:00 PM EDT [facility] Name Value Range Interpretation Description Data Sup porting Code Source(s) Document(s ) SARS [facility] coronavirus 2 RNA This lab was ordered by [facility] and reported by [facility]. ID Date Data Source [id number] 06/18/2020 08:20:00 PM EDT [facility] Name Value Range Interpretation Description Data Sup porting Code Source(s) Document(s ) SARS [facility] coronavirus 2 RNA This lab was ordered by [facility] and reported by [facility]. ID Date Data Source [id number] 06/13/2020 03:00:00 PM EDT [facility] Name Value Range Interpretation Description Data Sup porting Code Source(s) Document(s ) SARS [facility] coronavirus 2 RNA This lab was ordered by [facility] and reported by [facility]. ID Date Data Source [id number] 02/14/2020 12:00:00 AM EDT [facility] Name Value Range Interpretation Code Description Data Connie rce(s) Supporting Document(s ) 2019-nCoV [facility] RNA XXX AMY+probe- Imp This lab was ordered by [facility] and reported by [employer] Procedure
--- NOTE | 2020-07-28 15:55 | HP ---
Jaja HALL Rehab Assess/Revision - Admission History Admitted to Rehab from: [facility] [address] Date of Admission to Rehab: 07/28/2020 - Vital signs Vital Signs: Vital Signs Period Temp Pulse Resp BP Sys/Echols Pulse Ox Last 24 Hr 98 F 97 18 133/88 98 - Findings Detox History & Physical reviewed: Yes Concur with findings: Yes Comments/Additional Findings: Patient's Medical / Medication History reviewed prior to Discharge from Detox Unit. Patient to be monitored and treated for recent history of vomiting for Coumadin Prescription (prescribed for history of DVT / PE), and Anemia while admitted on Rehab Unit. See [facility] Detox Discharge Summary from 07/28/2020 for further information. Inpatient Rehab Admission - Rehab Decision to Admit Inpatient rehab admission?: Yes - Initial Determination Are CD services needed?: Yes Free of communicable disease: Yes Not in need of hospitalization: Yes - Rehab Admission Criteria Previous failed treatment: Yes Poor recovery environment: Yes Comorbidities: Yes Lacks judgement: No Patient is meeting Inpatient Rehab admission criteria:: Yes
--- NOTE | 2020-07-28 16:33 | PN ---
[facility] Progress Note Note: Psychiatry Attending's note : Called by medical FUMIGATOR AND STERILIZER Levi Hansen. For continuation of psychotropic medications. Patient completed detoxification at [address] [place] [address]. Admitted today to [address] (rehab). Chart reviewed. Dr Fisher's note of 07/24/20 : appreciated. Treatment plan reviewed. Celexa + seroquel doses confirmed. Met with Mr Foley for discussion of side effects/benefits. Patient is already known to commercial real estate underwriter from a previous admission. Good historian. He reports that he did refuse seroquel last night. Because of profuse vomiting. " The medication would have been wasted." Patient requests to get back on his regular doses (200 mg in AM + 400 mg at HS). In addition to citalopram 40 mg po daily. " I have been on these medications for years." Medications are well tolerated. Side effects/benefits of both drugs are discussed with patient. Consent granted to MD (verbal). Normal EKG. Medications are resumed for continuity of care : Celexa 40 mg po daily + seroquel 200 mg po am/400 mg po hs. Insomnia is addressed with melatonin. Patient exhibits motivation for treatment. Normal vitals. Steady gait. Intact cognition. Monitor progress.
[2020-07-28] MEDS: WARFARIN NA 5 MG, WARFARIN NA 3 MG PO SCH (19:00)
[2020-07-28] MEDS ORDERED: TRIMETHOBENZAMIDE HCL 200MG/2ML INJ IM PRN (20:00)
[2020-07-28] MEDS ORDERED: PT OWN MED DRAWER 7, Y5N ONE (20:22)
[2020-07-28] MEDS: QUEtiapine FUMARATE 400 MG TABLET PO SCH (21:49)
[2020-07-28] MEDS: THIAMINE HCL 100 MG TABLET (FP) PO SCH (21:49)
[2020-07-28] MEDS: MELATONIN 5 MG TABLETS PO SCH (21:50)
[2020-07-28] MEDS ORDERED: WARFARIN SODIUM 8 MG PO SCH (22:00)
[2020-07-29] MEDS: ACETAMINOPHEN 325 MG TABLET (FP) PO PRN ×2 (07:31→17:43)
[2020-07-29] MEDS: NICOTINE 14 MG/24 HOURS TOPICAL PATCH TD SCH (10:48)
[2020-07-29] MEDS: PRENATAL VITAMINS W/ FOLIC ACID TABLET (FP) PO SCH (10:48)
[2020-07-29] MEDS: QUEtiapine FUMARATE 200 MG TABLET PO SCH (10:48)
[2020-07-29] MEDS: PANTOPRAZOLE 40 MG TABLET PO SCH (10:48)
[2020-07-29] MEDS ORDERED: PT OWN MED DRAWER 7, Y5N ONE (17:43)
[2020-07-29] MEDS: WARFARIN NA 5 MG, WARFARIN NA 3 MG PO SCH (17:45)
[2020-07-29] MEDS: THIAMINE HCL 100 MG TABLET (FP) PO SCH (22:17)
[2020-07-29] MEDS: QUEtiapine FUMARATE 400 MG TABLET PO SCH (22:17)
[2020-07-29] MEDS: MELATONIN 5 MG TABLETS PO SCH (22:18)
[2020-07-30 10:20] LABS: BASO % 0.3 % (0-2.0); EOS % 1.3 % (0-4.5); HEMOGLOBIN 12.7 GM/dL (11.7-16.9); LYMPH % 10.8 % (8-40); MCH 29.9 pg (25.7-33.7); MCHC 32.7 g/dl (32.0-35.9); MEAN CELL VOLUME 91.3 fl (80-96); MEAN PLT VOLUME 9.7 fl (7.5-11.1); MONO % 5.2 % (3.8-10.2); NEUT % 82.4 % (42.8-82.8); PLATELET COUNT 279 K/MM3 (134-434); RBC 4.27 M/mm3 (4.00-5.60); RDW 14.7 % (11.9-15.9); WHITE BLOOD COUNT 17.6 K/mm3 (4.0-10.0)
[2020-07-30] MEDS: NICOTINE 14 MG/24 HOURS TOPICAL PATCH TD SCH (10:23)
[2020-07-30] MEDS: PANTOPRAZOLE 40 MG TABLET PO SCH (10:23)
[2020-07-30] MEDS: PRENATAL VITAMINS W/ FOLIC ACID TABLET (FP) PO SCH (10:23)
[2020-07-30] MEDS: hydrOXYzine PAMOATE 50 MG CAPSULE (FP) PO PRN ×2 (10:25→16:49)
[2020-07-30] MEDS: QUEtiapine FUMARATE 200 MG TABLET PO SCH (10:25)
[2020-07-30] MEDS: ACETAMINOPHEN 325 MG TABLET (FP) PO PRN (10:25)
[2020-07-30 10:29] LABS: INR 1.57 (0.83-1.09); PROTHROMBIN TIME (PATIENT) 18.6 SEC (9.7-13.0)
--- NOTE | 2020-07-30 11:35 | PN ---
[facility] Progress Note Note: Laboratory Tests 07/30/20 07/30/20 08:05 08:05 WBC 17.6 H RBC 4.27 Hgb 12.7 Hct 39.0 MCV 91.3 MCH 29.9 MCHC 32.7 RDW 14.7 Plt Count 279 MPV 9.7 Absolute Neuts (auto) 14.5 H Neutrophils % 82.4 D Lymphocytes % 10.8 D Monocytes % 5.2 Eosinophils % 1.3 Basophils % 0.3 Nucleated RBC % 0 PT with INR 18.60 H INR 1.57 H Vital Signs (72 hours) 07/28/20 07/28/20 07/29/20 15:42 20:35 06:36 Temperature 98 F 98.8 F 98.2 F Pulse Rate 97 H 73 Respiratory 18 18 Rate Blood Pressure 133/88 116/75 O2 Sat by Pulse 98 97 98 Oximetry (%) Patient evaluated for follow up labs. Admitted to rehab after completing detox for opiod/ETOH dependence. PMH DVT, IVF, Anemia and GERD ROS: denies chest pain, cough, sob, fever, urinary discomfort, foul urine odor and frequency. PE alert and oriented x 3 skin warm and dry neck supple, no jvd car s1s2, rrr resp cta bl, no wheezes or rales gi soft, nt,nd ext full rom, amb ad osman no tremors A/P: Hx of DVT/IVF subtherapeutic INR Leukocytosis Case discussed with Dr. Cece HALL discussed plan with DIRECTOR OF OCCUPATIONAL THERAPY and agrees to increase coumadin to 9mg po hs and repeat INR in 3 days Check CXR, UA and C/S repeat CBC in am continue to monitor clinically If WBC remains elevated or fever develops, transfer to ED
[2020-07-30] MEDS ORDERED: COLLOIDAL OATMEAL 1 BAR EACH TP PRN (12:50)
[2020-07-30 17:04] LABS: PH,URINE 7.5 (5.0-8.0); URINE APPEARANCE CLOUDY; URINE BILIRUBIN NEGATIVE (NEGATIVE); URINE COLOR YELLOW; URINE GLUCOSE (UA) NEGATIVE (NEGATIVE); URINE KETONE NEGATIVE (NEGATIVE); URINE LEUK ESTERASE NEGATIVE (NEGATIVE); URINE NITRITE NEGATIVE (NEGATIVE); URINE PROTEIN NEGATIVE (NEGATIVE)
[2020-07-30] MEDS: WARFARIN NA 3 MG TABLET PO SCH (17:10)
[2020-07-30] MEDS: MELATONIN 5 MG TABLETS PO SCH (21:08)
[2020-07-30] MEDS: QUEtiapine FUMARATE 400 MG TABLET PO SCH (21:08)
[2020-07-30] MEDS: THIAMINE HCL 100 MG TABLET (FP) PO SCH (21:08)
[2020-07-31] MEDS: PRENATAL VITAMINS W/ FOLIC ACID TABLET (FP) PO SCH (10:21)
[2020-07-31] MEDS: PANTOPRAZOLE 40 MG TABLET PO SCH (10:21)
[2020-07-31] MEDS: QUEtiapine FUMARATE 200 MG TABLET PO SCH (10:21)
[2020-07-31] MEDS: NICOTINE 14 MG/24 HOURS TOPICAL PATCH TD SCH (10:21)
[2020-07-31] MEDS: ACETAMINOPHEN 325 MG TABLET (FP) PO PRN ×2 (10:22→23:03)
[2020-07-31 10:54] LABS: BASO % 0.5 % (0-2.0); EOS % 2.7 % (0-4.5); HEMATOCRIT 38.1 % (35.4-49); HEMOGLOBIN 12.5 GM/dL (11.7-16.9); MCH 30.4 pg (25.7-33.7); MCHC 32.7 g/dl (32.0-35.9); MEAN CELL VOLUME 92.7 fl (80-96); MEAN PLT VOLUME 9.8 fl (7.5-11.1); MONO % 9.1 % (3.8-10.2); NEUT % 64.7 % (42.8-82.8); PLATELET COUNT 263 K/MM3 (134-434); RBC 4.11 M/mm3 (4.00-5.60); RDW 14.7 % (11.9-15.9); WHITE BLOOD COUNT 8.3 K/mm3 (4.0-10.0)
--- NOTE | 2020-07-31 17:01 | PN ---
Psychiatric Progress Note Vital Signs: Vital Signs Period Temp Pulse Resp BP Sys/Echols Pulse Ox Last 24 Hr 96.4 F-98.5 F 93 16 105/82 97-98 Date of Session: 07/31/20 Chief Complaint:: " I am fine. I did not ask to see the psychiatrist." HPI: Came to evaluate this patient (follow-up visit) for reported complaint of anxiety + depression. Mr Foley spoke briefly to appeals writer and he denied having any acute issues at this time. ROS: Unremarkable. Patient is observed as well groomed, active, ambulatory and visible in communal areas of unit. Intact cognition. Current Medications: Active Medications Generic Name Dose Route Start Last Admin Trade Name Freq PRN Reason Stop Dose Admin Acetaminophen 650 mg 07/28/20 15:43 07/31/20 10:22 Tylenol - PO 650 mg Q4H PRN Administration FEVER Al Hydroxide/Mg Hydroxide 30 ml 07/28/20 15:43 Mylanta Oral Suspension - PO Q6H PRN DYSPEPSIA Colloidal Oatmeal 1 applic 07/30/20 12:50 07/31/20 08:48 Aveeno Soap - TP 1 applic DAILY PRN Administration HYGEINE Eucalyptus/Menthol/Phenol/Sorbitol 1 each 07/28/20 15:43 Cepastat Lozenge - MM Q4H PRN SORE THROAT Guaifenesin 10 ml 07/28/20 15:43 Robitussin - PO Q6H PRN COUGH Hydroxyzine Pamoate 50 mg 07/30/20 09:27 07/30/20 16:49 Vistaril - PO 50 mg Q6H PRN Administration ANXIETY Loperamide HCl 4 mg 07/28/20 15:43 Imodium - PO Q6H PRN DIARRHEA Magnesium Citrate 300 ml 07/28/20 15:43 Citroma - PO Q48H PRN CONSTIPATION Magnesium Hydroxide 30 ml 07/28/20 15:43 Milk Of Magnesia - PO DAILY PRN CONSTIPATION Melatonin 5 mg 07/28/20 22:00 07/30/20 21:08 Melatonin PO 5 mg HS MATTHEW Administration Nicotine 14 mg 07/29/20 10:00 07/31/20 10:21 Nicoderm Patch - TD 14 mg DAILY MATTHEW Administration Nicotine Polacrilex 2 mg 07/28/20 15:43 Nicorette Gum - BUC Q2H PRN NICOTINE REPLACEMENT RX Pantoprazole Sodium 40 mg 07/29/20 10:00 07/31/20 10:21 Protonix - PO 40 mg DAILY MATTHEW Administration Multivit/Folic Acid/Iron 1 tab 07/29/20 10:00 07/31/20 10:21 Vitamins (Sjr) - PO 1 tab DAILY MATTHEW Administration Pseudoephedrine/Triprolidine 1 combo 07/28/20 15:43 Actifed - PO TID PRN NASAL CONGESTION Quetiapine Fumarate 200 mg 07/29/20 10:00 07/31/20 10:21 Seroquel - PO 200 mg DAILY MATTHEW Administration Quetiapine Fumarate 400 mg 07/28/20 22:00 07/30/20 21:08 Seroquel - PO 400 mg HS MATTHEW Administration Thiamine HCl 100 mg 07/28/20 22:00 07/30/20 21:08 Vitamin B1 - PO 100 mg HS MATTHEW Administration Trimethobenzamide HCl 200 mg 07/28/20 20:00 Tigan Injection - IM 08/02/20 19:59 Q8H PRN NAUSEA Warfarin Sodium 9 mg 07/30/20 18:00 07/30/20 17:10 Coumadin - PO 9 mg DAILY@1800 MATTHEW Administration Medication(s) Change(s): Medications revisited. Mr Foley is advised to resume citalopram. He declines. Current Side Effect: No Lab tests ordered: No Lab tests reviewed: Yes Provider note:: Chart reviewed. Met with the patient. No complaint offered. Mr Foley reports feeling well. He states that has no intention to get back on citalopram or any other antidepressant medication. He denies suicidal or homicidal ideation, intent or plan. Feels fine. Mental status remains stable. Total face to face time:: 25 Mental Status Exam - Mental Status Exam Alert and Oriented to: Time, Place, Person Cognitive Function: Good Patient Appearance: Well Groomed Mood: Hopeful, Euthymic Affect: Appropriate, Normal Range Patient Behavior: Appropriate, Cooperative Speech Pattern: Clear, Appropriate Voice Loudness: Normal Thought Process: Intact, Goal Oriented Thought Disorder: Not Present Hallucinations: Denies Suicidal Ideation: Denies Homicidal Ideation: Denies Insight/Judgement: Fair Sleep: Well Appetite: Good Gait/Station: Normal Psychiatric Treatment Plan - Problem List (1) Alcohol use disorder Current Visit: Yes Comment: . (2) Opioid dependence Current Visit: Yes Qualifiers: Substance use status: uncomplicated Qualified Code(s): F11.20 - Opioid dependence, uncomplicated Comment: . (3) Cannabis dependence Current Visit: Yes Comment: . (4) Nicotine dependence Current Visit: Yes Qualifiers: Nicotine product type: cigarettes Substance use status: uncomplicated Qualified Code(s): F17.210 - Nicotine dependence, cigarettes, uncomplicated Comment: . (5) History of depression Current Visit: Yes Comment: .
[2020-07-31] MEDS: WARFARIN NA 3 MG TABLET PO SCH (18:38)
[2020-07-31] MEDS: MELATONIN 5 MG TABLETS PO SCH (21:23)
[2020-07-31] MEDS: hydrOXYzine PAMOATE 50 MG CAPSULE (FP) PO PRN (21:23)
[2020-07-31] MEDS: THIAMINE HCL 100 MG TABLET (FP) PO SCH (21:23)
[2020-07-31] MEDS: QUEtiapine FUMARATE 400 MG TABLET PO SCH (21:23)
[2020-08-01] MEDS: WARFARIN NA 3 MG TABLET PO SCH (07:35)
[2020-08-01] MEDS: PRENATAL VITAMINS W/ FOLIC ACID TABLET (FP) PO SCH (10:11)
[2020-08-01] MEDS: NICOTINE 14 MG/24 HOURS TOPICAL PATCH TD SCH (10:12)
[2020-08-01] MEDS: hydrOXYzine PAMOATE 50 MG CAPSULE (FP) PO PRN ×2 (10:12→16:59)
[2020-08-01] MEDS: PANTOPRAZOLE 40 MG TABLET PO SCH (10:12)
[2020-08-01] MEDS: QUEtiapine FUMARATE 200 MG TABLET PO SCH (10:12)
[2020-08-01] MEDS: ACETAMINOPHEN 325 MG TABLET (FP) PO PRN (16:59)
[2020-08-01] MEDS: QUEtiapine FUMARATE 400 MG TABLET PO SCH (21:12)
[2020-08-01] MEDS: THIAMINE HCL 100 MG TABLET (FP) PO SCH (21:12)
[2020-08-01] MEDS: MELATONIN 5 MG TABLETS PO SCH (21:13)
[2020-08-02] MEDS: ACETAMINOPHEN 325 MG TABLET (FP) PO PRN ×2 (01:00→06:08)
[2020-08-02] MEDS: hydrOXYzine PAMOATE 50 MG CAPSULE (FP) PO PRN (01:01)
[2020-08-02 06:42] VITALS: BP 134/79; PULSE 77; TEMP 98.4
[2020-08-02] MEDS ORDERED: IBUPROFEN 400 MG TABLET (FP) PO ONE (07:13)
--- NOTE | 2020-08-02 07:13 | PN ---
S Progress Note Note: Patient complained of toothache. Vital Signs Temperature 98.4 F 08/02/20 05:55 Pulse Rate 77 08/02/20 05:55 Respiratory Rate 18 08/02/20 05:55 Blood Pressure 134/79 08/02/20 05:55 O2 Sat by Pulse Oximetry (%) 99 08/02/20 05:55 Action: Ibuprofen 400mg tablet oral ordered
--- NOTE | 2020-08-02 09:18 | DS ---
[facility] Rehab Discharge Summary - [facility] Rehab Discharge Summary Admission Date: 07/28/20 Discharge Date: 08/02/20 - History Present History: Alcohol dependence, Cannabis dependence, Opioid dependence Pertinent Past History: Mr. Foley is a 55 yo man who presents to [facility] with history of alcohol and heroin use. He was last here in 2019 when he completed detox (see below). PMH: DVT/PE on Coumadin 8 mg qd, GERD, anemia PSH; none Psych: anxiety, depression: Seroquel 200 qam, Ambien SOC: lives alone Legal: none - Discharge Physical Exam Vital Signs: Vital Signs Temperature 98.4 F 08/02/20 05:55 Pulse Rate 77 08/02/20 05:55 Respiratory Rate 18 08/02/20 05:55 Blood Pressure 134/79 08/02/20 05:55 O2 Sat by Pulse Oximetry (%) 99 08/02/20 05:55 Pertinent Admission Physical Exam Findings: Physical General Appearance: No Apparent Distress, HEENTM: EOMI, Hearing grossly Normal, Normocephalic, Respiratory: No Respiratory Distress, No Accessory Muscle Use Neck: Supple Cardiology: Regular Rhythm & Rate Abdominal: Flat, +Bowel Sounds Musculoskeletal: Full weight bearing, full ROM, Gait Steady Neurological: CN 2-12 grossly intact - Treatment Discharge Condition: Discharge condition good (Medically stable for discharge.), Outpatient referral accepted (Patient will go to [facility] aftercare program on [facility] in the [place]; he will also receive psychiatric treatment at [facility] and also attend the Coumadin clinic once a month.) Hospital Course: Patient attended groups, had 1:1 with his counselor, was seen by the psychiatric service. He was adherent to his medication regimen and treatment plan. His Coumadin was managed while he was in rehab. - Medication Discharge Medications: Ambulatory Orders Zolpidem Tartrate [Ambien] 10 mg PO HS 09/21/19 Quetiapine Fumarate [Seroquel -] 200 mg PO DAILY #30 tablet 06/20/20 Quetiapine Fumarate [Seroquel] 400 mg PO HS #30 tablet 06/20/20 Pantoprazole Sodium [Protonix] 40 mg PO DAILY 7 Days #7 tab 08/01/20 Quetiapine Fumarate [Seroquel -] 200 mg PO DAILY #30 tablet 09/30/20 Quetiapine Fumarate [Seroquel -] 400 mg PO HS #30 tablet 08/01/20 Warfarin Sodium 8 mg PO HS 7 Days #7 tablet 08/01/20 - Medication-Assisted Treatment (MAT) Medication-Assisted Treatment (MAT): No - Discharge Instructions Diet, activity, other medical instructions: Diet: as tolerated Activity: as tolerated Other medical instructions: Please follow up with aftercare referrals - Diagnosis (1) Alcohol use disorder Current Visit: Yes Status: Chronic (2) Cannabis dependence Current Visit: Yes Status: Chronic (3) Opioid dependence Current Visit: Yes Status: Chronic Qualifiers: Substance use status: uncomplicated Qualified Code(s): F11.20 - Opioid dependence, uncomplicated - Follow-up Referral Minutes to complete discharge: 15 - AMA Did Patient Leave Against Medical Advice: No
== END 2020-08-02 08:46 | disposition home or self-care (01) | DRG 772 ==
LOC: YASAS 15:34 → Y3W 15:38
PROVIDERS: ADMIT Allergy & Immunology; ATTEND Allergy & Immunology
PROC: HZ42ZZZ Group Counseling for Substance Abuse Treatment, Cognitive-Behavioral (ICD-10-PCS; principal; 2020-07-28)
DX: F10.20 Alcohol dependence, uncomplicated (principal); F11.20 Opioid dependence, uncomplicated; F12.20 Cannabis dependence, uncomplicated; F17.210 Nicotine dependence, cigarettes, uncomplicated; F41.9 Anxiety disorder, unspecified; F32.9 Major depressive disorder, single episode, unspecified; D72.829 Elevated white blood cell count, unspecified; D64.9 Anemia, unspecified; K21.9 Gastro-esophageal reflux disease without esophagitis; K08.89 Other specified disorders of teeth and supporting structures; Z86.718 Personal history of other venous thrombosis and embolism; Z86.711 Personal history of pulmonary embolism; Z79.01 Long term (current) use of anticoagulants
CPT/HCPCS: 36415; 71046-TC-FY; 81003; 85025; 85610; 87086

== ENCOUNTER 2020-09-19 11:43 | Inpatient (IN) | payer OTHER ==
[2020-09-19] MEDS ORDERED: ACETAMINOPHEN 325 MG TABLET (FP) PO PRN ×2 (16:05)
[2020-09-19] MEDS ORDERED: MAGNESIUM CITRATE 300 ML BOTTLE PO PRN (16:05)
[2020-09-19] MEDS ORDERED: MAGNESIUM HYDROX 2400MG/30ML ORAL SUSPENSION 30 ML CUP PO PRN (16:05)
[2020-09-19] MEDS ORDERED: MAG HYDROX/AL HYDROX/SIMETH 30 ML UNIT-DOSE CUP PO PRN (16:05)
[2020-09-19] MEDS ORDERED: METHOCARBAMOL 500 MG TABLET PO PRN (16:05)
[2020-09-19] MEDS ORDERED: NICOTINE POLACRILEX 2 MG GUM BUC PRN (16:05)
[2020-09-19] MEDS ORDERED: BISMUTH SUBSALICYLATE 524 MG/30 ML UD PO PRN (16:05)
[2020-09-19] MEDS ORDERED: IBUPROFEN 400 MG TABLET (FP) PO PRN (16:05)
[2020-09-19] MEDS ORDERED: chlordiazePOXIDE HCL 25 MG CAPSULE PO ONE (16:05)
[2020-09-19] MEDS ORDERED: cloNIDine HCL 0.1 MG TABLET PO PRN (16:05)
[2020-09-19] MEDS ORDERED: chlordiazePOXIDE HCL 25 MG CAPSULE PO PRN (16:05)
[2020-09-19] MEDS ORDERED: ONDANSETRON *ODT* 4 MG TABLET SL PRN (16:05)
[2020-09-19] MEDS ORDERED: MENTHOL/PHENOL 1 EACH UD MM PRN (16:05)
[2020-09-19] MEDS ORDERED: METHADONE HCL 10 MG TABLET (FOR DETOX USE ONLY) PO ONE (16:05)
[2020-09-19] MEDS: NICOTINE 14 MG/24 HOURS TOPICAL PATCH TD SCH (16:45)
[2020-09-19] MEDS ORDERED: WARFARIN NA 5 MG, WARFARIN NA 3 MG PO SCH (18:00)
[2020-09-19] MEDS: hydrOXYzine PAMOATE 25 MG CAPSULE (FP) PO SCH ×2 (18:36→22:13)
[2020-09-19] MEDS ORDERED: PATIENT'S OWN MEDICATION (NON-FORMULARY) (Warfarin Sodium [Warfarin Sodium] 4 MG Tablet) PO SCH (22:00)
[2020-09-19] MEDS: THIAMINE HCL 100 MG TABLET (FP) PO SCH (22:12)
[2020-09-19] MEDS: WARFARIN NA 5 MG, WARFARIN NA 3 MG PO SCH (22:12)
[2020-09-19] MEDS: chlordiazePOXIDE HCL 25 MG CAPSULE PO SCH (22:13)
[2020-09-19] MEDS: MELATONIN 5 MG TABLETS PO SCH (22:13)
[2020-09-20] MEDS: chlordiazePOXIDE HCL 25 MG CAPSULE PO SCH ×4 (06:51→22:27)
[2020-09-20] MEDS: hydrOXYzine PAMOATE 25 MG CAPSULE (FP) PO SCH ×5 (06:51→22:29)
[2020-09-20] MEDS ORDERED: METHADONE HCL 5 MG TABLET (FOR DETOX USE ONLY) ONE (09:24)
[2020-09-20] MEDS ORDERED: METHADONE HCL 10 MG TABLET (FOR DETOX USE ONLY) ONE (09:25)
[2020-09-20] MEDS ORDERED: METHADONE (DETOX) 20 MG, METHADONE (DETOX) 5 MG PO ONE (10:00)
[2020-09-20] MEDS: PRENATAL VITAMINS W/ FOLIC ACID TABLET (FP) PO SCH (10:25)
[2020-09-20] MEDS: NICOTINE 14 MG/24 HOURS TOPICAL PATCH TD SCH (10:25)
[2020-09-20] MEDS: CITALOPRAM HYDROBROMIDE 20 MG TABLET PO SCH (12:09)
[2020-09-20] MEDS: PANTOPRAZOLE 40 MG TABLET PO SCH (12:09)
[2020-09-20] MEDS: QUEtiapine FUMARATE 200 MG TABLET PO SCH (12:09)
[2020-09-20 14:53] LABS: HEMATOCRIT 32.9 % (35.4-49); HEMOGLOBIN 10.8 GM/dL (11.7-16.9); MCH 29.9 pg (25.7-33.7); MCHC 32.8 g/dl (32.0-35.9); MEAN CELL VOLUME 91.1 fl (80-96); MEAN PLT VOLUME 8.7 fl (7.5-11.1); PLATELET COUNT 329 K/MM3 (134-434); RBC 3.61 M/mm3 (4.00-5.60); RDW 15.6 % (11.9-15.9); WHITE BLOOD COUNT 4.7 K/mm3 (4.0-10.0)
[2020-09-20 15:00] LABS: INR 1.55 (0.83-1.09); PROTHROMBIN TIME (PATIENT) 18.8 SEC (9.7-13.0)
[2020-09-20 15:03] LABS: ACTIVATED PTT 44.7 SECONDS (25.2-36.5)
[2020-09-20 15:21] LABS: POTASSIUM 4.5 mmol/L (3.5-5.1)
[2020-09-20 15:26] LABS: ALBUMIN 3.2 g/dl (3.4-5.0); CALCIUM 8.9 mg/dL (8.5-10.1)
[2020-09-20 15:27] LABS: BLOOD UREA NITROGEN 15.6 mg/dL (7-18)
[2020-09-20 15:31] LABS: CREATININE 0.9 mg/dL (0.55-1.3)
[2020-09-20 15:32] LABS: BILIRUBIN,TOTAL 0.5 mg/dL (0.2-1); TOT PROT 6.2 g/dl (6.4-8.2)
[2020-09-20] MEDS: WARFARIN NA 5 MG, WARFARIN NA 3 MG PO SCH (17:45)
[2020-09-20] MEDS ORDERED: SUVOREXANT 10 MG TABLET PO PRN (22:00)
[2020-09-20] MEDS: THIAMINE HCL 100 MG TABLET (FP) PO SCH (22:27)
[2020-09-20] MEDS: QUEtiapine FUMARATE 400 MG TABLET PO SCH (22:27)
[2020-09-20] MEDS: MELATONIN 5 MG TABLETS PO SCH (22:28)
[2020-09-21] MEDS: hydrOXYzine PAMOATE 25 MG CAPSULE (FP) PO SCH ×5 (05:48→23:27)
[2020-09-21] MEDS: chlordiazePOXIDE HCL 25 MG CAPSULE PO SCH ×4 (05:48→22:29)
[2020-09-21] MEDS ORDERED: METHADONE HCL 10 MG TABLET (FOR DETOX USE ONLY) PO ONE (10:00)
[2020-09-21] MEDS: CITALOPRAM HYDROBROMIDE 20 MG TABLET PO SCH (10:16)
[2020-09-21] MEDS: QUEtiapine FUMARATE 200 MG TABLET PO SCH (10:16)
[2020-09-21] MEDS: PANTOPRAZOLE 40 MG TABLET PO SCH (10:17)
[2020-09-21] MEDS: PRENATAL VITAMINS W/ FOLIC ACID TABLET (FP) PO SCH (10:20)
[2020-09-21] MEDS: NICOTINE 14 MG/24 HOURS TOPICAL PATCH TD SCH (10:20)
[2020-09-21] MEDS: WARFARIN NA 5 MG, WARFARIN NA 3 MG PO SCH (17:58)
[2020-09-21] MEDS: QUEtiapine FUMARATE 400 MG TABLET PO SCH (22:30)
[2020-09-21] MEDS: THIAMINE HCL 100 MG TABLET (FP) PO SCH (22:30)
[2020-09-21] MEDS: MELATONIN 5 MG TABLETS PO SCH (22:31)
[2020-09-22] MEDS ORDERED: chlordiazePOXIDE HCL 10 MG CAPSULE PO PRN
[2020-09-22] MEDS: hydrOXYzine PAMOATE 25 MG CAPSULE (FP) PO SCH ×6 (06:49→22:22)
[2020-09-22] MEDS: chlordiazePOXIDE HCL 10 MG CAPSULE PO SCH ×4 (06:49→22:22)
[2020-09-22] MEDS ORDERED: METHADONE HCL 10 MG TABLET (FOR DETOX USE ONLY) ONE (09:35)
[2020-09-22] MEDS ORDERED: METHADONE HCL 5 MG TABLET (FOR DETOX USE ONLY) ONE (09:35)
[2020-09-22 09:40] LABS: HEMATOCRIT 33.6 % (35.4-49); HEMOGLOBIN 11.2 GM/dL (11.7-16.9); MCH 30.4 pg (25.7-33.7); MCHC 33.3 g/dl (32.0-35.9); MEAN CELL VOLUME 91.3 fl (80-96); PLATELET COUNT 314 K/MM3 (134-434); RBC 3.68 M/mm3 (4.00-5.60); RDW 15.1 % (11.9-15.9); WHITE BLOOD COUNT 4.9 K/mm3 (4.0-10.0)
[2020-09-22 09:48] LABS: INR 1.89 (0.83-1.09); PROTHROMBIN TIME (PATIENT) 22.8 SEC (9.7-13.0)
[2020-09-22] MEDS ORDERED: METHADONE (DETOX) 10 MG, METHADONE (DETOX) 5 MG PO ONE (10:00)
[2020-09-22] MEDS: PANTOPRAZOLE 40 MG TABLET PO SCH (10:13)
[2020-09-22] MEDS: CITALOPRAM HYDROBROMIDE 20 MG TABLET PO SCH (10:13)
[2020-09-22] MEDS: QUEtiapine FUMARATE 200 MG TABLET PO SCH (10:13)
[2020-09-22] MEDS: NICOTINE 14 MG/24 HOURS TOPICAL PATCH TD SCH (10:14)
[2020-09-22] MEDS: PRENATAL VITAMINS W/ FOLIC ACID TABLET (FP) PO SCH (10:14)
[2020-09-22] MEDS: WARFARIN NA 5 MG, WARFARIN NA 3 MG PO SCH (17:50)
[2020-09-22] MEDS: THIAMINE HCL 100 MG TABLET (FP) PO SCH (22:22)
[2020-09-22] MEDS: QUEtiapine FUMARATE 400 MG TABLET PO SCH (22:22)
[2020-09-22] MEDS: MELATONIN 5 MG TABLETS PO SCH (22:23)
[2020-09-23] MEDS: chlordiazePOXIDE HCL 10 MG CAPSULE PO SCH ×2 (07:53→17:11)
[2020-09-23] MEDS: hydrOXYzine PAMOATE 25 MG CAPSULE (FP) PO SCH ×5 (07:53→21:02)
[2020-09-23] MEDS: CITALOPRAM HYDROBROMIDE 20 MG TABLET PO SCH (09:58)
[2020-09-23] MEDS: PANTOPRAZOLE 40 MG TABLET PO SCH (09:58)
[2020-09-23] MEDS: QUEtiapine FUMARATE 200 MG TABLET PO SCH (09:58)
[2020-09-23] MEDS: PRENATAL VITAMINS W/ FOLIC ACID TABLET (FP) PO SCH (09:59)
[2020-09-23] MEDS: NICOTINE 14 MG/24 HOURS TOPICAL PATCH TD SCH (09:59)
[2020-09-23] MEDS ORDERED: METHADONE HCL 10 MG TABLET (FOR DETOX USE ONLY) PO ONE (10:00)
[2020-09-23] MEDS: WARFARIN NA 5 MG, WARFARIN NA 3 MG PO SCH (17:12)
[2020-09-23] MEDS: QUEtiapine FUMARATE 400 MG TABLET PO SCH (21:02)
[2020-09-23] MEDS: THIAMINE HCL 100 MG TABLET (FP) PO SCH (21:02)
[2020-09-23] MEDS: MELATONIN 5 MG TABLETS PO SCH (21:02)
[2020-09-24] MEDS ORDERED: chlordiazePOXIDE HCL 10 MG CAPSULE PO ONE (05:00)
[2020-09-24] MEDS ORDERED: METHADONE HCL 5 MG TABLET (FOR DETOX USE ONLY) PO ONE (06:00)
[2020-09-24] MEDS: hydrOXYzine PAMOATE 25 MG CAPSULE (FP) PO SCH (06:29)
[2020-09-24 07:22] VITALS: BP 118/68; PULSE 69; TEMP 98.7
== END 2020-09-24 08:50 | disposition home or self-care (01) | DRG 773 ==
LOC: YASAS 11:43 → Y6N 15:21
PROVIDERS: ADMIT Allergy & Immunology; ATTEND Allergy & Immunology
PROC: HZ2ZZZZ Detoxification Services for Substance Abuse Treatment (ICD-10-PCS; principal; 2020-09-19)
DX: F10.230 Alcohol dependence with withdrawal, uncomplicated (principal); F11.23 Opioid dependence with withdrawal; F12.20 Cannabis dependence, uncomplicated; F17.210 Nicotine dependence, cigarettes, uncomplicated; F19.282 Other psychoactive substance dependence with psychoactive substance-induced sleep disorder; F33.3 Major depressive disorder, recurrent, severe with psychotic symptoms; F19.24 Other psychoactive substance dependence with psychoactive substance-induced mood disorder; I21.3 ST elevation (STEMI) myocardial infarction of unspecified site; D64.9 Anemia, unspecified; Z86.718 Personal history of other venous thrombosis and embolism; Z79.01 Long term (current) use of anticoagulants; Z86.711 Personal history of pulmonary embolism; Z87.19 Personal history of other diseases of the digestive system; Z95.828 Presence of other vascular implants and grafts
CPT/HCPCS: 36415; 80053; 85027; 85610; 85730; 86593; 86780; 93005; 93010; C9803; U0003

== ENCOUNTER 2020-10-30 10:48 | Inpatient (IN) | payer OTHER ==
[2020-10-30 11:37] VITALS: BMI 18.6
[2020-10-30] MEDS ORDERED: MENTHOL/PHENOL 1 EACH UD MM PRN (12:34)
[2020-10-30] MEDS ORDERED: MAGNESIUM HYDROX 2400MG/30ML ORAL SUSPENSION 30 ML CUP PO PRN (12:34)
[2020-10-30] MEDS ORDERED: methaDONE HCL 10 MG TABLET (FOR DETOX USE ONLY) PO ONE (12:34)
[2020-10-30] MEDS ORDERED: IBUPROFEN 400 MG TABLET (FP) PO PRN (12:34)
[2020-10-30] MEDS ORDERED: METHOCARBAMOL 500 MG TABLET PO PRN (12:34)
[2020-10-30] MEDS ORDERED: ACETAMINOPHEN 325 MG TABLET (FP) PO PRN ×2 (12:34)
[2020-10-30] MEDS ORDERED: NICOTINE POLACRILEX 2 MG GUM BUC PRN (12:34)
[2020-10-30] MEDS ORDERED: MAGNESIUM CITRATE 300 ML BOTTLE PO PRN (12:34)
[2020-10-30] MEDS ORDERED: chlordiazePOXIDE HCL 25 MG CAPSULE PO PRN (12:34)
[2020-10-30] MEDS ORDERED: cloNIDine HCL 0.1 MG TABLET PO PRN (12:34)
[2020-10-30] MEDS ORDERED: BISMUTH SUBSALICYLATE 524 MG/30 ML PO PRN (12:34)
[2020-10-30] MEDS: hydrOXYzine PAMOATE 25 MG CAPSULE (FP) PO SCH ×3 (14:27→22:14)
[2020-10-30 15:06] LABS: HEMATOCRIT 35.7 % (35.4-49); HEMOGLOBIN 11.9 GM/dL (11.7-16.9); MCH 30.9 pg (25.7-33.7); MCHC 33.3 g/dl (32.0-35.9); MEAN CELL VOLUME 92.8 fl (80-96); PLATELET COUNT 265 K/MM3 (134-434); RBC 3.85 M/mm3 (4.00-5.60)
[2020-10-30 15:10] LABS: ALBUMIN 3.6 g/dl (3.4-5.0); BLOOD UREA NITROGEN 17.8 mg/dL (7-18); CALCIUM 8.8 mg/dL (8.5-10.1)
[2020-10-30 15:12] LABS: CREATININE 0.9 mg/dL (0.55-1.3); INR 1.66 (0.83-1.09); PROTHROMBIN TIME (PATIENT) 20.1 SEC (9.7-13.0)
[2020-10-30 15:14] LABS: BILIRUBIN,TOTAL 0.4 mg/dL (0.2-1); TOT PROT 7.1 g/dl (6.4-8.2)
[2020-10-30] MEDS: chlordiazePOXIDE HCL 25 MG CAPSULE PO SCH ×2 (17:37→22:13)
[2020-10-30] MEDS: WARFARIN NA 5 MG, WARFARIN NA 3 MG PO SCH (17:38)
[2020-10-30] MEDS ORDERED: WARFARIN NA 7.5 MG TABLET PO SCH (21:00)
[2020-10-30] MEDS ORDERED: SUVOREXANT 10 MG TABLET PO PRN (22:00)
[2020-10-30] MEDS: QUEtiapine FUMARATE 400 MG TABLET PO SCH (22:14)
[2020-10-30] MEDS: MELATONIN 5 MG TABLETS PO SCH (22:14)
[2020-10-30] MEDS: THIAMINE HCL 100 MG TABLET (FP) PO SCH (22:14)
[2020-10-31] MEDS: chlordiazePOXIDE HCL 25 MG CAPSULE PO SCH ×4 (06:41→22:08)
[2020-10-31] MEDS: hydrOXYzine PAMOATE 25 MG CAPSULE (FP) PO SCH ×5 (06:41→22:08)
[2020-10-31] MEDS ORDERED: methaDONE HCL 10 MG TABLET (FOR DETOX USE ONLY) ONE (08:25)
[2020-10-31] MEDS: PRENATAL VITAMINS W/ FOLIC ACID TABLET (FP) PO SCH (10:30)
[2020-10-31] MEDS: PANTOPRAZOLE 40 MG TABLET PO SCH (10:30)
[2020-10-31] MEDS: QUEtiapine FUMARATE 200 MG TABLET PO SCH (10:31)
[2020-10-31] MEDS: NICOTINE 14 MG/24 HOURS TOPICAL PATCH TD SCH (10:31)
[2020-10-31] MEDS: CITALOPRAM HYDROBROMIDE 20 MG TABLET PO SCH (10:31)
[2020-10-31] MEDS: WARFARIN NA 5 MG, WARFARIN NA 3 MG PO SCH (17:21)
[2020-10-31] MEDS: QUEtiapine FUMARATE 400 MG TABLET PO SCH (22:08)
[2020-10-31] MEDS: MELATONIN 5 MG TABLETS PO SCH (22:08)
[2020-10-31] MEDS: THIAMINE HCL 100 MG TABLET (FP) PO SCH (22:08)
[2020-11-01] MEDS: hydrOXYzine PAMOATE 25 MG CAPSULE (FP) PO SCH ×5 (06:39→23:38)
[2020-11-01] MEDS: chlordiazePOXIDE HCL 25 MG CAPSULE PO SCH ×4 (06:39→22:08)
[2020-11-01] MEDS ORDERED: methaDONE HCL 10 MG TABLET (FOR DETOX USE ONLY) PO ONE (10:00)
[2020-11-01] MEDS: PRENATAL VITAMINS W/ FOLIC ACID TABLET (FP) PO SCH (10:12)
[2020-11-01] MEDS: PANTOPRAZOLE 40 MG TABLET PO SCH (10:13)
[2020-11-01] MEDS: CITALOPRAM HYDROBROMIDE 20 MG TABLET PO SCH (10:13)
[2020-11-01] MEDS: QUEtiapine FUMARATE 200 MG TABLET PO SCH (10:14)
[2020-11-01] MEDS: NICOTINE 14 MG/24 HOURS TOPICAL PATCH TD SCH (10:15)
[2020-11-01] MEDS: WARFARIN NA 5 MG, WARFARIN NA 3 MG PO SCH (18:01)
[2020-11-01] MEDS: THIAMINE HCL 100 MG TABLET (FP) PO SCH (22:07)
[2020-11-01] MEDS: MELATONIN 5 MG TABLETS PO SCH (22:08)
[2020-11-01] MEDS: QUEtiapine FUMARATE 400 MG TABLET PO SCH (22:08)
[2020-11-02] MEDS ORDERED: chlordiazePOXIDE HCL 10 MG CAPSULE PO PRN
[2020-11-02] MEDS: hydrOXYzine PAMOATE 25 MG CAPSULE (FP) PO SCH ×5 (05:56→22:22)
[2020-11-02] MEDS: chlordiazePOXIDE HCL 10 MG CAPSULE PO SCH ×4 (05:56→22:22)
[2020-11-02] MEDS ORDERED: methaDONE HCL 10 MG TABLET (FOR DETOX USE ONLY) ONE (08:46)
[2020-11-02 09:53] LABS: INR 1.94 (0.83-1.09)
[2020-11-02] MEDS: CITALOPRAM HYDROBROMIDE 20 MG TABLET PO SCH (10:13)
[2020-11-02] MEDS: QUEtiapine FUMARATE 200 MG TABLET PO SCH (10:13)
[2020-11-02] MEDS: PRENATAL VITAMINS W/ FOLIC ACID TABLET (FP) PO SCH (10:13)
[2020-11-02] MEDS: NICOTINE 14 MG/24 HOURS TOPICAL PATCH TD SCH (10:14)
[2020-11-02] MEDS: PANTOPRAZOLE 40 MG TABLET PO SCH (10:14)
[2020-11-02] MEDS: WARFARIN NA 5 MG, WARFARIN NA 3 MG PO SCH (17:42)
[2020-11-02] MEDS: MAG HYDROX/AL HYDROX/SIMETH 30 ML UNIT-DOSE CUP PO PRN (19:24)
[2020-11-02] MEDS: ONDANSETRON *ODT* 4 MG TABLET SL PRN (19:24)
[2020-11-02] MEDS: QUEtiapine FUMARATE 400 MG TABLET PO SCH (22:21)
[2020-11-02] MEDS: MELATONIN 5 MG TABLETS PO SCH (22:21)
[2020-11-02] MEDS: THIAMINE HCL 100 MG TABLET (FP) PO SCH (22:22)
[2020-11-03] MEDS: hydrOXYzine PAMOATE 25 MG CAPSULE (FP) PO SCH ×4 (07:20→22:47)
[2020-11-03] MEDS: chlordiazePOXIDE HCL 10 MG CAPSULE PO SCH ×2 (07:20→22:47)
[2020-11-03] MEDS ORDERED: methaDONE HCL 10 MG TABLET (FOR DETOX USE ONLY) PO ONE (10:00)
[2020-11-03] MEDS ORDERED: TRIMETHOBENZAMIDE HCL 200MG/2ML INJ IM ONE (10:44)
[2020-11-03] MEDS: ONDANSETRON *ODT* 4 MG TABLET SL PRN (11:17)
[2020-11-03] MEDS: MAG HYDROX/AL HYDROX/SIMETH 30 ML UNIT-DOSE CUP PO PRN (11:18)
[2020-11-03] MEDS: CITALOPRAM HYDROBROMIDE 20 MG TABLET PO SCH (13:06)
[2020-11-03] MEDS: QUEtiapine FUMARATE 200 MG TABLET PO SCH (13:08)
[2020-11-03] MEDS: NICOTINE 14 MG/24 HOURS TOPICAL PATCH TD SCH (13:08)
[2020-11-03] MEDS: PRENATAL VITAMINS W/ FOLIC ACID TABLET (FP) PO SCH (13:09)
[2020-11-03] MEDS: PANTOPRAZOLE 40 MG TABLET PO SCH (13:10)
[2020-11-03 15:56] VITALS: BP 161/90; PULSE 78; TEMP 98.4
[2020-11-03] MEDS: WARFARIN NA 5 MG, WARFARIN NA 3 MG PO SCH (22:47)
[2020-11-03] MEDS: MELATONIN 5 MG TABLETS PO SCH (22:48)
[2020-11-03] MEDS: THIAMINE HCL 100 MG TABLET (FP) PO SCH (22:48)
[2020-11-03] MEDS: QUEtiapine FUMARATE 400 MG TABLET PO SCH (22:48)
[2020-11-04] MEDS ORDERED: chlordiazePOXIDE HCL 10 MG CAPSULE PO ONE (05:00)
[2020-11-04] MEDS: hydrOXYzine PAMOATE 25 MG CAPSULE (FP) PO SCH (05:40)
== END 2020-11-03 23:55 | disposition short-term general hospital (02) | DRG 773 ==
LOC: YASAS 10:48 → Y3N 13:06
PROVIDERS: ADMIT Allergy & Immunology; ATTEND Allergy & Immunology
PROC: HZ2ZZZZ Detoxification Services for Substance Abuse Treatment (ICD-10-PCS; principal; 2020-10-30)
DX: F11.23 Opioid dependence with withdrawal (principal); F10.230 Alcohol dependence with withdrawal, uncomplicated; F12.20 Cannabis dependence, uncomplicated; F17.210 Nicotine dependence, cigarettes, uncomplicated; F33.3 Major depressive disorder, recurrent, severe with psychotic symptoms; F19.282 Other psychoactive substance dependence with psychoactive substance-induced sleep disorder; F19.24 Other psychoactive substance dependence with psychoactive substance-induced mood disorder; F31.9 Bipolar disorder, unspecified; F43.10 Post-traumatic stress disorder, unspecified; K29.70 Gastritis, unspecified, without bleeding; K21.9 Gastro-esophageal reflux disease without esophagitis; R10.13 Epigastric pain; R11.2 Nausea with vomiting, unspecified; Z20.2 Contact with and (suspected) exposure to infections with a predominantly sexual mode of transmission; Z86.711 Personal history of pulmonary embolism; Z86.718 Personal history of other venous thrombosis and embolism; Z95.5 Presence of coronary angioplasty implant and graft; Z79.01 Long term (current) use of anticoagulants
CPT/HCPCS: 36415; 80053; 85027; 85610; 86593; 86780; C9803; Q0162; U0003

== ENCOUNTER 2020-11-03 17:17 | Inpatient (IN) | payer OTHER ==
[2020-11-03] MEDS ORDERED: LACTATED RINGERS SOLUTION 1000 ML INFUS.BAG IV ONE (18:27)
[2020-11-03] MEDS ORDERED: PANTOPRAZOLE SODIUM 40 MG VIAL IVPUSH ONE (18:27)
[2020-11-03] MEDS ORDERED: MAG HYDROX/AL HYDROX/SIMETH 30 ML UNIT-DOSE CUP PO ONE (18:27)
[2020-11-03] MEDS ORDERED: ONDANSETRON 4 MG/2 ML VIAL IVPB ONE (18:27)
[2020-11-03] MEDS ORDERED: ONDANSETRON 4 MG/2 ML VIAL IVPUSH ONE (18:31)
[2020-11-03] MEDS ORDERED: MAG HYDROX/AL HYDROX/SIMETH 30 ML UNIT-DOSE CUP ONE (19:18)
[2020-11-03] MEDS ORDERED: ONDANSETRON 4 MG/2 ML VIAL ONE (19:18)
[2020-11-03] MEDS ORDERED: PANTOPRAZOLE SODIUM 40 MG/100 ML BAG IVPB ONE (19:18)
[2020-11-03] MEDS ORDERED: PANTOPRAZOLE SODIUM 40 MG VIAL ONE (19:19)
[2020-11-03 20:22] LABS: BASO % 0.2 % (0-2.0); EOS % 0.2 % (0-4.5); HEMATOCRIT 46.7 % (35.4-49); HEMOGLOBIN 15.6 GM/dL (11.7-16.9); LYMPH % 8.8 % (8-40); MCH 30.3 pg (25.7-33.7); MCHC 33.3 g/dl (32.0-35.9); MEAN CELL VOLUME 90.8 fl (80-96); MEAN PLT VOLUME 9.7 fl (7.5-11.1); MONO % 5.9 % (3.8-10.2); NEUT % 84.9 % (42.8-82.8); PLATELET COUNT 314 K/MM3 (134-434); RBC 5.15 M/mm3 (4.00-5.60); RDW 15.4 % (11.9-15.9); WHITE BLOOD COUNT 13.5 K/mm3 (4.0-10.0)
[2020-11-03 20:40] LABS: MAGNESIUM 2.4 mg/dL (1.8-2.4)
[2020-11-03 20:43] LABS: CALCIUM 10.2 mg/dL (8.5-10.1)
[2020-11-03 20:44] LABS: ALBUMIN 4.4 g/dl (3.4-5.0); BLOOD UREA NITROGEN 19.7 mg/dL (7-18)
[2020-11-03 20:47] LABS: CREATININE 1.2 mg/dL (0.55-1.3)
[2020-11-03 20:48] LABS: BILIRUBIN,TOTAL 0.4 mg/dL (0.2-1)
[2020-11-03 20:49] LABS: TOT PROT 8.6 g/dl (6.4-8.2)
[2020-11-03 21:11] LABS: INR 1.72 (0.83-1.09); PROTHROMBIN TIME (PATIENT) 20.8 SEC (9.7-13.0)
[2020-11-04] MEDS ORDERED: FOLIC ACID INJECTION - 1 MG, THIAMINE HCL 100 MG, MULTIVIT INJECTION ADULT 10 ML in SOD... IVPB ONE (00:58)
[2020-11-04] MEDS ORDERED: chlordiazePOXIDE HCL 25 MG CAPSULE PO PRN (00:58)
[2020-11-04] MEDS ORDERED: PANTOPRAZOLE 40 MG TABLET ONE (02:02)
[2020-11-04] MEDS: PANTOPRAZOLE 40 MG TABLET PO SCH ×3 (02:06→23:13)
[2020-11-04] MEDS ORDERED: PNEUMOC 13-VAL CONJ-DIP CRM/PF 0.5 ML DISP.SYRIN IM ONE (04:39)
[2020-11-04] MEDS ORDERED: PNEUMOCOCCAL 23 VACCINE 0.5 ML VIAL IM ONE (05:00)
[2020-11-04] MEDS: chlordiazePOXIDE HCL 25 MG CAPSULE PO SCH ×4 (06:23→23:13)
[2020-11-04] MEDS ORDERED: PT OWN MED DRAWER 7, Y5N ONE (09:14)
[2020-11-04] MEDS: POLYETHYLENE GLYCOL 3350 119 GM BTL PO SCH (09:29)
[2020-11-04 09:36] LABS: BASO % 0.7 % (0-2.0); EOS % 1.7 % (0-4.5); HEMATOCRIT 37.9 % (35.4-49); HEMOGLOBIN 12.7 GM/dL (11.7-16.9); LYMPH % 26.6 % (8-40); MCH 30.4 pg (25.7-33.7); MCHC 33.4 g/dl (32.0-35.9); MEAN CELL VOLUME 90.9 fl (80-96); MEAN PLT VOLUME 9.5 fl (7.5-11.1); MONO % 9.4 % (3.8-10.2); NEUT % 61.6 % (42.8-82.8); PLATELET COUNT 263 K/MM3 (134-434); RBC 4.17 M/mm3 (4.00-5.60); RDW 14.8 % (11.9-15.9); WHITE BLOOD COUNT 7.6 K/mm3 (4.0-10.0)
[2020-11-04 09:44] LABS: INR 1.55 (0.83-1.09); PROTHROMBIN TIME (PATIENT) 18.5 SEC (9.7-13.0)
[2020-11-04 09:47] LABS: ACTIVATED PTT 32.5 SECONDS (25.2-36.5)
[2020-11-04 10:13] LABS: CHLORIDE 101 mmol/L (98-107); POTASSIUM 4.5 mmol/L (3.5-5.1); SODIUM 137 mmol/L (136-145)
[2020-11-04 10:16] LABS: ALBUMIN 3.3 g/dl (3.4-5.0); ANION GAP 3 MMOL/L (8-16); BLOOD UREA NITROGEN 21.4 mg/dL (7-18); CO2 34 mmol/L (21-32); GLUCOSE,RANDOM 88 mg/dL (74-106); MAGNESIUM 2.1 mg/dL (1.8-2.4)
[2020-11-04 10:19] LABS: SGOT/AST 17 U/L (15-37); SGPT/ALT 15 U/L (13-61)
[2020-11-04 10:20] LABS: BILIRUBIN,TOTAL 0.4 mg/dL (0.2-1)
[2020-11-04 10:22] LABS: ALK PHOS 58 U/L (45-117)
[2020-11-04 11:39] LABS: TOT PROT 6.5 g/dl (6.4-8.2)
[2020-11-04 12:10] LABS: URINE AMPHETAMINES NEGATIVE ng/ml (CUTOFF=500); URINE BARBITURATES NEGATIVE ng/ml (CUTOFF=200)
[2020-11-04 12:11] LABS: COCAINE, UR NEGATIVE ng/ml (CUTOFF=300); METHADONE, UR NEGATIVE ng/ml (CUTOFF=300); OPIATES, URI NEGATIVE ng/ml (CUTOFF=300); PHENCYCLIDINE,URINE NEGATIVE ng/ml (CUTOFF=25)
[2020-11-04 12:15] LABS: PH,URINE > 9.0 (5.0-8.0); URINE APPEARANCE CLOUDY; URINE BILIRUBIN NEGATIVE (NEGATIVE); URINE COLOR YELLOW; URINE GLUCOSE (UA) NEGATIVE (NEGATIVE); URINE KETONE NEGATIVE (NEGATIVE); URINE PROTEIN TRACE (NEGATIVE)
[2020-11-04 12:16] LABS: EPI CELLS 5.3 /uL (0-25.1); URINE BACTERIA 98.4 /uL (0-1359); URINE LEUK ESTERASE NEGATIVE (NEGATIVE); URINE NITRITE NEGATIVE (NEGATIVE); URINE RBC 24.9 /uL (0-23.9); URINE UROBILINOGEN 0.2 mg/dL (0.2-1.0); URINE WBC 8.3 /uL (0-25.8)
[2020-11-04 12:24] LABS: URINE BENZODIAZEPINES POSITIVE ng/ml (CUTOFF=200)
[2020-11-04 13:44] LABS: INR 1.43 (0.83-1.09); PROTHROMBIN TIME (PATIENT) 17.1 SEC (9.7-13.0)
[2020-11-04 14:02] LABS: POTASSIUM 4.5 mmol/L (3.5-5.1)
[2020-11-04 14:04] LABS: CALCIUM 8.6 mg/dL (8.5-10.1)
[2020-11-04 14:05] LABS: ALBUMIN 3.2 g/dl (3.4-5.0); BLOOD UREA NITROGEN 22.5 mg/dL (7-18)
[2020-11-04 14:09] LABS: BILIRUBIN,TOTAL 0.4 mg/dL (0.2-1); TOT PROT 6.4 g/dl (6.4-8.2)
[2020-11-04] MEDS ORDERED: METHADONE HCL 10 MG TABLET PO ONE (14:38)
[2020-11-04] MEDS ORDERED: ACETAMINOPHEN 325 MG TABLET (FP) PO PRN (20:12)
[2020-11-04] MEDS ORDERED: ZOLPIDEM TARTRATE 5 MG TABLET PO PRN (22:00)
[2020-11-04] MEDS: QUEtiapine FUMARATE 200 MG TABLET PO SCH (23:13)
[2020-11-05] MEDS: chlordiazePOXIDE HCL 25 MG CAPSULE PO SCH ×4 (05:06→22:21)
[2020-11-05 09:20] LABS: BASO % 0.3 % (0-2.0); EOS % 2.1 % (0-4.5); HEMATOCRIT 36.3 % (35.4-49); HEMOGLOBIN 12.1 GM/dL (11.7-16.9); LYMPH % 17.8 % (8-40); MCH 30.4 pg (25.7-33.7); MCHC 33.4 g/dl (32.0-35.9); MEAN CELL VOLUME 90.9 fl (80-96); MEAN PLT VOLUME 9.5 fl (7.5-11.1); MONO % 7.5 % (3.8-10.2); NEUT % 72.3 % (42.8-82.8); PLATELET COUNT 265 K/MM3 (134-434); RDW 15.1 % (11.9-15.9); WHITE BLOOD COUNT 12.4 K/mm3 (4.0-10.0)
[2020-11-05 09:22] LABS: INR 1.04 (0.83-1.09); PROTHROMBIN TIME (PATIENT) 12.8 SEC (9.7-13.0)
[2020-11-05 09:29] LABS: POTASSIUM 4.3 mmol/L (3.5-5.1)
[2020-11-05 09:31] LABS: BLOOD UREA NITROGEN 17.2 mg/dL (7-18)
[2020-11-05 09:34] LABS: CREATININE 0.9 mg/dL (0.55-1.3)
[2020-11-05] MEDS: QUEtiapine FUMARATE 200 MG TABLET PO SCH ×2 (13:48→22:22)
[2020-11-05] MEDS: POLYETHYLENE GLYCOL 3350 119 GM BTL PO SCH (13:48)
[2020-11-05] MEDS: PANTOPRAZOLE 40 MG TABLET PO SCH ×2 (13:48→22:22)
[2020-11-05] MEDS ORDERED: PT OWN MED DRAWER 7, Y5N ONE (14:50)
[2020-11-05] MEDS: METHADONE HCL 5 MG TABLET PO SCH (14:59)
[2020-11-05] MEDS: SUCRALFATE 1 GM/10 ML UNIT DOSE CUPS PO SCH (22:22)
[2020-11-06] MEDS ORDERED: chlordiazePOXIDE HCL 10 MG CAPSULE PO PRN
[2020-11-06] MEDS: chlordiazePOXIDE HCL 10 MG CAPSULE PO SCH ×2 (05:30→13:27)
[2020-11-06] MEDS: METHADONE HCL 5 MG TABLET PO SCH (06:08)
[2020-11-06] MEDS: PANTOPRAZOLE 40 MG TABLET PO SCH (09:23)
[2020-11-06] MEDS: SUCRALFATE 1 GM/10 ML UNIT DOSE CUPS PO SCH (09:23)
[2020-11-06] MEDS: QUEtiapine FUMARATE 200 MG TABLET PO SCH (09:23)
[2020-11-06] MEDS: POLYETHYLENE GLYCOL 3350 119 GM BTL PO SCH (09:23)
[2020-11-06 11:15] LABS: EOS % 4.4 % (0-4.5); HEMATOCRIT 32.2 % (35.4-49); HEMOGLOBIN 10.9 GM/dL (11.7-16.9); LYMPH % 29.6 % (8-40); MCH 30.8 pg (25.7-33.7); MEAN CELL VOLUME 90.7 fl (80-96); MEAN PLT VOLUME 9.2 fl (7.5-11.1); MONO % 11.3 % (3.8-10.2); NEUT % 53.7 % (42.8-82.8); PLATELET COUNT 255 K/MM3 (134-434); RBC 3.55 M/mm3 (4.00-5.60); RDW 14.9 % (11.9-15.9); WHITE BLOOD COUNT 4.4 K/mm3 (4.0-10.0)
[2020-11-06 11:29] LABS: POTASSIUM 4.4 mmol/L (3.5-5.1)
[2020-11-06 11:31] LABS: CALCIUM 8.6 mg/dL (8.5-10.1)
[2020-11-06 11:32] LABS: ALBUMIN 2.9 g/dl (3.4-5.0); BLOOD UREA NITROGEN 24.3 mg/dL (7-18); MAGNESIUM 1.9 mg/dL (1.8-2.4)
[2020-11-06 11:35] LABS: CREATININE 1.1 mg/dL (0.55-1.3); PHOSPHOROUS 2.1 mg/dL (2.5-4.9)
[2020-11-06 11:36] LABS: BILIRUBIN,TOTAL 0.3 mg/dL (0.2-1); TOT PROT 5.8 g/dl (6.4-8.2)
[2020-11-06 11:48] VITALS: BMI 17.8
[2020-11-06] MEDS ORDERED: NAPH,MB-DB/K PH,MBDB POWDER PACKET PO ONE (13:45)
[2020-11-06] MEDS ORDERED: ENOXAPARIN NA (PORCINE) 60 MG/0.6 ML DISP.SYRIN SQ SCH ×2 (14:56→22:00)
[2020-11-06 15:06] VITALS: BP 104/71; PULSE 71; TEMP 97.5
[2020-11-06 16:17] LABS: INR 0.86 (0.83-1.09); PROTHROMBIN TIME (PATIENT) 10.5 SEC (9.7-13.0)
[2020-11-06] MEDS ORDERED: ENOXAPARIN NA (PORCINE) 30 MG/0.3 ML DISP.SYRIN SQ ONE (16:43)
[2020-11-06] MEDS ORDERED: WARFARIN NA 2 MG TABLET PO ONE (16:52)
[2020-11-06] MEDS ORDERED: NYSTATIN 500,000 UNITS/5 ML SUSPENSION PO SCH (18:00)
[2020-11-07] MEDS ORDERED: chlordiazePOXIDE HCL 10 MG CAPSULE PO SCH (05:00)
[2020-11-07] MEDS ORDERED: MULTIVITAMINS THER W-MINERALS COMBO TABLET (FP) PO SCH (10:00)
[2020-11-07] MEDS ORDERED: WARFARIN NA 2 MG TABLET PO SCH (18:00)
[2020-11-08] MEDS ORDERED: chlordiazePOXIDE HCL 10 MG CAPSULE PO ONE (05:00)
== END 2020-11-06 17:58 | disposition home or self-care (01) | DRG 243 ==
LOC: JER 17:17 → JERBED 11-04 00:06 → J5S 11-04 03:35 → J6S 11-05 22:41
PROVIDERS: ADMIT Internal Medicine; ATTEND Internal Medicine
PROC: HZ2ZZZZ Detoxification Services for Substance Abuse Treatment (ICD-10-PCS; principal; 2020-11-04)
PROC: 0DB38ZX Excision of Lower Esophagus, Via Natural or Artificial Opening Endoscopic, Diagnostic (ICD-10-PCS; 2020-11-05)
PROC: 0DB68ZX Excision of Stomach, Via Natural or Artificial Opening Endoscopic, Diagnostic (ICD-10-PCS; 2020-11-05)
PROC: 0DB98ZX Excision of Duodenum, Via Natural or Artificial Opening Endoscopic, Diagnostic (ICD-10-PCS; 2020-11-05)
DX: K20.81 Other esophagitis with bleeding (principal); F19.10 Other psychoactive substance abuse, uncomplicated; F17.210 Nicotine dependence, cigarettes, uncomplicated; K21.9 Gastro-esophageal reflux disease without esophagitis; N40.0 Benign prostatic hyperplasia without lower urinary tract symptoms; Z95.828 Presence of other vascular implants and grafts; F10.10 Alcohol abuse, uncomplicated; K29.80 Duodenitis without bleeding; K22.11 Ulcer of esophagus with bleeding; D72.829 Elevated white blood cell count, unspecified; K59.00 Constipation, unspecified; K29.50 Unspecified chronic gastritis without bleeding; K44.9 Diaphragmatic hernia without obstruction or gangrene
CPT/HCPCS: 36415; 71275-TC; 74174-TC; 80048; 80053; 80307; 81003; 82550; 82553; 83735; 84100; 84153; 84484; 85025; 85610; 85730; 86850; 86900; 86901; 87086; 87186; 88305-TC; 93005; 93010; 99285-25; Q9967

== ENCOUNTER 2020-12-26 10:53 | Inpatient (IN) | payer OTHER ==
[2020-12-26 12:24] VITALS: BMI 18.1
[2020-12-26] MEDS ORDERED: NICOTINE POLACRILEX 2 MG GUM BUC PRN (13:12)
[2020-12-26] MEDS ORDERED: METHOCARBAMOL 500 MG TABLET PO PRN (13:12)
[2020-12-26] MEDS ORDERED: MAGNESIUM HYDROX 2400MG/30ML ORAL SUSPENSION 30 ML CUP PO PRN (13:12)
[2020-12-26] MEDS ORDERED: ACETAMINOPHEN 325 MG TABLET (FP) PO PRN ×2 (13:12)
[2020-12-26] MEDS ORDERED: LORazepam 1 MG TABLET PO PRN (13:12)
[2020-12-26] MEDS ORDERED: cloNIDine HCL 0.1 MG TABLET PO PRN (13:12)
[2020-12-26] MEDS ORDERED: MAGNESIUM CITRATE 300 ML BOTTLE PO PRN (13:12)
[2020-12-26] MEDS ORDERED: ONDANSETRON *ODT* 4 MG TABLET SL PRN (13:12)
[2020-12-26] MEDS ORDERED: MENTHOL/PHENOL 1 EACH UD MM PRN (13:12)
[2020-12-26] MEDS ORDERED: IBUPROFEN 400 MG TABLET (FP) PO PRN (13:12)
[2020-12-26] MEDS ORDERED: BISMUTH SUBSALICYLATE 524 MG/30 ML UD PO PRN (13:12)
[2020-12-26] MEDS ORDERED: METHADONE HCL 10 MG TABLET (FOR DETOX USE ONLY) PO ONE (13:30)
[2020-12-26] MEDS: NICOTINE 21 MG/24 HOURS TOPICAL PATCH TD SCH (14:04)
[2020-12-26] MEDS: PRENATAL VITAMINS W/ FOLIC ACID TABLET (FP) PO SCH (14:04)
[2020-12-26] MEDS: hydrOXYzine PAMOATE 25 MG CAPSULE (FP) PO SCH ×3 (14:04→22:35)
[2020-12-26 17:24] LABS: HEMATOCRIT 40.8 % (35.4-49); HEMOGLOBIN 13.2 GM/dL (11.7-16.9); MCH 30.1 pg (25.7-33.7); MCHC 32.3 g/dl (32.0-35.9); MEAN PLT VOLUME 10.3 fl (7.5-11.1); PLATELET COUNT 268 K/MM3 (134-434); RBC 4.38 M/mm3 (4.00-5.60); RDW 15.7 % (11.9-15.9); WHITE BLOOD COUNT 5.4 K/mm3 (4.0-10.0)
[2020-12-26 17:46] LABS: ALBUMIN 3.9 g/dl (3.4-5.0); BILIRUBIN,TOTAL 0.2 mg/dL (0.2-1); BLOOD UREA NITROGEN 19.2 mg/dL (7-18); CALCIUM 9.3 mg/dL (8.5-10.1); POTASSIUM 4.7 mmol/L (3.5-5.1); TOT PROT 7.5 g/dl (6.4-8.2)
[2020-12-26] MEDS: LORazepam 2 MG TABLET PO SCH ×2 (17:54→22:35)
[2020-12-26] MEDS: MAG HYDROX/AL HYDROX/SIMETH 30 ML UNIT-DOSE CUP PO PRN (18:28)
[2020-12-26] MEDS: THIAMINE HCL 100 MG TABLET (FP) PO SCH (22:35)
[2020-12-26] MEDS: MELATONIN 5 MG TABLETS PO SCH (22:35)
[2020-12-27] MEDS: LORazepam 2 MG TABLET PO SCH ×4 (07:43→23:07)
[2020-12-27] MEDS: hydrOXYzine PAMOATE 25 MG CAPSULE (FP) PO SCH ×2 (07:43→10:24)
[2020-12-27] MEDS ORDERED: METHADONE HCL 10 MG TABLET (FOR DETOX USE ONLY) ONE (08:32)
[2020-12-27] MEDS ORDERED: METHADONE HCL 5 MG TABLET (FOR DETOX USE ONLY) ONE (08:32)
[2020-12-27] MEDS ORDERED: METHADONE (DETOX) 20 MG, METHADONE (DETOX) 5 MG PO ONE (10:00)
[2020-12-27] MEDS: PANTOPRAZOLE 40 MG TABLET PO SCH (10:24)
[2020-12-27] MEDS: PRENATAL VITAMINS W/ FOLIC ACID TABLET (FP) PO SCH (10:24)
[2020-12-27] MEDS: NICOTINE 21 MG/24 HOURS TOPICAL PATCH TD SCH (10:26)
[2020-12-27] MEDS ORDERED: hydrOXYzine PAMOATE 25 MG CAPSULE (FP) PO PRN (12:47)
[2020-12-27] MEDS: CYPROHEPTADINE HCL 4 MG TABLET PO SCH (16:58)
[2020-12-27] MEDS: MELATONIN 5 MG TABLETS PO SCH (23:07)
[2020-12-27] MEDS: THIAMINE HCL 100 MG TABLET (FP) PO SCH (23:07)
[2020-12-27] MEDS: QUEtiapine FUMARATE 200 MG TABLET PO SCH (23:07)
[2020-12-28] MEDS: CYPROHEPTADINE HCL 4 MG TABLET PO SCH ×3 (06:02→17:00)
[2020-12-28] MEDS: LORazepam 1 MG TABLET PO SCH ×4 (06:02→22:37)
[2020-12-28] MEDS ORDERED: METHADONE HCL 10 MG TABLET (FOR DETOX USE ONLY) PO ONE (10:00)
[2020-12-28] MEDS: PRENATAL VITAMINS W/ FOLIC ACID TABLET (FP) PO SCH (10:46)
[2020-12-28] MEDS: QUEtiapine FUMARATE 200 MG TABLET PO SCH ×2 (10:47→22:37)
[2020-12-28] MEDS: PANTOPRAZOLE 40 MG TABLET PO SCH (10:47)
[2020-12-28] MEDS: NICOTINE 21 MG/24 HOURS TOPICAL PATCH TD SCH (10:49)
[2020-12-28] MEDS: MAG HYDROX/AL HYDROX/SIMETH 30 ML UNIT-DOSE CUP PO PRN (13:19)
[2020-12-28] MEDS: THIAMINE HCL 100 MG TABLET (FP) PO SCH (22:37)
[2020-12-28] MEDS: MELATONIN 5 MG TABLETS PO SCH (22:37)
[2020-12-29] MEDS ORDERED: LORazepam 0.5 MG TABLET PO PRN
[2020-12-29] MEDS: MAG HYDROX/AL HYDROX/SIMETH 30 ML UNIT-DOSE CUP PO PRN (02:28)
[2020-12-29] MEDS: LORazepam 0.5 MG TABLET PO SCH ×4 (07:04→23:00)
[2020-12-29] MEDS: CYPROHEPTADINE HCL 4 MG TABLET PO SCH ×3 (07:04→18:00)
[2020-12-29] MEDS ORDERED: METHADONE HCL 5 MG TABLET (FOR DETOX USE ONLY) ONE (09:28)
[2020-12-29] MEDS ORDERED: METHADONE HCL 10 MG TABLET (FOR DETOX USE ONLY) ONE (09:28)
[2020-12-29] MEDS ORDERED: METHADONE (DETOX) 10 MG, METHADONE (DETOX) 5 MG PO ONE (10:00)
[2020-12-29] MEDS ORDERED: ONDANSETRON 4 MG/2 ML VIAL IM ONE (11:10)
[2020-12-29] MEDS: PANTOPRAZOLE 40 MG TABLET PO SCH (13:27)
[2020-12-29] MEDS: QUEtiapine FUMARATE 200 MG TABLET PO SCH ×2 (13:27→23:00)
[2020-12-29] MEDS: PRENATAL VITAMINS W/ FOLIC ACID TABLET (FP) PO SCH (13:31)
[2020-12-29] MEDS: NICOTINE 21 MG/24 HOURS TOPICAL PATCH TD SCH (13:31)
[2020-12-29] MEDS ORDERED: MASKS NR ONE (14:35)
[2020-12-29] MEDS: MELATONIN 5 MG TABLETS PO SCH (22:59)
[2020-12-29] MEDS: THIAMINE HCL 100 MG TABLET (FP) PO SCH (23:00)
[2020-12-30] MEDS ORDERED: LORazepam 0.5 MG TABLET PO ONE (05:00)
[2020-12-30] MEDS: CYPROHEPTADINE HCL 4 MG TABLET PO SCH ×2 (07:14→10:06)
[2020-12-30] MEDS ORDERED: METHADONE HCL 10 MG TABLET (FOR DETOX USE ONLY) PO ONE (10:00)
[2020-12-30] MEDS: PANTOPRAZOLE 40 MG TABLET PO SCH (10:06)
[2020-12-30] MEDS: PRENATAL VITAMINS W/ FOLIC ACID TABLET (FP) PO SCH (10:06)
[2020-12-30] MEDS: QUEtiapine FUMARATE 200 MG TABLET PO SCH (10:07)
[2020-12-30] MEDS: NICOTINE 21 MG/24 HOURS TOPICAL PATCH TD SCH (10:07)
[2020-12-30 10:09] VITALS: BP 128/88; PULSE 87; TEMP 98.2
[2020-12-31] MEDS ORDERED: METHADONE HCL 5 MG TABLET (FOR DETOX USE ONLY) PO ONE (06:00)
== END 2020-12-30 11:28 | disposition home or self-care (01) | DRG 773 ==
LOC: YASAS 10:53 → Y3N 12:32
PROVIDERS: ADMIT Allergy & Immunology; ATTEND Allergy & Immunology
PROC: HZ2ZZZZ Detoxification Services for Substance Abuse Treatment (ICD-10-PCS; principal; 2020-12-26)
DX: F11.23 Opioid dependence with withdrawal (principal); F10.230 Alcohol dependence with withdrawal, uncomplicated; F14.20 Cocaine dependence, uncomplicated; F12.20 Cannabis dependence, uncomplicated; F17.210 Nicotine dependence, cigarettes, uncomplicated; F19.24 Other psychoactive substance dependence with psychoactive substance-induced mood disorder; F31.9 Bipolar disorder, unspecified; G40.909 Epilepsy, unspecified, not intractable, without status epilepticus; G47.00 Insomnia, unspecified; D50.9 Iron deficiency anemia, unspecified; E78.5 Hyperlipidemia, unspecified; I48.91 Unspecified atrial fibrillation; J45.909 Unspecified asthma, uncomplicated; K29.70 Gastritis, unspecified, without bleeding; K21.9 Gastro-esophageal reflux disease without esophagitis; N40.0 Benign prostatic hyperplasia without lower urinary tract symptoms; R79.89 Other specified abnormal findings of blood chemistry; Z86.718 Personal history of other venous thrombosis and embolism; Z86.711 Personal history of pulmonary embolism; Z79.01 Long term (current) use of anticoagulants; Z95.828 Presence of other vascular implants and grafts; Z86.73 Personal history of transient ischemic attack (TIA), and cerebral infarction without residual deficits; Z86.19 Personal history of other infectious and parasitic diseases
CPT/HCPCS: 36415; 80053; 85027; 86593; 86780; C9803; Q0162; U0003

== ENCOUNTER 2021-01-24 10:49 | Inpatient (IN) | payer OTHER ==
[2021-01-24] MEDS ORDERED: METHOCARBAMOL 500 MG TABLET PO PRN (12:57)
[2021-01-24] MEDS ORDERED: NICOTINE POLACRILEX 2 MG GUM BUC PRN (12:57)
[2021-01-24] MEDS ORDERED: MAGNESIUM CITRATE 300 ML BOTTLE PO PRN (12:57)
[2021-01-24] MEDS ORDERED: IBUPROFEN 400 MG TABLET (FP) PO PRN (12:57)
[2021-01-24] MEDS ORDERED: MAGNESIUM HYDROX 2400MG/30ML ORAL SUSPENSION 30 ML CUP PO PRN (12:57)
[2021-01-24] MEDS ORDERED: METHADONE HCL 10 MG TABLET (FOR DETOX USE ONLY) PO ONE (12:57)
[2021-01-24] MEDS ORDERED: BISMUTH SUBSALICYLATE 262 MG/15 ML BTL PO PRN (12:57)
[2021-01-24] MEDS ORDERED: cloNIDine HCL 0.1 MG TABLET PO PRN (12:57)
[2021-01-24] MEDS ORDERED: MENTHOL/PHENOL 1 EACH UD MM PRN (12:57)
[2021-01-24] MEDS ORDERED: ACETAMINOPHEN 325 MG TABLET (FP) PO PRN ×2 (12:57)
[2021-01-24 13:08] VITALS: BMI 17.9
[2021-01-24] MEDS: hydrOXYzine PAMOATE 25 MG CAPSULE (FP) PO SCH ×3 (14:18→23:51)
[2021-01-24] MEDS: PRENATAL VITAMINS W/ FOLIC ACID TABLET (FP) PO SCH (14:22)
[2021-01-24 14:34] LABS: POTASSIUM 4.6 mmol/L (3.5-5.1)
[2021-01-24 14:36] LABS: CALCIUM 9.7 mg/dL (8.5-10.1); HEMATOCRIT 38.2 % (35.4-49); HEMOGLOBIN 12.8 GM/dL (11.7-16.9); MCH 30.8 pg (25.7-33.7); MCHC 33.4 g/dl (32.0-35.9); MEAN CELL VOLUME 92.1 fl (80-96); MEAN PLT VOLUME 9.3 fl (7.5-11.1); PLATELET COUNT 271 K/MM3 (134-434); RBC 4.15 M/mm3 (4.00-5.60); RDW 16.3 % (11.9-15.9); WHITE BLOOD COUNT 6.4 K/mm3 (4.0-10.0)
[2021-01-24 14:37] LABS: ALBUMIN 3.6 g/dl (3.4-5.0); BLOOD UREA NITROGEN 13.2 mg/dL (7-18)
[2021-01-24 14:41] LABS: BILIRUBIN,TOTAL 0.4 mg/dL (0.2-1)
[2021-01-24 14:42] LABS: TOT PROT 6.9 g/dl (6.4-8.2)
[2021-01-24] MEDS ORDERED: MELATONIN 5 MG TABLETS PO SCH (22:00)
[2021-01-24] MEDS: QUEtiapine FUMARATE 400 MG TABLET PO SCH (23:07)
[2021-01-24] MEDS: THIAMINE HCL 100 MG TABLET (FP) PO SCH (23:07)
[2021-01-24] MEDS: SUVOREXANT 10 MG TABLET PO PRN (23:09)
[2021-01-25] MEDS: hydrOXYzine PAMOATE 25 MG CAPSULE (FP) PO SCH ×5 (06:45→23:39)
[2021-01-25] MEDS ORDERED: METHADONE HCL 5 MG TABLET (FOR DETOX USE ONLY) ONE (08:44)
[2021-01-25] MEDS ORDERED: METHADONE HCL 10 MG TABLET (FOR DETOX USE ONLY) ONE (08:45)
[2021-01-25] MEDS ORDERED: METHADONE (DETOX) 20 MG, METHADONE (DETOX) 5 MG PO ONE (10:00)
[2021-01-25] MEDS: PANTOPRAZOLE 40 MG TABLET PO SCH (10:30)
[2021-01-25] MEDS: QUEtiapine FUMARATE 200 MG TABLET PO SCH (10:31)
[2021-01-25] MEDS: CITALOPRAM HYDROBROMIDE 20 MG TABLET PO SCH (10:31)
[2021-01-25] MEDS: PRENATAL VITAMINS W/ FOLIC ACID TABLET (FP) PO SCH (10:31)
[2021-01-25] MEDS: ONDANSETRON *ODT* 4 MG TABLET SL PRN (14:49)
[2021-01-25] MEDS ORDERED: TRIMETHOBENZAMIDE HCL 200MG/2ML INJ IM PRN (22:15)
[2021-01-25] MEDS: THIAMINE HCL 100 MG TABLET (FP) PO SCH (23:39)
[2021-01-25] MEDS: QUEtiapine FUMARATE 400 MG TABLET PO SCH (23:39)
[2021-01-26] MEDS: SUVOREXANT 10 MG TABLET PO PRN (02:33)
[2021-01-26] MEDS: hydrOXYzine PAMOATE 25 MG CAPSULE (FP) PO SCH ×5 (06:10→23:38)
[2021-01-26] MEDS ORDERED: METHADONE HCL 10 MG TABLET (FOR DETOX USE ONLY) PO ONE (10:00)
[2021-01-26] MEDS: CITALOPRAM HYDROBROMIDE 20 MG TABLET PO SCH (10:55)
[2021-01-26] MEDS: PRENATAL VITAMINS W/ FOLIC ACID TABLET (FP) PO SCH (10:55)
[2021-01-26] MEDS: PANTOPRAZOLE 40 MG TABLET PO SCH (10:55)
[2021-01-26] MEDS: QUEtiapine FUMARATE 200 MG TABLET PO SCH (10:55)
[2021-01-26] MEDS: ONDANSETRON *ODT* 4 MG TABLET SL PRN (17:12)
[2021-01-26] MEDS: MAG HYDROX/AL HYDROX/SIMETH 30 ML UNIT-DOSE CUP PO PRN (19:26)
[2021-01-26] MEDS: QUEtiapine FUMARATE 400 MG TABLET PO SCH (23:32)
[2021-01-26] MEDS: THIAMINE HCL 100 MG TABLET (FP) PO SCH (23:38)
[2021-01-27] MEDS: hydrOXYzine PAMOATE 25 MG CAPSULE (FP) PO SCH ×5 (06:51→22:43)
[2021-01-27] MEDS ORDERED: METHADONE HCL 10 MG TABLET (FOR DETOX USE ONLY) ONE (09:01)
[2021-01-27] MEDS ORDERED: METHADONE HCL 5 MG TABLET (FOR DETOX USE ONLY) ONE (09:01)
[2021-01-27] MEDS ORDERED: METHADONE (DETOX) 10 MG, METHADONE (DETOX) 5 MG PO ONE (10:00)
[2021-01-27] MEDS: PANTOPRAZOLE 40 MG TABLET PO SCH (10:46)
[2021-01-27] MEDS: QUEtiapine FUMARATE 200 MG TABLET PO SCH (10:46)
[2021-01-27] MEDS: CITALOPRAM HYDROBROMIDE 20 MG TABLET PO SCH (10:46)
[2021-01-27] MEDS: PRENATAL VITAMINS W/ FOLIC ACID TABLET (FP) PO SCH (10:47)
[2021-01-27] MEDS ORDERED: ONDANSETRON *ODT* 4 MG TABLET SL ONE (11:59)
[2021-01-27] MEDS: FAMOTIDINE 20 MG TABLET PO SCH ×2 (12:33→22:43)
[2021-01-27] MEDS ORDERED: DICYCLOMINE HCL 20 MG TABLET PO ONE (13:00)
[2021-01-27] MEDS: MAG HYDROX/AL HYDROX/SIMETH 30 ML UNIT-DOSE CUP PO PRN (18:42)
[2021-01-27] MEDS: QUEtiapine FUMARATE 400 MG TABLET PO SCH (22:43)
[2021-01-27] MEDS: THIAMINE HCL 100 MG TABLET (FP) PO SCH (22:43)
[2021-01-28] MEDS: hydrOXYzine PAMOATE 25 MG CAPSULE (FP) PO SCH ×5 (07:39→22:33)
[2021-01-28] MEDS ORDERED: METHADONE HCL 10 MG TABLET (FOR DETOX USE ONLY) PO ONE (10:00)
[2021-01-28] MEDS: MAG HYDROX/AL HYDROX/SIMETH 30 ML UNIT-DOSE CUP PO PRN (10:34)
[2021-01-28] MEDS: PRENATAL VITAMINS W/ FOLIC ACID TABLET (FP) PO SCH (10:34)
[2021-01-28] MEDS: PANTOPRAZOLE 40 MG TABLET PO SCH (10:34)
[2021-01-28] MEDS: QUEtiapine FUMARATE 200 MG TABLET PO SCH (10:34)
[2021-01-28] MEDS: FAMOTIDINE 20 MG TABLET PO SCH ×2 (10:34→22:32)
[2021-01-28] MEDS: CITALOPRAM HYDROBROMIDE 20 MG TABLET PO SCH (10:34)
[2021-01-28] MEDS ORDERED: cloNIDine HCL 0.1 MG TABLET PO PRN ×2 (14:33→14:53)
[2021-01-28] MEDS: amLODIPine BESYLATE 5 MG TABLET (FP) PO SCH (15:07)
[2021-01-28] MEDS: QUEtiapine FUMARATE 400 MG TABLET PO SCH (22:32)
[2021-01-28] MEDS: THIAMINE HCL 100 MG TABLET (FP) PO SCH (22:33)
[2021-01-29] MEDS: amLODIPine BESYLATE 5 MG TABLET (FP) PO SCH (05:46)
[2021-01-29] MEDS: hydrOXYzine PAMOATE 25 MG CAPSULE (FP) PO SCH ×3 (05:47→14:29)
[2021-01-29] MEDS ORDERED: METHADONE HCL 5 MG TABLET (FOR DETOX USE ONLY) PO ONE (06:00)
[2021-01-29 09:00] VITALS: PULSE 96
[2021-01-29] MEDS: PANTOPRAZOLE 40 MG TABLET PO SCH (10:46)
[2021-01-29] MEDS: CITALOPRAM HYDROBROMIDE 20 MG TABLET PO SCH (10:46)
[2021-01-29] MEDS: QUEtiapine FUMARATE 200 MG TABLET PO SCH (10:46)
[2021-01-29] MEDS: PRENATAL VITAMINS W/ FOLIC ACID TABLET (FP) PO SCH (10:46)
[2021-01-29] MEDS: FAMOTIDINE 20 MG TABLET PO SCH (10:46)
[2021-01-29 13:09] VITALS: BP 103/63; TEMP 97.3
== END 2021-01-29 14:41 | disposition home or self-care (01) | DRG 773 ==
LOC: YASAS 10:49 → Y6N 13:18
PROVIDERS: ADMIT Allergy & Immunology; ATTEND Allergy & Immunology
PROC: HZ2ZZZZ Detoxification Services for Substance Abuse Treatment (ICD-10-PCS; principal; 2021-01-24)
DX: F11.23 Opioid dependence with withdrawal (principal); F10.20 Alcohol dependence, uncomplicated; F14.20 Cocaine dependence, uncomplicated; F12.20 Cannabis dependence, uncomplicated; F17.210 Nicotine dependence, cigarettes, uncomplicated; F19.282 Other psychoactive substance dependence with psychoactive substance-induced sleep disorder; F19.24 Other psychoactive substance dependence with psychoactive substance-induced mood disorder; F31.9 Bipolar disorder, unspecified; D50.9 Iron deficiency anemia, unspecified; J45.20 Mild intermittent asthma, uncomplicated; K21.9 Gastro-esophageal reflux disease without esophagitis; N40.0 Benign prostatic hyperplasia without lower urinary tract symptoms; Z86.718 Personal history of other venous thrombosis and embolism; Z86.711 Personal history of pulmonary embolism; Z95.828 Presence of other vascular implants and grafts; Z79.01 Long term (current) use of anticoagulants; Z87.19 Personal history of other diseases of the digestive system; Z86.19 Personal history of other infectious and parasitic diseases; Z56.0 Unemployment, unspecified
CPT/HCPCS: 36415; 80053; 85027; 86593; 86780; C9803; J0735; Q0162; U0003; U0005

== ENCOUNTER 2021-03-01 11:47 | Inpatient (IN) | payer OTHER ==
[2021-03-01 14:34] VITALS: BMI 17.0
[2021-03-01] MEDS ORDERED: NICOTINE POLACRILEX 2 MG GUM BUC PRN (15:00)
[2021-03-01] MEDS ORDERED: METHOCARBAMOL 500 MG TABLET PO PRN (15:00)
[2021-03-01] MEDS ORDERED: MAGNESIUM CITRATE 300 ML BOTTLE PO PRN (15:00)
[2021-03-01] MEDS ORDERED: MENTHOL/PHENOL 1 EACH UD MM PRN (15:00)
[2021-03-01] MEDS ORDERED: ACETAMINOPHEN 325 MG TABLET (FP) PO PRN ×2 (15:00)
[2021-03-01] MEDS ORDERED: IBUPROFEN 400 MG TABLET (FP) PO PRN (15:00)
[2021-03-01] MEDS ORDERED: cloNIDine HCL 0.1 MG TABLET PO PRN (15:00)
[2021-03-01] MEDS ORDERED: chlordiazePOXIDE HCL 25 MG CAPSULE PO PRN (15:00)
[2021-03-01] MEDS ORDERED: BISMUTH SUBSALICYLATE 524 MG/30 ML UD PO PRN (15:00)
[2021-03-01] MEDS ORDERED: MAG HYDROX/AL HYDROX/SIMETH 30 ML UNIT-DOSE CUP PO PRN (15:00)
[2021-03-01] MEDS ORDERED: MAGNESIUM HYDROX 2400MG/30ML ORAL SUSPENSION 30 ML CUP PO PRN (15:00)
[2021-03-01] MEDS ORDERED: METHADONE HCL 10 MG TABLET (FOR DETOX USE ONLY) PO ONE (15:00)
[2021-03-01] MEDS ORDERED: chlordiazePOXIDE HCL 25 MG CAPSULE ONE (15:42)
[2021-03-01] MEDS ORDERED: METHADONE HCL 10 MG TABLET (FOR DETOX USE ONLY) ONE (15:42)
[2021-03-01] MEDS: NICOTINE 14 MG/24 HOURS TOPICAL PATCH TD SCH (19:02)
[2021-03-01] MEDS: chlordiazePOXIDE HCL 25 MG CAPSULE PO SCH ×2 (19:17→22:33)
[2021-03-01] MEDS: PRENATAL VITAMINS W/ FOLIC ACID TABLET (FP) PO SCH (19:20)
[2021-03-01] MEDS: hydrOXYzine PAMOATE 25 MG CAPSULE (FP) PO SCH ×2 (19:20→22:36)
[2021-03-01] MEDS: PANTOPRAZOLE 40 MG TABLET PO SCH (19:20)
[2021-03-01] MEDS ORDERED: PATIENT'S OWN MEDICATION (NON-FORMULARY) (Zolpidem Tartrate [Ambien] 10 MG Tablet) PO SCH (22:00)
[2021-03-01] MEDS: THIAMINE HCL 100 MG TABLET (FP) PO SCH (22:34)
[2021-03-01] MEDS: MELATONIN 5 MG TABLETS PO SCH (22:34)
[2021-03-02] MEDS: chlordiazePOXIDE HCL 25 MG CAPSULE PO SCH ×4 (06:23→22:59)
[2021-03-02] MEDS: hydrOXYzine PAMOATE 25 MG CAPSULE (FP) PO SCH ×5 (06:23→22:59)
[2021-03-02] MEDS ORDERED: METHADONE HCL 10 MG TABLET (FOR DETOX USE ONLY) ONE (09:33)
[2021-03-02] MEDS ORDERED: METHADONE HCL 5 MG TABLET (FOR DETOX USE ONLY) ONE (09:33)
[2021-03-02] MEDS ORDERED: METHADONE (DETOX) 20 MG, METHADONE (DETOX) 5 MG PO ONE (10:00)
[2021-03-02] MEDS: PANTOPRAZOLE 40 MG TABLET PO SCH (11:21)
[2021-03-02] MEDS: PRENATAL VITAMINS W/ FOLIC ACID TABLET (FP) PO SCH (11:21)
[2021-03-02] MEDS: NICOTINE 14 MG/24 HOURS TOPICAL PATCH TD SCH (11:24)
[2021-03-02] MEDS: QUEtiapine FUMARATE 200 MG TABLET PO SCH (22:59)
[2021-03-02] MEDS: THIAMINE HCL 100 MG TABLET (FP) PO SCH (22:59)
[2021-03-02] MEDS: MELATONIN 5 MG TABLETS PO SCH (23:00)
[2021-03-03] MEDS: chlordiazePOXIDE HCL 25 MG CAPSULE PO SCH ×4 (06:45→22:24)
[2021-03-03] MEDS: hydrOXYzine PAMOATE 25 MG CAPSULE (FP) PO SCH ×5 (06:45→22:24)
[2021-03-03] MEDS ORDERED: METHADONE HCL 10 MG TABLET (FOR DETOX USE ONLY) PO ONE (10:00)
[2021-03-03] MEDS: PRENATAL VITAMINS W/ FOLIC ACID TABLET (FP) PO SCH (10:41)
[2021-03-03] MEDS: QUEtiapine FUMARATE 200 MG TABLET PO SCH ×2 (10:41→22:24)
[2021-03-03] MEDS: PANTOPRAZOLE 40 MG TABLET PO SCH (10:41)
[2021-03-03 10:42] LABS: EOS % 3.1 % (0-4.5); HEMATOCRIT 35.5 % (35.4-49); HEMOGLOBIN 12.1 GM/dL (11.7-16.9); MCHC 34.2 g/dl (32.0-35.9); MEAN CELL VOLUME 90.8 fl (80-96); MEAN PLT VOLUME 9.1 fl (7.5-11.1); MONO % 11.3 % (3.8-10.2); NEUT % 45.6 % (42.8-82.8); PLATELET COUNT 216 K/MM3 (134-434); RDW 15.3 % (11.9-15.9); WHITE BLOOD COUNT 4.8 K/mm3 (4.0-10.0)
[2021-03-03] MEDS: NICOTINE 14 MG/24 HOURS TOPICAL PATCH TD SCH (10:45)
[2021-03-03 10:49] LABS: ALBUMIN 3.4 g/dl (3.4-5.0); BLOOD UREA NITROGEN 14.9 mg/dL (7-18); CALCIUM 9.3 mg/dL (8.5-10.1)
[2021-03-03 10:51] LABS: INR 0.92 (0.83-1.09); PROTHROMBIN TIME (PATIENT) 11.4 SEC (9.7-13.0)
[2021-03-03 10:52] LABS: CREATININE 0.9 mg/dL (0.55-1.3)
[2021-03-03 10:53] LABS: ACTIVATED PTT 24.6 SECONDS (25.2-36.5); BILIRUBIN,TOTAL 0.5 mg/dL (0.2-1); TOT PROT 7.2 g/dl (6.4-8.2)
[2021-03-03] MEDS: MELATONIN 5 MG TABLETS PO SCH (22:24)
[2021-03-03] MEDS: THIAMINE HCL 100 MG TABLET (FP) PO SCH (22:24)
[2021-03-03] MEDS: ONDANSETRON *ODT* 4 MG TABLET SL PRN (22:25)
[2021-03-04] MEDS ORDERED: chlordiazePOXIDE HCL 10 MG CAPSULE PO PRN
[2021-03-04] MEDS: hydrOXYzine PAMOATE 25 MG CAPSULE (FP) PO SCH ×5 (06:41→23:17)
[2021-03-04] MEDS: chlordiazePOXIDE HCL 10 MG CAPSULE PO SCH ×4 (06:52→22:19)
[2021-03-04] MEDS ORDERED: METHADONE HCL 5 MG TABLET (FOR DETOX USE ONLY) ONE (09:14)
[2021-03-04] MEDS ORDERED: METHADONE HCL 10 MG TABLET (FOR DETOX USE ONLY) ONE (09:15)
[2021-03-04] MEDS: ONDANSETRON *ODT* 4 MG TABLET SL PRN (09:37)
[2021-03-04] MEDS ORDERED: METHADONE (DETOX) 10 MG, METHADONE (DETOX) 5 MG PO ONE (10:00)
[2021-03-04] MEDS: QUEtiapine FUMARATE 200 MG TABLET PO SCH ×2 (10:07→22:19)
[2021-03-04] MEDS: PANTOPRAZOLE 40 MG TABLET PO SCH (10:07)
[2021-03-04] MEDS: NICOTINE 14 MG/24 HOURS TOPICAL PATCH TD SCH (10:07)
[2021-03-04] MEDS: PRENATAL VITAMINS W/ FOLIC ACID TABLET (FP) PO SCH (10:08)
[2021-03-04] MEDS: THIAMINE HCL 100 MG TABLET (FP) PO SCH (22:19)
[2021-03-04] MEDS: MELATONIN 5 MG TABLETS PO SCH (22:22)
[2021-03-05] MEDS ORDERED: chlordiazePOXIDE HCL 10 MG CAPSULE PO SCH (05:00)
[2021-03-05] MEDS: hydrOXYzine PAMOATE 25 MG CAPSULE (FP) PO SCH ×2 (05:08→09:05)
[2021-03-05 06:02] VITALS: BP 100/65
[2021-03-05] MEDS: PRENATAL VITAMINS W/ FOLIC ACID TABLET (FP) PO SCH (09:04)
[2021-03-05] MEDS: NICOTINE 14 MG/24 HOURS TOPICAL PATCH TD SCH (09:04)
[2021-03-05] MEDS: PANTOPRAZOLE 40 MG TABLET PO SCH (09:04)
[2021-03-05] MEDS: QUEtiapine FUMARATE 200 MG TABLET PO SCH (09:05)
[2021-03-05 09:22] VITALS: TEMP 98.2
[2021-03-05 09:24] VITALS: PULSE 78
[2021-03-05] MEDS ORDERED: METHADONE HCL 10 MG TABLET (FOR DETOX USE ONLY) PO ONE (10:00)
[2021-03-06] MEDS ORDERED: chlordiazePOXIDE HCL 10 MG CAPSULE PO ONE (05:00)
[2021-03-06] MEDS ORDERED: METHADONE HCL 5 MG TABLET (FOR DETOX USE ONLY) PO ONE (06:00)
== END 2021-03-05 09:28 | disposition home or self-care (01) | DRG 773 ==
LOC: YASAS 11:47 → Y6N 17:36
PROVIDERS: ADMIT Allergy & Immunology; ATTEND Allergy & Immunology
PROC: HZ2ZZZZ Detoxification Services for Substance Abuse Treatment (ICD-10-PCS; principal; 2021-03-01)
DX: F11.23 Opioid dependence with withdrawal (principal); F10.230 Alcohol dependence with withdrawal, uncomplicated; F14.20 Cocaine dependence, uncomplicated; F12.20 Cannabis dependence, uncomplicated; F17.210 Nicotine dependence, cigarettes, uncomplicated; F31.9 Bipolar disorder, unspecified; F19.24 Other psychoactive substance dependence with psychoactive substance-induced mood disorder; K21.9 Gastro-esophageal reflux disease without esophagitis; N40.0 Benign prostatic hyperplasia without lower urinary tract symptoms; Z86.711 Personal history of pulmonary embolism; Z86.718 Personal history of other venous thrombosis and embolism; Z86.73 Personal history of transient ischemic attack (TIA), and cerebral infarction without residual deficits; Z86.19 Personal history of other infectious and parasitic diseases; Z95.828 Presence of other vascular implants and grafts; Z87.19 Personal history of other diseases of the digestive system
CPT/HCPCS: 36415; 80053; 85025; 85610; 85730; 86593; 86780; 93005; 93010; C9803; Q0162; U0003; U0005

== ENCOUNTER 2021-04-11 11:11 | Inpatient (IN) | payer OTHER ==
[2021-04-11 14:28] VITALS: BMI 17.2
[2021-04-11] MEDS ORDERED: cloNIDine HCL 0.1 MG TABLET PO PRN (14:34)
[2021-04-11] MEDS ORDERED: MAGNESIUM CITRATE 300 ML BOTTLE PO PRN (14:34)
[2021-04-11] MEDS ORDERED: METHOCARBAMOL 500 MG TABLET PO PRN (14:34)
[2021-04-11] MEDS ORDERED: MENTHOL/PHENOL 1 EACH UD MM PRN (14:34)
[2021-04-11] MEDS ORDERED: MAGNESIUM HYDROX 2400MG/30ML ORAL SUSPENSION 30 ML CUP PO PRN (14:34)
[2021-04-11] MEDS ORDERED: NICOTINE POLACRILEX 2 MG GUM BUC PRN (14:34)
[2021-04-11] MEDS ORDERED: ACETAMINOPHEN 325 MG TABLET (FP) PO PRN ×2 (14:34)
[2021-04-11] MEDS ORDERED: BISMUTH SUBSALICYLATE 524 MG/30 ML PO PRN (14:34)
[2021-04-11] MEDS ORDERED: IBUPROFEN 400 MG TABLET (FP) PO PRN (14:34)
[2021-04-11] MEDS ORDERED: METHADONE HCL 10 MG TABLET (FOR DETOX USE ONLY) PO ONE (15:00)
[2021-04-11] MEDS: PRENATAL VITAMINS W/ FOLIC ACID TABLET (FP) PO SCH (15:38)
[2021-04-11] MEDS: ONDANSETRON *ODT* 4 MG TABLET SL PRN ×2 (15:39→22:55)
[2021-04-11] MEDS: hydrOXYzine PAMOATE 25 MG CAPSULE (FP) PO SCH ×2 (17:32→22:43)
[2021-04-11] MEDS: THIAMINE HCL 100 MG TABLET (FP) PO SCH (22:43)
[2021-04-11] MEDS: MELATONIN 5 MG TABLETS PO SCH (22:43)
[2021-04-12] MEDS ORDERED: TRIMETHOBENZAMIDE HCL 200MG/2ML INJ IM ONE (03:49)
[2021-04-12] MEDS: hydrOXYzine PAMOATE 25 MG CAPSULE (FP) PO SCH (06:19)
[2021-04-12] MEDS: TRIMETHOBENZAMIDE HCL 200MG/2ML INJ IM PRN (08:28)
[2021-04-12] MEDS ORDERED: METHADONE HCL 10 MG TABLET (FOR DETOX USE ONLY) ONE (09:46)
[2021-04-12] MEDS ORDERED: METHADONE HCL 5 MG TABLET (FOR DETOX USE ONLY) ONE (09:46)
[2021-04-12] MEDS ORDERED: METHADONE (DETOX) 20 MG, METHADONE (DETOX) 5 MG PO ONE (10:00)
[2021-04-12] MEDS: PRENATAL VITAMINS W/ FOLIC ACID TABLET (FP) PO SCH (12:56)
[2021-04-12] MEDS: PANTOPRAZOLE 40 MG TABLET PO SCH (12:56)
[2021-04-12] MEDS: THIAMINE HCL 100 MG TABLET (FP) PO SCH (21:25)
[2021-04-12] MEDS: MELATONIN 5 MG TABLETS PO SCH (21:26)
[2021-04-12] MEDS: QUEtiapine FUMARATE 100 MG TABLET (FP) PO SCH (21:26)
[2021-04-13] MEDS: MAG HYDROX/AL HYDROX/SIMETH 30 ML UNIT-DOSE CUP PO PRN (06:18)
[2021-04-13] MEDS: TRIMETHOBENZAMIDE HCL 200MG/2ML INJ IM PRN (08:41)
[2021-04-13] MEDS ORDERED: METHADONE HCL 10 MG TABLET (FOR DETOX USE ONLY) PO ONE (10:00)
[2021-04-13] MEDS: QUEtiapine FUMARATE 100 MG TABLET (FP) PO SCH ×2 (10:02→22:01)
[2021-04-13] MEDS: PANTOPRAZOLE 40 MG TABLET PO SCH (10:02)
[2021-04-13] MEDS: PRENATAL VITAMINS W/ FOLIC ACID TABLET (FP) PO SCH (10:02)
[2021-04-13] MEDS: THIAMINE HCL 100 MG TABLET (FP) PO SCH (22:01)
[2021-04-13] MEDS: hydrOXYzine PAMOATE 25 MG CAPSULE (FP) PO PRN (22:01)
[2021-04-13] MEDS: MELATONIN 5 MG TABLETS PO SCH (22:01)
[2021-04-14] MEDS ORDERED: METHADONE HCL 10 MG TABLET (FOR DETOX USE ONLY) ONE (08:41)
[2021-04-14] MEDS ORDERED: METHADONE HCL 5 MG TABLET (FOR DETOX USE ONLY) ONE (08:41)
[2021-04-14 09:49] LABS: BASO % 0.7 % (0-2.0); EOS % 2.8 % (0-4.5); HEMATOCRIT 39.1 % (35.4-49); HEMOGLOBIN 12.8 GM/dL (11.7-16.9); LYMPH % 37.7 % (8-40); MCHC 32.7 g/dl (32.0-35.9); MEAN CELL VOLUME 91.7 fl (80-96); MEAN PLT VOLUME 9.3 fl (7.5-11.1); MONO % 7.3 % (3.8-10.2); NEUT % 51.5 % (42.8-82.8); PLATELET COUNT 292 K/MM3 (134-434); RBC 4.27 M/mm3 (4.00-5.60); RDW 14.1 % (11.9-15.9); WHITE BLOOD COUNT 6.4 K/mm3 (4.0-10.0)
[2021-04-14] MEDS: QUEtiapine FUMARATE 100 MG TABLET (FP) PO SCH ×2 (09:53→21:44)
[2021-04-14] MEDS: PRENATAL VITAMINS W/ FOLIC ACID TABLET (FP) PO SCH (09:53)
[2021-04-14] MEDS: PANTOPRAZOLE 40 MG TABLET PO SCH (09:54)
[2021-04-14 09:56] LABS: CALCIUM 9.4 mg/dL (8.5-10.1)
[2021-04-14 09:57] LABS: ALBUMIN 3.3 g/dl (3.4-5.0)
[2021-04-14 10:00] LABS: BILIRUBIN,TOTAL 0.5 mg/dL (0.2-1); TOT PROT 6.5 g/dl (6.4-8.2)
[2021-04-14] MEDS ORDERED: METHADONE (DETOX) 10 MG, METHADONE (DETOX) 5 MG PO ONE (10:00)
[2021-04-14] MEDS: MAG HYDROX/AL HYDROX/SIMETH 30 ML UNIT-DOSE CUP PO PRN (17:30)
[2021-04-14] MEDS: THIAMINE HCL 100 MG TABLET (FP) PO SCH (21:44)
[2021-04-14] MEDS: MELATONIN 5 MG TABLETS PO SCH (21:45)
[2021-04-15] MEDS ORDERED: METHOCARBAMOL 750 MG TABLET PO PRN (09:44)
[2021-04-15] MEDS: QUEtiapine FUMARATE 100 MG TABLET (FP) PO SCH ×2 (09:57→21:36)
[2021-04-15] MEDS: PRENATAL VITAMINS W/ FOLIC ACID TABLET (FP) PO SCH (09:57)
[2021-04-15] MEDS: PANTOPRAZOLE 40 MG TABLET PO SCH (09:57)
[2021-04-15] MEDS: hydrOXYzine PAMOATE 25 MG CAPSULE (FP) PO PRN (09:59)
[2021-04-15] MEDS ORDERED: METHADONE HCL 10 MG TABLET (FOR DETOX USE ONLY) PO ONE (10:00)
[2021-04-15 17:25] VITALS: TEMP 97.1
[2021-04-15] MEDS ORDERED: METHOCARBAMOL 500 MG TABLET PO PRN (20:24)
[2021-04-15] MEDS: THIAMINE HCL 100 MG TABLET (FP) PO SCH (21:36)
[2021-04-15] MEDS: MELATONIN 5 MG TABLETS PO SCH (21:36)
[2021-04-16] MEDS ORDERED: METHADONE HCL 5 MG TABLET (FOR DETOX USE ONLY) PO ONE (06:00)
[2021-04-16 07:06] VITALS: BP 128/74; PULSE 66
== END 2021-04-16 08:17 | disposition home or self-care (01) | DRG 773 ==
LOC: YASAS 11:11 → Y3N 14:35
PROVIDERS: ADMIT Allergy & Immunology; ATTEND Allergy & Immunology
PROC: HZ2ZZZZ Detoxification Services for Substance Abuse Treatment (ICD-10-PCS; principal; 2021-04-11)
DX: F11.23 Opioid dependence with withdrawal (principal); F10.230 Alcohol dependence with withdrawal, uncomplicated; F14.20 Cocaine dependence, uncomplicated; F12.20 Cannabis dependence, uncomplicated; F19.282 Other psychoactive substance dependence with psychoactive substance-induced sleep disorder; F31.9 Bipolar disorder, unspecified; F19.24 Other psychoactive substance dependence with psychoactive substance-induced mood disorder; F41.8 Other specified anxiety disorders; F32.9 Major depressive disorder, single episode, unspecified; D50.9 Iron deficiency anemia, unspecified; J45.20 Mild intermittent asthma, uncomplicated; K21.9 Gastro-esophageal reflux disease without esophagitis; K29.70 Gastritis, unspecified, without bleeding; Z86.718 Personal history of other venous thrombosis and embolism; Z86.711 Personal history of pulmonary embolism; I25.2 Old myocardial infarction
CPT/HCPCS: 36415; 80053; 85025; 86593; 86780; C9803; Q0162; U0003; U0005

== ENCOUNTER 2021-10-28 10:54 | Inpatient (IN) | payer OTHER ==
[2021-10-28] MEDS ORDERED: MAGNESIUM CITRATE 300 ML BOTTLE PO PRN (12:30)
[2021-10-28] MEDS ORDERED: BISMUTH SUBSALICYLATE 262 MG/15 ML BTL PO PRN (12:30)
[2021-10-28] MEDS ORDERED: ONDANSETRON *ODT* 4 MG TABLET SL PRN (12:30)
[2021-10-28] MEDS ORDERED: methaDONE HCL 10 MG TABLET (FOR DETOX USE ONLY) PO ONE (12:30)
[2021-10-28] MEDS ORDERED: ACETAMINOPHEN 325 MG TABLET (FP) PO PRN (12:30)
[2021-10-28] MEDS ORDERED: IBUPROFEN 400 MG TABLET (FP) PO PRN (12:30)
[2021-10-28] MEDS ORDERED: cloNIDine HCL 0.1 MG TABLET PO PRN (12:30)
[2021-10-28] MEDS ORDERED: MAG HYDROX/AL HYDROX/SIMETH 30 ML UNIT-DOSE CUP PO PRN (12:30)
[2021-10-28] MEDS ORDERED: chlordiazePOXIDE HCL 25 MG CAPSULE PO PRN (12:30)
[2021-10-28] MEDS ORDERED: NICOTINE 10 MG CARTRIDGE (INHALER) IH PRN (12:30)
[2021-10-28] MEDS ORDERED: MAGNESIUM HYDROX 2400MG/30ML ORAL SUSPENSION 30 ML CUP PO PRN (12:30)
[2021-10-28] MEDS ORDERED: MENTHOL/PHENOL 1 EACH UD MM PRN (12:30)
[2021-10-28 12:42] VITALS: BMI 17.3
[2021-10-28] MEDS: hydrOXYzine PAMOATE 25 MG CAPSULE (FP) PO SCH ×3 (15:45→22:36)
[2021-10-28] MEDS: METHOCARBAMOL 500 MG TABLET PO PRN (15:45)
[2021-10-28] MEDS: chlordiazePOXIDE HCL 25 MG CAPSULE PO SCH ×2 (18:07→22:36)
[2021-10-28] MEDS ORDERED: MELATONIN 5 MG TABLETS PO SCH (22:00)
[2021-10-28] MEDS: THIAMINE HCL 100 MG TABLET (FP) PO SCH (22:36)
[2021-10-29] MEDS: chlordiazePOXIDE HCL 25 MG CAPSULE PO SCH ×4 (06:40→23:32)
[2021-10-29] MEDS: hydrOXYzine PAMOATE 25 MG CAPSULE (FP) PO SCH ×5 (06:40→23:29)
[2021-10-29] MEDS: ACETAMINOPHEN 325 MG TABLET (FP) PO PRN (06:41)
[2021-10-29] MEDS ORDERED: methaDONE HCL 10 MG TABLET (FOR DETOX USE ONLY) ONE (09:23)
[2021-10-29 10:01] LABS: HEMATOCRIT 35.8 % (35.4-49); HEMOGLOBIN 12.1 GM/dL (11.7-16.9); MCHC 33.8 g/dl (32.0-35.9); MEAN CELL VOLUME 94.6 fl (80-96); MEAN PLT VOLUME 8.8 fl (7.5-11.1); PLATELET COUNT 320 10^3/uL (134-434); RBC 3.78 M/mm3 (4.00-5.60); RDW 13.7 % (11.9-15.9); WHITE BLOOD COUNT 5.2 K/mm3 (4.0-10.0)
[2021-10-29 10:11] LABS: BLOOD UREA NITROGEN 19.5 mg/dL (7-18); CALCIUM 8.7 mg/dL (8.5-10.1)
[2021-10-29 10:12] LABS: ALBUMIN 2.8 g/dl (3.4-5.0)
[2021-10-29 10:15] LABS: CREATININE 0.8 mg/dL (0.55-1.3)
[2021-10-29 10:16] LABS: BILIRUBIN,TOTAL 0.2 mg/dL (0.2-1)
[2021-10-29] MEDS: PRENATAL VITAMINS W/ FOLIC ACID TABLET (FP) PO SCH (10:22)
[2021-10-29] MEDS: PANTOPRAZOLE 40 MG TABLET PO SCH (10:22)
[2021-10-29] MEDS: METHOCARBAMOL 500 MG TABLET PO PRN (10:23)
[2021-10-29] MEDS: QUEtiapine FUMARATE 100 MG TABLET (FP) PO SCH (12:41)
[2021-10-29] MEDS: QUEtiapine FUMARATE 200 MG TABLET PO SCH (23:29)
[2021-10-29] MEDS: THIAMINE HCL 100 MG TABLET (FP) PO SCH (23:29)
[2021-10-30] MEDS: hydrOXYzine PAMOATE 25 MG CAPSULE (FP) PO SCH ×5 (06:49→22:43)
[2021-10-30] MEDS: chlordiazePOXIDE HCL 25 MG CAPSULE PO SCH ×4 (06:49→22:43)
[2021-10-30] MEDS ORDERED: QUEtiapine FUMARATE 50 MG TABLET ONE (09:42)
[2021-10-30] MEDS ORDERED: methaDONE HCL 10 MG TABLET (FOR DETOX USE ONLY) PO ONE (10:00)
[2021-10-30] MEDS: PANTOPRAZOLE 40 MG TABLET PO SCH (10:26)
[2021-10-30] MEDS: PRENATAL VITAMINS W/ FOLIC ACID TABLET (FP) PO SCH (10:26)
[2021-10-30] MEDS: QUEtiapine FUMARATE 100 MG TABLET (FP) PO SCH (10:27)
[2021-10-30] MEDS: METHOCARBAMOL 500 MG TABLET PO PRN (10:29)
[2021-10-30] MEDS ORDERED: TRIMETHOBENZAMIDE HCL 200MG/2ML INJ IM ONE (21:46)
[2021-10-30] MEDS: THIAMINE HCL 100 MG TABLET (FP) PO SCH (22:42)
[2021-10-30] MEDS: QUEtiapine FUMARATE 200 MG TABLET PO SCH (22:42)
[2021-10-31] MEDS ORDERED: chlordiazePOXIDE HCL 10 MG CAPSULE PO PRN
[2021-10-31] MEDS: chlordiazePOXIDE HCL 10 MG CAPSULE PO SCH ×4 (05:49→22:31)
[2021-10-31] MEDS: hydrOXYzine PAMOATE 25 MG CAPSULE (FP) PO SCH ×5 (05:49→22:28)
[2021-10-31] MEDS ORDERED: methaDONE HCL 10 MG TABLET (FOR DETOX USE ONLY) ONE (09:36)
[2021-10-31] MEDS: QUEtiapine FUMARATE 100 MG TABLET (FP) PO SCH (10:23)
[2021-10-31] MEDS: METHOCARBAMOL 500 MG TABLET PO PRN ×2 (10:23→17:31)
[2021-10-31] MEDS: PRENATAL VITAMINS W/ FOLIC ACID TABLET (FP) PO SCH (10:23)
[2021-10-31] MEDS: PANTOPRAZOLE 40 MG TABLET PO SCH (10:24)
[2021-10-31] MEDS: ACETAMINOPHEN 325 MG TABLET (FP) PO PRN (18:45)
[2021-10-31] MEDS: QUEtiapine FUMARATE 200 MG TABLET PO SCH (22:28)
[2021-10-31] MEDS: THIAMINE HCL 100 MG TABLET (FP) PO SCH (22:28)
[2021-11-01] MEDS ORDERED: chlordiazePOXIDE HCL 10 MG CAPSULE PO SCH (05:00)
[2021-11-01] MEDS: hydrOXYzine PAMOATE 25 MG CAPSULE (FP) PO SCH (06:23)
[2021-11-01 06:52] VITALS: BP 142/73; PULSE 86; TEMP 98
[2021-11-01] MEDS: QUEtiapine FUMARATE 100 MG TABLET (FP) PO SCH (09:04)
[2021-11-01] MEDS: PANTOPRAZOLE 40 MG TABLET PO SCH (09:05)
[2021-11-01] MEDS ORDERED: methaDONE HCL 10 MG TABLET (FOR DETOX USE ONLY) PO ONE (10:00)
[2021-11-02] MEDS ORDERED: chlordiazePOXIDE HCL 10 MG CAPSULE PO ONE (05:00)
== END 2021-11-01 09:38 | disposition home or self-care (01) | DRG 773 ==
LOC: YASAS 10:54 → Y6N 13:30
PROVIDERS: ADMIT Allergy & Immunology; ATTEND Allergy & Immunology
PROC: HZ2ZZZZ Detoxification Services for Substance Abuse Treatment (ICD-10-PCS; principal; 2021-10-28)
DX: F11.23 Opioid dependence with withdrawal (principal); F10.230 Alcohol dependence with withdrawal, uncomplicated; F14.20 Cocaine dependence, uncomplicated; F12.20 Cannabis dependence, uncomplicated; F17.210 Nicotine dependence, cigarettes, uncomplicated; F19.282 Other psychoactive substance dependence with psychoactive substance-induced sleep disorder; F19.24 Other psychoactive substance dependence with psychoactive substance-induced mood disorder; F31.9 Bipolar disorder, unspecified; F41.8 Other specified anxiety disorders; I10 Essential (primary) hypertension; J45.20 Mild intermittent asthma, uncomplicated; K21.9 Gastro-esophageal reflux disease without esophagitis; N40.0 Benign prostatic hyperplasia without lower urinary tract symptoms; Z86.73 Personal history of transient ischemic attack (TIA), and cerebral infarction without residual deficits; Z86.2 Personal history of diseases of the blood and blood-forming organs and certain disorders involving the immune mechanism; Z86.19 Personal history of other infectious and parasitic diseases; Z86.711 Personal history of pulmonary embolism; Z79.01 Long term (current) use of anticoagulants
CPT/HCPCS: 36415; 80053; 85027; 86593; 86780; C9803; Q0162; U0003; U0005

== ENCOUNTER 2022-12-05 16:24 | Inpatient (IN) | payer OTHER ==
[2022-12-05 17:25] VITALS: BMI 19.9
[2022-12-05] MEDS ORDERED: guaiFENesin 200 MG/10 ML 10 ML UNIT-DOSE CUPS PO PRN (17:41)
[2022-12-05] MEDS ORDERED: ACETAMINOPHEN 325 MG TABLET (FP) PO PRN ×2 (17:41)
[2022-12-05] MEDS ORDERED: POLYETHYLENE GLYCOL (HEALTHYLAX) 3350 17 GM PACKET PO PRN (17:41)
[2022-12-05] MEDS ORDERED: P-EPHED 60MG/TRIPROLIDI 2.5MG TABLET PO PRN (17:41)
[2022-12-05] MEDS ORDERED: MAGNESIUM HYDROX 2400MG/30ML ORAL SUSPENSION 30 ML CUP PO PRN (17:41)
[2022-12-05] MEDS ORDERED: DICYCLOMINE HCL 10 MG CAPSULE PO PRN (17:41)
[2022-12-05] MEDS ORDERED: NALOXONE HCL 0.4 MG/ML VIAL IM PRN (17:41)
[2022-12-05] MEDS ORDERED: BISMUTH SUBSALICYLATE 524 MG/30 ML PO PRN (17:41)
[2022-12-05] MEDS ORDERED: NICOTINE 7 MG/24 HOURS TOPICAL PATCH TD PRN (17:41)
[2022-12-05] MEDS ORDERED: LOPERAMIDE HCL 2 MG CAPSULE PO PRN (17:41)
[2022-12-05] MEDS ORDERED: NICOTINE 10 MG CARTRIDGE (INHALER) IH PRN (17:41)
[2022-12-05] MEDS ORDERED: NALOXONE HCL (KLOXXADO) 8 MG SPRAY NS PRN (17:41)
[2022-12-05] MEDS ORDERED: IBUPROFEN 400 MG TABLET (FP) PO PRN (17:41)
[2022-12-05] MEDS ORDERED: MELATONIN 5 MG TABLETS PO PRN (17:41)
[2022-12-05] MEDS ORDERED: BENZOCAINE/MENTHOL (CHLORASEPTIC ) LOZENGE MM PRN (17:41)
[2022-12-05] MEDS ORDERED: IBUPROFEN 600 MG TABLET (FP) PO PRN (17:41)
[2022-12-05] MEDS ORDERED: NICOTINE POLACRILEX 2 MG GUM BUC PRN (17:41)
[2022-12-05] MEDS ORDERED: chlordiazePOXIDE HCL 25 MG CAPSULE PO PRN (17:43)
[2022-12-05] MEDS: chlordiazePOXIDE HCL 25 MG CAPSULE PO SCH (22:35)
[2022-12-05] MEDS: PANTOPRAZOLE 40 MG TABLET PO SCH (22:35)
[2022-12-05] MEDS: METHOCARBAMOL 500 MG TABLET PO PRN (22:35)
[2022-12-05] MEDS: THIAMINE HCL 100 MG TABLET (FP) PO SCH (22:36)
[2022-12-06] MEDS: chlordiazePOXIDE HCL 25 MG CAPSULE PO SCH ×4 (05:41→22:21)
[2022-12-06] MEDS: METHOCARBAMOL 500 MG TABLET PO PRN (05:42)
[2022-12-06] MEDS ORDERED: methaDONE HCL 10 MG TABLET PO SCH (10:00)
[2022-12-06] MEDS: ONDANSETRON *ODT* 4 MG TABLET SL PRN (10:51)
[2022-12-06] MEDS: methaDONE 40 MG, methaDONE 30 MG PO SCH (10:51)
[2022-12-06] MEDS: PRENATAL VITAMINS W/ FOLIC ACID TABLET (FP) PO SCH (10:51)
[2022-12-06] MEDS: PANTOPRAZOLE 40 MG TABLET PO SCH (10:51)
[2022-12-06] MEDS: QUEtiapine FUMARATE 100 MG TABLET (FP) PO SCH (22:21)
[2022-12-06] MEDS: THIAMINE HCL 100 MG TABLET (FP) PO SCH (22:21)
[2022-12-07] MEDS: methaDONE 40 MG, methaDONE 30 MG PO SCH (05:54)
[2022-12-07] MEDS: chlordiazePOXIDE HCL 25 MG CAPSULE PO SCH ×4 (05:55→22:41)
[2022-12-07] MEDS: MAG HYDROX/AL HYDROX/SIMETH 30 ML UNIT-DOSE CUP PO PRN ×2 (06:51→21:29)
[2022-12-07] MEDS: ONDANSETRON *ODT* 4 MG TABLET SL PRN (08:40)
[2022-12-07] MEDS: QUEtiapine FUMARATE 100 MG TABLET (FP) PO SCH ×2 (10:35→22:40)
[2022-12-07] MEDS: PRENATAL VITAMINS W/ FOLIC ACID TABLET (FP) PO SCH (10:35)
[2022-12-07] MEDS: PANTOPRAZOLE 40 MG TABLET PO SCH (10:36)
[2022-12-07] MEDS: amLODIPine BESYLATE 10 MG TABLET (FP) PO SCH (10:36)
[2022-12-07] MEDS: TRIMETHOBENZAMIDE HCL 200MG/2ML INJ IM PRN (13:31)
[2022-12-07] MEDS: THIAMINE HCL 100 MG TABLET (FP) PO SCH (22:40)
[2022-12-08] MEDS ORDERED: chlordiazePOXIDE HCL 10 MG CAPSULE PO PRN
[2022-12-08] MEDS: chlordiazePOXIDE HCL 10 MG CAPSULE PO SCH ×4 (05:47→22:27)
[2022-12-08] MEDS: methaDONE 40 MG, methaDONE 30 MG PO SCH (05:47)
[2022-12-08] MEDS: ONDANSETRON *ODT* 4 MG TABLET SL PRN (06:56)
[2022-12-08] MEDS: PANTOPRAZOLE 40 MG TABLET PO SCH (09:06)
[2022-12-08] MEDS: TRIMETHOBENZAMIDE HCL 200MG/2ML INJ IM PRN (09:06)
[2022-12-08] MEDS: PRENATAL VITAMINS W/ FOLIC ACID TABLET (FP) PO SCH (10:41)
[2022-12-08] MEDS: QUEtiapine FUMARATE 100 MG TABLET (FP) PO SCH ×2 (10:41→22:27)
[2022-12-08] MEDS: amLODIPine BESYLATE 10 MG TABLET (FP) PO SCH (10:41)
[2022-12-08 13:02] VITALS: TEMP 98.4
[2022-12-08] MEDS: MAG HYDROX/AL HYDROX/SIMETH 30 ML UNIT-DOSE CUP PO PRN (14:24)
[2022-12-08 14:39] VITALS: BP 125/90; PULSE 101; RESP 18
[2022-12-08 14:54] LABS: HEMATOCRIT 50.8 % (35.4-49); HEMOGLOBIN 17.5 GM/dL (11.7-16.9); MCH 31.8 pg (25.7-33.7); MCHC 34.5 g/dl (32.0-35.9); MEAN CELL VOLUME 92.1 fl (80-96); MEAN PLT VOLUME 8.9 fl (7.5-11.1); PLATELET COUNT 419 10^3/uL (134-434); RBC 5.51 M/mm3 (4.00-5.60); RDW 13.4 % (11.9-15.9); WHITE BLOOD COUNT 17.5 K/mm3 (4.0-10.0)
[2022-12-08 15:40] LABS: ALBUMIN 4.2 g/dl (3.4-5.0)
[2022-12-08 15:42] LABS: CALCIUM 10.5 mg/dL (8.5-10.1); CREATININE 1.4 mg/dL (0.55-1.3)
[2022-12-08 15:43] LABS: BLOOD UREA NITROGEN 38.5 mg/dL (7-18)
[2022-12-08 15:50] LABS: BILIRUBIN,TOTAL 0.7 mg/dL (0.2-1); TOT PROT 8.1 g/dl (6.4-8.2)
[2022-12-08] MEDS: THIAMINE HCL 100 MG TABLET (FP) PO SCH (22:28)
[2022-12-09] MEDS ORDERED: chlordiazePOXIDE HCL 10 MG CAPSULE PO SCH (05:00)
[2022-12-10] MEDS ORDERED: chlordiazePOXIDE HCL 10 MG CAPSULE PO ONE (05:00)
== END 2022-12-09 03:33 | disposition short-term general hospital (02) | DRG 773 ==
LOC: YASAS 16:24 → Y6N 21:12
PROVIDERS: ADMIT Allergy & Immunology; ATTEND Family Medicine
PROC: HZ2ZZZZ Detoxification Services for Substance Abuse Treatment (ICD-10-PCS; principal; 2022-12-05)
DX: F11.23 Opioid dependence with withdrawal (principal); F10.230 Alcohol dependence with withdrawal, uncomplicated; F14.20 Cocaine dependence, uncomplicated; F12.20 Cannabis dependence, uncomplicated; F17.210 Nicotine dependence, cigarettes, uncomplicated; F31.9 Bipolar disorder, unspecified; F19.24 Other psychoactive substance dependence with psychoactive substance-induced mood disorder; K21.9 Gastro-esophageal reflux disease without esophagitis; N40.0 Benign prostatic hyperplasia without lower urinary tract symptoms; R11.2 Nausea with vomiting, unspecified; R10.13 Epigastric pain; Z86.711 Personal history of pulmonary embolism; Z86.718 Personal history of other venous thrombosis and embolism
CPT/HCPCS: 36415; 80053; 85027; 86593; 86780; 93005; 93010; C9803-CS; Q0162; U0003; U0005

== ENCOUNTER 2022-12-08 14:52 | Observation (INO) | payer OTHER ==
[2022-12-08] MEDS ORDERED: FAMOTIDINE 20 MG TABLET PO ONE (16:58)
[2022-12-08] MEDS ORDERED: PANTOPRAZOLE SODIUM 40 MG VIAL IVPUSH ONE (17:11)
[2022-12-08 17:19] LABS: HEMATOCRIT 51.8 % (35.4-49); HEMOGLOBIN 17.4 GM/dL (11.7-16.9); MCH 30.6 pg (25.7-33.7); MCHC 33.6 g/dl (32.0-35.9); MEAN CELL VOLUME 91.1 fl (80-96); MEAN PLT VOLUME 9.1 fl (7.5-11.1); PLATELET COUNT 419 10^3/uL (134-434); RBC 5.68 M/mm3 (4.00-5.60); RDW 13.7 % (11.9-15.9); WHITE BLOOD COUNT 18.1 K/mm3 (4.0-10.0)
[2022-12-08 17:23] LABS: INR 1.03 (0.83-1.09); PROTHROMBIN TIME (PATIENT) 11.9 SEC (9.7-13.0)
[2022-12-08] MEDS ORDERED: ONDANSETRON 4 MG/2 ML VIAL ONE (17:26)
[2022-12-08] MEDS ORDERED: FAMOTIDINE 20 MG/50 ML IVPB 20 MG/50 ML MG IVPB ONE ×2 (17:26→17:57)
[2022-12-08] MEDS ORDERED: PANTOPRAZOLE SODIUM 40 MG VIAL ONE (17:26)
[2022-12-08 17:39] LABS: CHLORIDE 76 mmol/L (98-107); SODIUM 128 mmol/L (136-145)
[2022-12-08 17:41] LABS: ALBUMIN 3.8 g/dl (3.4-5.0); BLOOD UREA NITROGEN 44.5 mg/dL (7-18); CALCIUM 10.7 mg/dL (8.5-10.1); CO2 38 mmol/L (21-32); GLUCOSE,RANDOM 137 mg/dL (74-106); LIPASE 16 U/L (73-393)
[2022-12-08 17:44] LABS: CREATININE 1.6 mg/dL (0.55-1.3); SGOT/AST 83 U/L (15-37)
[2022-12-08 17:46] LABS: BILIRUBIN,TOTAL 0.8 mg/dL (0.2-1); TOT PROT 8.2 g/dl (6.4-8.2)
[2022-12-08 17:47] LABS: ALK PHOS 56 U/L (45-117)
[2022-12-08 17:48] LABS: ANION GAP 14 MMOL/L (8-16); SGPT/ALT 30 U/L (13-61)
[2022-12-08] MEDS ORDERED: SODIUM CHLORIDE 0.9% 500 ML INFUS.BAG IV ONE (18:28)
[2022-12-08] MEDS ORDERED: ACETAMINOPHEN 1000 MG/100 ML BAG IVPB ONE (18:30)
[2022-12-08] MEDS ORDERED: ACETAMINOPHEN INJECTION 100 ML IVPB ONE (18:43)
[2022-12-08] MEDS ORDERED: TRIMETHOBENZAMIDE HCL 200MG/2ML INJ IM ONE ×2 (18:47→18:52)
[2022-12-08 18:52] LABS: PLATELET ESTIMATE NORMAL
[2022-12-08] MEDS ORDERED: MAGNESIUM SULF 50% (8.12 MEQ/2 ML-1 GM VIAL) IVPB ONE (20:09)
[2022-12-08] MEDS ORDERED: MAGNESIUM SULFATE IN WATER 2 GM/50 ML IVPB IVPB ONE (20:21)
[2022-12-08 21:16] LABS: ALBUMIN 3.4 g/dl (3.4-5.0); BLOOD UREA NITROGEN 41.9 mg/dL (7-18); CALCIUM 9.2 mg/dL (8.5-10.1)
[2022-12-08 21:19] LABS: CREATININE 1.3 mg/dL (0.55-1.3)
[2022-12-08 21:21] LABS: BILIRUBIN,TOTAL 0.6 mg/dL (0.2-1); TOT PROT 6.9 g/dl (6.4-8.2)
[2022-12-08 21:38] LABS: EPI CELLS 4 /uL (0-25.1); HYALINE CASTS 2 /uL (0-3.1); PH,URINE >= 9.0 (5.0-8.0); URINE APPEARANCE CLOUDY; URINE BACTERIA 14 /uL (0-1359); URINE BILIRUBIN NEGATIVE (NEGATIVE); URINE COLOR YELLOW; URINE GLUCOSE (UA) NEGATIVE (NEGATIVE); URINE KETONE NEGATIVE (NEGATIVE); URINE LEUK ESTERASE NEGATIVE (NEGATIVE); URINE NITRITE NEGATIVE (NEGATIVE); URINE PROTEIN 2+ (NEGATIVE); URINE RBC 33 /uL (0-23.9); URINE WBC 8 /uL (0-25.8)
[2022-12-09] MEDS ORDERED: chlordiazePOXIDE HCL 10 MG CAPSULE PO PRN
[2022-12-09] MEDS ORDERED: TRIMETHOBENZAMIDE HCL 200MG/2ML INJ IM PRN (03:47)
[2022-12-09] MEDS ORDERED: ACETAMINOPHEN 1000 MG/100 ML BAG IVPB PRN (03:58)
[2022-12-09] MEDS: SODIUM CHLORIDE 1,000 ML IV SCH (04:41)
[2022-12-09] MEDS ORDERED: chlordiazePOXIDE HCL 25 MG CAPSULE PO PRN (05:30)
[2022-12-09 07:10] LABS: CALCIUM 8.6 mg/dL (8.5-10.1)
[2022-12-09 07:11] LABS: BLOOD UREA NITROGEN 39.4 mg/dL (7-18); MAGNESIUM 2.1 mg/dL (1.8-2.4)
[2022-12-09 07:14] LABS: CREATININE 1.3 mg/dL (0.55-1.3); PHOSPHOROUS 3.4 mg/dL (2.5-4.9)
[2022-12-09 07:15] LABS: BILIRUBIN,TOTAL 0.4 mg/dL (0.2-1); TOT PROT 5.8 g/dl (6.4-8.2)
[2022-12-09 07:18] LABS: ALBUMIN 1.8 g/dl (3.4-5.0)
[2022-12-09 07:38] VITALS: BMI 18.6
[2022-12-09] MEDS: chlordiazePOXIDE HCL 10 MG CAPSULE PO SCH ×2 (07:56→17:35)
[2022-12-09 09:13] LABS: BASO % 0.3 % (0-2.0); EOS % 0.2 % (0-4.5); HEMATOCRIT 43.7 % (35.4-49); HEMOGLOBIN 15.1 GM/dL (11.7-16.9); LYMPH % 10.4 % (8-40); MCH 31.8 pg (25.7-33.7); MCHC 34.5 g/dl (32.0-35.9); MEAN CELL VOLUME 92.2 fl (80-96); MEAN PLT VOLUME 8.4 fl (7.5-11.1); MONO % 7.8 % (3.8-10.2); NEUT % 81.3 % (42.8-82.8); PLATELET COUNT 334 10^3/uL (134-434); RBC 4.75 M/mm3 (4.00-5.60); RDW 13.7 % (11.9-15.9); WHITE BLOOD COUNT 15.1 K/mm3 (4.0-10.0)
[2022-12-09 09:40] LABS: CALCIUM 9.2 mg/dL (8.5-10.1)
[2022-12-09 09:41] LABS: BLOOD UREA NITROGEN 33.5 mg/dL (7-18); MAGNESIUM 2.3 mg/dL (1.8-2.4)
[2022-12-09 09:45] LABS: BILIRUBIN,TOTAL 0.8 mg/dL (0.2-1); TOT PROT 6.4 g/dl (6.4-8.2)
[2022-12-09 09:53] LABS: ALBUMIN 3.2 g/dl (3.4-5.0)
[2022-12-09] MEDS ORDERED: POLYETHYLENE GLYCOL (HEALTHYLAX) 3350 17 GM PACKET PO SCH (10:00)
[2022-12-09] MEDS ORDERED: THIAMINE HCL 100 MG TABLET (FP) PO SCH (10:00)
[2022-12-09] MEDS ORDERED: PANTOPRAZOLE SODIUM 40 MG VIAL IVPUSH SCH (10:00)
[2022-12-09] MEDS ORDERED: AMINO ACIDS 4.25%/D5W 1,000 ML IV SCH (11:00)
[2022-12-09] MEDS ORDERED: methaDONE HCL 10 MG TABLET (FOR DETOX USE ONLY) PO ONE (11:30)
[2022-12-09] MEDS ORDERED: MAG HYDROX/AL HYDROX/SIMETH 30 ML UNIT-DOSE CUP PO PRN (11:40)
[2022-12-09] MEDS: THIAMINE HCL 200 MG/2 ML VIAL IVPB SCH (12:16)
[2022-12-09] MEDS: SUCRALFATE 1 GM/10 ML UNIT DOSE CUPS PO SCH ×2 (12:17→21:41)
[2022-12-09] MEDS: FOLIC ACID 1 MG TABLET (FP) PO SCH (12:17)
[2022-12-09] MEDS ORDERED: methaDONE 40 MG, methaDONE 30 MG PO ONE (12:30)
[2022-12-09 13:22] LABS: BASO % 0.3 % (0-2.0); EOS % 0.2 % (0-4.5); HEMATOCRIT 43.3 % (35.4-49); HEMOGLOBIN 14.8 GM/dL (11.7-16.9); LYMPH % 11.3 % (8-40); MCH 31.3 pg (25.7-33.7); MCHC 34.1 g/dl (32.0-35.9); MEAN CELL VOLUME 91.6 fl (80-96); MEAN PLT VOLUME 8.1 fl (7.5-11.1); MONO % 8.3 % (3.8-10.2); NEUT % 79.9 % (42.8-82.8); PLATELET COUNT 318 10^3/uL (134-434); RBC 4.72 M/mm3 (4.00-5.60); RDW 13.3 % (11.9-15.9); WHITE BLOOD COUNT 14.7 K/mm3 (4.0-10.0)
[2022-12-09] MEDS ORDERED: PROCHLORPERAZINE INJECTION 10 MG/2 ML VIAL IVPB PRN (15:22)
[2022-12-09 20:15] LABS: BASO % 0.5 % (0-2.0); EOS % 0.7 % (0-4.5); HEMATOCRIT 41.1 % (35.4-49); HEMOGLOBIN 13.7 GM/dL (11.7-16.9); LYMPH % 20.6 % (8-40); MCH 30.9 pg (25.7-33.7); MCHC 33.4 g/dl (32.0-35.9); MEAN CELL VOLUME 92.4 fl (80-96); MEAN PLT VOLUME 8.7 fl (7.5-11.1); MONO % 9.3 % (3.8-10.2); NEUT % 68.9 % (42.8-82.8); PLATELET COUNT 299 10^3/uL (134-434); RBC 4.45 M/mm3 (4.00-5.60); RDW 13.6 % (11.9-15.9); WHITE BLOOD COUNT 11.7 K/mm3 (4.0-10.0)
[2022-12-09] MEDS: POLYETHYLENE GLYCOL (HEALTHYLAX) 3350 17 GM PACKET PO SCH (21:41)
[2022-12-09] MEDS: PANTOPRAZOLE 40 MG TABLET PO SCH (21:41)
[2022-12-09] MEDS: traZODone HCL 50 MG TABLET (FP) PO SCH (22:28)
[2022-12-09 23:09] LABS: HIV INTERPRETATION NEGATIVE (NEGATIVE)
[2022-12-10] MEDS: SODIUM CHLORIDE 1,000 ML IV SCH (04:33)
[2022-12-10] MEDS ORDERED: chlordiazePOXIDE HCL 10 MG CAPSULE PO ONE (05:00)
[2022-12-10] MEDS ORDERED: methaDONE 40 MG, methaDONE 30 MG PO SCH (06:00)
[2022-12-10] MEDS ORDERED: methaDONE HCL 10 MG TABLET PO SCH (06:00)
[2022-12-10 09:18] LABS: BASO % 0.6 % (0-2.0); EOS % 1.4 % (0-4.5); HEMATOCRIT 37.8 % (35.4-49); HEMOGLOBIN 13.1 GM/dL (11.7-16.9); LYMPH % 26.8 % (8-40); MCH 32.1 pg (25.7-33.7); MCHC 34.5 g/dl (32.0-35.9); MEAN CELL VOLUME 92.9 fl (80-96); MEAN PLT VOLUME 8.5 fl (7.5-11.1); MONO % 8.7 % (3.8-10.2); NEUT % 62.5 % (42.8-82.8); PLATELET COUNT 254 10^3/uL (134-434); RBC 4.07 M/mm3 (4.00-5.60); RDW 13.7 % (11.9-15.9); WHITE BLOOD COUNT 9.7 K/mm3 (4.0-10.0)
[2022-12-10 09:24] VITALS: RESP 18; TEMP 98.4
[2022-12-10] MEDS: PANTOPRAZOLE 40 MG TABLET PO SCH (09:25)
[2022-12-10] MEDS: POLYETHYLENE GLYCOL (HEALTHYLAX) 3350 17 GM PACKET PO SCH ×3 (09:26→14:09)
[2022-12-10] MEDS: SUCRALFATE 1 GM/10 ML UNIT DOSE CUPS PO SCH (09:26)
[2022-12-10] MEDS: FOLIC ACID 1 MG TABLET (FP) PO SCH (09:27)
[2022-12-10] MEDS: traZODone HCL 50 MG TABLET (FP) PO SCH (09:27)
[2022-12-10] MEDS: THIAMINE HCL 200 MG/2 ML VIAL IVPB SCH (09:28)
[2022-12-10 09:45] LABS: CALCIUM 8.4 mg/dL (8.5-10.1)
[2022-12-10 09:46] LABS: ALBUMIN 2.8 g/dl (3.4-5.0)
[2022-12-10 09:51] LABS: BILIRUBIN,TOTAL 0.7 mg/dL (0.2-1); TOT PROT 5.6 g/dl (6.4-8.2)
[2022-12-10] MEDS ORDERED: MULTIVITAMINS (DAILY MVI) TABLET (FP) PO SCH (10:00)
[2022-12-10 15:27] VITALS: BP 144/85; PULSE 72
[2022-12-11 08:09] LABS: CARCINOEMBRYONIC ANTIGEN 7.6 ng/mL (0.0-4.7)
== END 2022-12-10 16:24 | disposition other institution (70) ==
LOC: JER 14:52 → UNDOADMOB 12-09 02:12 → JERBED 12-09 02:12 → INTOOBSV 12-09 02:12 → J7W 12-09 05:37 → JERBED 12-09 05:37 → J7W 12-09 15:53
PROVIDERS: ADMIT Internal Medicine; ATTEND Internal Medicine
PROC: 3E033GC Introduction of Other Therapeutic Substance into Peripheral Vein, Percutaneous Approach (ICD-10-PCS; principal; 2022-12-09)
PROC: 3E0337Z Introduction of Electrolytic and Water Balance Substance into Peripheral Vein, Percutaneous Approach (ICD-10-PCS; 2022-12-09)
PROC: 3E023GC Introduction of Other Therapeutic Substance into Muscle, Percutaneous Approach (ICD-10-PCS; 2022-12-09)
DX: K29.70 Gastritis, unspecified, without bleeding (principal); K21.9 Gastro-esophageal reflux disease without esophagitis; F19.10 Other psychoactive substance abuse, uncomplicated; J45.909 Unspecified asthma, uncomplicated; F41.8 Other specified anxiety disorders; F43.10 Post-traumatic stress disorder, unspecified; Z88.8 Allergy status to other drugs, medicaments and biological substances; Z79.01 Long term (current) use of anticoagulants; K27.9 Peptic ulcer, site unspecified, unspecified as acute or chronic, without hemorrhage or perforation; Z86.718 Personal history of other venous thrombosis and embolism; F17.210 Nicotine dependence, cigarettes, uncomplicated; R11.2 Nausea with vomiting, unspecified
CPT/HCPCS: 0241U-QW; 36415; 71045-TC-FY; 74177-TC; 80053; 81003; 82105; 82378; 82962; 83690; 83735; 84100; 84484; 85025; 85610; 85730; 86140; 86301; 86705; 86803; 86850; 86900; 86901; 87040; 87340; 87389; 87517; 93005; 93010; 93306-TC; 96361; 96365; 96372; 96374; 96375; 99285-25; G0378; Q9967

== ENCOUNTER 2023-02-05 11:32 | Inpatient (IN) | payer OTHER ==
[2023-02-05 12:20] VITALS: BMI 15.0
[2023-02-05] MEDS ORDERED: LOPERAMIDE HCL 2 MG CAPSULE PO PRN (13:15)
[2023-02-05] MEDS ORDERED: LORazepam 1 MG TABLET PO PRN (13:15)
[2023-02-05] MEDS ORDERED: IBUPROFEN 400 MG TABLET (FP) PO PRN (13:15)
[2023-02-05] MEDS ORDERED: DICYCLOMINE HCL 10 MG CAPSULE PO PRN (13:15)
[2023-02-05] MEDS ORDERED: NICOTINE 10 MG CARTRIDGE (INHALER) IH PRN (13:15)
[2023-02-05] MEDS ORDERED: guaiFENesin 600 MG TABLET.ER (FP) PO PRN (13:15)
[2023-02-05] MEDS ORDERED: NALOXONE HCL 0.4 MG/ML VIAL IM PRN (13:15)
[2023-02-05] MEDS ORDERED: MAGNESIUM HYDROX 2400MG/30ML ORAL SUSPENSION 30 ML CUP PO PRN (13:15)
[2023-02-05] MEDS ORDERED: BISMUTH SUBSALICYLATE 262 MG/15 ML BTL PO PRN (13:15)
[2023-02-05] MEDS ORDERED: NALOXONE HCL (KLOXXADO) 8 MG SPRAY NS PRN (13:15)
[2023-02-05] MEDS ORDERED: ONDANSETRON *ODT* 4 MG TABLET SL PRN (13:15)
[2023-02-05] MEDS ORDERED: ACETAMINOPHEN 325 MG TABLET (FP) PO PRN (13:15)
[2023-02-05] MEDS ORDERED: IBUPROFEN 600 MG TABLET (FP) PO PRN (13:15)
[2023-02-05] MEDS ORDERED: MAG HYDROX/AL HYDROX/SIMETH 30 ML UNIT-DOSE CUP PO PRN (13:15)
[2023-02-05] MEDS ORDERED: POLYETHYLENE GLYCOL (HEALTHYLAX) 3350 17 GM PACKET PO PRN (13:15)
[2023-02-05] MEDS ORDERED: BENZONATATE 200 MG CAPSULE PO PRN (13:15)
[2023-02-05] MEDS ORDERED: BENZOCAINE/MENTHOL (CHLORASEPTIC ) LOZENGE MM PRN (13:15)
[2023-02-05] MEDS: NICOTINE 7 MG/24 HOURS TOPICAL PATCH TD SCH (15:18)
[2023-02-05] MEDS: PRENATAL VITAMINS W/ FOLIC ACID TABLET (FP) PO SCH (15:18)
[2023-02-05] MEDS ORDERED: LORazepam 2 MG TABLET PO SCH (17:00)
[2023-02-05 17:51] LABS: CALCIUM 9.6 mg/dL (8.5-10.1); HEMOGLOBIN 13.4 GM/dL (11.7-16.9); MCH 31.9 pg (25.7-33.7); MCHC 34.4 g/dl (32.0-35.9); MEAN CELL VOLUME 92.7 fl (80-96); MEAN PLT VOLUME 10.5 fl (7.5-11.1); PLATELET COUNT 220 10^3/uL (134-434); RBC 4.21 M/mm3 (4.00-5.60); RDW 14.4 % (11.9-15.9); WHITE BLOOD COUNT 5.2 K/mm3 (4.0-10.0)
[2023-02-05 17:52] LABS: ALBUMIN 3.7 g/dl (3.4-5.0); BLOOD UREA NITROGEN 23.4 mg/dL (7-18)
[2023-02-05 17:55] LABS: CREATININE 0.9 mg/dL (0.55-1.3)
[2023-02-05 17:57] LABS: BILIRUBIN,TOTAL 0.4 mg/dL (0.2-1)
[2023-02-05] MEDS: LORazepam 2 MG TABLET PO SCH ×2 (18:18→23:13)
[2023-02-05] MEDS: MELATONIN 5 MG TABLETS PO SCH (23:12)
[2023-02-05] MEDS: PANTOPRAZOLE 40 MG TABLET PO SCH (23:12)
[2023-02-05] MEDS: THIAMINE HCL 100 MG TABLET (FP) PO SCH (23:13)
[2023-02-05] MEDS: SUCRALFATE 1 GM/10 ML UNIT DOSE CUPS PO SCH (23:28)
[2023-02-06] MEDS: methaDONE 40 MG, methaDONE 30 MG PO SCH (05:37)
[2023-02-06] MEDS: LORazepam 2 MG TABLET PO SCH ×4 (05:37→22:36)
[2023-02-06] MEDS ORDERED: methaDONE HCL 10 MG TABLET PO SCH (06:00)
[2023-02-06] MEDS: PANTOPRAZOLE 40 MG TABLET PO SCH ×2 (10:51→22:36)
[2023-02-06] MEDS: SUCRALFATE 1 GM/10 ML UNIT DOSE CUPS PO SCH ×2 (10:53→22:36)
[2023-02-06] MEDS: NICOTINE 7 MG/24 HOURS TOPICAL PATCH TD SCH (10:53)
[2023-02-06] MEDS: PRENATAL VITAMINS W/ FOLIC ACID TABLET (FP) PO SCH (10:53)
[2023-02-06] MEDS: LACTULOSE 20 GM/30 ML UDC (FOR ORAL USE ONLY) PO SCH ×2 (15:58→22:36)
[2023-02-06] MEDS: QUEtiapine FUMARATE 200 MG TABLET PO SCH (22:36)
[2023-02-06] MEDS: MELATONIN 5 MG TABLETS PO SCH (22:36)
[2023-02-06] MEDS: THIAMINE HCL 100 MG TABLET (FP) PO SCH (22:36)
[2023-02-07] MEDS: METHOCARBAMOL 500 MG TABLET PO PRN ×2 (01:06→17:50)
[2023-02-07] MEDS: hydrOXYzine PAMOATE 25 MG CAPSULE (FP) PO PRN (01:06)
[2023-02-07] MEDS: LACTULOSE 20 GM/30 ML UDC (FOR ORAL USE ONLY) PO SCH ×3 (06:12→21:53)
[2023-02-07] MEDS: LORazepam 1 MG TABLET PO SCH ×4 (06:13→22:03)
[2023-02-07] MEDS: methaDONE 40 MG, methaDONE 30 MG PO SCH (06:13)
[2023-02-07] MEDS: PANTOPRAZOLE 40 MG TABLET PO SCH ×2 (10:30→21:53)
[2023-02-07] MEDS: QUEtiapine FUMARATE 100 MG TABLET (FP) PO SCH (10:30)
[2023-02-07] MEDS: SUCRALFATE 1 GM/10 ML UNIT DOSE CUPS PO SCH (10:30)
[2023-02-07] MEDS: PRENATAL VITAMINS W/ FOLIC ACID TABLET (FP) PO SCH (10:30)
[2023-02-07] MEDS: NICOTINE 7 MG/24 HOURS TOPICAL PATCH TD SCH (10:31)
[2023-02-07] MEDS: THIAMINE HCL 100 MG TABLET (FP) PO SCH (21:53)
[2023-02-07] MEDS: QUEtiapine FUMARATE 200 MG TABLET PO SCH (21:53)
[2023-02-07] MEDS: MELATONIN 5 MG TABLETS PO SCH (21:53)
[2023-02-08] MEDS ORDERED: LORazepam 0.5 MG TABLET PO PRN
[2023-02-08] MEDS: SUCRALFATE 1 GM/10 ML UNIT DOSE CUPS PO SCH ×3 (00:44→22:57)
[2023-02-08] MEDS: LORazepam 0.5 MG TABLET PO SCH ×4 (05:41→23:18)
[2023-02-08] MEDS: methaDONE 40 MG, methaDONE 30 MG PO SCH (05:42)
[2023-02-08] MEDS: LACTULOSE 20 GM/30 ML UDC (FOR ORAL USE ONLY) PO SCH ×3 (05:42→22:56)
[2023-02-08] MEDS: NICOTINE 7 MG/24 HOURS TOPICAL PATCH TD SCH (10:58)
[2023-02-08] MEDS: PANTOPRAZOLE 40 MG TABLET PO SCH ×2 (10:59→22:56)
[2023-02-08] MEDS: QUEtiapine FUMARATE 100 MG TABLET (FP) PO SCH (11:00)
[2023-02-08] MEDS: PRENATAL VITAMINS W/ FOLIC ACID TABLET (FP) PO SCH (11:01)
[2023-02-08] MEDS ORDERED: methaDONE HCL 10 MG TABLET PO ONE (14:01)
[2023-02-08] MEDS: METHOCARBAMOL 500 MG TABLET PO PRN (17:47)
[2023-02-08] MEDS: THIAMINE HCL 100 MG TABLET (FP) PO SCH (22:56)
[2023-02-08] MEDS: QUEtiapine FUMARATE 200 MG TABLET PO SCH (22:56)
[2023-02-08] MEDS: MELATONIN 5 MG TABLETS PO SCH (23:19)
[2023-02-09] MEDS ORDERED: LORazepam 0.5 MG TABLET PO ONE (05:00)
[2023-02-09] MEDS: methaDONE 40 MG, methaDONE 30 MG PO SCH (07:49)
[2023-02-09] MEDS: LACTULOSE 20 GM/30 ML UDC (FOR ORAL USE ONLY) PO SCH ×2 (07:51→13:47)
[2023-02-09 09:32] VITALS: TEMP 97.7
[2023-02-09] MEDS: PRENATAL VITAMINS W/ FOLIC ACID TABLET (FP) PO SCH (11:01)
[2023-02-09] MEDS: PANTOPRAZOLE 40 MG TABLET PO SCH (11:01)
[2023-02-09] MEDS: hydrOXYzine PAMOATE 25 MG CAPSULE (FP) PO PRN (11:01)
[2023-02-09] MEDS: QUEtiapine FUMARATE 100 MG TABLET (FP) PO SCH (11:01)
[2023-02-09] MEDS: NICOTINE 7 MG/24 HOURS TOPICAL PATCH TD SCH (11:01)
[2023-02-09] MEDS: METHOCARBAMOL 500 MG TABLET PO PRN (11:02)
[2023-02-09] MEDS: SUCRALFATE 1 GM/10 ML UNIT DOSE CUPS PO SCH (11:02)
[2023-02-09 12:26] VITALS: BP 113/62; PULSE 80; RESP 16
== END 2023-02-09 15:15 | disposition other institution (70) | DRG 773 ==
LOC: YASAS 11:32 → Y3N 14:08 → Y6N 02-08 01:13
PROVIDERS: ADMIT Allergy & Immunology; ATTEND Surgery
PROC: HZ2ZZZZ Detoxification Services for Substance Abuse Treatment (ICD-10-PCS; principal; 2023-02-05)
DX: F10.230 Alcohol dependence with withdrawal, uncomplicated (principal); F11.20 Opioid dependence, uncomplicated; F14.20 Cocaine dependence, uncomplicated; F12.20 Cannabis dependence, uncomplicated; F17.210 Nicotine dependence, cigarettes, uncomplicated; F31.9 Bipolar disorder, unspecified; I10 Essential (primary) hypertension; J44.9 Chronic obstructive pulmonary disease, unspecified; J45.20 Mild intermittent asthma, uncomplicated; K21.9 Gastro-esophageal reflux disease without esophagitis; N40.0 Benign prostatic hyperplasia without lower urinary tract symptoms; R79.89 Other specified abnormal findings of blood chemistry; R41.82 Altered mental status, unspecified; Z87.19 Personal history of other diseases of the digestive system
CPT/HCPCS: 36415; 80053; 82140; 85027; 86593; 86780; 87811; C9803-CS; U0003; U0005

== ENCOUNTER 2023-02-09 15:19 | Inpatient (IN) | payer OTHER ==
[2023-02-09] MEDS ORDERED: NALOXONE HCL (KLOXXADO) 8 MG SPRAY NS PRN (16:03)
[2023-02-09] MEDS ORDERED: BENZONATATE 200 MG CAPSULE PO PRN (16:03)
[2023-02-09] MEDS ORDERED: NICOTINE 10 MG CARTRIDGE (INHALER) IH PRN (16:03)
[2023-02-09] MEDS ORDERED: IBUPROFEN 400 MG TABLET (FP) PO PRN (16:03)
[2023-02-09] MEDS ORDERED: IBUPROFEN 600 MG TABLET (FP) PO PRN (16:03)
[2023-02-09] MEDS ORDERED: NICOTINE 14 MG/24 HOURS TOPICAL PATCH TD PRN (16:03)
[2023-02-09] MEDS ORDERED: hydrOXYzine PAMOATE 25 MG CAPSULE (FP) PO PRN (16:03)
[2023-02-09] MEDS ORDERED: LOPERAMIDE HCL 2 MG CAPSULE PO PRN (16:03)
[2023-02-09] MEDS ORDERED: MAGNESIUM HYDROX 2400MG/30ML ORAL SUSPENSION 30 ML CUP PO PRN (16:03)
[2023-02-09] MEDS ORDERED: BENZOCAINE/MENTHOL (CHLORASEPTIC ) LOZENGE MM PRN (16:03)
[2023-02-09] MEDS ORDERED: POLYETHYLENE GLYCOL (HEALTHYLAX) 3350 17 GM PACKET PO PRN (16:03)
[2023-02-09] MEDS ORDERED: METHOCARBAMOL 500 MG TABLET PO PRN (16:03)
[2023-02-09] MEDS ORDERED: MAG HYDROX/AL HYDROX/SIMETH 30 ML UNIT-DOSE CUP PO PRN (16:03)
[2023-02-09] MEDS ORDERED: guaiFENesin 600 MG TABLET.ER (FP) PO PRN (16:03)
[2023-02-09] MEDS ORDERED: NALOXONE HCL 0.4 MG/ML VIAL IVPUSH PRN (16:03)
[2023-02-09] MEDS ORDERED: NICOTINE POLACRILEX 4 MG GUM BUC PRN (16:03)
[2023-02-09] MEDS: LACTULOSE 20 GM/30 ML UDC (FOR ORAL USE ONLY) PO SCH (21:07)
[2023-02-09] MEDS: PANTOPRAZOLE 40 MG TABLET PO SCH (21:08)
[2023-02-09] MEDS: SUCRALFATE 1 GM TABLET (FP) PO SCH (21:09)
[2023-02-09] MEDS ORDERED: MELATONIN 5 MG TABLETS PO SCH (22:00)
[2023-02-09] MEDS ORDERED: THIAMINE HCL 100 MG TABLET (FP) PO SCH (22:00)
[2023-02-09] MEDS ORDERED: QUEtiapine FUMARATE 200 MG TABLET PO SCH (22:00)
[2023-02-10] MEDS ORDERED: methaDONE HCL 10 MG TABLET PO SCH (06:00)
[2023-02-10] MEDS ORDERED: methaDONE 40 MG, methaDONE 30 MG PO SCH (06:00)
[2023-02-10] MEDS: LACTULOSE 20 GM/30 ML UDC (FOR ORAL USE ONLY) PO SCH ×2 (06:18→14:55)
[2023-02-10] MEDS ORDERED: PRENATAL VITAMINS W/ FOLIC ACID TABLET (FP) PO SCH (10:00)
[2023-02-10] MEDS ORDERED: QUEtiapine FUMARATE 100 MG TABLET (FP) PO SCH (10:00)
[2023-02-10] MEDS: SUCRALFATE 1 GM TABLET (FP) PO SCH (10:52)
[2023-02-10] MEDS: PANTOPRAZOLE 40 MG TABLET PO SCH (11:53)
[2023-02-10] MEDS ORDERED: FLU VACC QS2022-23(6MOS UP)/PF 60 MCG/0.5 ML SYRINGE IM ONE (12:00)
[2023-02-10 21:02] VITALS: BP 130/74; PULSE 83; RESP 20; TEMP 98.4
== END 2023-02-10 21:11 | disposition left against medical advice (07) | DRG 770 ==
LOC: YASAS 15:19 → Y3W 15:20
PROVIDERS: ADMIT Allergy & Immunology; ATTEND Psychiatry & Neurology Pain Medicine
PROC: HZ42ZZZ Group Counseling for Substance Abuse Treatment, Cognitive-Behavioral (ICD-10-PCS; principal; 2023-02-09)
DX: F11.20 Opioid dependence, uncomplicated (principal); F10.20 Alcohol dependence, uncomplicated; F14.20 Cocaine dependence, uncomplicated; F12.20 Cannabis dependence, uncomplicated; F17.210 Nicotine dependence, cigarettes, uncomplicated; F41.9 Anxiety disorder, unspecified; F32.A Depression, unspecified; E78.5 Hyperlipidemia, unspecified; J44.9 Chronic obstructive pulmonary disease, unspecified; I10 Essential (primary) hypertension; K21.9 Gastro-esophageal reflux disease without esophagitis; R79.89 Other specified abnormal findings of blood chemistry; Z87.19 Personal history of other diseases of the digestive system; Z86.718 Personal history of other venous thrombosis and embolism; Z86.711 Personal history of pulmonary embolism
CPT/HCPCS: 36415; 70450-TC; 72125-TC; 82140; 86803